=== PATIENT | female | born 1940 | race Caucasian/White ===

== ENCOUNTER 2017-01-23 06:34 | Day surgery (SDC) | payer MEDICARE, OTHER ==
[~2017-01-23] VITALS: Ht 162.6 cm; Wt 56.7 kg
[2017-01-23] MEDS ORDERED: SODIUM BICARBONATE 100 MEQ in D5W 1000 ML IV SCH (08:00)
[2017-01-23] MEDS ORDERED: HYDR12.56 PO (08:10)
[2017-01-23] MEDS ORDERED: ALPR.5 PO (08:10)
[2017-01-23] MEDS ORDERED: ALLE10TA10 PO (08:10)
[2017-01-23] MEDS ORDERED: POTA10TA8 PO (08:10)
[2017-01-23] MEDS ORDERED: GABA300C5 PO (08:10)
[2017-01-23] MEDS ORDERED: PLAV75TA29 PO (08:10)
[2017-01-23] MEDS ORDERED: LOSA50TA PO (08:10)
[2017-01-23] MEDS ORDERED: REQU4TAB3 PO (08:10)
[2017-01-23] MEDS ORDERED: METO25TA3 PO (08:10)
[2017-01-23] MEDS ORDERED: ATOR40TA16 PO (08:10)
[2017-01-23] MEDS ORDERED: PROT40TA PO (08:10)
[2017-01-23 08:13] LABS: AUTOMATED NEUTROPHIL # 2.4 TH/MM3 (1.8-7.7); BASOPHIL # 0.1 TH/MM3 (0-0.2); BASOPHIL % 1.3 % (0.0-2.0); EOSINOPHIL # 0.3 TH/MM3 (0-0.4); EOSINOPHIL % 5.6 % (0.0-4.0); HEMATOCRIT 33.5 % (35.0-46.0); HEMO FLAGS DIFF FINAL; LYMPHOCYTE # 2.1 TH/MM3 (1.0-4.8); MEAN CELL VOLUME 91.4 FL (80.0-100.0); MEAN CORPUSCULAR HEMOGLOBIN 30.9 PG (27.0-34.0); MEAN CORPUSCULAR HGB CONC 33.8 % (32.0-36.0); MONO % 11.6 % (0.0-8.0); NEUT % 43.5 % (16.0-70.0); PLATELET COUNT 255 TH/MM3 (150-450); RED BLOOD COUNT 3.66 MIL/MM3 (4.00-5.30); RED CELL DISTRIBUTION WIDTH 15.8 % (11.6-17.2); WHITE BLOOD COUNT 5.5 TH/MM3 (4.0-11.0)
[2017-01-23] MEDS ORDERED: HEPARIN-NS/PF INJ 500 ML ONE (08:36)
[2017-01-23] MEDS ORDERED: MIDAZOLAM HCL 2 MG/2 ML VIAL ONE (08:36)
[2017-01-23] MEDS ORDERED: methylPREDNISolone SOD SUCC 125 MG/2 ML VIAL ONE (08:38)
[2017-01-23 08:39] LABS: POTASSIUM 4.1 MEQ/L (3.5-5.1)
--- NOTE | 2017-01-23 09:03 | HHI.PR ---
Immediate Post Op Note Procedure Date: January 23, 2017 Pre Op Diagnosis: L LE rest pain, PAD, occluded bypass Post Op Diagnosis: L LE rest pain, PAD, occluded bypass Surgeon: Kishore Eugene Maintenance Shop Technician(s): none Procedure: L LE angiogram Findings: patent ABF limb and profunda occluded END TRIMMER-AK pop bypass BK pop reconstitution with 3 vessel runoff to foot Complications: none apparent Specimen(s) removed: none Estimated blood loss: 5mL Anesthesia: MAC Drains: None Patient to: Other (DOCU) Patient Condition: Good Date/Time of Procedure: SEE SURGICAL CARE RECORD Kishore Eugene MD January 23, 2017 09:03
--- NOTE | 2017-01-23 09:14 | CATHPROC ---
[employer] HIS Report Study Information Study Number Admission Scheduled Start Study Start [id number] 01/23/2017 01/23/2017 Jan 23 2017 8:24AM Referring Institution Admit Source Facility Department 1 Other [facility] Spring Inspector Physician and Clinical Staff Initial Kishore Perez Tape Deck Installer Jamila Nixon,RN Recorder Gustavo Martinez,RT(R) Jozef Narayan,RT(R) Equipment Time Card Hanger Description Size Mfg Part Number Used/Scraped INTRODUCER SET, [id number] 08:26 [employer] FR 5 Used MICROPUNCTURE, STIFFENED SC-NT-U-SST 08:26 [employer] PACK, CCL CUSTOM * [id number] Used 08:26 MERIT [employer] PRESSURE TUBING 48" 48" [id number] Used 08:26 NAMIC TUBING, HIGH PRESSURE 20" 20" [id number] Used 08:54 NYCOMED OMNIPAQUE, 300 MG, 150ML 150ML [id number] Used History: Allergies Allergy Reaction Contrast Media Codeine Morphine Labs Hgb (g/dl) Hct (%) RBC (MIL/MM3) WBC (l/cumm) Platelets (thousands) 12.00-18.00 37.00-55.00 4.80-6.20 4.80-10.80 140.00-450.00 11.3 33.5 3.6 5.5 255 Glucose (mg/dl) BUN (mg/dl) Creatinine (mg/dl) BUN:Creatinine (1:x) 60.00-110.00 8.00-20.00 0.10-9.00 10.00-20.00 77 17 0.8 21.3 Na (meq/l) K (meq/l) Cl (meq/l) CO2 (mmol/L) Ca (mg/dl) 138.00-146.00 3.80-5.10 101.00-111.00 23.00-30.00 9.00-10.50 133 4.1 98 26 9.1 CPK-MB (ng/ML) 0.00-7.00 Not Drawn Medication Medication Total Dose (Bolus/Oral) Medication Total Dosage/Unit 1% XYLOCAINE 10 mL FENTANYL 50 mcg SOLU-MEDROL 125 mg VERSED 1 mg Medications (Bolus/Oral) Medication Time Given Dosage/Unit Administered By Reason SOLU-MEDROL 01/23/2017 8:43:17 AM 125 mg Adamy, Jamila 125 mg SOLU-MEDROL given in lab by Jamila Nixon, GWEN in Right Arm via Peripheral IV. Ordered by Kishore Merritt. VERSED 01/23/2017 8:52:25 AM 1 mg Adamy, Jamila 1 mg VERSED given in lab by Jamila Nixon, GWEN via Peripheral IV. Ordered by Kishore Eugene. FENTANYL 01/23/2017 8:53:12 AM 50 mcg Adamy, Jamila 50 mcg FENTANYL given in lab by Jamila Nixon, GWEN via Peripheral IV. Ordered by Kishore Eugene. 1% XYLOCAINE 01/23/2017 8:54:07 AM 10 mL Kishore Eugene 10 mL 1% XYLOCAINE given in lab by Kishore Eugene in Left Groin via Subcutaneous. Ordered by Kishore Eugene. Initial Case Assessment Cardiovascular HR Rhythm NIBP Chest Pain 68 SR 169/55 0 Edema Present Skin color Skin None Normal Warm Dry Circulatory - Right Pulses Dorsalis Pedis Posterior Tibial Femoral d d 3 Scale (0,1,2,3,4,d) Circulatory - Left Pulses Dorsalis Pedis Posterior Tibial Femoral d d 3 Scale (0,1,2,3,4,d) Neurological State Oriented to time-place- Alert Moves all extremities person Respiration - General Respiration Rate SpO2 (%) O2 (lpm) (B/min) 18 98 0 Final Case Assessment Cardiovascular HR Rhythm NIBP 65 sr 128/60 Edema Present Skin color Skin None Normal Warm Dry Circulatory - Right Pulses Dorsalis Pedis Posterior Tibial Femoral d d 3 Scale (0,1,2,3,4,d) Circulatory - Left Pulses Dorsalis Pedis Posterior Tibial Femoral d d 3 Scale (0,1,2,3,4,d) Neurological State Oriented to time-place- Alert Moves all extremities person Respiration - General Respiration Rate SpO2 (%) O2 (lpm) (B/min) 18 99 0 Chronological Log Time Study Chronological Log 8:35:46 Patient arrived via Bed. 8:35:47 Patient Name, D.O.B, / Armband Verified By R.N. 8:35:49 Consent signed by the physician and the patient and verified by the Spring Inspector staff. 8:35:53 Pre-op and post- op instructions given; patient acknowledges understanding of instructions. 8:35:56 Verbal Stimulation=2 Physical Stimulation=2 Airway=2 Respiration=2 TOTAL=8. (0=absent, 1=li mited, 2=present) 8:36:05 Presedation assessment performed by Spring Inspector RN. 8:36:07 Patient has been NPO for More than 6Hrs. 8:43:17 125 mg SOLU-MEDROL given in lab by Jamila Nixon RN in Right Arm via Peripheral IV. Orde red by Kishore Eugene. Vitals capture started with the following parameters, Patient=Adult, Interval=5 min, Initial Pr dkqsgz=788 mmHg, 8:44:25 Deflation Rate=5 mmHg 8:46:12 HR=70 bpm, COZI=958/74 mmhg, SpO2=95 %, Cooper=2 8:49:08 Vitals capture stopped. Vitals capture started with the following parameters, Patient=Adult, Interval=5 min, Initial Pr vtystb=857 mmHg, 8:49:09 Deflation Rate=5 mmHg 8:49:58 HR=69 bpm, EKPW=911/55 mmhg, SpO2=71.0 %, Resp=11 B/min, Cooper=2 8:50:36 Patient Warmer Placed on the Table. 8:50:44 A # 20 IV was noted in the Upper Arm (right). Grade = 0 8:51:45 History and physical on the chart or being dictated. Assessment: Initial Case, HR=68 BPM, Rhythm=SR, NVDB=984/55 mmhg, Chest Pain=0, Edema=None, Col or=Normal, Skin = Warm, Dry Right Pulses: Rajesh Ped=d, Post Tib=d, Femoral=3 8:51:53 Left Pulses: Rajesh Ped=d, Post Tib=d, Femoral=3 Neurological: State=Alert, Ox3, SYED Respiration: Resp=18 B/min, SpO2=98 %, O2=0 lpm 8:52:25 1 mg VERSED given in lab by Jamila Nixon, GWEN via Peripheral IV. Ordered by Jake Eugene 8:52:39 Bilateral groins prepped with 2% chlorhexidine, and with a 3 min. waiting time. 8:53:12 50 mcg FENTANYL given in lab by Jamila Nixon, GWEN via Peripheral IV. Ordered by Siddhartha Eugene. Time Out. Correct patient, correct procedure,correct physician, ,power injector not loaded with contrast with surgical 8:53:41 team present. Time Out Concurred by MD, individual staff and MATERIAL MOVER in procedure. Not loaded at t his time. 8:54:06 Case Start 8:54:07 10 mL 1% XYLOCAINE given in lab by Kishore Eugene in Left Groin via Subcutaneous. Ordered b Kishore Ennis. 8:54:16 Access site was Left Femoral Artery. A INTRODUCER SET, MICROPUNCTURE, STIFFENED FR 5 was advanced into the Fem Art (left) using the Modified 8:54:21 Seldinger technique. 8:54:42 Manual injections down left leg through 5 uruguayan micropuncture sheath. 8:54:46 HR=69 bpm, GWYT=395/86 mmhg, UiL5=985.0 %, Resp=21 B/min, Cooper=2 8:56:45 Sheath removed; pressure applied to access site. left groin. 8:57:54 Case End 8:59:45 HR=64 bpm, OBMW=377/51 mmhg, NdZ0=922.0 %, Resp=19 B/min 9:04:47 HR=62 bpm, HFXJ=666/59 mmhg, BnI8=398.0 %, Resp=21 B/min, Cooper=2 9:09:43 HR=61 bpm, EZDA=337/60 mmhg, Resp=24 B/min, Cooper=2 9:11:32 Vitals capture stopped. 9:11:48 Bedside Report will be given. Assessment: Final Case, HR=65 BPM, Rhythm=sr, YNNE=943/60 mmhg, Edema=None, Color=Normal, Skin = Warm, Dry Right Pulses: Rajesh Ped=d, Post Tib=d, Femoral=3 9:11:56 Left Pulses: Rajesh Ped=d, Post Tib=d, Femoral=3 Neurological: State=Alert, Ox3, SYED Respiration: Resp=18 B/min, SpO2=99 %, O2=0 lpm 9:13:04 Sterile dressing applied to site 9:13:09 No case complications noted. 9:13:11 Cine recording checked. 9:13:16 Bedside Report will be given. 9:13:25 Contrast Scanned 9:13:27 Patient moved to stretcher End Study - Contrast Media Used In Study Contrast Total Opened (mL) Total Used (mL) Total Wasted (mL) Omnipaque 25 25 0 End Study - Maximum Contrast Load Max Contrast Load (mL) 354.3 End Study - Radiation Exposure Fluoro Time (minutes) 0.6 End Study - Patient Disposition Complications Transferred To Telemetry Bed
[2017-01-23] MEDS ORDERED: IOHEXOL 350 MG/ML 50 ML BTL (for Cath Lab) OTHER ONE (15:40)
--- NOTE | 2017-01-24 13:30 | MP ---
cc: CANDACE EUGENE MD DATE OF SURGERY 01/23/2017 PREOPERATIVE DIAGNOSIS Left lower extremity graft failed distal bypass. POSTOPERATIVE DIAGNOSIS Left lower extremity graft failed distal bypass. PROCEDURE Left lower extremity angiogram. ATTENDING SURGEON Candace Eugene MD RESIDENT SURGEON None ANESTHESIA Local with sedation INDICATIONS Ms. Saunders is a 76 year-old lady with a history of an aortobifemoral bypass graft in the left lower extremity. The infrarenal bypass is felt to be occluded by preoperative examination. She is being taken to the operating room for angiographic evaluation. There was no prior catheterization imaging available for my review. DESCRIPTION OF PROCEDURE Informed consent was obtained from the patient. She was taken to the operating room and placed supine on the operating room table. An appropriate time out was taken to ensure the patient's identify, operative site and planned procedure. No antibiotics were necessary as this is a clean procedure without planned implantation of any foreign object. Everyone in the room agreed with the time out and we proceeded. Her bilateral groins were prepped and draped. The left groin was anesthetized with 1% lidocaine. A 21 gauge micropuncture needle was used to access the left ABF limb. This was exchanged using Seldinger technique through the micropuncture sheath through which a left lower extremity angiogram was obtained. The micropuncture sheath was removed and pressure was held for hemostasis. There were no complications. I was present and scrubbed for the entire procedure. INTERPRETATION IMAGES The patient has a patent aortobifemoral limb that has excellent profunda outflow. The campo SFA and prosthetic femoral-popliteal bypass is occluded. The popliteal artery is diseased, but reconstitutes via profunda collaterals. Below knee popliteal artery looks good and there is three vessel runoff to the foot. MD MELISSA Moeller/TWYLA /9:08 AM /1:22 PM TERESE
== END 2017-01-23 13:53 | disposition home or self-care (01) ==
LOC: HDOC 06:34 → HDIC 06:35 → HDOC 13:53
PROVIDERS: ATTEND Surgery
DX: T82.868A Thrombosis due to vascular prosthetic devices, implants and grafts, initial encounter (principal); Z79.01 Long term (current) use of anticoagulants
CPT/HCPCS: 36140; 75710; 80048; 85025; J1644; J2250; J2930; J3010; Q9967

== ENCOUNTER 2017-02-02 11:17 | Inpatient (IN) | payer MEDICARE, OTHER ==
[~2017-02-02] VITALS: Ht 158.8 cm; Wt 60.0 kg
[~2017-02-02 11:17] MED LIST changes: -HYDR25TA5 PO; -ISOS30TA3 PO; -NORC5TAB PO; -NYST1000 SWISH-SWAL; -WALKER WHEELS/F1 MIS
[2017-02-06] VITALS (12 sets, daily range): BP systolic 139–164; BP diastolic 55–62; PULSE 57–83; RESP 16–20; TEMP 96.7–98.2; O2SAT 96–100
[2017-02-06] MEDS ORDERED: INSULIN HUMAN REGULAR 1,000 UNITS/10 ML VIAL SQ PRN (06:15)
[2017-02-06] MEDS ORDERED: LACTATED RINGER'S 1000 ML IV PRN (06:15)
[2017-02-06] MEDS ORDERED: CHLORHEXIDINE GLUCONATE 2 % 1 PACK (2 CLOTHS) TOPICAL PRN (06:15)
[2017-02-06] MEDS ORDERED: POVIDONE IODINE 5% (ANTISEPSIS KIT) 4 APPLICATIONS EACH NARE PRN (06:15)
[2017-02-06] MEDS ORDERED: METOPROLOL TARTRATE 25 MG TAB PO PRN (06:15)
[2017-02-06] MEDS ORDERED: SODIUM CHLORID 0.9% 500 ML IV PRN (06:15)
[2017-02-06] MEDS ORDERED: ISOS30TA3 PO (07:03)
[2017-02-06] MEDS ORDERED: ceFAZolin 2 GM PREMIX 50 ML ONE (07:20)
[2017-02-06] MEDS ORDERED: PROTAMINE SULFATE 50 MG/5 ML VIAL ONE (07:20)
[2017-02-06] MEDS ORDERED: HEPARIN SODIUM - SQ 10,000 UNITS/ML VIAL ONE (07:20)
[2017-02-06] MEDS ORDERED: HEPARIN SODIUM - IV 10,000 UNITS/10 ML VIAL ONE (07:20)
--- NOTE | 2017-02-06 09:23 | PD.VS.PN ---
Pre-operative Note Pre-operative diagnosis: PAD, failed distal bypass, rest pain LEFT leg Planned procedure: LEFT leg bypass with vein from either leg, arm or prosthetic Interval History: Pt been feeling well; ready for surgery Blood: T&S Orders: NPO Post-operative destination: PACU, [facility] Operative site marked: Yes Consent: Informed consent has been obtained from Siena Saunders. I have explained the procedure in detail and discussed the risks, benefits, and potential complications. All questions have been answered. Kishore Eugene MD February 06, 2017 09:23
[2017-02-06] MEDS ORDERED: BUPIVACAINE/EPINEPHRINE 0.5% 50 ML VIAL ONE (10:50)
[2017-02-06] MEDS ORDERED: VANCOMYCIN HCL 1000 MG VIAL ONE (10:50)
[2017-02-06] MEDS ORDERED: THROMBIN (TOPICAL) 20,000 UNIT SPRAY KIT OTHER ONE (11:11)
[2017-02-06] MEDS ORDERED: ONDANSETRON HCL 4 MG/2 ML VIAL IV PUSH ONE (12:00)
[2017-02-06] MEDS ORDERED: PROPOFOL 200 MG/20 ML AMP IV ONE (12:00)
[2017-02-06] MEDS ORDERED: PHENYLEPH/NS 1000 MCG/10 ML SYR IV ONE (12:00)
[2017-02-06] MEDS ORDERED: LACTATED RINGER'S 1000 ML INJ 2,000 ML IV ONE (12:00)
[2017-02-06] MEDS ORDERED: ePHEDrine/NS 25 MG/5 ML SYR IV ONE (12:00)
--- NOTE | 2017-02-06 12:44 | HHI.PR ---
Immediate Post Op Note Procedure Date: February 06, 2017 Pre Op Diagnosis: PAD, L LE rest pain, failed distal bypass Post Op Diagnosis: PAD, L LE rest pain, failed distal bypass Surgeon: Kishore Eugene Systems Test Analyst(s): Constantino Benites Procedure: 1. L fem-BK pop bypass with PTFE 2. L BK pop vein patch (GSV) 3. Re-do bypass Findings: small and unusable L GSV and R cephalic vein Good signals in PT at conclusion of case Complications: none apparent Specimen(s) removed: none Estimated blood loss: 150mL Anesthesia: General Drains: None Fluids: 1750 mL x'oid; 400 mL UOP IVF Patient to: PACU Patient Condition: Good Implant/Devices: SEE IMPLANT LOG (if applicable) Date/Time of Procedure: SEE SURGICAL CARE RECORD Kishore Eugene MD February 06, 2017 12:44
[2017-02-06] MEDS ORDERED: HYDROmorphone HCL 2 MG TAB PO PRN (13:00)
[2017-02-06] MEDS ORDERED: fentaNYL CITRATE 250 MCG/5 ML AMP ONE (13:10)
[2017-02-06] MEDS ORDERED: *HYDROmorphone PF 1 MG VIAL PERIprocedural Use ONLY ONE ×2 (13:15→13:32)
[2017-02-06] MEDS: LACTATED RINGER'S 1000 ML INJ 1,000 ML IV SCH (13:45)
[2017-02-06] MEDS ORDERED: PILL SPLITTER OTHER PRN (14:00)
--- NOTE | 2017-02-06 14:23 | RADRPT ---
EXAM DATE/TIME: 02/06/2017 13:27 [facility] COMPARISON: CHEST PA & LAT, February 02, 2017, 12:14. INDICATIONS : Central line placement. MEDICAL HISTORY : None. SURGICAL HISTORY : aortic bypass ENCOUNTER: Initial ACUITY: 1 day PAIN SCORE: 0/10 LOCATION: Bilateral chest FINDINGS: Single AP view of the chest demonstrates a normal-sized cardiac silhouette with calcification of the aorta. Right IJ line distal tip is in the SVC at the cavoatrial junction. No pneumothorax is visualiz ed. Lungs are underinflated there is mild interstitial opacity at the right lung base. No pleural eff usion is visualized. CONCLUSION: 1. Right IJ line tip in the SVC near the cavoatrial junction. No pneumothorax is visualized. 2. New interstitial opacity at the right lung base could represent atelectasis versus an interstitial process. Chava Lozano MD on February 06, 2017 at 14:20 Board Certified Radiologist. This report was verified electronically.
[2017-02-06] MEDS: GABAPENTIN 300 MG CAP PO SCH ×2 (15:23→17:22)
[2017-02-06] MEDS: HYDROmorphone HCL 2 MG TAB PO PRN ×3 (15:45→19:53)
[2017-02-06] MEDS: HYDROCHLOROTHIAZIDE 12.5 MG CAP PO SCH (17:22)
[2017-02-06] MEDS: METOPROLOL TARTRATE 25 MG TAB PO SCH (19:52)
[2017-02-06] MEDS: POTASSIUM CHLORIDE 10 MEQ CONTROLLED RELEASE TAB PO SCH (19:52)
[2017-02-06] MEDS: ATORVASTATIN 40 MG TAB PO SCH (19:52)
[2017-02-06] MEDS: DOCUSATE SODIUM 100 MG CAP PO SCH (19:53)
[2017-02-07] VITALS (25 sets, daily range): BP systolic 103–153; BP diastolic 57–76; PULSE 66–88; RESP 16–18; TEMP 98–99.4; O2SAT 96–99
[2017-02-07] MEDS: HYDROmorphone HCL 2 MG TAB PO PRN ×3 (00:32→08:15)
[2017-02-07] MEDS: LACTATED RINGER'S 1000 ML INJ 1,000 ML IV SCH (04:43)
[2017-02-07 06:25] LABS: HEMATOCRIT 26.5 % (35.0-46.0); MEAN CELL VOLUME 91.2 FL (80.0-100.0); MEAN CORPUSCULAR HEMOGLOBIN 30.9 PG (27.0-34.0); MEAN CORPUSCULAR HGB CONC 33.9 % (32.0-36.0); PLATELET COUNT 209 TH/MM3 (150-450); RED BLOOD COUNT 2.91 MIL/MM3 (4.00-5.30); RED CELL DISTRIBUTION WIDTH 15.9 % (11.6-17.2); REVIEW FLAG FINAL; WHITE BLOOD COUNT 7.3 TH/MM3 (4.0-11.0)
[2017-02-07 06:50] LABS: BICARBONATE 26.4 MEQ/L (21.0-32.0); POTASSIUM 3.8 MEQ/L (3.5-5.1)
[2017-02-07] MEDS: ISOSORBIDE MONONITRATE 30 MG TAB PO SCH (08:13)
[2017-02-07] MEDS: LOSARTAN 50 MG TAB PO SCH (08:13)
[2017-02-07] MEDS: GABAPENTIN 300 MG CAP PO SCH ×3 (08:14→17:47)
[2017-02-07] MEDS: POTASSIUM CHLORIDE 10 MEQ CONTROLLED RELEASE TAB PO SCH ×2 (08:14→20:01)
[2017-02-07] MEDS: PANTOPRAZOLE SOD 40 MG DELAYED RELEASE TAB PO SCH (08:14)
[2017-02-07] MEDS: HYDROCHLOROTHIAZIDE 12.5 MG CAP PO SCH ×2 (08:14→17:48)
[2017-02-07] MEDS: METOPROLOL TARTRATE 25 MG TAB PO SCH ×2 (08:15→20:01)
[2017-02-07] MEDS: DOCUSATE SODIUM 100 MG CAP PO SCH ×2 (08:15→20:01)
[2017-02-07] MEDS: ASPIRIN 81 MG CHEW TAB PO SCH (08:15)
--- NOTE | 2017-02-07 08:44 | PD.VS.PN ---
Subjective POD #: 1 Procedure(s): L fem-BK pop with Propaten Subjective/Hospital Course Nauseated last night which she attributes to pain medication. L foot feels great. Anxious to get OOB Objective Vitals/I&O Date Time Temp Pulse Resp B/P Pulse Ox O2 Delivery O2 Flow Rate FiO2 02/07/17 06:37 78 02/07/17 05:00 98.1 77 18 103/57 97 02/07/17 05:00 84 02/07/17 04:00 78 02/07/17 03:00 81 02/07/17 03:00 98.0 80 16 153/58 96 02/07/17 02:22 80 02/07/17 01:43 79 02/07/17 00:25 81 02/06/17 23:04 74 02/06/17 22:00 98.2 82 16 141/55 97 02/06/17 22:00 83 02/06/17 21:00 80 02/06/17 20:00 98.2 74 20 144/56 96 02/06/17 20:00 76 02/06/17 19:00 74 02/06/17 18:03 72 02/06/17 17:32 97.3 18 156/62 100 02/06/17 17:00 70 02/06/17 16:00 62 02/06/17 15:20 97.3 18 164/62 02/06/17 15:00 61 02/06/17 14:00 97.3 57 14 144/67 96 Nasal Cannula 2 02/06/17 13:45 57 14 157/70 97 Nasal Cannula 2 02/06/17 13:30 58 15 150/65 98 Nasal Cannula 2 02/06/17 13:15 60 14 177/68 99 Nasal Cannula 3 02/06/17 13:00 96.2 63 14 182/78 100 Nasal Cannula 3 Exam: L groin vac in place L leg incisions c/d/i palpable PT, foot warm, motor intact Pulses: palpable PT Laboratory Laboratory Tests Test 02/07/17 04:38 White Blood Count 7.3 Red Blood Count 2.91 Hemoglobin 9.0 Hematocrit 26.5 Mean Corpuscular Volume 91.2 Mean Corpuscular Hemoglobin 30.9 Mean Corpuscular Hemoglobin 33.9 Concent Red Cell Distribution Width 15.9 Platelet Count 209 Mean Platelet Volume 8.9 Sodium Level 135 Potassium Level 3.8 Chloride Level 99 Carbon Dioxide Level 26.4 Anion Gap 10 Blood Urea Nitrogen 8 Creatinine 0.78 Estimat Glomerular Filtration 72 Rate Random Glucose 101 Calcium Level 8.7 Assessment and Plan Plan 1. D/C [place] at noon 2. OOB w/ PT - ordered 3. Reg diet 4. Continue ASA/plavix 5. Salt water gargle for oral sore for patient comfort Discharge Planning likely 2-3 days Kishore Eugene MD February 07, 2017 08:44
--- NOTE | 2017-02-07 11:11 | MP ---
cc: CANDACE EUGENE MD DATE OF SURGERY February 06, 2017 PREOPERATIVE DIAGNOSIS Left lower extremity rest pain, peripheral arterial occlusive disease and failed distal bypass. POSTOPERATIVE DIAGNOSIS Left lower extremity rest pain, peripheral arterial occlusive disease and failed distal bypass. PROCEDURE 1. Left femoral to below-knee popliteal artery bypass with 6-mm Propaten. 2. Re-do bypass. 3. Cuff greater saphenous vein patch at the distal anastomosis. ATTENDING SURGEON Candace Eugene MD DIRECTOR OF PEDIATRIC REHABILITATION SURGEON Constantino Benites ANESTHESIA General. INDICATIONS Ms. Saunders is a 76-year-old lady with a previous aortobifemoral bypass graft and a fem-pop bypass. The latter has occluded. By physical examination and angiogram suggest that she had adequate inflow and a below knee popliteal artery outflow. She was taken to the operating room for this. Intraoperatively the greater saphenous vein was noted to be quite small and unusable as an autogenous conduit. Additionally, intraoperatively it was found that the right cephalic vein was small and unusable as a conduit. The decision was then made to perform a prosthetic bypass with a vein cuff. DESCRIPTION OF PROCEDURE Informed consent was obtained from the patient. She was taken to the operating room and placed supine on the operating room table and appropriate time-out was taken to insure the patient's identify, operative site and planned procedure. The administration of 2 grams of Ancef was initiated prior to the skin incision and will be discontinued after a single preoperative dose. Everyone in the room agreed with the time-out and we proceeded. Her right arm and torso and lower extremity was circumferentially prepped and draped. A vertical incision was made in the patient's left groin and carried down through the subcutaneous tissue with electrocautery. The previous aortobifemoral bypass graft limb was identified and dissected free sufficient to clamp it. Incision was made in below-knee calf, carried down through the subcutaneous tissue with electrocautery. The muscles were retracted posteriorly and the popliteal vein was identified and retracted posteriorly and the below-knee popliteal artery was identified and dissected free for several cm. A tunnel was then created between these two with a linear tunneler. An incision was made on the medial aspect of the left calf using ultrasonographic guidance and the saphenous vein was identified. It was noted to be about 2-mm wide. It was dissected free for several cm. The right cephalic vein was previously mapped to be adequate size but intraoperatively was found under ultrasound interrogation to be very small except for a short, 1/2-upper arm length. Therefore it was inadequate caliber for sufficient enough distance to use as a single piece conduit and there was no other available autogenous conduit. A 6 mm Propaten was then brought up onto the field. The patient was systemically heparinized and throughout the remainder of the case the ACT was kept greater than 250 with additional boluses of heparin. Proximal and distal control of the ABF limb were obtained with profunda clamps and a longitudinal arteriotomy was made with the 11 blade, extended with Parvez scissors. The graft was spatulated and sewn end-to-side with running 5-0 Prolene suture. At the completion it was flushed, noted to be hemostatic. A Sheila Softgel was placed on the graft. The saphenous vein on thigh incision was clamped proximally and distally with right-angles and transected and the proximal ends were oversewn with 3-0 silk. The vein was spatulated and flushed with saline. Proximal and distal control of the below-knee popliteal artery were obtained with profunda clamps and a longitudinal arteriotomy was made with an 11 blade, extended with Parvez scissors. The patch was sewn onto the saphenous vein, fashioned into a patch and sewn on using running 6-0 Prolene suture. A longitudinal patchotomy was made with an 11 blade, extended with [place] scissors and the Propaten was cut to an appropriate length and spatulated and sewn end-to-side to the vein patch. This was done using running 5-0 Prolene [place]-Qamar suture. The clamp was released. Anastomotic bleeding was repaired with simple suturing. There was a nice Doppler signal in the foot that was graft dependent. Heparin was reversed with protamine and all the wounds were closed with 2-0 Polysorb, 3-0 Polysorb, and 4-0 Monocryl. The sponge, needle and instrument counts were correct at the end of the case. I was present and scrubbed and performed the entire procedure. MD MELISSA Moeller/NATANAEL /12:59 PM /10:46 AM
[2017-02-07] MEDS: ENOXAPARIN SODIUM 40 MG/0.4 ML SYRINGE SQ SCH (12:36)
[2017-02-07] MEDS: HYDROmorphone HCL PF 1 MG/ML VIAL IV PUSH PRN ×2 (12:36→20:03)
[2017-02-07] MEDS: ATORVASTATIN 40 MG TAB PO SCH (20:00)
[2017-02-08] VITALS (26 sets, daily range): BP systolic 116–140; BP diastolic 62–73; PULSE 64–90; RESP 16–17; TEMP 97.8–99.7; O2SAT 95–100
[2017-02-08] MEDS: HYDROmorphone HCL PF 1 MG/ML VIAL IV PUSH PRN ×5 (00:04→21:42)
[2017-02-08] MEDS: CALCIUM CARBONATE 500 MG CHEWABLE TAB CHEW PRN ×4 (05:08→17:09)
--- NOTE | 2017-02-08 08:09 | PD.VS.PN ---
Subjective POD #: 2 Procedure(s): L fem-BK pop with Propaten Subjective/Hospital Course Doing well. Leg hurts with standing but not resting. Passing gas but no BM yet. Tooks small steps yesterday Objective Vitals/I&O Date Time Temp Pulse Resp B/P Pulse Ox O2 Delivery O2 Flow Rate FiO2 02/08/17 06:02 77 02/08/17 05:41 78 02/08/17 04:33 81 02/08/17 03:20 99.7 84 16 116/62 95 02/08/17 03:13 83 02/08/17 02:06 82 02/08/17 01:13 90 02/08/17 00:17 83 02/07/17 23:35 98.1 78 16 136/73 99 02/07/17 23:35 88 02/07/17 22:40 81 02/07/17 21:00 78 02/07/17 20:30 76 02/07/17 19:20 81 02/07/17 19:20 98.1 78 16 148/76 99 02/07/17 18:05 74 02/07/17 17:00 72 02/07/17 16:57 74 02/07/17 15:52 98.6 81 18 135/66 02/07/17 15:00 69 02/07/17 14:36 70 02/07/17 13:00 71 02/07/17 12:00 66 02/07/17 11:00 98.1 71 18 105/62 97 02/07/17 11:00 74 02/07/17 10:00 66 02/07/17 09:13 79 02/08/17 02/08/17 02/08/17 07:00 15:00 23:00 Intake Total 480 ml Output Total 1050 ml Balance -570 ml Exam: L leg incisions ok. Groin VAC in place Palpable PT Assessment and Plan Plan 1. Transition to po pain meds 2. Start peripheral IV and D/C CVL once started 3. PT/OOB Discharge Planning likely 1-2 days. Pt requested rehab which I think is reasonable. Kishore Eugene MD February 08, 2017 08:09
[2017-02-08] MEDS: PANTOPRAZOLE SOD 40 MG DELAYED RELEASE TAB PO SCH (08:22)
[2017-02-08] MEDS: METOPROLOL TARTRATE 25 MG TAB PO SCH ×2 (08:23→21:43)
[2017-02-08] MEDS: HYDROCHLOROTHIAZIDE 12.5 MG CAP PO SCH ×2 (08:23→17:10)
[2017-02-08] MEDS: GABAPENTIN 300 MG CAP PO SCH ×3 (08:23→17:10)
[2017-02-08] MEDS: ISOSORBIDE MONONITRATE 30 MG TAB PO SCH (08:23)
[2017-02-08] MEDS: DOCUSATE SODIUM 100 MG CAP PO SCH ×2 (08:23→21:43)
[2017-02-08] MEDS: CLOPIDOGREL 75 MG TAB PO SCH (08:23)
[2017-02-08] MEDS: POTASSIUM CHLORIDE 10 MEQ CONTROLLED RELEASE TAB PO SCH ×2 (08:23→21:00)
[2017-02-08] MEDS: ASPIRIN 81 MG CHEW TAB PO SCH (08:23)
[2017-02-08] MEDS: LOSARTAN 50 MG TAB PO SCH (08:23)
[2017-02-08] MEDS: ENOXAPARIN SODIUM 40 MG/0.4 ML SYRINGE SQ SCH (12:00)
[2017-02-08] MEDS: HYDROmorphone HCL 2 MG TAB PO PRN (19:30)
[2017-02-08] MEDS: ATORVASTATIN 40 MG TAB PO SCH (21:43)
[2017-02-09] VITALS (25 sets, daily range): BP systolic 106–151; BP diastolic 49–73; PULSE 65–84; RESP 14–18; TEMP 97.7–98.5; O2SAT 98–100
[2017-02-09] MEDS: HYDROmorphone HCL PF 1 MG/ML VIAL IV PUSH PRN ×2 (02:56→09:00)
[2017-02-09] MEDS: PANTOPRAZOLE SOD 40 MG DELAYED RELEASE TAB PO SCH (08:11)
[2017-02-09] MEDS: CALCIUM CARBONATE 500 MG CHEWABLE TAB CHEW PRN ×2 (08:11→22:33)
[2017-02-09] MEDS: LOSARTAN 50 MG TAB PO SCH (08:50)
[2017-02-09] MEDS: POTASSIUM CHLORIDE 10 MEQ CONTROLLED RELEASE TAB PO SCH ×2 (08:50→21:00)
[2017-02-09] MEDS: ASPIRIN 81 MG CHEW TAB PO SCH (08:51)
[2017-02-09] MEDS: CLOPIDOGREL 75 MG TAB PO SCH (08:51)
[2017-02-09] MEDS: ISOSORBIDE MONONITRATE 30 MG TAB PO SCH (08:51)
[2017-02-09] MEDS: HYDROCHLOROTHIAZIDE 12.5 MG CAP PO SCH ×2 (08:51→18:00)
[2017-02-09] MEDS: GABAPENTIN 300 MG CAP PO SCH ×3 (08:52→18:06)
[2017-02-09] MEDS: DOCUSATE SODIUM 100 MG CAP PO SCH ×2 (08:52→22:32)
[2017-02-09] MEDS: METOPROLOL TARTRATE 25 MG TAB PO SCH ×2 (08:52→22:32)
--- NOTE | 2017-02-09 11:36 | PD.VS.PN ---
Subjective POD #: 3 Procedure(s): L fem-BK pop with Propaten Subjective/Hospital Course Pt sitting in chair with significant other at the BS Pt reported she had 2 BM this am Pt ambulated w/ PT yesterday slight discomfort to LLE noted with ambulation Pt transitioning to PO pain medication Objective Vitals/I&O Date Time Temp Pulse Resp B/P Pulse Ox O2 Delivery O2 Flow Rate FiO2 02/09/17 10:55 70 02/09/17 10:45 70 02/09/17 09:30 16 02/09/17 09:00 72 02/09/17 08:07 98.4 73 14 114/62 99 02/09/17 08:00 84 02/09/17 06:30 71 02/09/17 05:00 68 02/09/17 04:00 66 02/09/17 03:15 76 02/09/17 03:15 98.5 78 18 106/49 99 02/09/17 02:11 71 02/09/17 01:00 76 02/09/17 00:00 78 02/08/17 23:00 81 02/08/17 22:00 78 02/08/17 21:00 82 02/08/17 20:00 81 02/08/17 20:00 97.8 77 16 140/70 99 02/08/17 18:00 80 02/08/17 17:00 78 02/08/17 16:00 72 02/08/17 15:29 98.0 73 17 124/68 98 02/08/17 15:00 73 02/08/17 14:00 64 02/08/17 12:00 72 02/08/17 11:32 98.1 71 17 124/65 97 02/09/17 02/09/17 02/09/17 07:00 15:00 23:00 Intake Total 240 ml Output Total 200 ml Balance 40 ml Exam: GENERAL: A&OX3, NAD, GCS15 SKIN: Warm and dry. Wound vac to L groin intact w/ no hematoma/ Incision to LLE intact with surgical glue, no s/d/o present CARDIOVASCULAR: +S1,S2, RRR RESPIRATORY: BS CTA BILAT GASTROINTESTINAL: Abdomen S/NT MUSCULOSKELETAL: No cyanosis, mild non pitting edema to LLE/ Bilat feet warm to touch, motor intact Strong palpable DP/PT bilat LE Assessment and Plan Plan Plan Continue PT/OOB (ambulation with walker) Transition to po pain meds Shelly BURTON [facility] [phone] Discharge Planning D/C planning (1-2 days) Pt requested rehab ([place] location) Shelly Cabral February 09, 2017 11:36
[2017-02-09] MEDS ORDERED: WALKER WHEELS/F1 MIS (12:02)
[2017-02-09] MEDS: ACETAMINOPHEN/HYDROcodone 325 MG/5 MG TAB PO PRN ×3 (12:07→23:43)
[2017-02-09] MEDS: ENOXAPARIN SODIUM 40 MG/0.4 ML SYRINGE SQ SCH (12:08)
[2017-02-09] MEDS: ATORVASTATIN 40 MG TAB PO SCH (22:32)
[2017-02-09] MEDS: ALPRAZolam 0.5 MG TAB PO PRN (22:32)
[2017-02-10] VITALS (13 sets, daily range): BP systolic 102–142; BP diastolic 47–67; PULSE 57–85; RESP 16–18; TEMP 97.4–98.4; O2SAT 96–100
[2017-02-10] MEDS: PANTOPRAZOLE SOD 40 MG DELAYED RELEASE TAB PO SCH (08:06)
[2017-02-10] MEDS: LOSARTAN 50 MG TAB PO SCH (08:06)
[2017-02-10] MEDS: METOPROLOL TARTRATE 25 MG TAB PO SCH ×2 (08:07→20:04)
[2017-02-10] MEDS: GABAPENTIN 300 MG CAP PO SCH ×3 (08:08→18:02)
[2017-02-10] MEDS: CLOPIDOGREL 75 MG TAB PO SCH (08:08)
[2017-02-10] MEDS: ACETAMINOPHEN/HYDROcodone 325 MG/5 MG TAB PO PRN ×3 (08:08→20:04)
[2017-02-10] MEDS: HYDROCHLOROTHIAZIDE 12.5 MG CAP PO SCH ×2 (08:09→18:03)
[2017-02-10] MEDS: ISOSORBIDE MONONITRATE 30 MG TAB PO SCH (08:09)
[2017-02-10] MEDS: DOCUSATE SODIUM 100 MG CAP PO SCH ×2 (08:09→20:04)
[2017-02-10] MEDS: POTASSIUM CHLORIDE 10 MEQ CONTROLLED RELEASE TAB PO SCH ×2 (08:09→20:04)
[2017-02-10] MEDS: ASPIRIN 81 MG CHEW TAB PO SCH (08:10)
--- NOTE | 2017-02-10 09:36 | PD.VS.PN ---
Subjective POD #: 4 Procedure(s): L fem-BK pop with Propaten Subjective/Hospital Course Pt laying in bed reported she had a good night Pain controlled Pt ambulated w/ PT yesterday 80 feet Mild edema to R foot noted Wound vac removed from Left groin this am Objective Vitals/I&O Date Time Temp Pulse Resp B/P Pulse Ox O2 Delivery O2 Flow Rate FiO2 02/10/17 06:00 85 02/10/17 05:00 61 02/10/17 04:00 59 02/10/17 03:30 98.0 66 16 103/50 96 02/10/17 03:00 57 02/10/17 02:00 58 02/10/17 01:00 62 02/10/17 00:00 70 02/09/17 23:10 98.5 75 16 120/57 98 02/09/17 23:00 69 02/09/17 22:00 72 02/09/17 21:00 70 02/09/17 20:00 68 02/09/17 19:45 97.7 70 16 136/73 100 02/09/17 19:00 65 02/09/17 18:44 70 02/09/17 16:15 72 02/09/17 16:15 98.1 69 14 151/68 99 02/09/17 15:11 65 02/09/17 14:37 71 02/09/17 13:10 16 02/09/17 13:01 68 02/09/17 12:00 68 02/09/17 12:00 97.9 68 16 120/71 98 02/09/17 10:55 70 02/09/17 10:45 70 02/09/17 09:30 16 02/10/17 02/10/17 02/10/17 07:00 15:00 23:00 Intake Total 240 ml Output Total 600 ml Balance -360 ml Exam: GENERAL: A&OX3, Pleasant 76/F patient in NAD SKIN: Warm and dry, Left groin incision intact with erythema at the incision line and mild serosanguineous drainage at the distal end. NO swelling or odor present, LLE incision intact with surgical glue NO R/D/S CARDIOVASCULAR: +S1,S2, RRR w/o M/G/R RESPIRATORY: BS CTA GASTROINTESTINAL: Abdomen S/NT MUSCULOSKELETAL: No cyanosis, or edema. Bilat feet warm to touch with m/s intact palpable bilat strong DP/PT Mild non pitting edema to Left foot Assessment and Plan Plan Plan D/C planning for tomorrow AM (SNF) Continue PT/OOB (ambulation with walker) Removed wound vac from Left groin Shelly BURTON [facility] [phone] Discharge Planning D/C planning tomorrow am Pt requested rehab ([place] location) Shelly Cabral February 10, 2017 09:36
--- NOTE | 2017-02-10 09:54 | PD.VS.DC ---
Discharge Summary Admission Date: February 06, 2017 at 05:30 Discharge Date: February 11, 2017 Admission Diagnosis: (1) PAD (peripheral artery disease) Discharge Diagnosis: (1) PAD (peripheral artery disease) Status: Acute Brief History from admission Ms. Saunders is a pleasant 76/F who has a PMH of PAD, failed distal bypass and worsening rest pain LEFT leg Procedure(s): L fem-BK pop with Propaten Significant Findings GENERAL: A&OX3, Amelie 76/F patient in NAD SKIN: Warm and dry, Left groin incision intact with erythema at the incision line and mild serosanguineous drainage at the distal end. NO swelling or odor present, LLE incision intact with surgical glue NO R/D/S CARDIOVASCULAR: +S1,S2, RRR w/o M/G/R RESPIRATORY: BS CTA GASTROINTESTINAL: Abdomen S/NT MUSCULOSKELETAL: No cyanosis, or edema. Bilat feet warm to touch with m/s intact palpable bilat strong DP/PT Mild non pitting edema to Left foot Hospital Course: Ms. Saunders is a pleasant 76/F who has a PMH of PAD, failed distal bypass and worsening rest pain LEFT leg Surgical intervention done (L fem-BK pop), pt has done well post w/o complications Pain controlled, pt ambulating with walker 80 feet and requesting post op rehab for optimal healing. Discharge Condition: Good Discharge Disposition: Discharge to SNF Discharge Instructions: Leave incision open to air Do not apply creams or ointments to LLE incisions Call to report any new onset redness, drainage or increased swelling to LLE Pt may shower then pat dry incisions NO TUB BATHS Will follow up in our out patient clinic in 2W at scheduled appointment time 06/04 Shelly BURTON [facility] [phone] Any questions or concerns: Call [facility] at [facility] [phone] Shelly Cabral February 10, 2017 09:54
[2017-02-10] MEDS ORDERED: NORC5TAB PO (09:55)
[2017-02-10] MEDS: ENOXAPARIN SODIUM 40 MG/0.4 ML SYRINGE SQ SCH (12:58)
[2017-02-10] MEDS: ALPRAZolam 0.5 MG TAB PO PRN (20:04)
[2017-02-10] MEDS: CALCIUM CARBONATE 500 MG CHEWABLE TAB CHEW PRN (20:04)
[2017-02-10] MEDS: ATORVASTATIN 40 MG TAB PO SCH (20:04)
[2017-02-11 03:20] VITALS: BP 108/47; PULSE 68; RESP 16; TEMP 97.9; O2SAT 97
[2017-02-11] MEDS: ACETAMINOPHEN/HYDROcodone 325 MG/5 MG TAB PO PRN ×2 (06:01→09:05)
[2017-02-11 08:11] VITALS: BP 130/79; PULSE 73; RESP 19; TEMP 97.9; O2SAT 100
--- NOTE | 2017-02-11 08:55 | PD.VS.PN ---
Subjective POD #: 5 Procedure(s): L fem-BK pop with Propaten Subjective/Hospital Course Doing well, ambulating, anatoliy diet pain controlled Objective Vitals/I&O Date Time Temp Pulse Resp B/P Pulse Ox O2 Delivery O2 Flow Rate FiO2 02/11/17 08:11 97.9 73 19 130/79 100 02/11/17 08:10 19 02/11/17 03:20 97.9 68 16 108/47 97 02/10/17 23:00 98.4 68 16 102/47 97 02/10/17 19:30 97.4 69 16 129/67 100 02/10/17 15:45 97.8 66 17 123/63 100 02/10/17 12:00 98.0 64 18 122/66 02/11/17 02/11/17 02/11/17 07:00 15:00 23:00 Intake Total 480 ml Output Total 975 ml Balance -495 ml Exam: Incisions c/d/i 1+ edema to thigh Foot warm, motor intact 2+ pulse Assessment and Plan Assessment: (1) PAD (peripheral artery disease) Status: Acute Plan D/C today Resume home meds + pain meds As discussed with patient: may take diuretic in a.m. and may transition to tramadol from narcotics per rehab Discharge Planning D/C today to rehab Kishore Eugene MD February 11, 2017 08:55
[2017-02-11] MEDS: POTASSIUM CHLORIDE 10 MEQ CONTROLLED RELEASE TAB PO SCH (09:03)
[2017-02-11] MEDS: ASPIRIN 81 MG CHEW TAB PO SCH (09:03)
[2017-02-11] MEDS: CLOPIDOGREL 75 MG TAB PO SCH (09:03)
[2017-02-11] MEDS: DOCUSATE SODIUM 100 MG CAP PO SCH (09:03)
[2017-02-11] MEDS: ISOSORBIDE MONONITRATE 30 MG TAB PO SCH (09:03)
[2017-02-11] MEDS: METOPROLOL TARTRATE 25 MG TAB PO SCH (09:03)
[2017-02-11] MEDS: GABAPENTIN 300 MG CAP PO SCH ×2 (09:03→13:29)
[2017-02-11] MEDS: PANTOPRAZOLE SOD 40 MG DELAYED RELEASE TAB PO SCH (09:04)
[2017-02-11] MEDS: LOSARTAN 50 MG TAB PO SCH (09:04)
[2017-02-11 11:00] VITALS: BP 130/77; PULSE 61; RESP 17; TEMP 97.9; O2SAT 100
[2017-02-11] MEDS ORDERED: HYDROCHLOROTHIAZIDE 12.5 MG CAP PO SCH (11:00)
[2017-02-11 11:32] VITALS: RESP 18
[2017-02-11] MEDS: NYSTATIN SUSP 500,000 U/5 ML CUP SWISH-SWAL SCH ×2 (11:32→13:29)
[2017-02-11] MEDS: ENOXAPARIN SODIUM 40 MG/0.4 ML SYRINGE SQ SCH (11:32)
[2017-02-11] MEDS ORDERED: NYST1000 SWISH-SWAL (13:23)
[2017-02-11] MEDS ORDERED: HYDR25TA5 PO (13:23)
== END 2017-02-11 13:47 | disposition short-term general hospital (02) | DRG 254 ==
LOC: HSDI 02-06 05:30 → HCIN 02-06 14:35 → HCIS 02-07 01:39
PROVIDERS: ADMIT Surgery; ATTEND Surgery
PROC: 041L0JL Bypass Left Femoral Artery to Popliteal Artery with Synthetic Substitute, Open Approach (ICD-10-PCS; principal; 2017-02-06 09:27)
DX: I73.9 Peripheral vascular disease, unspecified (principal)
CPT/HCPCS: 71010; 76937; 80048; 85027; 86850; 86900; 86901; 86920; C1768; J0690; J1170; J1644; J1650; J2370; J2405; J2720; J3010; J3370; J7120

== ENCOUNTER → 2017-02-02 | Outpatient (CLI) | payer MEDICARE, OTHER ==
[~2017-02-02] MED LIST: ALLE10TA10 PO; ALPR.5 PO; ATOR40TA16 PO; GABA300C5 PO; HYDR12.56 PO; HYDR25TA5 PO; ISOS30TA3 PO; LOSA50TA PO; METO25TA3 PO; NORC5TAB PO; NYST1000 SWISH-SWAL; PLAV75TA29 PO; POTA10TA8 PO; PROT40TA PO; REQU4TAB3 PO; WALKER WHEELS/F1 MIS
[2017-02-02 12:08] LABS: AUTOMATED NEUTROPHIL # 2.7 TH/MM3 (1.8-7.7); BASOPHIL # 0.1 TH/MM3 (0-0.2); BASOPHIL % 1.2 % (0.0-2.0); EOSINOPHIL # 0.2 TH/MM3 (0-0.4); EOSINOPHIL % 2.7 % (0.0-4.0); HEMATOCRIT 32.1 % (35.0-46.0); HEMO FLAGS DIFF FINAL; LYMPH % 35.4 % (9.0-44.0); LYMPHOCYTE # 2.1 TH/MM3 (1.0-4.8); MEAN CELL VOLUME 91.7 FL (80.0-100.0); MEAN CORPUSCULAR HEMOGLOBIN 29.8 PG (27.0-34.0); MEAN CORPUSCULAR HGB CONC 32.5 % (32.0-36.0); NEUT % 46.7 % (16.0-70.0); PLATELET COUNT 248 TH/MM3 (150-450); RED CELL DISTRIBUTION WIDTH 15.6 % (11.6-17.2); WHITE BLOOD COUNT 5.8 TH/MM3 (4.0-11.0)
[2017-02-02 12:25] LABS: POTASSIUM 4.3 MEQ/L (3.5-5.1)
[2017-02-02 12:28] LABS: PROTHROMBIN TIME - PATIENT 10.6 SEC (9.8-11.6)
--- NOTE | 2017-02-02 12:43 | RADRPT ---
EXAM DATE/TIME: 02/02/2017 12:14 [facility] COMPARISON: No previous studies available for comparison. INDICATIONS : Evaluate for pneumonia, pneumothorax and communicable diseases. Pre-op MEDICAL HISTORY : None. Ex-smoker SURGICAL HISTORY : Shoulder surgery, aorta bypass in 80's ENCOUNTER: Initial ACUITY: 1 day PAIN SCORE: 0/10 LOCATION: chest FINDINGS: The cardiac silhouette is enlarged in transverse diameter. There is prominence of the aortic knob is with calcification characteristic of atherosclerotic vascular disease. The lungs are free of acute pa renchymal opacity. No effusions are identified. There is mild scoliotic deformity convex to the left. There is multilevel degenerative change throughout the spine.8 CONCLUSION: 1. Cardiomegaly. No acute pulmonary disease. Abe Hoffman MD on February 02, 2017 at 12:41 Board Certified Radiologist. This report was verified electronically.
--- NOTE | 2017-02-03 21:58 | EKG ---
Date Performed: 02/02/2017 Time Performed: 11:42:24 PTAGE: 76 years EKG: Sinus rhythm WITH OCCASIONAL ECTOPIC PREMATURE COMPLEXES BORDERLINE ECG PREVIOUS TRACING : 11/17/2001 05.16 Compared to the previous tracing T wave abnormalities are n o longer present DOCTOR: Seth Harley Interpretating Date/Time 02/03/2017 21:58:28
== END ==
LOC: CPRE 11:10
PROVIDERS: ATTEND Surgery
DX: Z01.810 Encounter for preprocedural cardiovascular examination (principal); Z01.812 Encounter for preprocedural laboratory examination; I73.9 Peripheral vascular disease, unspecified; Z79.01 Long term (current) use of anticoagulants; R94.31 Abnormal electrocardiogram [ECG] [EKG]
CPT/HCPCS: 36415; 71020; 80048; 85025; 85610; 85730; 93005

== ENCOUNTER 2018-08-13 06:05 | Inpatient (IN) ==
[2018-08-13] MEDS ORDERED: Protamine Sulfate Inj 50 MG/5 ML Vial ONE (06:45)
[2018-08-13] MEDS ORDERED: Heparin 10,000 UNITS/10 ML Vial (for IV use) ONE (06:45)
[2018-08-13] MEDS ORDERED: Gelatin Size 100 Topical Foam ONE (06:45)
[2018-08-13] MEDS ORDERED: Metoprolol Tartrate 25 MG Tablet PO ONE (06:46)
[2018-08-13] MEDS ORDERED: Chlorhexidine Gluconate 2% 1 Pack (2 Cloths) TOPICAL ONE (06:46)
[2018-08-13] MEDS ORDERED: Thrombin Topical 20,000 UNIT Spray Kit TOPICAL ONE ×2 (06:46→11:59)
[2018-08-13] MEDS ORDERED: Heparin/NS PF Inj 500 ML ONE (06:53)
[2018-08-13] MEDS ORDERED: Sodium Chlor 0.9% Inj 500 ML IV.SIG SCH ×2 (07:00→23:00)
--- NOTE | 2018-08-13 07:21 | P.HPVS ---
History of Present Illness Chief Complaint: chronic mesenteric ischemia History of Present Illness: 77 yo female (today) with post-prandial abdominal pain and weight loss, diarrhea. 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 Presents for mesenteric bypass. - Inpatient Certification If this patient has been admitted as an Inpatient: I certify that the inpatient services were ordered in accordance with Medicare regulations governing the order. This includes certification that hospital inpatient services are reasonable and necessary and in the case of services not specified as inpatient-only under 42 CFR 419.22(n), that they are appropriately provided as inpatient services in accordance to with the 2-midnight benchmark under 43 CFR 412.3(e) Estimated Total Length of Stay (Days): 10 Plans for Post Hospital Care: Home Review of Systems Constitutional: Denies chills, Denies fever(s) Gastrointestinal: Reports abdominal pain PMFSH - History History Provided By: Patient - Medical History Medical History: Medical History (Last Reviewed 08/13/18 @ 07:19 by Kishore Eugene MD) Coronary stent patent GERD (gastroesophageal reflux disease) H/O small bowel obstruction History of stent insertion of renal artery Restless leg syndrome - Surgical History Surgical History: Surgical History (Last Reviewed 08/13/18 @ 07:19 by Kishore Eugene MD) H/O [id number] bypass H/O heart artery stent H/O laminectomy History of angioplasty of peripheral vessel History of carotid angioplasty History of shoulder surgery Hx laparoscopic cholecystectomy Hx of appendectomy - Tobacco History Second Hand Smoke Exposure: No Tobacco Use In Past 30 Days: No Smoking Status: Former smoker Tobacco Type: Cigarettes - Alcohol History How Often Do You Have a Drink Containing Alcohol: Monthly or less - Substance Use History Substance History: No History of Abuse Medications and Allergies Active Medications: Active Medications Lactated Ringer's (Lr 1000 Ml Inj) 1,000 mls @ 30 mls/hr IV.SIG .Q24H LIVAN Stop: 08/14/18 06:59 Last Admin: 08/13/18 07:09 Dose: 30 mls/hr Sodium Chloride (Ns Inj) 500 mls @ 30 mls/hr IV.SIG .Q10H LIVAN Last Admin: 08/13/18 07:08 Dose: Not Given Allergies Allergy/AdvReac Type Severity Reaction Status Date / Time codeine Allergy Severe Chest Pain Verified 08/13/18 06:44 diatrizoate meglumine Allergy Severe Hives Verified 08/13/18 06:44 gadobenic acid Allergy Severe Hives Verified 08/13/18 06:44 gadodiamide Allergy Severe Hives Verified 08/13/18 06:44 gadoteridol Allergy Severe Hives Verified 08/13/18 06:44 iodixanol Allergy Severe Hives Verified 08/13/18 06:44 iohexol Allergy Severe Hives Verified 08/13/18 06:44 morphine Allergy Severe Psychosis Verified 08/13/18 06:44 Home Medications Medication Instructions Recorded Confirmed Type alprazolam 0.5 mg PO BID PRN 07/31/18 08/13/18 History aspirin [Aspir-81] 81 mg PO DAILY 07/31/18 08/13/18 History atorvastatin 40 mg PO DAILY 07/31/18 08/13/18 History clopidogrel [Plavix] 75 mg PO DAILY 07/31/18 08/13/18 History gabapentin [Neurontin] 300 mg PO BID 07/31/18 08/13/18 History isosorbide mononitrate 30 mg PO DAILY 07/31/18 08/13/18 History losartan 50 mg PO DAILY 07/31/18 08/13/18 History metoprolol tartrate 25 mg PO BID 07/31/18 08/13/18 History potassium chloride 20 meq PO DAILY 07/31/18 08/13/18 History ranitidine HCl 150 mg PO DAILY 07/31/18 08/13/18 History ropinirole [Requip] 3 mg PO HS 07/31/18 08/13/18 History cholestyramine-aspartame 4 g PO BID 08/06/18 08/13/18 History [Prevalite] hydrochlorothiazide 12.5 mg PO DAILY 08/06/18 08/13/18 History magnesium 5,500 mg PO DAILY 08/06/18 08/13/18 History niacin 1,000 mg PO DAILY 08/06/18 08/13/18 History vit C-vit [id number] 1 cap PO DAILY 08/06/18 08/13/18 History [Ocuvite] Physical Exam Vital Signs / I&O: Vital Signs 08/13/18 06:54 Temperature 97.9 F Pulse Rate 59 L Respiratory Rate 16 Blood Pressure 158/79 H Pulse Oximetry 100 Intake & Output 11/08/13/18 08/13/18 18:59 06:59 18:59 Weight 49.9 kg Other: Weight On Admission 49.2 kg Neuro: alert, no distress HEENT: NC/AT Neck: no JVD Heart: reg rate Lungs: clear Vascular: palpable L ulnar, R radial pulses Laboratory Results - last 24 hr 08/13/18 06:55 MTS Gel Crossmatch See Detail CTA reviewed CXR negative Caprini VTE Risk Assessment Caprini VTE Risk Assessment: No/Low Risk (score <= 1) (intraop heparin) Caprini Risk Assessment Model: Point Value = 1 Point Value = 2 Point Value = 3 Point Value = 5 Age 41-60 Minor surgery BMI > 25 kg/m2 Swollen legs Varicose veins or History of unexplained or recurrent spontaneous Oral contraceptives or hormone replacement Sepsis (< 1 month) Serious lung disease, including pneumonia (< 1 month) Abnormal pulmonary function Acute myocardial infarction Congestive heart failure (< 1 month) History of inflammatory bowel disease Medical patient at bed rest Age 61-74 Arthroscopic surgery Major open surgery (> 45 min) Laparoscopic surgery (> 45 min) Malignancy Confined to bed (> 72 hours) Immobilizing plaster cast Central venous access Age >= 75 History of VTE Family history of VTE Factor V Leiden Prothrombin [id number] Lupus anticoagulant Anticardiolipin antibodies Elevated serum homocysteine Heparin-induced thrombocytopenia Other congenital or acquired thrombophilia Stroke (< 1 month) Elective arthroplasty Hip, pelvis, or leg fracture Acute spinal cord injury (< 1 month) Prophylaxis Regimen: Total Risk Factor Score Risk Level Prophylaxis Regimen 0-1 Low Early ambulation 2 Moderate Order ONE of the following: *Sequential Compression Device (SCD) *Heparin 5000 units SQ BID 3-4 Higher Order ONE of the following medications: *Heparin 5000 units SQ TID *Enoxaparin/Lovenox 40 mg SQ daily (WT < 150 kg, CrCl > 30 mL/min) *Enoxaparin/Lovenox 30 mg SQ daily (WT < 150 kg, CrCl > 10-29 mL/min) *Enoxaparin/Lovenox 30 mg SQ BID (WT < 150 kg, CrCl > 30 mL/min) AND/OR *Sequential Compression Device (SCD) 5 or more Highest Order ONE of the following medications: *Heparin 5000 units SQ TID (Preferred with Epidurals) *Enoxaparin/Lovenox 40 mg SQ daily (WT < 150 kg, CrCl > 30 mL/min) *Enoxaparin/Lovenox 30 mg SQ daily (WT < 150 kg, CrCl > 10-29 mL/min) *Enoxaparin/Lovenox 30 mg SQ BID (WT < 150 kg, CrCl > 30 mL/min) AND *Sequential Compression Device (SCD) Assessment and Plan - Assessment (1) Mesenteric ischemia due to arterial insufficiency Code(s): K55.059 - Acute (reversible) ischemia of intestine, part and extent unspecified Status: Acute - Plan open antegrade mesenteric bypass CVICU post-op I discussed risks and benefits with the patient and her . To OR. : [phone]
[2018-08-13] MEDS ORDERED: ceFAZolin 1 GM Premix Inj 1 GM/50 ML PIGGYBACK IV.SIG ONE (07:39)
[2018-08-13] MEDS ORDERED: HYDROmorphone PF Inj 1 MG/ML Ampul ONE (07:40)
[2018-08-13] MEDS ORDERED: Bisacodyl 10 MG Supp RECTAL PRN (12:38)
--- NOTE | 2018-08-13 12:38 | P.OP ---
- Preoperative Diagnosis (1) Mesenteric ischemia due to arterial insufficiency - Postoperative Diagnosis (1) Mesenteric ischemia due to arterial insufficiency Date of procedure: 08/13/18 Procedure: Aorto-hepatic bypass Aorto-SMA bypass 12x6 Dacron Implants: Dacron Anesthesia: GETA Surgeon: Kishore Eugene MD Wearing Apparel Folder: Cali Mace Estimated blood loss (mL): 400 IV fluids (mL): 3,600 (1u PRBC; 2U FFP) Urine output (mL): 450 Pathology: none sent Operation and Findings: scar tissue from prior surgery strong Doppler signals distal hepatic artery and SMA after bypass \ supraceliac partial occluding clamp for end-to-side proximal anastomosis
[2018-08-13] MEDS ORDERED: Naloxone Inj 0.4 MG/ML Vial IV.PUSH PRN (12:42)
[2018-08-13] MEDS ORDERED: Morphine Inj 30 MG/30 ML PCA.VIAL PCA PRN (12:42)
[2018-08-13] MEDS ORDERED: Phenylephrine Inj 40 MG in Dextrose 5% in Water Inj 496 ML IV.CONT PRN ×2 (13:22)
[2018-08-13] MEDS ORDERED: Propofol 1000 mg/100 ml Inj 1,000 MG/100 ML BOTTLE IV.CONT PRN (13:26)
[2018-08-13] MEDS ORDERED: fentaNYL Citrate Inj 100 MCG/2 ML Ampul ONE ×2 (13:28)
[2018-08-13 13:50] LABS: Mean Corpuscular HGB Conc 35.8 % (32.0-36.0); Mean Corpuscular Hemoglobin 33.8 pg (27.0-34.0); Mean Corpuscular Volume 94.2 fL (80.0-100.0); Mean Platelet Volume 8.1 fL (7.0-11.0); Platelet Count 139 th/mm3 (150-450); Red Blood Count 1.91 mil/mm3 (4.00-5.30); Red Cell Distribution Width 16.3 % (11.6-17.2); White Blood Count 10.2 th/mm3 (4.0-11.0)
[2018-08-13 13:56] LABS: Hemoglobin 6.4 gm/dL (11.6-15.3)
[2018-08-13 14:00] LABS: Activated Partial Thrombo Time 31.5 sec (23.4-31.7); INR 1.2 Ratio; Prothrombin Time 12.6 sec (9.8-11.6)
--- NOTE | 2018-08-13 14:03 | XR ---
EXAM DATE: 08/13/2018 1:55 PM EST AGE/SEX: 77 years / Female INDICATIONS: Central line placement. CLINICAL DATA: This is the patient's initial encounter. Patient reports that signs and symptoms have been present for 1 day and indicates a pain score of Nonresponsive. MEDICAL/SURGICAL HISTORY: None. . coronary artery stents COMPARISON: [facility] [place], CHEST 2V PA&LAT, 08/06/2018. . FINDINGS: The endotracheal tube, right jugular central line and nasogastric tube are all in good position. Heart is normal in size. There is minimal left basilar effusion. There are chronic interstitial ya es within the parenchyma. No pneumothorax is seen. The bony structures demonstrate previous right joseluis ulder arthroplasty but are otherwise intact. CONCLUSION: Support equipment in good position. No pneumothorax identified. Electronically signed by: Fady Alfonso MD 08/13/2018 2:02 PM EST
[2018-08-13 14:26] LABS: Anion Gap 12 meq/L (5-15); Blood Urea Nitrogen 8 mg/dL (7-18); Calcium 6.4 mg/dL (8.5-10.1); Carbon Dioxide 21.7 meq/L (21.0-32.0); Chloride 102 meq/L (98-107); Glomerular Filtration Rate Greater Than 89 mL/min (>89); Glucose,Random 115 mg/dL (74-106); Potassium 3.4 meq/L (3.5-5.1); Sodium 136 meq/L (136-145)
[2018-08-13 14:41] LABS: Calcium-Albumin Corrected 8.1 mg/dL (8.5-10.1); Total Protein 3.9 g/dL (6.4-8.2)
[2018-08-13] MEDS ORDERED: HYDROmorphone PF Inj 1 MG/ML Ampul IV.PUSH ONE (15:15)
[2018-08-13] MEDS: HYDROmorphone PF Inj 1 MG/ML Ampul IV.PUSH PRN ×3 (16:48→22:01)
[2018-08-13] MEDS ORDERED: Magnesium Oxide 400 MG Tablet PO PRN (17:03)
[2018-08-13] MEDS ORDERED: Potassium Chlor 40 mEq Premix 40 MEQ/100 ML PIGGYBACK IV.SIG PRN ×2 (17:03)
[2018-08-13] MEDS ORDERED: Sodium Phosphate Inj 30 MMOL in Sodium Chlor 0.9% Inj 250 ML IV.SIG PRN (17:03)
[2018-08-13] MEDS ORDERED: Magnesium Sulfate Inj 4 GM in Sodium Chlor 0.9% Inj 92 ML IV.SIG PRN (17:03)
[2018-08-13] MEDS ORDERED: Magnesium Sulfate Inj 2 GM in Sodium Chlor 0.9% Inj 96 ML IV.SIG PRN (17:03)
[2018-08-13] MEDS ORDERED: Potassium Phosphate 500 MG Soluble Tablet PO PRN ×2 (17:03)
[2018-08-13] MEDS ORDERED: Potassium Chloride 25 MEQ Effervescent Tablet PO PRN (17:03)
[2018-08-13] MEDS ORDERED: Potassium Phosphate Inj 30 MMOL in Sodium Chlor 0.9% Inj 250 ML IV.SIG PRN (17:03)
[2018-08-13] MEDS ORDERED: Potassium Chlor 20 mEq Premix 20 MEQ/100 ML PIGGYBACK IV.SIG PRN (17:03)
--- NOTE | 2018-08-13 17:48 | P.CONCC ---
History of Present Illness Service: Critical care Consult date: 08/13/18 Requesting Physician: Kishore Ryan Reason for Consult: Hypotension, post op care Primary Care Provider: Dalton Ryan JR, DO Chief Complaint: s/p Aorto-hepatic bypass, Aorto-SMA bypass History of Present Illness: Patient is a 77-year-old female who was admitted to Dr. Ryan's service for mesenteric ischemia today. Her past medical history significant for coronary artery disease status post PCI/stent, history of renal artery stenosis, GERD, PAD, history of multiple vascular surgeries, history of small bowel obstruction, restless leg syndrome. Patient underwent aorto-hepatic and aorto-SMA bypass in OR. EBL was 400 ml, received 3.6 L of crystalloids in the OR , urine output was adequate. Postop patient was moved to the CVICU critical care medicine was consulted for postop management. Patient is hypotensive at the time of my evaluation and had been started on Diego-Synephrine by Dr. Ryan. I haave ordered further fluid resuscitation with additional 2 L of crystalloids. A stat ABG was done at the bedside which showed hemoglobin 6.6. A CBC was sent and I ordered 2 units of PRBC stat. CBC came back with hemoglobin of 6.4 platelet count 139. Chemistry showed potassium of 3.4 calcium uncorrected 6.4. Electrolyte replacement protocol and calcium replacement have been ordered. Lactic acid also mildly elevated at 2.2. Will follow serial lactic acid and follow urine output closely. If patient becomes hemodynamically more stable will proceed with weaning trial for extubation. Urine output had been adequate postop approximately 40 mL/h. Bilateral DP pulses are Dopplerable Review of Systems unobtainable due to endotracheal tube PMFSH - History History Provided By: Patient - Medical History Medical History: Medical History (Last Reviewed 08/13/18 @ 17:51 by Nito Larsen MD) Coronary stent patent GERD (gastroesophageal reflux disease) H/O small bowel obstruction History of stent insertion of renal artery Restless leg syndrome - Surgical History Surgical History: Surgical History (Last Reviewed 08/13/18 @ 17:51 by Nito Larsen MD) H/O [id number] bypass H/O heart artery stent H/O laminectomy History of angioplasty of peripheral vessel History of carotid angioplasty History of shoulder surgery Hx laparoscopic cholecystectomy Hx of appendectomy - Tobacco History Second Hand Smoke Exposure: No Tobacco Use In Past 30 Days: No Smoking Status: Former smoker Tobacco Type: Cigarettes - Alcohol History How Often Do You Have a Drink Containing Alcohol: Monthly or less - Substance Use History Substance History: No History of Abuse Medications and Allergies Active Medications: Active Medications Al Hydroxide/Mg Hydroxide (Milk Of Magnesia Liq) 30 ml PO Q12H PRN PRN Reason: Mild Constipation Alprazolam (Xanax) 0.5 mg PO BID PRN PRN Reason: Anxiety Aspirin (Aspirin Chew) 81 mg PO DAILY LIVAN Atorvastatin Calcium (Lipitor) 40 mg PO DAILY [facility] Bisacodyl (Dulcolax Supp) 10 mg RECTAL DAILY PRN PRN Reason: SEVERE CONSITIPATION Enoxaparin Sodium (Lovenox Inj) 30 mg SQ Q24H [facility] Famotidine (Pepcid Pf Inj) 20 mg IV.PUSH Q12HR [facility] Gabapentin (Neurontin) 300 mg PO BID [facility] Hydromorphone HCl (Dilaudid Pf Inj) 0.2 mg IV.PUSH Q1H PRN PRN Reason: PAIN SCALE 1 TO 10 Last Admin: 08/13/18 16:48 Dose: 0.2 mg Lactated Ringer's (Lr 1000 Ml Inj) 1,000 mls @ 63 mls/hr IV.CONT .[id number] [facility] Last Admin: 08/13/18 13:00 Dose: 63 mls/hr Phenylephrine HCl 40 mg/ (Dextrose) 500 mls @ 30 mls/hr IV.CONT TITRATE PRN; Protocol PRN Reason: Per Protocol Last Admin: 08/13/18 13:20 Dose: 40 mcg/min, 30 mls/hr Propofol (Diprivan 1000 Mg/100 Ml Inj) 1,000 mg in 100 mls @ 5.988 mls/hr IV.CONT TITRATE PRN; Protocol PRN Reason: Per Protocol Last Admin: 08/13/18 15:30 Dose: 5 mcg/kg/min, 1.5 mls/hr Magnesium Sulfate 4 gm/ Sodium (Chloride) 100 mls @ 50 mls/hr IV.SIG UNSCH PRN PRN Reason: For Magnesium 0.9 - 1.1 mg/dL Magnesium Sulfate 2 gm/ Sodium (Chloride) 100 mls @ 50 mls/hr IV.SIG UNSCH PRN PRN Reason: For Magnesium 1.2 - 1.6 mg/dL Potassium Chloride (Kcl 40 Meq Premix Inj) 40 meq in 100 mls @ 50 mls/hr IV.SIG Q2H PRN PRN Reason: For Potassium 2.8 - 3.2 mEq/L Potassium Chloride (Kcl 20 Meq Premix Inj) 20 meq in 100 mls @ 50 mls/hr IV.SIG Q2H PRN PRN Reason: For Potassium 3.3 - 3.5 mEq/L Potassium Chloride (Kcl 40 Meq Premix Inj) 40 meq in 100 mls @ 25 mls/hr IV.SIG UNSCH PRN PRN Reason: For Potassium 3.3 - 3.5 mEq/L Potassium Chloride (Kcl 20 Meq Premix Inj) 20 meq in 100 mls @ 50 mls/hr IV.SIG Q2H PRN PRN Reason: For Potassium 2.8 - 3.2 mEq/L Potassium Phosphate 30 mmol/ (Sodium Chloride) 260 mls @ 42 mls/hr IV.SIG UNSCH PRN PRN Reason: SEE LABEL COMMENTS Sodium Phosphate 30 mmol/ (Sodium Chloride) 260 mls @ 42 mls/hr IV.SIG UNSCH PRN PRN Reason: For Phosphorus < 2.5 mg/dL Calcium Chloride 2 gm/ Sodium (Chloride) 120 mls @ 120 mls/hr IV.SIG ONCE ONE Stop: 08/13/18 18:38 Isosorbide Mononitrate (Imdur) 30 mg PO DAILY LIVAN Lactulose (Lactulose Liq) 30 ml PO DAILY PRN PRN Reason: SEVERE CONSITIPATION Magnesium Oxide (Mag-Ox) 400 mg PO HS [facility]AN Magnesium Oxide (Mag-Ox) 800 mg PO UNSCH PRN PRN Reason: For Magnesium 1.2 - 1.6 mg/dL Naloxone HCl (Narcan Inj) 0.4 mg IV.PUSH PRN PRN PRN Reason: Resp rate < 10 Potassium Bicarb/Potassium Chloride (K-Lyte Cl Eff) 50 meq PO UNSCH PRN PRN Reason: For Potassium 3.3 - 3.5 mEq/L Potassium Phosphate (K-Phos Original) 2,000 mg PO Q4H PRN PRN Reason: Phosphorus Less Than 2.5 mg/dL Potassium Phosphate (K-Phos Original) 2,000 mg PO UNSCH PRN PRN Reason: SEE LABEL COMMENTS Ropinirole HCl (Requip) 3 mg PO HS [facility] Sennosides (Senokot) 17.2 mg PO Q12H PRN PRN Reason: Moderate Constipation Sodium Chloride (Ns Flush) 2 ml IV.FLUSH BID [facility] Sodium Chloride (Ns Flush) 2 ml IV.FLUSH PRN PRN PRN Reason: FLUSH AFTER USING IV ACCESS Terbutaline Sulfate (Brethine Inj) 1 mg SQ UNSCH PRN PRN Reason: For Extravasation Allergies Allergy/AdvReac Type Severity Reaction Status Date / Time codeine Allergy Severe Chest Pain Verified 08/13/18 06:44 diatrizoate meglumine Allergy Severe Hives Verified 08/13/18 06:44 gadobenic acid Allergy Severe Hives Verified 08/13/18 06:44 gadodiamide Allergy Severe Hives Verified 08/13/18 06:44 gadoteridol Allergy Severe Hives Verified 08/13/18 06:44 iodixanol Allergy Severe Hives Verified 08/13/18 06:44 iohexol Allergy Severe Hives Verified 08/13/18 06:44 morphine Allergy Severe Psychosis Verified 08/13/18 06:44 Home Medications Medication Instructions Recorded Confirmed Type alprazolam 0.5 mg PO BID PRN 07/31/18 08/13/18 History aspirin [Aspir-81] 81 mg PO DAILY 07/31/18 08/13/18 History atorvastatin 40 mg PO DAILY 07/31/18 08/13/18 History clopidogrel [Plavix] 75 mg PO DAILY 07/31/18 08/13/18 History gabapentin [Neurontin] 300 mg PO BID 07/31/18 08/13/18 History isosorbide mononitrate 30 mg PO DAILY 07/31/18 08/13/18 History losartan 50 mg PO DAILY 07/31/18 08/13/18 History metoprolol tartrate 25 mg PO BID 07/31/18 08/13/18 History potassium chloride 20 meq PO DAILY 07/31/18 08/13/18 History ranitidine HCl 150 mg PO DAILY 07/31/18 08/13/18 History ropinirole [Requip] 3 mg PO HS 07/31/18 08/13/18 History cholestyramine-aspartame 4 g PO BID 08/06/18 08/13/18 History [Prevalite] hydrochlorothiazide 12.5 mg PO DAILY 08/06/18 08/13/18 History niacin 1,000 mg PO DAILY 08/06/18 08/13/18 History vit C-vit Q-[id number]-[id number]-om-3 1 cap PO DAILY 08/06/18 08/13/18 History [Ocuvite] magnesium oxide 500 mg PO HS 08/13/18 History Physical Exam Vital signs: Vital Signs 08/13/18 06:54 08/13/18 12:55 08/13/18 13:00 Temperature 97.9 F 93.5 F L Pulse Rate 59 L 70 Respiratory Rate 16 12 12 Blood Pressure 158/79 H 84/41 L Pulse Oximetry 100 99 99 08/13/18 13:06 08/13/18 13:30 08/13/18 13:52 Temperature 93.7 F L 98.6 F 93.7 F L Pulse Rate 58 L 61 Respiratory Rate 13 17 Blood Pressure 78/46 L 130/63 Pulse Oximetry 99 08/13/18 15:00 08/13/18 15:01 08/13/18 17:00 Temperature 95.1 F L 95.7 F L 98.6 F Pulse Rate 83 68 Respiratory Rate 21 21 Blood Pressure 136/58 L 126/57 L Pulse Oximetry 99 99 08/13/18 17:01 Temperature Pulse Rate Respiratory Rate 24 Blood Pressure Pulse Oximetry 100 Intake & Output 08/12/18 08/13/18 08/13/18 18:59 06:59 18:59 Intake Total 5732 / 5732 Output Total 450 / 450 Balance 5282 / 5282 Weight 49.9 kg Intake: IV 50 / 50 Ancef 1 GM Premix Inj 1 gm In 50 / 50 50 ml @ 0 mls/hr IV.SIG .STK- MED ONE Rx#:[id number] Anesthesia Amount 3600 / 3600 Other 1000 / 1000 Rbc As-3 Leukoreduced Unit 1000 / 1000 [id number] Intake (Blood Product) Amt 616 / 616 Plasma Thawed 5 Day Acda Unit 216 / 216 [id number] Plasma Thawed 5 Day Cp2d Unit 0 / 0 [id number] Rbc As-3 Leukoreduced Unit 0 / 0 [id number] Rbc As-3 Leukoreduced Unit 400 / 400 [id number] Rbc As-3 Leukoreduced Unit 0 / 0 [id number] Mass Transfusion Protocol 466 / 466 Output: Urine Amount (Catheter) 450 / 450 Indwelling Temp Sensing 450 / 450 Catheter Other: Weight On Admission 49.2 kg Narrative: GENERAL: Well-nourished, well-developed patient who is intubated lightly sedated with propofol SKIN: Warm and dry. HEAD: Atraumatic. Normocephalic. EYES: Pupils equal and round. No scleral icterus. No injection or drainage. ENT: Orotracheally intubated NECK: Trachea midline. CARDIOVASCULAR: Regular rate and rhythm. Marginally hypotensive currently on Diego-Synephrine receiving fluid resuscitation RESPIRATORY: On PRVC/AC, clear to auscultation bilaterally without wheezes rales or rhonchi. GASTROINTESTINAL: Abdomen soft, non-tender. Abdominal binder in place, vertical incision C/D/I MUSCULOSKELETAL: Extremities without clubbing, cyanosis, or edema. DP pulses are Dopplerable NEUROLOGICAL: Awake and alert. No obvious cranial nerve deficits. Motor grossly within normal limits. - Urinary Catheter Management Indwelling Temp Sensing Catheter Cath placed during this visit: yes Reason for continuing: Hourly intake/output Insertion date: 08/13/18 Insertion time: 08:08 Septic Shock Reassessment Septic shock perfusion: reassessment completed Assessment and Plan - Assessment and Plan Plan: ASSESSMENT: Mesenteric ischemia status post open antegrade mesenteric bypass Hypotension Postop anemia requiring transfusion Lactic acidosis Hypokalemia Hypocalcemia Post op respiratory insufficiency History of peripheral arterial disease, status post multiple vascular surgery Coronary artery disease GERD History of small bowel obstruction History of renal artery stenosis Restless leg syndrome PLAN: NEURO: -Propofol for sedation -PRN Dilaudid for pain control RESP: -PRVC/AC, Ventilator bundle -DuoNeb every 2 hours as needed -SBT when appropriate, adequately resuscitated CV: -Currently on Diego-Synephrine, continue aggressive fluid resuscitation wean as soon as possible -Normal saline IV fluids 2L bolus, continue MIVF -2 units PRBC ordered and given along with calcium replacement -Holding aspirin and Plavix until cleared by Dr. Ryan GI: -Status post open antegrade mesenteric bypass, postop management per Dr. Ryan -N.p.o., IV PPI, NG tube intermittent wall suction, anticipate ileus : -Monitor renal function closely. Boateng catheter. ID: -Perioperative antibiotics per Dr. Ryan HEME: -Monitor CBC, coags -Transfuse 2 units PRBC ENDO: -Electrolyte replacement per protocol -Calcium chloride 2 g ordered PROPH: -Lovenox starting 08/14/2018 Central line and A-line placed in OR 08/13/2018 CC time 37 min Code Status: Full Discussed Condition With: Dr. ryan
[2018-08-13] MEDS ORDERED: Calcium Chloride Inj 2 GM in Sodium Chlor 0.9% Inj 100 ML IV.SIG ONE (18:00)
[2018-08-13 18:29] LABS: Activated Partial Thrombo Time 26.4 sec (23.4-31.7); INR 1.1 Ratio; Prothrombin Time 11.6 sec (9.8-11.6)
[2018-08-13] MEDS: Famotidine PF Inj 20 MG/2 ML Vial IV.PUSH SCH (20:11)
--- NOTE | 2018-08-13 20:39 | MP ---
cc: Kishore Eugene MD DATE OF OPERATION: 08/13/2018 PREOPERATIVE DIAGNOSIS: Chronic mesenteric ischemia. POSTOPERATIVE DIAGNOSIS: Chronic mesenteric ischemia. PROCEDURE PERFORMED: 1. Aorta to hepatic artery bypass. 2. Aorta to superior mesenteric artery bypass. ATTENDING SURGEON: Kishore Eugene MD CLUB LICENSEE SURGEON: Cali Mace MD ANESTHESIA: General. INDICATIONS: Ms. 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 She is taken to the operating room for open mesenteric bypass. DESCRIPTION OF PROCEDURE: Informed consent was obtained from the patient. She was taken to operating room and placed supine on the operating room table. An appropriate timeout was taken to ensure the patient's identity, operative site and planned procedure. The administration of 1 gram of Ancef was initiated prior to skin incision and was rebolused 4 hours after the initial dose. Everyone in the room agreed with the timeout and we proceeded. She was prepped from her chin to her knees. A vertical midline incision was made with a 10 blade and carried down through the subcutaneous tissue with electrocautery. The fascia was divided with electrocautery and the peritoneum was sharply encountered. Modest dense adhesions were encountered and sharply excised. The left lobe of the liver was mobilized. The nasogastric tube was confirmed to be in the stomach and the jaswant of the diaphragm was divided, thereby exposing the supraceliac aorta. The Bookwalter retractor was then set up and the supraceliac aorta was dissected free for approximately 10 cm. There appeared to be an area sufficient to clamp this. The hepatic artery was identified in the usual anatomic location and was dissected free for several centimeters. Then, a tunnel was then made and the superior mesenteric artery was identified to the left of the superior mesenteric vein and dissected free. Side branches of the superior mesenteric artery were controlled with 2-0 silk. The patient was systemically heparinized, and throughout the remainder of the case, the ACT was confirmed to be greater than 250. A Satinsky side-biting clamp was then placed on the supraceliac aorta after failure of obtaining adequate compression with cross-clamping. A longitudinal arteriotomy was made with an 11 blade and extended with [place] scissors. A 12 x 6 Dacron was brought on the field, spatulated and sewn end to side to the aorta with running 4-0 Prolene suture. At the completion, the clamp was slowly released and the suture line was repaired with 4-0 and 5-0 sutures. Hemostasis was achieved and clamps were placed on each individual limb. Proximal and distal control of the common hepatic artery was obtained with profunda clamps and a longitudinal arteriotomy was made with an 11 blade and extended with [place] scissors. One of the limbs of the 12 x 6 Dacron was then cut to an appropriate length and sewn end to side to the common hepatic artery with running 6-0 Prolene suture. At the completion, it was flushed and noted to be hemostatic. The clamps were released and there was a nice Doppler signal in the hepatic artery. The second limb was then passed through the tunnel and the SMA was clamped proximally and distally with profunda clamps. A longitudinal arteriotomy was made with an 11 blade and extended with Parvez scissors. A generous distal anastomosis was made by cutting the Dacron limb to an appropriate length, spatulating and sewing end to side with running 6-0 Prolene suture. At the completion, it was flushed and noted to be hemostatic. The heparin was reversed with protamine. Two units of FFP were administered. The abdominal cavity was inspected. There were no retained surgical items. The peritoneum overlying the superior mesenteric artery was reapproximated with running 2-0 Polysorb suture and the abdominal wound was closed with #1 looped PDS, 2-0 Polysorb, 4-0 Monocryl. The sponge and needle counts were correct at the end of the case. I was present, scrubbed and performed the entire procedure. MD MELISSA Moeller/shannon , 05:36 PM , 05:44 PM
[2018-08-13] MEDS: Gabapentin 300 MG Capsule PO SCH (21:59)
[2018-08-13] MEDS: Magnesium Oxide 400 MG Tablet PO SCH (22:00)
[2018-08-13] MEDS: ALPRAZolam 0.5 MG Tablet PO PRN (22:01)
[2018-08-13] MEDS: Sodium Chloride 0.9% 2 ML Flush BID IV.FLUSH SCH (22:02)
[2018-08-13 22:59] LABS: Hematocrit 28.6 % (35.0-46.0); Mean Corpuscular Hemoglobin 31.9 pg (27.0-34.0); Platelet Count 158 th/mm3 (150-450); Red Blood Count 3.14 mil/mm3 (4.00-5.30); Red Cell Distribution Width 16.6 % (11.6-17.2); White Blood Count 19.1 th/mm3 (4.0-11.0)
[2018-08-13 23:21] LABS: Alanine Aminotransferase 99 U/L (10-53); Albumin 2.4 g/dL (3.4-5.0); Alkaline Phosphatase 46 U/L (45-117); Anion Gap 9 meq/L (5-15); Aspartate Aminotransferase 151 U/L (15-37); Blood Urea Nitrogen 13 mg/dL (7-18); Calcium 8.1 mg/dL (8.5-10.1); Carbon Dioxide 19.6 meq/L (21.0-32.0); Chloride 106 meq/L (98-107); Glomerular Filtration Rate 62 mL/min (>89); Glucose,Random 116 mg/dL (74-106); Magnesium 1.7 mg/dL (1.5-2.5); Sodium 135 meq/L (136-145); Total Protein 4.6 g/dL (6.4-8.2)
[2018-08-14] MEDS: HYDROmorphone PF Inj 1 MG/ML Ampul IV.PUSH PRN ×6 (02:19→16:51)
[2018-08-14 05:28] LABS: Hematocrit 23.2 % (35.0-46.0); Hemoglobin 8.2 gm/dL (11.6-15.3); Mean Corpuscular HGB Conc 35.3 % (32.0-36.0); Mean Corpuscular Hemoglobin 32.3 pg (27.0-34.0); Mean Corpuscular Volume 91.5 fL (80.0-100.0); Mean Platelet Volume 8.8 fL (7.0-11.0); Platelet Count 132 th/mm3 (150-450); Red Blood Count 2.54 mil/mm3 (4.00-5.30); Red Cell Distribution Width 16.9 % (11.6-17.2); White Blood Count 13.3 th/mm3 (4.0-11.0)
[2018-08-14 05:51] LABS: Activated Partial Thrombo Time 30.6 sec (23.4-31.7); INR 1.2 Ratio; Prothrombin Time 11.9 sec (9.8-11.6)
[2018-08-14 05:52] LABS: Anion Gap 6 meq/L (5-15); Aspartate Aminotransferase 109 U/L (15-37); Blood Urea Nitrogen 14 mg/dL (7-18); Calcium 7.6 mg/dL (8.5-10.1); Carbon Dioxide 23.4 meq/L (21.0-32.0); Chloride 107 meq/L (98-107); Glomerular Filtration Rate 69 mL/min (>89); Glucose,Random 116 mg/dL (74-106); Magnesium 1.7 mg/dL (1.5-2.5); Potassium 4.3 meq/L (3.5-5.1); Sodium 136 meq/L (136-145)
[2018-08-14 05:56] LABS: Alanine Aminotransferase 73 U/L (10-53); Alkaline Phosphatase 37 U/L (45-117); Total Protein 4.1 g/dL (6.4-8.2)
--- NOTE | 2018-08-14 07:59 | P.PNVS ---
Subjective Post Op Day #: 1 Procedure: aorto-hepatic, aorto-SMA bypass Subjective/Hospital Course: fluid avid post op as expected UOP marginal despite several boluses extubated yesterday this morning, appears anxious but appropriate SYED Objective Neuro: alert, SYED, pain modestly controlled Pulmonary: good sats NC O2 Cardiac: SR bp ok (cuff) FEN/GI: Req IVF boluses NGT in place with expected bilious output e'lytes ok K 4.3 cr 0.8 : Boateng in place ID Antibiotics (date/duration): none WBC 13 ID Cultures: none Heme: Hct 23 plt 132 Laboratory Results - last 24 hr 08/13/18 08/13/18 08/13/18 06:55 09:16 13:20 WBC 10.2 RBC 1.91 L Hgb 6.4 L* Hct 18.0 L* MCV 94.2 MCH 33.8 MCHC 35.8 RDW 16.3 Plt Count 139 L D MPV 8.1 PT INR APTT Fibrinogen Sodium Potassium Chloride Carbon Dioxide Anion Gap BUN Creatinine Estimated GFR Random Glucose Lactic Acid Calcium Calcium Adj for Albumin Magnesium Total Bilirubin Direct Bilirubin Indirect Bilirubin AST ALT Alkaline Phosphatase Total Protein Albumin Blood Type A Positive Antibody Screen Negative MTS Gel Crossmatch See Detail Blood Bank Comment Bld Prod Order Comment 08/13/18 08/13/18 08/13/18 13:20 13:20 13:20 WBC RBC Hgb Hct MCV MCH MCHC RDW Plt Count MPV PT 12.6 H INR 1.2 APTT 31.5 Fibrinogen Sodium 136 Potassium 3.4 L Chloride 102 Carbon Dioxide 21.7 Anion Gap 12 BUN 8 Creatinine 0.57 Estimated GFR Greater than 89 Random Glucose 115 H Lactic Acid 2.2 H Calcium 6.4 L* Calcium Adj for Albumin 8.1 L Magnesium Total Bilirubin Direct Bilirubin Indirect Bilirubin AST ALT Alkaline Phosphatase Total Protein 3.9 L Albumin Blood Type Antibody Screen MTS Gel Crossmatch Blood Bank Comment Bld Prod Order Comment 08/13/18 08/13/18 08/13/18 14:06 17:35 22:20 WBC 19.1 H D RBC 3.14 L Hgb 10.0 L D Hct 28.6 L MCV 91.0 MCH 31.9 MCHC 35.0 RDW 16.6 Plt Count 158 MPV 9.0 PT 11.6 INR 1.1 APTT 26.4 Fibrinogen 174 L Sodium Potassium Chloride Carbon Dioxide Anion Gap BUN Creatinine Estimated GFR Random Glucose Lactic Acid Calcium Calcium Adj for Albumin Magnesium Total Bilirubin Direct Bilirubin Indirect Bilirubin AST ALT Alkaline Phosphatase Total Protein Albumin Blood Type Antibody Screen MTS Gel Crossmatch See Detail Blood Bank Comment Bld Prod Order Comment 08/13/18 08/13/18 08/14/18 22:20 22:20 05:00 WBC 13.3 H RBC 2.54 L Hgb 8.2 L Hct 23.2 L MCV 91.5 MCH 32.3 MCHC 35.3 RDW 16.9 Plt Count 132 L MPV 8.8 PT INR APTT Fibrinogen Sodium 135 L Potassium 4.0 Chloride 106 Carbon Dioxide 19.6 L Anion Gap 9 BUN 13 Creatinine 0.88 Estimated GFR 62 L Random Glucose 116 H Lactic Acid 2.3 H Calcium 8.1 L D Calcium Adj for Albumin Magnesium 1.7 Total Bilirubin 1.1 H Direct Bilirubin Indirect Bilirubin AST 151 H ALT 99 H Alkaline Phosphatase 46 Total Protein 4.6 L D Albumin 2.4 L Blood Type Antibody Screen MTS Gel Crossmatch Blood Bank Comment Bld Prod Order Comment 08/14/18 08/14/18 08/14/18 05:00 05:00 05:54 WBC RBC Hgb Hct MCV MCH MCHC RDW Plt Count MPV PT 11.9 H INR 1.2 APTT 30.6 Fibrinogen Sodium 136 Potassium 4.3 Chloride 107 Carbon Dioxide 23.4 Anion Gap 6 BUN 14 Creatinine 0.80 Estimated GFR 69 L Random Glucose 116 H Lactic Acid Calcium 7.6 L Calcium Adj for Albumin Magnesium 1.7 Total Bilirubin 0.5 Direct Bilirubin 0.2 Indirect Bilirubin 0.3 AST 109 H ALT 73 H Alkaline Phosphatase 37 L Total Protein 4.1 L Albumin 2.0 L Blood Type Antibody Screen MTS Gel Crossmatch See Detail Blood Bank Comment Bld Prod Order Comment Impressions Chest X-Ray 08/13/18 00:00 CONCLUSION: Support equipment in good position. No pneumothorax identified. Assessment and Plan - Assessment (1) Mesenteric ischemia due to arterial insufficiency Code(s): K55.059 - Acute (reversible) ischemia of intestine, part and extent unspecified Status: Acute - Plan POD#1 s/p antegrade mesenteric bypass fluid avid overnight, still getting resuscitation 1. NPO, NGT, MIVF with boluses for low UOP 2. Check CE x 3 given chest discomfort although appears anxiety related 3. D/C SCD given bypass L LE x 2 but continue prophylactic heparin 4. OOB TC ok today 5. Leave Boateng in for UOP monitoring 6. Tx 1U PRBC for volume today Discharge Planning: CVICU for several days, continue resuscitation
[2018-08-14] MEDS: Famotidine PF Inj 20 MG/2 ML Vial IV.PUSH SCH ×2 (08:51→21:36)
[2018-08-14] MEDS: Gabapentin 300 MG Capsule PO SCH ×2 (08:51→21:34)
[2018-08-14] MEDS: Isosorbide Mononitrate 30 MG ER 24HR Tablet (Imdur) PO SCH (08:51)
[2018-08-14] MEDS: ALPRAZolam 0.5 MG Tablet PO PRN (08:51)
[2018-08-14] MEDS: Sodium Chloride 0.9% 2 ML Flush BID IV.FLUSH SCH ×2 (08:52→21:37)
[2018-08-14] MEDS ORDERED: MAGNESIUM PO SCH (09:00)
[2018-08-14] MEDS: Enoxaparin Inj 30 MG/0.3 ML Syringe SQ SCH (11:34)
[2018-08-14] MEDS ORDERED: Albumin Human 5% Inj 500 ML IV.SIG ONE (12:00)
[2018-08-14] MEDS ORDERED: Naloxone Inj 0.4 MG/ML Vial IV.PUSH PRN (12:32)
[2018-08-14] MEDS: Acetaminophen Inj 650 MG/65 ML VIAL IV.SIG SCH ×2 (13:18→18:39)
[2018-08-14] MEDS ORDERED: Albumin Human 5% Inj 250 ML IV.SIG ONE ×2 (13:41→15:00)
[2018-08-14] MEDS: HYDROmorphone PCA Inj 6 MG/30 ML PCA.VIAL PCA PRN (17:40)
--- NOTE | 2018-08-14 20:00 | P.PNCC ---
Subjective Subjective Remarks/Hospital Course: Hospital Course: Patient is a 77-year-old female who was admitted to Dr. Eugene's service for mesenteric ischemia today. Her past medical history significant for coronary artery disease status post PCI/stent, history of renal artery stenosis, GERD, PAD, history of multiple vascular surgeries, history of small bowel obstruction, restless leg syndrome. Patient underwent aorto-hepatic and aorto-SMA bypass in OR. EBL was 400 ml, received 3.6 L of crystalloids in the OR , urine output was adequate. Postop patient was moved to the CVICU critical care medicine was consulted for postop management. Patient is hypotensive at the time of my evaluation and had been started on Diego-Synephrine by Dr. Eugene. I haave ordered further fluid resuscitation with additional 2 L of crystalloids. A stat ABG was done at the bedside which showed hemoglobin 6.6. A CBC was sent and I ordered 2 units of PRBC stat. CBC came back with hemoglobin of 6.4 platelet count 139. Chemistry showed potassium of 3.4 calcium uncorrected 6.4. Electrolyte replacement protocol and calcium replacement have been ordered. Lactic acid also mildly elevated at 2.2. Will follow serial lactic acid and follow urine output closely. If patient becomes hemodynamically more stable will proceed with weaning trial for extubation. Urine output had been adequate postop approximately 40 mL/h. Bilateral DP pulses are Dopplerable Subjective: 08/14: significant fluid requirement. trop slightly elevated at 0.06. initial scvo2 43% but improved after fluid to 68%. pain adequately controlled. uop marginal at 20cc/hr. Objective Vital Signs / I&O: Vital Signs 08/13/18 20:00 08/14/18 00:00 08/14/18 04:00 Temperature 36.8 C 36.7 C 36.8 C Pulse Rate 91 H 82 77 Respiratory Rate 20 18 18 Blood Pressure 104/57 L 117/54 L 135/66 Pulse Oximetry 99 94 L 94 L 08/14/18 07:00 08/14/18 08:00 08/14/18 08:07 Temperature 36.4 C L 36.4 C L Pulse Rate 92 H 96 H Respiratory Rate 20 22 Blood Pressure 118/82 132/65 132/65 Pulse Oximetry 97 98 08/14/18 09:52 08/14/18 11:00 08/14/18 12:00 Temperature 37.0 C Pulse Rate 97 H Respiratory Rate 22 Blood Pressure 125/65 127/67 Pulse Oximetry 99 96 98 08/14/18 14:36 08/14/18 15:00 08/14/18 16:00 Temperature 37.1 C Pulse Rate 87 Respiratory Rate 20 22 Blood Pressure 117/67 117/67 Pulse Oximetry 94 L 97 08/14/18 18:22 Temperature Pulse Rate Respiratory Rate 18 Blood Pressure Pulse Oximetry Intake & Output 08/14/18 08/14/18 08/15/18 06:59 18:59 06:59 Intake Total 2731 / 2731 1565 / 1565 65 / 65 Output Total 210 / 210 245 / 245 Balance 2521 / 2521 1320 / 1320 65 / 65 Weight 62 kg Intake: IV 2731 / 2731 1065 / 1065 65 / 65 LR 1000 mL Inj 1,000 ML @ 100 1000 / 1000 1000 / 1000 mls/hr IV.CONT .Q10H [facility] Rx#: [id number] Neosynephrine Inj 40 MG In D5W 111 / 111 Inj 496 ML @ 40 MCG/MIN 30 mls/ hr IV.CONT TITRATE PRN Rx#: [id number] Ofirmev Inj 650 mg In 65 ml @ 65 / 65 65 / 65 400 mls/hr IV.SIG Q6H [facility] Rx#: [id number] Calcium Chloride Inj 2 GM In NS 120 / 120 Inj 100 ML @ 120 mls/hr IV.SIG ONCE ONE Rx#:[id number] LR 1000 mL Inj 1,000 ML @ Wide 1000 / 1000 Open IV.SIG BOLUS ONE Rx#: [id number] NS Inj 500 ML @ 1000 mls/hr IV. 500 / 500 SIG BOLUS [facility] Rx#:[id number] Oral 0 / 0 Other 500 / 500 Rbc As-3 Leukoreduced Unit 500 / 500 [id number] Intake (Blood Product) Amt 0 / 0 Rbc As-3 Leukoreduced Unit 0 / 0 [id number] Output: Urine Amount (Catheter) 160 / 160 235 / 235 Indwelling Temp Sensing 160 / 160 235 / 235 Catheter Gastric Drainage 50 / 50 10 / 10 Right Nare Nasogastric Tube 50 / 50 10 / 10 Other: # Bowel Movements 0 Result Diagrams: 08/14/18 05:00 08/14/18 05:00 Objective Remarks: GENERAL: Elderly female, lying in bed, no acute distress HEENT: Normocephalic. Atraumatic. Pupils equal, round, reactive, conjugate. Mucous membranes are moist NECK: Trachea is midline. There is no JVD. Central line in place, site clean dry and intact. CHEST: Equal chest rise. Nasal cannula oxygen. CARDIOVASCULAR: Normal rate, regular. Sinus. Levophed at 4 mg/min. ABDOMEN: Soft, appropriately tender to palpation, nondistended. No guarding. Midline dressing intact MUSCULOSKELETAL: Pulses 2+. No peripheral edema. NEUROLOGICAL: RASS 0. CAM -. Follows commands. Assessment and Plan - Assessment and Plan Plan: ASSESSMENT: Mesenteric ischemia status post open antegrade mesenteric bypass Hypotension- persistent Postop anemia requiring transfusion Lactic acidosis- improving Hypokalemia Hypocalcemia Post op respiratory insufficiency- improving History of peripheral arterial disease, status post multiple vascular surgery Coronary artery disease GERD History of small bowel obstruction History of renal artery stenosis Restless leg syndrome Type II NSTEMI secondary to demand ischemia PLAN: NEURO: -PRN Dilaudid for pain control RESP: -o2 by nc for goal spo2 > 90% -DuoNeb every 2 hours as needed -PT consult - OOB with assist. CV: -Currently on levophed - trend troponins - unlikely to be ACS - likely demand ischemia given baseline CAD - restart ASA - hold on plavix per vascular surgery for at least another 1-2 days - trend lactates, svo2 - continue ivf- continues to have significant 3rd space losses. - hold off on anticoagulation- requiring transfusions, recent post-op. GI: -Status post open antegrade mesenteric bypass, postop management per Dr. Eugene -N.p.o., IV PPI, NG tube intermittent wall suction, anticipate ileus : -Monitor renal function closely. Boateng catheter. ID: -Perioperative antibiotics per Dr. Eugene HEME: -Monitor CBC, coags -Transfuse 2 units PRBC ENDO: -Electrolyte replacement per protocol PROPH: -Lovenox starting 08/14/2018 Central line and A-line placed in OR 08/13/2018
[2018-08-14] MEDS: Magnesium Oxide 400 MG Tablet PO SCH (21:35)
[2018-08-15] MEDS: Acetaminophen Inj 650 MG/65 ML VIAL IV.SIG SCH ×2 (01:47→10:03)
[2018-08-15] MEDS: ALPRAZolam 0.5 MG Tablet PO PRN ×2 (02:09→18:35)
[2018-08-15 05:11] LABS: Hemoglobin 9.8 gm/dL (11.6-15.3); Mean Corpuscular HGB Conc 35.1 % (32.0-36.0); Mean Corpuscular Hemoglobin 32.1 pg (27.0-34.0); Mean Corpuscular Volume 91.4 fL (80.0-100.0); Mean Platelet Volume 8.3 fL (7.0-11.0); Platelet Count 149 th/mm3 (150-450); Red Blood Count 3.06 mil/mm3 (4.00-5.30); Red Cell Distribution Width 16.7 % (11.6-17.2); White Blood Count 18.2 th/mm3 (4.0-11.0)
[2018-08-15 05:38] LABS: Calcium 7.7 mg/dL (8.5-10.1); Carbon Dioxide 22.8 meq/L (21.0-32.0); Potassium 4.1 meq/L (3.5-5.1)
[2018-08-15 05:45] LABS: ABG Base Excess -5.8 mmol/L (-2-2); ABG PCO2 44 mmHg (38-42); ABG PO2 114 mmHG (61-120)
[2018-08-15 05:47] LABS: Troponin I 1.16 ng/mL (0.02-0.05)
[2018-08-15] MEDS ORDERED: Sodium Bicarbonate 8.4% Inj 50 MEQ/50 ML Syringe ONE (05:59)
--- NOTE | 2018-08-15 06:06 | P.PNCC ---
Subjective Subjective Remarks/Hospital Course: Hospital Course: Patient is a 77-year-old female who was admitted to Dr. Eugene's service for mesenteric ischemia today. Her past medical history significant for coronary artery disease status post PCI/stent, history of renal artery stenosis, GERD, PAD, history of multiple vascular surgeries, history of small bowel obstruction, restless leg syndrome. Patient underwent aorto-hepatic and aorto-SMA bypass in OR. EBL was 400 ml, received 3.6 L of crystalloids in the OR , urine output was adequate. Postop patient was moved to the CVICU critical care medicine was consulted for postop management. Patient is hypotensive at the time of my evaluation and had been started on Diego-Synephrine by Dr. Eugene. I haave ordered further fluid resuscitation with additional 2 L of crystalloids. A stat ABG was done at the bedside which showed hemoglobin 6.6. A CBC was sent and I ordered 2 units of PRBC stat. CBC came back with hemoglobin of 6.4 platelet count 139. Chemistry showed potassium of 3.4 calcium uncorrected 6.4. Electrolyte replacement protocol and calcium replacement have been ordered. Lactic acid also mildly elevated at 2.2. Will follow serial lactic acid and follow urine output closely. If patient becomes hemodynamically more stable will proceed with weaning trial for extubation. Urine output had been adequate postop approximately 40 mL/h. Bilateral DP pulses are Dopplerable Subjective: 08/14: significant fluid requirement. trop slightly elevated at 0.06. initial scvo2 43% but improved after fluid to 68%. pain adequately controlled. uop marginal at 20cc/hr. 08/15: trop slightly uptrended. now appears volume overloaded with new and worsening oxygen requirement. ABG with mixed acidosis. responded well to lasix with adequate diuresis. placed on BiPAP. somewhat agitated requiring low-dose Precedex. lactate 0.8, scvo2 71%. Objective Vital Signs / I&O: Vital Signs 08/14/18 07:00 08/14/18 08:00 08/14/18 08:07 Temperature 36.4 C L 36.4 C L Pulse Rate 92 H 96 H Respiratory Rate 20 22 Blood Pressure 118/82 132/65 132/65 Pulse Oximetry 97 98 08/14/18 09:52 08/14/18 10:00 08/14/18 11:00 Temperature 37.0 C 37.0 C Pulse Rate 97 H Respiratory Rate 22 Blood Pressure 125/65 Pulse Oximetry 99 96 08/14/18 12:00 08/14/18 14:36 08/14/18 15:00 Temperature 37.0 C Pulse Rate 87 Respiratory Rate 20 22 Blood Pressure 127/67 117/67 Pulse Oximetry 98 94 L 08/14/18 16:00 08/14/18 18:22 08/14/18 19:00 Temperature 36.3 C L Pulse Rate 99 H Respiratory Rate 18 32 H Blood Pressure 117/67 126/69 Pulse Oximetry 97 95 08/14/18 20:00 08/14/18 23:00 08/15/18 00:00 Temperature 36.6 C Pulse Rate 89 89 89 Respiratory Rate 26 H Blood Pressure 123/64 144/88 H 130/72 Pulse Oximetry 95 98 95 08/15/18 03:00 Temperature 36.3 C L Pulse Rate 89 Respiratory Rate 28 H Blood Pressure 118/68 Pulse Oximetry 99 Intake & Output 08/14/18 08/14/18 08/15/18 06:59 18:59 06:59 Intake Total 2731 / 2731 1565 / 1565 1679 / 1679 Output Total 210 / 210 245 / 245 Balance 2521 / 2521 1320 / 1320 1679 / 1679 Weight 62 kg Intake: IV 2731 / 2731 1065 / 1065 1679 / 1679 LR 1000 mL Inj 1,000 ML @ 100 1000 / 1000 1000 / 1000 1299 / 1299 mls/hr IV.CONT .Q10H [facility] Rx#: [id number] Neosynephrine Inj 40 MG In D5W 111 / 111 Inj 496 ML @ 40 MCG/MIN 30 mls/ hr IV.CONT TITRATE PRN Rx#: [id number] Ofirmev Inj 650 mg In 65 ml @ 65 / 65 130 / 130 400 mls/hr IV.SIG Q6H [facility] Rx#: [id number] Calcium Chloride Inj 2 GM In NS 120 / 120 Inj 100 ML @ 120 mls/hr IV.SIG ONCE ONE Rx#:[id number] LR 1000 mL Inj 1,000 ML @ Wide 1000 / 1000 Open IV.SIG BOLUS ONE Rx#: [id number] Levophed-Dextrose 4 mg/250 ml 250 / 250 Drip 4 mg In 250 ml @ 2 MCG/MIN 7.5 mls/hr IV.SIG TITRATE PRN Rx#:[id number] NS Inj 500 ML @ 1000 mls/hr IV. 500 / 500 SIG BOLUS [facility] Rx#:[id number] Oral 0 / 0 Other 500 / 500 Rbc As-3 Leukoreduced Unit 500 / 500 [id number] Intake (Blood Product) Amt 0 / 0 Rbc As-3 Leukoreduced Unit 0 / 0 [id number] Output: Urine Amount (Catheter) 160 / 160 235 / 235 Indwelling Temp Sensing 160 / 160 235 / 235 Catheter Gastric Drainage 50 / 50 10 / 10 Right Nare Nasogastric Tube 50 / 50 10 / 10 Other: # Bowel Movements 0 Result Diagrams: 08/15/18 04:30 08/15/18 04:30 Objective Remarks: GENERAL: Elderly female, lying in bed, moderate respiratory distress. HEENT: Normocephalic. Atraumatic. Pupils equal, round, reactive, conjugate. Mucous membranes are moist NECK: Trachea is midline. There is no JVD. Central line in place, site clean dry and intact. CHEST: Equal chest rise. BiPAP in place. mildly labored. CARDIOVASCULAR: Normal rate, regular. Sinus. ABDOMEN: Soft, appropriately tender to palpation, nondistended. No guarding. Midline dressing intact MUSCULOSKELETAL: Pulses 2+. No peripheral edema. NEUROLOGICAL: RASS +1. CAM -. Follows commands. Assessment and Plan - Assessment and Plan Plan: ASSESSMENT: Mesenteric ischemia status post open antegrade mesenteric bypass Hypotension- persistent Postop anemia requiring transfusion Lactic acidosis- resolved Hypokalemia Hypocalcemia Post op respiratory insufficiency- worsening Acute intravascular volume overload Acute pulmonary edema- severe History of peripheral arterial disease, status post multiple vascular surgery Coronary artery disease GERD History of small bowel obstruction History of renal artery stenosis Restless leg syndrome Type II NSTEMI secondary to demand ischemia PLAN: NEURO: -PRN Dilaudid for pain control precedex for goal RASS 0. RESP: -bipap -DuoNeb every 2 hours as needed -PT consult - OOB with assist. lasix, forced diuresis. net negative goal. CV: -Currently on levophed - trend troponins, still uptrending. - unlikely to be ACS - likely demand ischemia given baseline CAD - ASA - hold on plavix per vascular surgery for at least another 1-2 days - trend lactates, svo2: downtrending. - d/c mivf - diuresis. - hold off on anticoagulation- requiring transfusions, recent post-op. - cardiology consulted: Dr. Neil GI: -Status post open antegrade mesenteric bypass, postop management per Dr. Eugene -N.p.o., IV PPI, NG tube intermittent wall suction, anticipate ileus : -Monitor renal function closely. Boateng catheter. ID: -Perioperative antibiotics per Dr. Eugene HEME: -Monitor CBC, coags - no current indications for transfusions. ENDO: -Electrolyte replacement per protocol PROPH: -Lovenox Central line and A-line placed in OR 08/13/2018: keep today.
--- NOTE | 2018-08-15 06:44 | XR ---
EXAM DATE: 08/15/2018 6:07 AM EST AGE/SEX: 78 years / Female INDICATIONS: Short of breath. CLINICAL DATA: This is the patient's subsequent encounter. Patient reports that signs and symptoms h ave been present for 3 days and indicates a pain score of Nonresponsive. MEDICAL/SURGICAL HISTORY: Non-responsive. . Coronary artery stents. Right Shoulder. COMPARISON: [facility], CHEST 1V SINGLE AP, 08/13/2018. . FINDINGS: Right central line in superior vena cava. NG enters stomach. Bilateral mostly basilar airspace consol idation and pleural effusions which have worsened slightly since August 13. CONCLUSION: Increase in basilar airspace disease since August 13. Small left effusion. Interval extubation. Electronically signed by: Gold Nuñez MD 08/15/2018 6:42 AM EST
[2018-08-15 06:58] LABS: VBG Base Excess 0.5 mmol/L (-2-2); VBG Blood Gas Oxygen Content 9.7 Vol % (9.0-17.0); VBG PCO2 44 mmHG (44-48); VBG PH 7.37 (7.360-7.400); VBG PO2 36 mmHG (35-40)
--- NOTE | 2018-08-15 07:40 | ECG ---
Date Performed: 08/15/2018 Time Performed: 06:25:14 PTAGE: 78 years EKG: Sinus rhythm . Right bundle branch block Possible anterior infarct - age undetermined Inferior/lateral T wave thacker ges are nonspecific Low QRS voltages in precordial leads Abnormal ECG NO PREVIOUS TRACING DOCTOR: Alessandro Morrison Interpretating Date/Time 08/15/2018 07:39:55
--- NOTE | 2018-08-15 07:41 | P.PNVS ---
Subjective Post Op Day #: 2 Procedure: aorto-hepatic, aorto-SMA bypass Subjective/Hospital Course: agitated this morning but may be related to CPAP Mixed venous O2 better (71). Troponin elevated but no c/o CP and no EKG changes Objective Neuro: Agitated, SYED Pulmonary: CPAP 7.28/44/114/20/-6 Cardiac: SR, bp ok troponin elevated FEN/GI: NPO MIVF e'lytes ok UOP great with Lasix ID Antibiotics (date/duration): none Heme: Hct 28 plt 149 Laboratory Results - last 24 hr 08/13/18 08/14/18 08/14/18 14:06 05:54 09:25 WBC RBC Hgb Hct MCV MCH MCHC RDW Plt Count MPV Puncture Site Patient Temperature O2 Saturation ABG pH ABG pCO2 ABG pO2 ABG HCO3 ABG O2 Content ABG Base Excess ABG Methemoglobin VBG pH VBG pCO2 VBG pO2 VBG HCO3 VBG O2 Saturation VBG O2 Content VBG Base Excess VBG Carboxyhemoglobin VBG Methemoglobin Hemoglobin Carboxyhemoglobin O2 Delivery Device Liter Flow Vent Setting Inspired O2 Critical Value Sodium Potassium Chloride Carbon Dioxide Anion Gap BUN Creatinine Estimated GFR Random Glucose Calcium Troponin I 0.06 H MTS Gel Crossmatch See Detail See Detail Bld Prod Order Comment 08/14/18 08/15/18 08/15/18 15:10 04:30 04:30 WBC 18.2 H RBC 3.06 L Hgb 9.8 L Hct 28.0 L MCV 91.4 MCH 32.1 MCHC 35.1 RDW 16.7 Plt Count 149 L MPV 8.3 Puncture Site Patient Temperature O2 Saturation ABG pH ABG pCO2 ABG pO2 ABG HCO3 ABG O2 Content ABG Base Excess ABG Methemoglobin VBG pH VBG pCO2 VBG pO2 VBG HCO3 VBG O2 Saturation VBG O2 Content VBG Base Excess VBG Carboxyhemoglobin VBG Methemoglobin Hemoglobin Carboxyhemoglobin O2 Delivery Device Liter Flow Vent Setting Inspired O2 Critical Value Sodium 135 L Potassium 4.1 Chloride 106 Carbon Dioxide 22.8 Anion Gap 6 BUN 14 Creatinine 0.67 Estimated GFR 85 L Random Glucose 111 H Calcium 7.7 L Troponin I 0.12 H 1.16 H* D MTS Gel Crossmatch Bld Prod Order Comment 08/15/18 08/15/18 05:30 06:48 WBC RBC Hgb Hct MCV MCH MCHC RDW Plt Count MPV Puncture Site Art line Central line Patient Temperature 98.6 98.6 O2 Saturation 96 ABG pH 7.28 L* ABG pCO2 44 H ABG pO2 114 ABG HCO3 20 L ABG O2 Content 13.2 ABG Base Excess -5.8 L ABG Methemoglobin 1.4 VBG pH 7.37 VBG pCO2 44 VBG pO2 36 VBG HCO3 25 VBG O2 Saturation 71 VBG O2 Content 9.7 VBG Base Excess 0.5 VBG Carboxyhemoglobin 1.6 VBG Methemoglobin 1.5 Hemoglobin 9.7 L 9.7 L Carboxyhemoglobin 1.5 O2 Delivery Device Nasal cannula Bipap Liter Flow 4.00 Vent Setting 12 ipap/5epap Inspired O2 50 Critical Value Yes No Sodium Potassium Chloride Carbon Dioxide Anion Gap BUN Creatinine Estimated GFR Random Glucose Calcium Troponin I MTS Gel Crossmatch Bld Prod Order Comment Impressions Chest X-Ray 08/13/18 00:00 CONCLUSION: Support equipment in good position. No pneumothorax identified. Chest X-Ray 08/15/18 00:00 CONCLUSION: Increase in basilar airspace disease since August 13. Small left effusion. Interval extubation. Assessment and Plan - Assessment (1) Mesenteric ischemia due to arterial insufficiency Code(s): K55.059 - Acute (reversible) ischemia of intestine, part and extent unspecified Status: Acute - Plan POD#2 s/p antegrade mesenteric bypass responded to Lasix; elevated troponins 1. NPO, NGT 2. Consult cardiology; ok to resume ASA and if cardiology feel indicated, can have gentle hep gtt 3. OOB TC 4. Wean CPAP with diuresis 5. Dec MIVF (diuresis) 6. Leave Boateng in for UOP monitoring Discharge Planning: CVICU for several days
[2018-08-15 07:56] LABS: ABG Base Excess 0.1 mmol/L (-2-2); ABG PCO2 39 mmHg (38-42); ABG PO2 189 mmHG (61-120)
[2018-08-15] MEDS: Isosorbide Mononitrate 30 MG ER 24HR Tablet (Imdur) PO SCH (10:05)
[2018-08-15] MEDS: Famotidine PF Inj 20 MG/2 ML Vial IV.PUSH SCH ×2 (10:05→20:56)
[2018-08-15] MEDS: Gabapentin 300 MG Capsule PO SCH ×2 (10:05→20:56)
[2018-08-15] MEDS: Sodium Chloride 0.9% 2 ML Flush BID IV.FLUSH SCH ×2 (10:06→20:57)
--- NOTE | 2018-08-15 10:56 | MB ---
cc: Mick Neil MD DATE: 08/15/2018 HISTORY OF PRESENT ILLNESS: This is a 78-year-old female, who sees my colleague, Dr. Pace. The patient is noted to have extensive vascular disease. She has peripheral arterial disease and apparently has had more than 1 procedure performed for that. She has known coronary disease. Do not have specifics on where her stents were placed. It sounds like she had an LAD stent in 2000. She has had a total of 2-3 stents, the last one was . None of the records are available from my office and cannot communicate well enough from the patient to find out where this was done, or get those records. She had a preoperative evaluation with a Lexiscan nuclear stress test 08/03/2018, which showed homogeneous tracer distribution throughout the myocardium and no evidence of ischemia and normal ejection fraction. Her echo shows normal LV function and the atrial size is 4.8 cm and moderate to severe mitral regurgitation. She underwent mesenteric bypass yesterday. She had intraoperative hypertension. She had some profound anemia. Yesterday, her hemoglobin was 18 and had to be transfused. Currently on a small amount of Levophed for blood pressure support. The patient has been very anxious and restless. I cannot elicit any typical anginal symptoms from her. PAST MEDICAL HISTORY: Includes hyperlipidemia, hypertension, lymphocytic colitis, peripheral arterial disease, spinal stenosis, and coronary artery disease. PAST SURGICAL HISTORY: Includes appendectomy, cholecystectomy, and coronary stent procedures. ALLERGIES: NONE. FAMILY HISTORY: Includes rheumatoid arthritis, ischemic heart disease. SOCIAL HISTORY: Two to three alcoholic drinks per day. Former smoker, quit in the 1980s at 1-1/2 pack per day. REVIEW OF SYSTEMS: Unobtainable. PHYSICAL EXAMINATION: GENERAL: Elderly white female, supine in bed wearing a CPAP mask. VITAL SIGNS: Are charted. HEENT: Unremarkable. NECK: Shows increased central venous pressure. CHEST: Mostly clear anteriorly. CARDIAC: S1, S2, regular rate and rhythm. There is a slight 1/6 systolic murmur. ABDOMEN: Bandaged. EXTREMITIES: Reveal 2+ pulses. No peripheral edema. DIAGNOSTIC DATA: EKG shows sinus with right bundle branch block. No acute ST-T wave changes. LABORATORY DATA: Are charted. Hematocrit was 18 yesterday. It is up to 28 now. B. Creatinine is 0.67. Troponins have risen up to 1.16. Chest x-ray this morning shows a small left pleural effusion, increase in bibasilar airspace disease. IMPRESSION: Suspect a perioperative non-STEMI, most likely a type 2 myocardial infarction. I do not see acute ST-T wave changes. She had some chest pain yesterday, according to Dr. Eugene as she was profoundly anemic yesterday. She is not having any chest pain currently. She had a normal nuclear stress test preop. She is known to have coronary artery disease. I would be inclined not to manage this with IV heparin and urgent cardiac catheterization, and I think this is more likely a type 2 event rather than a type 1 event, but she will need to be closely followed. Troponin should be trended. She has known mitral regurgitations and when she is able to get back on losartan, that would help. Currently, she is on Levophed for blood pressure support. She is getting some mobilization of fluid and has been getting some IV Lasix for that. Further therapy to be determined. MD OCTAVIANO Mitchell/em , 08:29 AM , 08:38 AM
[2018-08-15] MEDS: Dexmedetomidine Inj 200 MCG in Sodium Chlor 0.9% Inj 48 ML IV.CONT PRN (11:23)
--- NOTE | 2018-08-15 12:43 | ECG ---
Date Performed: 08/14/2018 Time Performed: 12:30:54 PTAGE: 78 years EKG: Sinus rhythm Right bundle branch block Inferior T wave changes are nonspecific Abnormal ECG PREVIOUS TRACING : 07/31/2018 06.58 DOCTOR: Alessandro Morrison Interpretating Date/Time 08/15/2018 12:41:37
[2018-08-15] MEDS: Enoxaparin Inj 30 MG/0.3 ML Syringe SQ SCH (13:10)
[2018-08-15] MEDS: Magnesium Oxide 400 MG Tablet PO SCH (20:57)
[2018-08-16 04:41] LABS: Hemoglobin 8.9 gm/dL (11.6-15.3); Mean Corpuscular HGB Conc 34.3 % (32.0-36.0); Mean Corpuscular Hemoglobin 31.9 pg (27.0-34.0); Mean Corpuscular Volume 92.9 fL (80.0-100.0); Mean Platelet Volume 8.4 fL (7.0-11.0); Platelet Count 137 th/mm3 (150-450); Red Cell Distribution Width 16.7 % (11.6-17.2); White Blood Count 16.3 th/mm3 (4.0-11.0)
[2018-08-16 05:06] LABS: Carbon Dioxide 22.4 meq/L (21.0-32.0)
[2018-08-16 05:18] LABS: Troponin I 1.4 ng/mL (0.02-0.05)
[2018-08-16] MEDS ORDERED: Metoprolol Inj 5 MG/5 ML Vial IV.PUSH ONE (06:51)
--- NOTE | 2018-08-16 07:20 | P.PNCC ---
Subjective Subjective Remarks/Hospital Course: Hospital Course: Patient is a 77-year-old female who was admitted to Dr. Eugene's service for mesenteric ischemia today. Her past medical history significant for coronary artery disease status post PCI/stent, history of renal artery stenosis, GERD, PAD, history of multiple vascular surgeries, history of small bowel obstruction, restless leg syndrome. Patient underwent aorto-hepatic and aorto-SMA bypass in OR. EBL was 400 ml, received 3.6 L of crystalloids in the OR , urine output was adequate. Postop patient was moved to the CVICU critical care medicine was consulted for postop management. Patient is hypotensive at the time of my evaluation and had been started on Diego-Synephrine by Dr. Eugene. I haave ordered further fluid resuscitation with additional 2 L of crystalloids. A stat ABG was done at the bedside which showed hemoglobin 6.6. A CBC was sent and I ordered 2 units of PRBC stat. CBC came back with hemoglobin of 6.4 platelet count 139. Chemistry showed potassium of 3.4 calcium uncorrected 6.4. Electrolyte replacement protocol and calcium replacement have been ordered. Lactic acid also mildly elevated at 2.2. Will follow serial lactic acid and follow urine output closely. If patient becomes hemodynamically more stable will proceed with weaning trial for extubation. Urine output had been adequate postop approximately 40 mL/h. Bilateral DP pulses are Dopplerable Subjective: 08/14: significant fluid requirement. trop slightly elevated at 0.06. initial scvo2 43% but improved after fluid to 68%. pain adequately controlled. uop marginal at 20cc/hr. 08/15: trop slightly uptrended. now appears volume overloaded with new and worsening oxygen requirement. ABG with mixed acidosis. responded well to lasix with adequate diuresis. placed on BiPAP. somewhat agitated requiring low-dose Precedex. lactate 0.8, scvo2 71%. 08/16: slightly tachycardic this morning. some diuresis yesterday and back to nc o2, but remains volume overloaded. denies pain. somewhat intermittently confused, but oriented on my evaluation. trop still uptrending, but plateauing. uop adequate. Objective Vital Signs / I&O: Vital Signs 08/15/18 07:20 08/15/18 10:00 08/15/18 10:05 Temperature Pulse Rate Respiratory Rate Blood Pressure Pulse Oximetry 97 97 96 08/15/18 11:00 08/15/18 14:00 08/15/18 15:00 Temperature 36.7 C 36.7 C Pulse Rate 78 66 Respiratory Rate 16 16 Blood Pressure 113/55 L 120/57 L Pulse Oximetry 99 99 97 08/15/18 16:33 08/15/18 19:00 08/15/18 19:59 Temperature Pulse Rate 94 H Respiratory Rate Blood Pressure Pulse Oximetry 94 L 99 08/15/18 20:00 08/15/18 23:00 08/16/18 00:00 Temperature 36.6 C 36.7 C Pulse Rate 90 97 H Respiratory Rate 16 16 Blood Pressure 131/62 124/60 Pulse Oximetry 99 99 99 08/16/18 03:00 08/16/18 04:00 Temperature 36.8 C Pulse Rate 108 H Respiratory Rate 16 Blood Pressure 131/68 Pulse Oximetry 99 99 Intake & Output 08/15/18 08/16/18 08/16/18 18:59 06:59 18:59 Intake Total 1000 / 1000 Output Total 800 / 800 170 / 170 Balance -800 / -800 830 / 830 Weight 65.5 kg Intake: IV 1000 / 1000 LR 1000 mL Inj 1,000 ML @ 100 1000 / 1000 mls/hr IV.CONT .Q10H [facility] Rx#: [id number] Oral 0 / 0 Output: Urine Amount (Catheter) 800 / 800 170 / 170 Indwelling Temp Sensing 800 / 800 170 / 170 Catheter Result Diagrams: 08/16/18 04:00 08/16/18 04:00 Objective Remarks: GENERAL: Elderly female, lying in bed, no acute distress. HEENT: Normocephalic. Atraumatic. Pupils equal, round, reactive, conjugate. Mucous membranes are moist NECK: Trachea is midline. There is no JVD. Central line in place, site clean dry and intact. CHEST: Equal chest rise. nc o2. unlabored. CARDIOVASCULAR: Normal rate, regular. Sinus. ABDOMEN: Soft, appropriately tender to palpation, nondistended. No guarding. Midline dressing intact MUSCULOSKELETAL: Pulses 2+. No peripheral edema. NEUROLOGICAL: RASS 0. CAM -. Follows commands. Assessment and Plan - Assessment and Plan Plan: ASSESSMENT: Mesenteric ischemia status post open antegrade mesenteric bypass Hypotension- persistent Postop anemia requiring transfusion Lactic acidosis- resolved Hypokalemia Hypocalcemia Post op respiratory insufficiency- worsening Acute intravascular volume overload Acute pulmonary edema- severe History of peripheral arterial disease, status post multiple vascular surgery Coronary artery disease GERD History of small bowel obstruction History of renal artery stenosis Restless leg syndrome Type II NSTEMI secondary to demand ischemia PLAN: NEURO: -PRN Dilaudid for pain control RESP: -nc o2. -DuoNeb every 2 hours as needed -PT consult - OOB with assist. lasix, forced diuresis. net negative goal. CV: -Currently on levophed - trend troponins, still uptrending. - unlikely to be ACS - likely demand ischemia given baseline CAD - ASA - hold on plavix per vascular surgery for at least another 1-2 days - trend lactates, svo2: downtrending. - diuresis. - hold off on anticoagulation- requiring transfusions, recent post-op. - cardiology consulted: Dr. Neil GI: -Status post open antegrade mesenteric bypass, postop management per Dr. Eugene -N.p.o., IV PPI, NG tube intermittent wall suction, anticipate ileus : -Monitor renal function closely. Boateng catheter. ID: -Perioperative antibiotics per Dr. Eugene HEME: -Monitor CBC, coags - no current indications for transfusions. ENDO: -Electrolyte replacement per protocol PROPH: -Lovenox Central line and A-line placed in OR 08/13/2018: d/c
--- NOTE | 2018-08-16 07:56 | P.PNVS ---
Subjective Post Op Day #: 3 Procedure: aorto-hepatic, aorto-SMA bypass Subjective/Hospital Course: OOB TC breathing improved + small flatus per patient overall looks great - no CP Objective Neuro: alert, oriented, SYED Pulmonary: good sats NC O2; no SOB Cardiac: mild tachy - responded to lopressor troponins still increasing but rate of incline lower; no EKG tracing changes and no CP FEN/GI: NPO NGT bilious e'lytes ok K 4.0 : UOP responded to Lasix - will give more this morning ID Antibiotics (date/duration): none ID Cultures: none Heme: Hct 26 plt 137 Laboratory Results - last 24 hr 08/14/18 08/15/18 08/15/18 05:54 07:43 09:37 WBC RBC Hgb Hct MCV MCH MCHC RDW Plt Count MPV Puncture Site Art line Patient Temperature 98.6 O2 Saturation 97 ABG pH 7.41 ABG pCO2 39 ABG pO2 189 H ABG HCO3 24 ABG O2 Content 14.2 ABG Base Excess 0.1 ABG Methemoglobin 1.4 Hemoglobin 10.1 L Carboxyhemoglobin 1.4 O2 Delivery Device Bipap Vent Setting [id number] Inspired O2 50 Critical Value No Sodium Potassium Chloride Carbon Dioxide Anion Gap BUN Creatinine Estimated GFR Random Glucose Lactic Acid 0.8 Calcium Troponin I MTS Gel Crossmatch See Detail 08/15/18 08/16/18 08/16/18 12:10 04:00 04:00 WBC 16.3 H RBC 2.80 L Hgb 8.9 L Hct 26.0 L MCV 92.9 MCH 31.9 MCHC 34.3 RDW 16.7 Plt Count 137 L MPV 8.4 Puncture Site Patient Temperature O2 Saturation ABG pH ABG pCO2 ABG pO2 ABG HCO3 ABG O2 Content ABG Base Excess ABG Methemoglobin Hemoglobin Carboxyhemoglobin O2 Delivery Device Vent Setting Inspired O2 Critical Value Sodium 137 Potassium 4.0 Chloride 105 Carbon Dioxide 22.4 Anion Gap 10 BUN 20 H Creatinine 0.66 Estimated GFR 87 L Random Glucose 91 Lactic Acid Calcium 8.0 L Troponin I 1.35 H* D 1.40 H* MTS Gel Crossmatch Impressions Chest X-Ray 08/15/18 00:00 CONCLUSION: Increase in basilar airspace disease since August 13. Small left effusion. Interval extubation. Assessment and Plan - Assessment (1) Mesenteric ischemia due to arterial insufficiency Code(s): K55.059 - Acute (reversible) ischemia of intestine, part and extent unspecified Status: Acute - Plan POD#3 s/p antegrade mesenteric bypass elevated troponins likely heart strain - appreciate cardiology input 1. NPO, NGT and AROBF but ok with ice chips 2. ASA and resume some home antihypertensives 3. OOB/PT/ambulate 4. Diurese 5. Leave Boateng in for UOP monitoring Discharge Planning: CVICU for several days
--- NOTE | 2018-08-16 08:41 | P.PNCA ---
Subjective Interval history: No angina Medications and Allergies Active Medications: Active Medications Al Hydroxide/Mg Hydroxide (Milk Of David Liq) 30 ml PO Q12H PRN PRN Reason: Mild Constipation Albuterol (Duoneb Neb (Prn)) 1 ampul NEB Q2HR NEB PRN PRN Reason: SHORTNESS OF BREATH Alprazolam (Xanax) 0.5 mg PO BID PRN PRN Reason: Anxiety Last Admin: 08/15/18 18:35 Dose: 0.5 mg Aspirin (Aspirin Chew) 81 mg PO DAILY [facility] Last Admin: 08/15/18 10:04 Dose: 81 mg Atorvastatin Calcium (Lipitor) 40 mg PO DAILY [facility] Last Admin: 08/15/18 10:05 Dose: 40 mg Bisacodyl (Dulcolax Supp) 10 mg RECTAL DAILY PRN PRN Reason: SEVERE CONSITIPATION Enoxaparin Sodium (Lovenox Inj) 30 mg SQ Q24H [facility] Last Admin: 08/15/18 13:10 Dose: 30 mg Famotidine (Pepcid Pf Inj) 20 mg IV.PUSH Q12HR [facility] Last Admin: 08/15/18 20:56 Dose: 20 mg Gabapentin (Neurontin) 300 mg PO BID [facility] Last Admin: 08/15/18 20:56 Dose: 300 mg Hydromorphone HCl (Dilaudid Pf Inj) 0.2 mg IV.PUSH Q1H PRN PRN Reason: PAIN SCALE 1 TO 10 Last Admin: 08/14/18 16:51 Dose: 0.2 mg Lactated Ringer's (Lr 1000 Ml Inj) 1,000 mls @ 100 mls/hr IV.CONT .Q10H [facility] Last Admin: 08/16/18 07:04 Dose: 30 mls/hr Propofol (Diprivan 1000 Mg/100 Ml Inj) 1,000 mg in 100 mls @ 5.988 mls/hr IV.CONT TITRATE PRN; Protocol PRN Reason: Per Protocol Last Titration: 08/13/18 18:00 Dose: 0 mcg/kg/min, 0 mls/hr Magnesium Sulfate 4 gm/ Sodium (Chloride) 100 mls @ 50 mls/hr IV.SIG UNSCH PRN PRN Reason: For Magnesium 0.9 - 1.1 mg/dL Magnesium Sulfate 2 gm/ Sodium (Chloride) 100 mls @ 50 mls/hr IV.SIG UNSCH PRN PRN Reason: For Magnesium 1.2 - 1.6 mg/dL Potassium Chloride (Kcl 40 Meq Premix Inj) 40 meq in 100 mls @ 50 mls/hr IV.SIG Q2H PRN PRN Reason: For Potassium 2.8 - 3.2 mEq/L Potassium Chloride (Kcl 20 Meq Premix Inj) 20 meq in 100 mls @ 50 mls/hr IV.SIG Q2H PRN PRN Reason: For Potassium 3.3 - 3.5 mEq/L Potassium Chloride (Kcl 40 Meq Premix Inj) 40 meq in 100 mls @ 25 mls/hr IV.SIG UNSCH PRN PRN Reason: For Potassium 3.3 - 3.5 mEq/L Potassium Chloride (Kcl 20 Meq Premix Inj) 20 meq in 100 mls @ 50 mls/hr IV.SIG Q2H PRN PRN Reason: For Potassium 2.8 - 3.2 mEq/L Potassium Phosphate 30 mmol/ (Sodium Chloride) 260 mls @ 42 mls/hr IV.SIG UNSCH PRN PRN Reason: SEE LABEL COMMENTS Sodium Phosphate 30 mmol/ (Sodium Chloride) 260 mls @ 42 mls/hr IV.SIG UNSCH PRN PRN Reason: For Phosphorus < 2.5 mg/dL Norepinephrine Bitartrate (Levophed-Dextrose 4 Mg/250 Ml Drip) 4 mg in 250 mls @ 7.5 mls/hr IV.SIG TITRATE PRN; Protocol PRN Reason: Per Protocol Last Titration: 08/15/18 16:38 Dose: 0 mcg/min, 0 mls/hr Hydromorphone/Sodium Chloride (Dilaudid Linen Aide Inj) 6 mg in 30 mls @ 0 mls/hr [employer] UNSCH PRN PRN Reason: prn pain Last Infusion: 08/15/18 07:54 Dose: 0 mls/hr Dexmedetomidine HCl 200 mcg/ (Sodium Chloride) 50 mls @ 3.27 mls/hr IV.CONT TITRATE PRN; Protocol PRN Reason: Per Protocol Last Titration: 08/15/18 13:48 Dose: 0.4 mcg/kg/hr, 6.55 mls/hr Isosorbide Mononitrate (Imdur) 30 mg PO DAILY [facility] Last Admin: 08/15/18 10:05 Dose: 30 mg Lactulose (Lactulose Liq) 30 ml PO DAILY PRN PRN Reason: SEVERE CONSITIPATION Magnesium Oxide (Mag-Ox) 400 mg PO [facility] Last Admin: 08/15/18 20:57 Dose: 400 mg Magnesium Oxide (Mag-Ox) 800 mg PO UNSCH PRN PRN Reason: For Magnesium 1.2 - 1.6 mg/dL Naloxone HCl (Narcan Inj) 0.4 mg IV.PUSH PRN PRN PRN Reason: Resp rate < 10 Naloxone HCl (Narcan Inj) 0.4 mg IV.PUSH PRN PRN PRN Reason: SEE LABEL COMMENTS Potassium Bicarb/Potassium Chloride (K-Lyte Cl Eff) 50 meq PO UNSCH PRN PRN Reason: For Potassium 3.3 - 3.5 mEq/L Potassium Phosphate (K-Phos Original) 2,000 mg PO Q4H PRN PRN Reason: Phosphorus Less Than 2.5 mg/dL Potassium Phosphate (K-Phos Original) 2,000 mg PO UNSCH PRN PRN Reason: SEE LABEL COMMENTS Ropinirole HCl (Requip) 3 mg PO [facility] Last Admin: 08/15/18 20:55 Dose: 3 mg Sennosides (Senokot) 17.2 mg PO Q12H PRN PRN Reason: Moderate Constipation Sodium Chloride (Ns Flush) 2 ml IV.FLUSH BID [facility] Last Admin: 08/15/18 20:57 Dose: 2 ml Sodium Chloride (Ns Flush) 2 ml IV.FLUSH PRN PRN PRN Reason: FLUSH AFTER USING IV ACCESS Terbutaline Sulfate (Brethine Inj) 1 mg SQ UNSCH PRN PRN Reason: For Extravasation Allergies Allergy/AdvReac Type Severity Reaction Status Date / Time codeine Allergy Severe Chest Pain Verified 08/13/18 06:44 diatrizoate meglumine Allergy Severe Hives Verified 08/13/18 06:44 gadobenic acid Allergy Severe Hives Verified 08/13/18 06:44 gadodiamide Allergy Severe Hives Verified 08/13/18 06:44 gadoteridol Allergy Severe Hives Verified 08/13/18 06:44 iodixanol Allergy Severe Hives Verified 08/13/18 06:44 iohexol Allergy Severe Hives Verified 08/13/18 06:44 morphine Allergy Severe Psychosis Verified 08/13/18 06:44 Home Medications Medication Instructions Recorded Confirmed Type alprazolam 0.5 mg PO BID PRN 07/31/18 08/13/18 History aspirin [Aspir-81] 81 mg PO DAILY 07/31/18 08/13/18 History atorvastatin 40 mg PO DAILY 07/31/18 08/13/18 History clopidogrel [Plavix] 75 mg PO DAILY 07/31/18 08/13/18 History gabapentin [Neurontin] 300 mg PO BID 07/31/18 08/13/18 History isosorbide mononitrate 30 mg PO DAILY 07/31/18 08/13/18 History losartan 50 mg PO DAILY 07/31/18 08/13/18 History metoprolol tartrate 25 mg PO BID 07/31/18 08/13/18 History potassium chloride 20 meq PO DAILY 07/31/18 08/13/18 History ranitidine HCl 150 mg PO DAILY 07/31/18 08/13/18 History ropinirole [Requip] 3 mg PO HS 07/31/18 08/13/18 History cholestyramine-aspartame 4 g PO BID 08/06/18 08/13/18 History [Prevalite] hydrochlorothiazide 12.5 mg PO DAILY 08/06/18 08/13/18 History niacin 1,000 mg PO DAILY 08/06/18 08/13/18 History vit C-vit [id number] 1 cap PO DAILY 08/06/18 08/13/18 History [Ocuvite] magnesium oxide 500 mg PO HS 08/13/18 History Physical Exam Vital signs: Vital Signs 08/15/18 10:00 08/15/18 10:05 08/15/18 11:00 Temperature 98.0 F Pulse Rate 78 Respiratory Rate 16 Blood Pressure 113/55 L Pulse Oximetry 97 96 99 08/15/18 14:00 08/15/18 15:00 08/15/18 16:33 Temperature 98.0 F Pulse Rate 66 Respiratory Rate 16 Blood Pressure 120/57 L Pulse Oximetry 99 97 94 L 08/15/18 19:00 08/15/18 19:59 08/15/18 20:00 Temperature 97.8 F Pulse Rate 94 H 90 Respiratory Rate 16 Blood Pressure 131/62 Pulse Oximetry 99 99 08/15/18 23:00 08/16/18 00:00 08/16/18 03:00 Temperature 98.0 F 98.2 F Pulse Rate 97 H 108 H Respiratory Rate 16 16 Blood Pressure 124/60 131/68 Pulse Oximetry 99 99 99 08/16/18 04:00 08/16/18 07:00 Temperature Pulse Rate 103 H Respiratory Rate Blood Pressure Pulse Oximetry 99 Intake & Output 08/15/18 08/16/18 08/16/18 18:59 06:59 18:59 Intake Total 1000 / 1000 Output Total 800 / 800 170 / 170 Balance -800 / -800 830 / 830 Weight 65.5 kg Intake: IV 1000 / 1000 LR 1000 mL Inj 1,000 ML @ 100 1000 / 1000 mls/hr IV.CONT .Q10H [facility] Rx#: [id number] Oral 0 / 0 Output: Urine Amount (Catheter) 800 / 800 170 / 170 Indwelling Temp Sensing 800 / 800 170 / 170 Catheter Narrative: GENERAL: Well-nourished, well-developed Extubated sitting in chair SKIN: Warm and dry. HEAD: Atraumatic. Normocephalic. EYES: Pupils equal and round. No scleral icterus. No injection or drainage. ENT: Orotracheally intubated NECK: Trachea midline. CARDIOVASCULAR: Regular rate and rhythm. Off pressors RESPIRATORY: clear to auscultation bilaterally without wheezes rales or rhonchi. GASTROINTESTINAL: Abdomen soft, non-tender. Abdominal binder in place, vertical incision C/D/I MUSCULOSKELETAL: Extremities without clubbing, cyanosis, or edema. DP pulses are Dopplerable NEUROLOGICAL: Awake and alert. No obvious cranial nerve deficits. Motor grossly within normal limits. - Urinary Catheter Management Indwelling Temp Sensing Catheter Cath placed during this visit: yes Reason for continuing: Hourly intake/output Insertion date: 08/13/18 Insertion time: 08:08 Results 08/16/18 04:00 08/16/18 04:00 Cardiac Enzymes 08/14/18 08/14/18 08/15/18 Range/Units 09:25 15:10 04:30 Troponin I 0.06 H 0.12 H 1.16 H* D (0.02-0.05) ng/mL 08/15/18 08/16/18 Range/Units 12:10 04:00 Troponin I 1.35 H* D 1.40 H* (0.02-0.05) ng/mL CBC 08/15/18 08/16/18 Range/Units 04:30 04:00 WBC 18.2 H 16.3 H (4.0-11.0) th/mm3 RBC 3.06 L 2.80 L (4.00-5.30) mil/mm3 Hgb 9.8 L 8.9 L (11.6-15.3) gm/dL Hct 28.0 L 26.0 L (35.0-46.0) % Plt Count 149 L 137 L (150-450) th/mm3 Comprehensive Metabolic Panel 08/15/18 08/16/18 Range/Units 04:30 04:00 Sodium 135 L 137 (136-145) meq/L Potassium 4.1 4.0 (3.5-5.1) meq/L Chloride 106 105 (98-107) meq/L Carbon Dioxide 22.8 22.4 (21.0-32.0) meq/L BUN 14 20 H (7-18) mg/dL Creatinine 0.67 0.66 (0.50-1.00) mg/dL Calcium 7.7 L 8.0 L (8.5-10.1) mg/dL Intake and Output 08/15/18 08/16/18 08/16/18 22:59 06:59 14:59 Intake Total 1000 / 1000 Output Total 800 / 800 170 / 170 Balance -800 / -800 830 / 830 Intake: IV 1000 / 1000 LR 1000 mL Inj 1,000 ML @ 100 1000 / 1000 mls/hr IV.CONT .Q10H [facility] Rx#: [id number] Oral 0 / 0 Output: Urine Amount (Catheter) 800 / 800 170 / 170 Indwelling Temp Sensing 800 / 800 170 / 170 Catheter Other: Weight 65.5 kg - Imaging and Cardiology Imaging: Impressions Chest X-Ray 08/15/18 00:00 CONCLUSION: Increase in basilar airspace disease since August 13. Small left effusion. Interval extubation. Assessment and Plan - Assessment (1) Type 2 myocardial infarction Code(s): I21.A1 - Myocardial infarction type 2 Status: Acute Plan: Hemodynamically stable.
[2018-08-16] MEDS: Famotidine PF Inj 20 MG/2 ML Vial IV.PUSH SCH ×2 (09:03→22:39)
[2018-08-16] MEDS: Isosorbide Mononitrate 30 MG ER 24HR Tablet (Imdur) PO SCH (09:03)
[2018-08-16] MEDS: Gabapentin 300 MG Capsule PO SCH ×2 (09:03→22:42)
[2018-08-16] MEDS: Sodium Chloride 0.9% 2 ML Flush BID IV.FLUSH SCH ×2 (12:23→22:42)
[2018-08-16] MEDS: Enoxaparin Inj 30 MG/0.3 ML Syringe SQ SCH (14:22)
--- NOTE | 2018-08-16 14:59 | P.DIET ---
Nutritional Evaluation Screening comments: NPO Alert Pt has been npo x [address] if needed.
[2018-08-16] MEDS: ALPRAZolam 0.5 MG Tablet PO PRN (22:40)
[2018-08-16] MEDS: Magnesium Oxide 400 MG Tablet PO SCH (22:41)
[2018-08-17] MEDS ORDERED: Dextrose 50% in Water Syringe 50 ML ONE (01:42)
[2018-08-17] MEDS: dilTIAZem Inj 125 MG in Sodium Chlor 0.9% Inj 100 ML IV.CONT PRN ×2 (02:15→09:47)
[2018-08-17] MEDS: Dextrose 10% in Water Inj 1,000 ML IV.CONT SCH (04:26)
[2018-08-17 04:44] LABS: Hematocrit 24.2 % (35.0-46.0); Hemoglobin 8.2 gm/dL (11.6-15.3); Mean Corpuscular HGB Conc 33.9 % (32.0-36.0); Mean Corpuscular Hemoglobin 31.6 pg (27.0-34.0); Mean Corpuscular Volume 93.1 fL (80.0-100.0); Mean Platelet Volume 7.8 fL (7.0-11.0); Platelet Count 149 th/mm3 (150-450); Red Cell Distribution Width 16.2 % (11.6-17.2); White Blood Count 16.7 th/mm3 (4.0-11.0)
[2018-08-17 05:16] LABS: Calcium 7.5 mg/dL (8.5-10.1); Carbon Dioxide 25.7 meq/L (21.0-32.0); Potassium 3.4 meq/L (3.5-5.1)
[2018-08-17 05:20] LABS: Troponin I 0.4 ng/mL (0.02-0.05)
[2018-08-17] MEDS: Potassium Chlor 20 mEq Premix 20 MEQ/100 ML PIGGYBACK IV.SIG PRN ×2 (05:49→09:15)
--- NOTE | 2018-08-17 07:11 | P.PNVS ---
Subjective Post Op Day #: 4 Procedure: aorto-hepatic, aorto-SMA bypass Subjective/Hospital Course: agitated overnight pulled out a-line no chest pain oriented went into a-fib, rate being controlled with dilt gtt Objective Neuro: agitated, SYED; oriented Pulmonary: borderline sats (90%), no overt SOB Cardiac: a fib HR 100-120 on dilt gtt bp ok (cuff BP reliable) troponin down to 0.4 FEN/GI: NPO NGT still with bilious output + flatus "some" abdomen soft e'lytes ok - K getting repleted : UOP decent likely slightly intravascular dry despite total body fluid overload - still mobilizing ID Antibiotics (date/duration): none ID Cultures: none Heme: Hct 24 Vascular: incision ok; abdomen soft; serous drainage (slight) at caudal aspect of wound Laboratory Results - last 24 hr 08/13/18 08/14/18 08/17/18 14:06 05:54 01:40 WBC RBC Hgb Hct MCV MCH MCHC RDW Plt Count MPV Sodium Potassium Chloride Carbon Dioxide Anion Gap BUN Creatinine Estimated GFR POC Glucose 57 L Random Glucose Calcium Troponin I MTS Gel Crossmatch See Detail See Detail 08/17/18 08/17/18 08/17/18 02:00 04:30 04:30 WBC 16.7 H RBC 2.60 L Hgb 8.2 L Hct 24.2 L MCV 93.1 MCH 31.6 MCHC 33.9 RDW 16.2 Plt Count 149 L MPV 7.8 Sodium 140 Potassium 3.4 L Chloride 106 Carbon Dioxide 25.7 Anion Gap 8 BUN 28 H Creatinine 0.73 Estimated GFR 77 L POC Glucose 208 H Random Glucose 134 H Calcium 7.5 L Troponin I 0.40 H D MTS Gel Crossmatch Assessment and Plan - Assessment (1) Mesenteric ischemia due to arterial insufficiency Code(s): K55.059 - Acute (reversible) ischemia of intestine, part and extent unspecified Status: Acute - Plan POD#4 s/p antegrade mesenteric bypass troponins down-trending a-fib likely from volume shifts ileus still present for the most part 1. NPO, NGT and AROBF but ok with ice chips 2. ASA and resume home antihypertensives 3. OOB/PT/ambulate 4. Prob hold off add'l diuretics today 5. Leave Boateng in for UOP monitoring 6. If Hct drops further, will tx PRBC 7. will d/w ICU team scheduled anxiolytics Discharge Planning: CVICU for several days
--- NOTE | 2018-08-17 08:54 | P.PNCA ---
Subjective Interval history: No CV complaints Medications and Allergies Active Medications: Active Medications Al Hydroxide/Mg Hydroxide (Milk Of Magnmaye Liq) 30 ml PO Q12H PRN PRN Reason: Mild Constipation Albuterol (Duoneb Neb (Prn)) 1 ampul NEB Q2HR NEB PRN PRN Reason: SHORTNESS OF BREATH Alprazolam (Xanax) 0.5 mg PO BID PRN PRN Reason: Anxiety Last Admin: 08/16/18 22:40 Dose: 0.5 mg Aspirin (Aspirin Chew) 81 mg PO DAILY [facility] Last Admin: 08/16/18 09:03 Dose: 81 mg Atorvastatin Calcium (Lipitor) 40 mg PO DAILY [facility] Last Admin: 08/16/18 09:03 Dose: 40 mg Bisacodyl (Dulcolax Supp) 10 mg RECTAL DAILY PRN PRN Reason: SEVERE CONSITIPATION Enoxaparin Sodium (Lovenox Inj) 30 mg SQ Q24H [facility] Last Admin: 08/16/18 14:22 Dose: 30 mg Famotidine (Pepcid Pf Inj) 20 mg IV.PUSH Q12HR [facility] Last Admin: 08/16/18 22:39 Dose: 20 mg Gabapentin (Neurontin) 300 mg PO BID [facility] Last Admin: 08/16/18 22:42 Dose: 300 mg Hydromorphone HCl (Dilaudid Pf Inj) 0.2 mg IV.PUSH Q1H PRN PRN Reason: PAIN SCALE 1 TO 10 Last Admin: 08/14/18 16:51 Dose: 0.2 mg Lactated Ringer's (Lr 1000 Ml Inj) 1,000 mls @ 100 mls/hr IV.CONT .Q10H [facility] Last Admin: 08/17/18 04:25 Dose: Not Given Propofol (Diprivan 1000 Mg/100 Ml Inj) 1,000 mg in 100 mls @ 5.988 mls/hr IV.CONT TITRATE PRN; Protocol PRN Reason: Per Protocol Last Titration: 08/13/18 18:00 Dose: 0 mcg/kg/min, 0 mls/hr Magnesium Sulfate 4 gm/ Sodium (Chloride) 100 mls @ 50 mls/hr IV.SIG UNSCH PRN PRN Reason: For Magnesium 0.9 - 1.1 mg/dL Magnesium Sulfate 2 gm/ Sodium (Chloride) 100 mls @ 50 mls/hr IV.SIG UNSCH PRN PRN Reason: For Magnesium 1.2 - 1.6 mg/dL Potassium Chloride (Kcl 40 Meq Premix Inj) 40 meq in 100 mls @ 50 mls/hr IV.SIG Q2H PRN PRN Reason: For Potassium 2.8 - 3.2 mEq/L Potassium Chloride (Kcl 20 Meq Premix Inj) 20 meq in 100 mls @ 50 mls/hr IV.SIG Q2H PRN PRN Reason: For Potassium 3.3 - 3.5 mEq/L Last Infusion: 08/17/18 07:50 Dose: Infused Potassium Chloride (Kcl 40 Meq Premix Inj) 40 meq in 100 mls @ 25 mls/hr IV.SIG UNSCH PRN PRN Reason: For Potassium 3.3 - 3.5 mEq/L Potassium Chloride (Kcl 20 Meq Premix Inj) 20 meq in 100 mls @ 50 mls/hr IV.SIG Q2H PRN PRN Reason: For Potassium 2.8 - 3.2 mEq/L Potassium Phosphate 30 mmol/ (Sodium Chloride) 260 mls @ 42 mls/hr IV.SIG UNSCH PRN PRN Reason: SEE LABEL COMMENTS Sodium Phosphate 30 mmol/ (Sodium Chloride) 260 mls @ 42 mls/hr IV.SIG UNSCH PRN PRN Reason: For Phosphorus < 2.5 mg/dL Norepinephrine Bitartrate (Levophed-Dextrose 4 Mg/250 Ml Drip) 4 mg in 250 mls @ 7.5 mls/hr IV.SIG TITRATE PRN; Protocol PRN Reason: Per Protocol Last Titration: 08/15/18 16:38 Dose: 0 mcg/min, 0 mls/hr Hydromorphone/Sodium Chloride (Dilaudid Inside Sales Engineer Inj) 6 mg in 30 mls @ 0 mls/hr [employer] UNSCH PRN PRN Reason: prn pain Last Infusion: 08/15/18 07:54 Dose: 0 mls/hr Dexmedetomidine HCl 200 mcg/ (Sodium Chloride) 50 mls @ 3.27 mls/hr IV.CONT TITRATE PRN; Protocol PRN Reason: Per Protocol Last Titration: 08/15/18 13:48 Dose: 0.4 mcg/kg/hr, 6.55 mls/hr Diltiazem HCl 125 mg/ Sodium (Chloride) 125 mls @ 5 mls/hr IV.CONT TITRATE PRN ; Protocol PRN Reason: Per Protocol Last Titration: 08/17/18 04:07 Dose: 10 mg/hr, 10 mls/hr Dextrose (D10w Inj) 1,000 mls @ 20 mls/hr IV.CONT .Q24H [facility] Last Admin: 08/17/18 04:26 Dose: Not Given Magnesium Sulfate 4 gm/ Sodium (Chloride) 100 mls @ 25 mls/hr IV.SIG ONCE ONE Stop: 08/17/18 12:36 Potassium Chloride (Kcl 40 Meq Premix Inj) 40 meq in 100 mls @ 25 mls/hr IV.SIG ONCE ONE Stop: 08/17/18 12:59 Isosorbide Mononitrate (Imdur) 30 mg PO DAILY [facility] Last Admin: 08/16/18 09:03 Dose: 30 mg Lactulose (Lactulose Liq) 30 ml PO DAILY PRN PRN Reason: SEVERE CONSITIPATION Magnesium Oxide (Mag-Ox) 400 mg PO HS [facility] Last Admin: 08/16/18 22:41 Dose: 400 mg Magnesium Oxide (Mag-Ox) 800 mg PO UNSCH PRN PRN Reason: For Magnesium 1.2 - 1.6 mg/dL Naloxone HCl (Narcan Inj) 0.4 mg IV.PUSH PRN PRN PRN Reason: Resp rate < 10 Naloxone HCl (Narcan Inj) 0.4 mg IV.PUSH PRN PRN PRN Reason: SEE LABEL COMMENTS Potassium Bicarb/Potassium Chloride (K-Lyte Cl Eff) 50 meq PO UNSCH PRN PRN Reason: For Potassium 3.3 - 3.5 mEq/L Potassium Phosphate (K-Phos Original) 2,000 mg PO Q4H PRN PRN Reason: Phosphorus Less Than 2.5 mg/dL Potassium Phosphate (K-Phos Original) 2,000 mg PO UNSCH PRN PRN Reason: SEE LABEL COMMENTS Ropinirole HCl (Requip) 3 mg PO HS [facility] Last Admin: 08/16/18 22:39 Dose: 3 mg Sennosides (Senokot) 17.2 mg PO Q12H PRN PRN Reason: Moderate Constipation Sodium Chloride (Ns Flush) 2 ml IV.FLUSH BID [facility] Last Admin: 08/16/18 22:42 Dose: Not Given Sodium Chloride (Ns Flush) 2 ml IV.FLUSH PRN PRN PRN Reason: FLUSH AFTER USING IV ACCESS Terbutaline Sulfate (Brethine Inj) 1 mg SQ UNSCH PRN PRN Reason: For Extravasation Allergies Allergy/AdvReac Type Severity Reaction Status Date / Time codeine Allergy Severe Chest Pain Verified 08/13/18 06:44 diatrizoate meglumine Allergy Severe Hives Verified 08/13/18 06:44 gadobenic acid Allergy Severe Hives Verified 08/13/18 06:44 gadodiamide Allergy Severe Hives Verified 08/13/18 06:44 gadoteridol Allergy Severe Hives Verified 08/13/18 06:44 iodixanol Allergy Severe Hives Verified 08/13/18 06:44 iohexol Allergy Severe Hives Verified 08/13/18 06:44 morphine Allergy Severe Psychosis Verified 08/13/18 06:44 Home Medications Medication Instructions Recorded Confirmed Type alprazolam 0.5 mg PO BID PRN 07/31/18 08/13/18 History aspirin [Aspir-81] 81 mg PO DAILY 07/31/18 08/13/18 History atorvastatin 40 mg PO DAILY 07/31/18 08/13/18 History clopidogrel [Plavix] 75 mg PO DAILY 07/31/18 08/13/18 History gabapentin [Neurontin] 300 mg PO BID 07/31/18 08/13/18 History isosorbide mononitrate 30 mg PO DAILY 07/31/18 08/13/18 History losartan 50 mg PO DAILY 07/31/18 08/13/18 History metoprolol tartrate 25 mg PO BID 07/31/18 08/13/18 History potassium chloride 20 meq PO DAILY 07/31/18 08/13/18 History ranitidine HCl 150 mg PO DAILY 07/31/18 08/13/18 History ropinirole [Requip] 3 mg PO HS 07/31/18 08/13/18 History cholestyramine-aspartame 4 g PO BID 08/06/18 08/13/18 History [Prevalite] hydrochlorothiazide 12.5 mg PO DAILY 08/06/18 08/13/18 History niacin 1,000 mg PO DAILY 08/06/18 08/13/18 History vit C-vit [id number] 1 cap PO DAILY 08/06/18 08/13/18 History [Ocuvite] magnesium oxide 500 mg PO HS 08/13/18 History Physical Exam Vital signs: Vital Signs 08/16/18 09:03 08/16/18 11:00 08/16/18 13:00 Temperature 98.0 F Pulse Rate 95 H Respiratory Rate 16 Blood Pressure 121/60 Pulse Oximetry 99 98 94 L 08/16/18 15:00 08/16/18 17:00 08/16/18 19:00 Temperature 97.9 F 97.6 F Pulse Rate 105 H 105 H Respiratory Rate 16 16 Blood Pressure 145/78 H 147/74 H Pulse Oximetry 94 L 94 L 99 08/16/18 22:39 08/16/18 23:00 08/17/18 01:26 Temperature 97.8 F Pulse Rate 100 H Respiratory Rate 16 Blood Pressure 159/75 H Pulse Oximetry 98 99 98 08/17/18 03:00 08/17/18 05:05 08/17/18 05:25 Temperature 98.1 F 98.1 F Pulse Rate 113 H 82 Respiratory Rate 16 18 Blood Pressure 110/59 L 113/64 Pulse Oximetry 94 L 98 100 08/17/18 05:40 Temperature 98.3 F Pulse Rate 76 Respiratory Rate 18 Blood Pressure 121/49 L Pulse Oximetry 99 Intake & Output 08/16/18 08/17/18 08/17/18 18:59 06:59 18:59 Intake Total 50 / 50 100 / 100 Output Total 770 / 770 300 / 300 Balance -770 / -770 -250 / -250 100 / 100 Weight 61.5 kg Intake: IV 100 / 100 KCl 20 mEq Premix Inj 20 meq In 100 / 100 100 ml @ 50 mls/hr IV.SIG Q2H PRN Rx#:[id number] Oral 50 / 50 Output: Stool 0 / 0 Urine Amount (Catheter) 750 / 750 300 / 300 Indwelling Temp Sensing 750 / 750 300 / 300 Catheter Gastric Drainage 20 / 20 Right Nare Nasogastric Tube 20 / 20 Narrative: Back in sinus on IV diltiazem- drip reduced to 10mg/hr Frail Chest mostly clear CV [id number] Weak. Assistance need to get OOB No edema - Urinary Catheter Management Indwelling Temp Sensing Catheter Cath placed during this visit: yes Reason for continuing: Hourly intake/output Insertion date: 08/13/18 Insertion time: 08:08 Results 08/20/18 04:30 08/20/18 04:30 Cardiac Enzymes 08/15/18 08/16/18 08/17/18 Range/Units 12:10 04:00 04:30 Troponin I 1.35 H* D 1.40 H* 0.40 H D (0.02-0.05) ng/mL CBC 08/16/18 08/17/18 Range/Units 04:00 04:30 WBC 16.3 H 16.7 H (4.0-11.0) th/mm3 RBC 2.80 L 2.60 L (4.00-5.30) mil/mm3 Hgb 8.9 L 8.2 L (11.6-15.3) gm/dL Hct 26.0 L 24.2 L (35.0-46.0) % Plt Count 137 L 149 L (150-450) th/mm3 Comprehensive Metabolic Panel 08/16/18 08/17/18 Range/Units 04:00 04:30 Sodium 137 140 (136-145) meq/L Potassium 4.0 3.4 L (3.5-5.1) meq/L Chloride 105 106 (98-107) meq/L Carbon Dioxide 22.4 25.7 (21.0-32.0) meq/L BUN 20 H 28 H (7-18) mg/dL Creatinine 0.66 0.73 (0.50-1.00) mg/dL Calcium 8.0 L 7.5 L (8.5-10.1) mg/dL Intake and Output 08/16/18 08/17/18 08/17/18 22:59 06:59 14:59 Intake Total 50 / 50 100 / 100 Output Total 770 / 770 300 / 300 Balance -770 / -770 -250 / -250 100 / 100 Intake: IV 100 / 100 KCl 20 mEq Premix Inj 20 meq In 100 / 100 100 ml @ 50 mls/hr IV.SIG Q2H PRN Rx#:[id number] Oral 50 / 50 Output: Stool 0 / 0 Urine Amount (Catheter) 750 / 750 300 / 300 Indwelling Temp Sensing 750 / 750 300 / 300 Catheter Gastric Drainage 20 / 20 Right Nare Nasogastric Tube 20 / 20 Other: Weight 61.5 kg Assessment and Plan - Assessment (1) Type 2 myocardial infarction Code(s): I21.A1 - Myocardial infarction type 2 Status: Acute Plan: Hemodynamically stable. (2) Afib Code(s): I48.91 - Unspecified atrial fibrillation Status: Acute - Plan Continue supportive therapy. CAD prob stable. Back in sinus again
[2018-08-17] MEDS ORDERED: Magnesium Sulfate Inj 4 GM in Sodium Chlor 0.9% Inj 92 ML IV.SIG ONE (09:00)
[2018-08-17] MEDS ORDERED: Potassium Chlor 40 mEq Premix 40 MEQ/100 ML PIGGYBACK IV.SIG ONE (09:00)
[2018-08-17] MEDS: Famotidine PF Inj 20 MG/2 ML Vial IV.PUSH SCH ×2 (09:17→21:00)
[2018-08-17] MEDS: Sodium Chloride 0.9% 2 ML Flush BID IV.FLUSH SCH ×2 (09:19→21:00)
[2018-08-17] MEDS: Gabapentin 300 MG Capsule PO SCH ×2 (09:19→21:00)
[2018-08-17] MEDS: Isosorbide Mononitrate 30 MG ER 24HR Tablet (Imdur) PO SCH (11:05)
[2018-08-17] MEDS: Enoxaparin Inj 30 MG/0.3 ML Syringe SQ SCH (12:33)
[2018-08-17] MEDS: Metoprolol Inj 5 MG/5 ML Vial IV.PUSH SCH ×3 (13:21→21:00)
--- NOTE | 2018-08-17 13:49 | ECG ---
Date Performed: 08/17/2018 Time Performed: 01:58:28 PTAGE: 78 years EKG: Atrial fibrillation with rapid ventricular response Right bundle branch block Inferior/late ral ST-T changes may be due to myocardial ischemia Low QRS voltages in limb leads Compared to previou s tracing atrial fibrillation is new, otherwise largely unchanged Abnormal ECG PREVIOUS TRACING : 08/15/2018 06.25 DOCTOR: Darrick Johnson Interpretating Date/Time 08/17/2018 13:45:23
--- NOTE | 2018-08-17 15:03 | P.PNCC ---
Subjective Subjective Remarks/Hospital Course: Hospital Course: Patient is a 77-year-old female who was admitted to Dr. Eugene's service for mesenteric ischemia today. Her past medical history significant for coronary artery disease status post PCI/stent, history of renal artery stenosis, GERD, PAD, history of multiple vascular surgeries, history of small bowel obstruction, restless leg syndrome. Patient underwent aorto-hepatic and aorto-SMA bypass in OR. EBL was 400 ml, received 3.6 L of crystalloids in the OR , urine output was adequate. Postop patient was moved to the CVICU critical care medicine was consulted for postop management. Patient is hypotensive at the time of my evaluation and had been started on Diego-Synephrine by Dr. Eugene. I haave ordered further fluid resuscitation with additional 2 L of crystalloids. A stat ABG was done at the bedside which showed hemoglobin 6.6. A CBC was sent and I ordered 2 units of PRBC stat. CBC came back with hemoglobin of 6.4 platelet count 139. Chemistry showed potassium of 3.4 calcium uncorrected 6.4. Electrolyte replacement protocol and calcium replacement have been ordered. Lactic acid also mildly elevated at 2.2. Will follow serial lactic acid and follow urine output closely. If patient becomes hemodynamically more stable will proceed with weaning trial for extubation. Urine output had been adequate postop approximately 40 mL/h. Bilateral DP pulses are Dopplerable Subjective: 08/14: significant fluid requirement. trop slightly elevated at 0.06. initial scvo2 43% but improved after fluid to 68%. pain adequately controlled. uop marginal at 20cc/hr. 08/15: trop slightly uptrended. now appears volume overloaded with new and worsening oxygen requirement. ABG with mixed acidosis. responded well to lasix with adequate diuresis. placed on BiPAP. somewhat agitated requiring low-dose Precedex. lactate 0.8, scvo2 71%. 08/16: slightly tachycardic this morning. some diuresis yesterday and back to nc o2, but remains volume overloaded. denies pain. somewhat intermittently confused, but oriented on my evaluation. trop still uptrending, but plateauing. uop adequate. 08/17: went into afib RVR overnight. placed on diltiazem drip. this morning, more rate controlled. trop downtrending. adequate diuresis, but remains volume overloaded. aggressively replaced electrolytes this morning. Objective Vital Signs / I&O: Vital Signs 08/16/18 17:00 08/16/18 19:00 08/16/18 22:39 Temperature 36.4 C Pulse Rate 105 H Respiratory Rate 16 Blood Pressure 147/74 H Pulse Oximetry 94 L 99 98 08/16/18 23:00 08/17/18 01:26 08/17/18 03:00 Temperature 36.6 C 36.7 C Pulse Rate 100 H 113 H Respiratory Rate 16 16 Blood Pressure 159/75 H 110/59 L Pulse Oximetry 99 98 94 L 08/17/18 05:05 08/17/18 05:25 08/17/18 05:40 Temperature 36.7 C 36.8 C Pulse Rate 82 76 Respiratory Rate 18 18 Blood Pressure 113/64 121/49 L Pulse Oximetry 98 100 99 08/17/18 07:00 08/17/18 11:00 08/17/18 12:00 Temperature 36.6 C 36.6 C Pulse Rate 100 H 94 H Respiratory Rate 16 16 16 Blood Pressure 132/64 124/59 L Pulse Oximetry 93 L 94 L 08/17/18 13:32 08/17/18 14:54 Temperature 36.3 C L Pulse Rate 80 Respiratory Rate 16 Blood Pressure 112/54 L Pulse Oximetry 93 L 98 Intake & Output 08/16/18 08/17/18 08/17/18 18:59 06:59 18:59 Intake Total 50 / 50 198 / 198 Output Total 770 / 770 300 / 300 Balance -770 / -770 -250 / -250 198 / 198 Weight 61.5 kg Intake: IV 198 / 198 Cardizem Inj 125 MG In NS Inj 98 / 98 100 ML @ 5 MG/HR 5 mls/hr IV. CONT TITRATE PRN Rx#:[id number] KCl 20 mEq Premix Inj 20 meq In 100 / 100 100 ml @ 50 mls/hr IV.SIG Q2H PRN Rx#:[id number] Oral 50 / 50 Output: Stool 0 / 0 Urine Amount (Catheter) 750 / 750 300 / 300 Indwelling Temp Sensing 750 / 750 300 / 300 Catheter Gastric Drainage 20 / 20 Right Nare Nasogastric Tube 20 / 20 Other: Date of Last Bowel Movement 08/12/18 Result Diagrams: 08/17/18 04:30 08/17/18 04:30 Objective Remarks: GENERAL: Elderly female, lying in bed, no acute distress. HEENT: Normocephalic. Atraumatic. Pupils equal, round, reactive, conjugate. Mucous membranes are moist NECK: Trachea is midline. There is no JVD. Central line in place, site clean dry and intact. CHEST: Equal chest rise. nc o2. unlabored. CARDIOVASCULAR: tachycardic rate, irregularly irregular. afib. ABDOMEN: Soft, appropriately tender to palpation, nondistended. No guarding. Midline dressing intact MUSCULOSKELETAL: Pulses 2+. No peripheral edema. NEUROLOGICAL: RASS 0. CAM +. Follows commands. Assessment and Plan - Assessment and Plan Plan: ASSESSMENT: Mesenteric ischemia status post open antegrade mesenteric bypass Hypotension- persistent Postop anemia requiring transfusion Lactic acidosis- resolved Hypokalemia Hypocalcemia Post op respiratory insufficiency- improving Acute intravascular volume overload- persistent Acute pulmonary edema- improving History of peripheral arterial disease, status post multiple vascular surgery Coronary artery disease GERD History of small bowel obstruction History of renal artery stenosis Restless leg syndrome Type II NSTEMI secondary to demand ischemia Perioperative atrial fibrillation with rapid ventricular response PLAN: NEURO: -PRN Dilaudid for pain control RESP: -nc o2. -DuoNeb every 2 hours as needed -PT consult - OOB with assist. lasix, forced diuresis. net negative goal. CV: - trops downtrending. can stop trending. - unlikely to be ACS - likely demand ischemia given baseline CAD - ASA - restart plavix. - diuresis. - d/c diltiazem drip when back in NSR - aggressive electrolyte replacement, target K > 4.5, Mg > 2.5 - cardiology consulted: Dr. Neil GI: -Status post open antegrade mesenteric bypass, postop management per Dr. Eugene -N.p.o., IV PPI, NG tube intermittent wall suction, anticipate ileus : -Monitor renal function closely. Boateng catheter. ID: -Perioperative antibiotics per Dr. Eugene HEME: -Monitor CBC, coags - no current indications for transfusions. ENDO: -Electrolyte replacement per protocol PROPH: -Lovenox
[2018-08-17] MEDS: HYDROmorphone PCA Inj 6 MG/30 ML PCA.VIAL PCA PRN (18:37)
[2018-08-17] MEDS: Dexmedetomidine Inj 200 MCG in Sodium Chlor 0.9% Inj 48 ML IV.CONT PRN (18:47)
[2018-08-17 19:22] LABS: Magnesium 2.8 mg/dL (1.5-2.5); Potassium 4.3 meq/L (3.5-5.1)
[2018-08-17] MEDS: Magnesium Oxide 400 MG Tablet PO SCH (21:00)
[2018-08-18] MEDS: Metoprolol Inj 5 MG/5 ML Vial IV.PUSH SCH ×6 (02:35→20:06)
--- NOTE | 2018-08-18 04:41 | P.PCN ---
Date of procedure: 08/18/18 Pre-op diagnosis: Acute respiratory failure Post-op diagnosis: same Procedure: DATE: 08/18/2018 PROCEDURE: Orotracheal intubation INDICATION: Acute respiratory failure DETAILS OF PROCEDURE The patient was placed in optimal position and preoxygenated with 100% FiO2 via bag valve mask. At the start oxygen saturation was unknown %. The patient was administered no medications IV. I entered the oropharynx with a size 4 Helen laryngoscope blade and obtained a grade 2 view of the airway. On single attempt a size 7.5 cuffed endotracheal tube was passed through the vocal cords. Correct tube location was confirmed with end tidal CO2 detector and by auscultating over bilateral lung daniel. The endotracheal tube was secured with adhesive tape at a depth of 23 cm at the lips. The patient was connected to the ventilator. The patient tolerated the procedure well without any apparent complications. Oxygen saturations were maintained greater than 95% all times. STAT chest x-ray pending at time of dictation.
--- NOTE | 2018-08-18 04:42 | P.PNCC ---
Critical Care Event Note Code activated: Yes Narrative: CODE TRISTAN was called. Patient was agonal breathing with no palpable pulse. Rhythm liver was PEA. CPR was initiated with bedboard/backboard placed. Patient received 1 mg of epinephrine. Chest compressions. Patient was intubated with 7.5 ET tube at 23 cm. At first pulse check return of spontaneous circulation. Patient is currently arousable and moving all 4 extremities. Critical care time: less than 30 mins
[2018-08-18] MEDS ORDERED: Lidocaine 2% 100 MG/5 ML Syringe IV.PUSH ONE (05:00)
[2018-08-18] MEDS ORDERED: Digoxin Inj 500 MCG/2 ML Ampul IV.PUSH ONE (05:00)
[2018-08-18] MEDS ORDERED: MethylPREDNISolone Sod Succinate Inj 1,000 MG/16 ML Vial IV.SIG ONE (05:00)
[2018-08-18] MEDS ORDERED: DOPamine 800 MG/500 ML Premix 800 MG/500 ML PLAST..BAG IV.CONT ONE (05:00)
[2018-08-18 05:01] LABS: Hematocrit 22.2 % (35.0-46.0); Hemoglobin 7.5 gm/dL (11.6-15.3); Mean Corpuscular HGB Conc 33.6 % (32.0-36.0); Mean Corpuscular Hemoglobin 31.6 pg (27.0-34.0); Mean Platelet Volume 7.8 fL (7.0-11.0); Platelet Count 138 th/mm3 (150-450); Red Blood Count 2.37 mil/mm3 (4.00-5.30); Red Cell Distribution Width 16.6 % (11.6-17.2)
[2018-08-18 05:16] LABS: Albumin 2.1 g/dL (3.4-5.0); Magnesium 2.6 mg/dL (1.5-2.5); Phosphorus 4.6 mg/dL (2.5-4.9)
[2018-08-18 05:19] LABS: Calcium 7.7 mg/dL (8.5-10.1); Carbon Dioxide 25.5 meq/L (21.0-32.0); Potassium 3.9 meq/L (3.5-5.1)
[2018-08-18 05:22] LABS: ABG Base Excess -0.5 mmol/L (-2-2); ABG PCO2 43 mmHg (38-42); ABG PO2 237 mmHG (61-120)
[2018-08-18] MEDS ORDERED: Midazolam Inj 5 MG/ML 1 ML Vial ONE ×2 (05:26→09:25)
--- NOTE | 2018-08-18 05:29 | XR ---
EXAM DATE: 08/18/2018 5:23 AM EST AGE/SEX: 78 years / Female INDICATIONS: E-T tube placement post cardiac arrest. CLINICAL DATA: This is the patient's subsequent encounter. Patient reports that signs and symptoms h ave been present for 1 week and indicates a pain score of Nonresponsive. MEDICAL/SURGICAL HISTORY: . Coronary artery stent. Aortic bypass. COMPARISON: [facility], CHEST 1V SINGLE AP, 08/15/2018. . FINDINGS: Portable AP view of the chest demonstrates a normal-sized cardiac silhouette with calcification of th e aorta. Endotracheal tube distal tip measures 2.2 cm from the vidhya. Nasogastric tube courses beyon d the GE junction and right IJ line distal tip is in the SVC. EKG lines overlie the patient. There is a large right pleural parenchymal opacity, new or significantly increased from the prior study. A le ft basilar pleural-parenchymal opacity which obscures the left hemidiaphragm is stable. No pneumothor ax is visualized. There has been prior reverse right shoulder arthroplasty. CONCLUSION: 1. Endotracheal tube measures 2.2 cm from the vidhya. 2. New large right pleural effusion with associated compressive atelectasis and/or consolidation of the right lung. 3. Stable left basilar opacity likely representing pleural effusion with associated volume loss and/ or consolidation. Electronically signed by: Chava Lozano MD 08/18/2018 5:28 AM EST
--- NOTE | 2018-08-18 05:42 | P.PCN ---
Date of procedure: 08/18/18 Pre-op diagnosis: Acute respiratory failure Post-op diagnosis: same Procedure: DATE: 08/18/2018 Bronchoscopy/diagnostic and therapeutic INDICATION: Acute respiratory failure CONSENT Informed consent for procedure and obtaining considered emergent due to possible mucous plugging right lobe lung DESCRIPTION OF THE PROCEDURE The patient was placed in supine position. PRVC ventilation percent. Patient was dexmedetomidine and pathology. Patient received 4 mg of midazolam and 50 mg rocuronium. I entered the 7.5 ET tube with flexible Olympic bronchoscope. There is copious mucus in the ET tube. The vidhya was sharp. The first investigated the right upper, middle and lower lobes. The mucosa was quite erythematous. Petechiae is noted throughout. Occasional mucous plugs distal to the right upper lobe. This was suctioned with copious aliquots of sterile saline. I did obtain washings for culture without Lukens trap in the right middle lobe. Scope was withdrawn to the vidhya and I investigated the left main , lingula/lower lobe. Again, copious thick yellow mucous plugs were identified.. Throughout the procedure, there was quite hyperdynamic. ESTIMATED BLOOD LOSS: Minimal COMPLICATIONS: No apparent complications. STAT chest x-ray showing stat CT of the chest now.
[2018-08-18] MEDS: Artificial Tears Opth Drops 15 ML Bottle EACH EYE SCH (06:00)
--- NOTE | 2018-08-18 07:16 | P.PNVS ---
Subjective Post Op Day #: 5 Procedure: aorto-hepatic, aorto-SMA bypass Subjective/Hospital Course: agitation persisted overnight into respiratory distress and PEA rapid response to CPR intubated and now on no pressor support CXR shows effusion/compression R lung - had bronch this morning at present, intubated, no pressors and appears comfortable Objective Neuro: agitated yesterday SYED resting and sedated now on ventilator Pulmonary: R lung "white out" - d/w Dr. Bauer, to get CT and then likely chest tube vs repeat bronch good gas exchange: 7.37/43/237/24/-0.5 Cardiac: SR now, bp ok without pressors FEN/GI: NPO NGT still bilious K 3.9, getting repleted : UOP ok; BUN/cr elevated suggesting intravascular depletion ID Antibiotics (date/duration): none ID Cultures: none Heme: Hct 22 plt 138 Vascular: abdominal incision with serous drainage Laboratory Results - last 24 hr 08/17/18 08/18/18 08/18/18 18:02 04:00 04:00 WBC 17.0 H RBC 2.37 L Hgb 7.5 L Hct 22.2 L MCV 94.0 MCH 31.6 MCHC 33.6 RDW 16.6 Plt Count 138 L MPV 7.8 Puncture Site Patient Temperature O2 Saturation ABG pH ABG pCO2 ABG pO2 ABG HCO3 ABG O2 Content ABG Base Excess ABG Methemoglobin Lui Test Hemoglobin Carboxyhemoglobin O2 Delivery Device Vent Setting Inspired O2 Critical Value Sodium 142 Potassium 4.3 D 3.9 Chloride 107 Carbon Dioxide 25.5 Anion Gap 10 BUN 34 H Creatinine 0.74 Estimated GFR 76 L POC Glucose Random Glucose 146 H Lactic Acid Calcium 7.7 L Phosphorus Magnesium 2.8 H Total Bilirubin Direct Bilirubin Indirect Bilirubin AST ALT Alkaline Phosphatase Ammonia Total Creatine Kinase Total Protein Albumin MTS Gel Crossmatch 08/18/18 08/18/18 08/18/18 04:40 04:40 04:40 WBC RBC Hgb Hct MCV MCH MCHC RDW Plt Count MPV Puncture Site Patient Temperature O2 Saturation ABG pH ABG pCO2 ABG pO2 ABG HCO3 ABG O2 Content ABG Base Excess ABG Methemoglobin Lui Test Hemoglobin Carboxyhemoglobin O2 Delivery Device Vent Setting Inspired O2 Critical Value Sodium Potassium Chloride Carbon Dioxide Anion Gap BUN Creatinine Estimated GFR POC Glucose Random Glucose Lactic Acid 1.5 Calcium Phosphorus 4.6 Magnesium 2.6 H Total Bilirubin 0.9 Direct Bilirubin 0.4 H Indirect Bilirubin 0.5 AST 44 H ALT 40 Alkaline Phosphatase 53 Ammonia 22 Total Creatine Kinase 135 Total Protein 5.0 L D Albumin 2.1 L MTS Gel Crossmatch 08/18/18 08/18/18 08/18/18 04:44 04:55 06:43 WBC RBC Hgb Hct MCV MCH MCHC RDW Plt Count MPV Puncture Site Right brachial Patient Temperature 98.6 O2 Saturation 96 ABG pH 7.37 L ABG pCO2 43 H ABG pO2 237 H ABG HCO3 24 ABG O2 Content 10.3 L ABG Base Excess -0.5 ABG Methemoglobin 1.7 Lui Test Present Hemoglobin 7.2 L* Carboxyhemoglobin 1.7 O2 Delivery Device Ventilator Vent Setting Prvc/ac Inspired O2 100 Critical Value Yes Sodium Potassium Chloride Carbon Dioxide Anion Gap BUN Creatinine Estimated GFR POC Glucose 146 H Random Glucose Lactic Acid Calcium Phosphorus Magnesium Total Bilirubin Direct Bilirubin Indirect Bilirubin AST ALT Alkaline Phosphatase Ammonia Total Creatine Kinase Total Protein Albumin MTS Gel Crossmatch See Detail Impressions Chest X-Ray 08/18/18 00:00 CONCLUSION: 1. Endotracheal tube measures 2.2 cm from the vidhya. 2. New large right pleural effusion with associated compressive atelectasis and /or consolidation of the right lung. 3. Stable left basilar opacity likely representing pleural effusion with associated volume loss and/or consolidation. Assessment and Plan - Assessment (1) Mesenteric ischemia due to arterial insufficiency Code(s): K55.059 - Acute (reversible) ischemia of intestine, part and extent unspecified Status: Acute - Plan POD#5 s/p antegrade mesenteric bypass back in SR, intubated earlier this morning, now off pressors 1. NPO, NGT 2. ASA and resume home antihypertensives 3. Chest tube per ICU team 4. Prob hold off add'l diuretics today 5. Leave Boateng in for UOP monitoring 6. tx 1U PRBC Discharge Planning: CVICU for several days
--- NOTE | 2018-08-18 07:48 | CT ---
EXAM DATE: 08/18/2018 7:39 AM EST AGE/SEX: 78 years / Female INDICATIONS: Respiratory distress. CLINICAL DATA: This is the patient's initial encounter. Patient reports that signs and symptoms have been present for 1 day and indicates a pain score of Nonresponsive. MEDICAL/SURGICAL HISTORY: Gastroesophageal reflux disease. Coronary artery stent. RADIATION DOSE: 9.78 CTDI (mGy) COMPARISON: [facility], CHEST 1V SINGLE AP, 08/18/2018. . TECHNIQUE: Multiple contiguous axial images were obtained through the chest without contrast. Image s were obtained in suspended respiration using multiple row detector helical technique. Using automa yony exposure control and adjustment of the mA and/or kV according to patient size, radiation dose was kept as low as reasonably achievable to obtain optimal diagnostic quality images. DICOM format imag e data is available electronically for review and comparison. FINDINGS: There is a large right-sided pleural effusion. There is a small left-sided pleural effusion. There is compressive atelectasis involving the right lower lung and right middle lobe. There is compressive a telectasis involving the posterior left lower lung. A few small scattered infiltrates are seen in the aerated portions of the right and left upper lung daniel. There is an endotracheal tube in good posi tion. There is no pneumothorax. There are atherosclerotic changes of the aorta as well as coronary ca lcifications. There is some free fluid in the upper abdomen.. There are degenerative changes involvin g the bony structures. CONCLUSION: 1. Large right pleural effusion. 2. Small left-sided pleural effusion 3. Compressive atelectasis involving both lower lungs, right greater than left. Electronically signed by: Desmond Dumont MD 08/18/2018 7:47 AM EST
[2018-08-18] MEDS: Isosorbide Mononitrate 30 MG ER 24HR Tablet (Imdur) PO SCH (11:27)
[2018-08-18] MEDS: Chlorhexidine 0.12% Oral Kit 15 ML UDC OROPHARYNG SCH ×2 (11:28→20:06)
[2018-08-18] MEDS: Famotidine PF Inj 20 MG/2 ML Vial IV.PUSH SCH ×2 (11:31→20:34)
[2018-08-18] MEDS: Gabapentin 300 MG Capsule PO SCH ×2 (11:32→20:34)
[2018-08-18] MEDS: Sodium Chloride 0.9% 2 ML Flush BID IV.FLUSH SCH ×2 (11:32→20:06)
--- NOTE | 2018-08-18 12:48 | XR ---
EXAM DATE: 08/18/2018 12:45 PM EST AGE/SEX: 78 years / Female INDICATIONS: Right side chest tube placement. CLINICAL DATA: This is the patient's subsequent encounter. Patient reports that signs and symptoms h ave been present for 1 day and indicates a pain score of Nonresponsive. MEDICAL/SURGICAL HISTORY: . Gastroesophageal reflux disease. Coronary artery stent. . COMPARISON: [facility] [place], CHEST 1V SINGLE AP, 08/18/2018. . FINDINGS: Today's exam is compared to the prior study. A right-sided chest tube has now been placed. The previo usly noted right effusion has been drained. There is no evidence of pneumothorax. There is improved a eration of the right lung. There appears to be some improved aeration of the left lung. The heart siz e is stable. The endotracheal tube and right-sided central line remain in place. CONCLUSION: 1. Status post placement of a right-sided chest tube with improved aeration of the right lung compar ed to the prior examination. No evidence of pneumothorax. Electronically signed by: Desmond Dumont MD 08/18/2018 12:47 PM EST
[2018-08-18] MEDS: Enoxaparin Inj 30 MG/0.3 ML Syringe SQ SCH (12:50)
[2018-08-18] MEDS: Oral Hygiene Kit OROPHARYNG SCH ×2 (13:08→18:35)
[2018-08-18 14:01] LABS: Hematocrit 23.2 % (35.0-46.0); Hemoglobin 7.8 gm/dL (11.6-15.3)
--- NOTE | 2018-08-18 14:55 | P.PNCA ---
Subjective Interval history: Events overnight noted Agonal breathing with PEA CPR with 1 round of epi for ROSC [place] to be due to mucus plugging Intubated Medications and Allergies Active Medications: Active Medications Al Hydroxide/Mg Hydroxide (Milk Of Magnmaye Liq) 30 ml PO Q12H PRN PRN Reason: Mild Constipation Albuterol (Duoneb Neb (Prn)) 1 ampul NEB Q2HR NEB PRN PRN Reason: SHORTNESS OF BREATH Albuterol (Duoneb Neb (Livan)) 1 ampul NEB Q4HR NEB LIVAN Alprazolam (Xanax) 0.5 mg PO BID PRN PRN Reason: Anxiety Last Admin: 08/16/18 22:40 Dose: 0.5 mg Artificial Tears (Tears Naturale Opth Drops) 1 drop EACH EYE Q8H [facility] Aspirin (Aspirin Chew) 81 mg PO DAILY [facility] Last Admin: 08/18/18 13:09 Dose: Not Given Atorvastatin Calcium (Lipitor) 40 mg PO DAILY [facility] Last Admin: 08/18/18 11:31 Dose: 40 mg Bisacodyl (Dulcolax Supp) 10 mg RECTAL DAILY PRN PRN Reason: SEVERE CONSITIPATION Last Admin: 08/17/18 17:07 Dose: 10 mg Chlorhexidine Gluconate (Peridex 0.12% Oral Kit) 15 ml OROPHARYNG BID@0800, 2000 [facility] Last Admin: 08/18/18 11:28 Dose: 15 ml Clopidogrel Bisulfate (Plavix) 75 mg PO DAILY [facility] Last Admin: 08/18/18 12:53 Dose: Not Given Enoxaparin Sodium (Lovenox Inj) 30 mg SQ Q24H [facility] Last Admin: 08/18/18 12:50 Dose: Not Given Famotidine (Pepcid Pf Inj) 20 mg IV.PUSH Q12HR [facility] Last Admin: 08/18/18 11:31 Dose: 20 mg Gabapentin (Neurontin) 300 mg PO BID [facility] Last Admin: 08/18/18 11:32 Dose: 300 mg Hydromorphone HCl (Dilaudid Pf Inj) 0.2 mg IV.PUSH Q1H PRN PRN Reason: PAIN SCALE 1 TO 10 Last Admin: 08/14/18 16:51 Dose: 0.2 mg Magnesium Sulfate 4 gm/ Sodium (Chloride) 100 mls @ 50 mls/hr IV.SIG UNSCH PRN PRN Reason: For Magnesium 0.9 - 1.1 mg/dL Magnesium Sulfate 2 gm/ Sodium (Chloride) 100 mls @ 50 mls/hr IV.SIG UNSCH PRN PRN Reason: For Magnesium 1.2 - 1.6 mg/dL Potassium Chloride (Kcl 40 Meq Premix Inj) 40 meq in 100 mls @ 50 mls/hr IV.SIG Q2H PRN PRN Reason: For Potassium 2.8 - 3.2 mEq/L Potassium Chloride (Kcl 20 Meq Premix Inj) 20 meq in 100 mls @ 50 mls/hr IV.SIG Q2H PRN PRN Reason: For Potassium 3.3 - 3.5 mEq/L Last Admin: 08/17/18 09:15 Dose: 50 mls/hr Potassium Chloride (Kcl 40 Meq Premix Inj) 40 meq in 100 mls @ 25 mls/hr IV.SIG UNSCH PRN PRN Reason: For Potassium 3.3 - 3.5 mEq/L Potassium Chloride (Kcl 20 Meq Premix Inj) 20 meq in 100 mls @ 50 mls/hr IV.SIG Q2H PRN PRN Reason: For Potassium 2.8 - 3.2 mEq/L Potassium Phosphate 30 mmol/ (Sodium Chloride) 260 mls @ 42 mls/hr IV.SIG UNSCH PRN PRN Reason: SEE LABEL COMMENTS Sodium Phosphate 30 mmol/ (Sodium Chloride) 260 mls @ 42 mls/hr IV.SIG UNSCH PRN PRN Reason: For Phosphorus < 2.5 mg/dL Hydromorphone/Sodium Chloride (Dilaudid Certified Orthoptist Inj) 6 mg in 30 mls @ 0 mls/hr [employer]ST AND RISK ANALYSIS MANAGER UNSCH PRN PRN Reason: prn pain Last Admin: 08/17/18 18:37 Dose: 0 mls/hr Dexmedetomidine HCl 200 mcg/ (Sodium Chloride) 50 mls @ 3.27 mls/hr IV.CONT TITRATE PRN; Protocol PRN Reason: Per Protocol Last Admin: 08/17/18 18:47 Dose: 0.4 mcg/kg/hr, 6.55 mls/hr Dextrose (D10w Inj) 1,000 mls @ 20 mls/hr IV.CONT .Q24H [place] Last Admin: 08/17/18 04:26 Dose: Not Given Propofol (Diprivan 1000 Mg/100 Ml Inj) 1,000 mg in 100 mls @ 1.845 mls/hr IV.CONT TITRATE PRN; Protocol PRN Reason: Per Protocol Sodium Chloride (Ns Inj) 250 mls @ 15 mls/hr IV.SIG ONCE [facility] Stop: 08/19/18 07:39 Isosorbide Mononitrate (Imdur) 30 mg PO DAILY [facility] Last Admin: 08/18/18 11:27 Dose: Not Given Lactulose (Lactulose Liq) 30 ml PO DAILY PRN PRN Reason: SEVERE CONSITIPATION Magnesium Oxide (Mag-Ox) 400 mg PO HS [facility] Last Admin: 08/17/18 21:00 Dose: 400 mg Magnesium Oxide (Mag-Ox) 800 mg PO UNSCH PRN PRN Reason: For Magnesium 1.2 - 1.6 mg/dL Metoprolol Tartrate (Lopressor Inj) 5 mg IV.PUSH Q4H [facility] Last Admin: 08/18/18 11:24 Dose: Not Given Miscellaneous Medication () 1 each OROPHARYNG 0000,0400,1200,1600 [facility] Last Admin: 08/18/18 13:08 Dose: 1 each Naloxone HCl (Narcan Inj) 0.4 mg IV.PUSH PRN PRN PRN Reason: SEE LABEL COMMENTS Potassium Bicarb/Potassium Chloride (K-Lyte Cl Eff) 50 meq PO UNSCH PRN PRN Reason: For Potassium 3.3 - 3.5 mEq/L Potassium Phosphate (K-Phos Original) 2,000 mg PO Q4H PRN PRN Reason: Phosphorus Less Than 2.5 mg/dL Potassium Phosphate (K-Phos Original) 2,000 mg PO UNSCH PRN PRN Reason: SEE LABEL COMMENTS Ropinirole HCl (Requip) 3 mg PO HS [facility] Last Admin: 08/17/18 21:00 Dose: 3 mg Sennosides (Senokot) 17.2 mg PO Q12H PRN PRN Reason: Moderate Constipation Sodium Chloride (Ns Flush) 2 ml IV.FLUSH BID [facility] Last Admin: 08/18/18 11:32 Dose: 2 ml Sodium Chloride (Ns Flush) 2 ml IV.FLUSH PRN PRN PRN Reason: FLUSH AFTER USING IV ACCESS Allergies Allergy/AdvReac Type Severity Reaction Status Date / Time codeine Allergy Severe Chest Pain Verified 08/13/18 06:44 diatrizoate meglumine Allergy Severe Hives Verified 08/13/18 06:44 gadobenic acid Allergy Severe Hives Verified 08/13/18 06:44 gadodiamide Allergy Severe Hives Verified 08/13/18 06:44 gadoteridol Allergy Severe Hives Verified 08/13/18 06:44 iodixanol Allergy Severe Hives Verified 08/13/18 06:44 iohexol Allergy Severe Hives Verified 08/13/18 06:44 morphine Allergy Severe Psychosis Verified 08/13/18 06:44 Home Medications Medication Instructions Recorded Confirmed Type alprazolam 0.5 mg PO BID PRN 07/31/18 08/13/18 History aspirin [Aspir-81] 81 mg PO DAILY 07/31/18 08/13/18 History atorvastatin 40 mg PO DAILY 07/31/18 08/13/18 History clopidogrel [Plavix] 75 mg PO DAILY 07/31/18 08/13/18 History gabapentin [Neurontin] 300 mg PO BID 07/31/18 08/13/18 History isosorbide mononitrate 30 mg PO DAILY 07/31/18 08/13/18 History losartan 50 mg PO DAILY 07/31/18 08/13/18 History metoprolol tartrate 25 mg PO BID 07/31/18 08/13/18 History potassium chloride 20 meq PO DAILY 07/31/18 08/13/18 History ranitidine HCl 150 mg PO DAILY 07/31/18 08/13/18 History ropinirole [Requip] 3 mg PO HS 07/31/18 08/13/18 History cholestyramine-aspartame 4 g PO BID 08/06/18 08/13/18 History [Prevalite] hydrochlorothiazide 12.5 mg PO DAILY 08/06/18 08/13/18 History niacin 1,000 mg PO DAILY 08/06/18 08/13/18 History vit C-vit [id number] 1 cap PO DAILY 08/06/18 08/13/18 History [Ocuvite] magnesium oxide 500 mg PO HS 08/13/18 History Physical Exam Vital signs: Vital Signs 08/17/18 14:54 08/17/18 17:00 08/17/18 19:00 Temperature 97.4 F L 98.2 F Pulse Rate 80 81 Respiratory Rate 16 16 Blood Pressure 112/54 L 140/60 Pulse Oximetry 98 96 92 L 08/17/18 21:33 08/17/18 23:00 08/18/18 01:00 Temperature 97.9 F Pulse Rate 79 Respiratory Rate 16 Blood Pressure 141/63 H Pulse Oximetry 95 93 L 95 08/18/18 03:00 08/18/18 04:15 08/18/18 05:00 Temperature 97.6 F Pulse Rate 75 Respiratory Rate 16 14 Blood Pressure 125/78 Pulse Oximetry 93 L 95 08/18/18 05:10 08/18/18 07:00 08/18/18 07:46 Temperature 94.5 F L Pulse Rate 74 Respiratory Rate 14 Blood Pressure 107/65 Pulse Oximetry 95 95 97 08/18/18 08:15 08/18/18 09:37 08/18/18 10:09 Temperature 97 F L 98.2 F Pulse Rate 73 50 L Respiratory Rate 14 14 14 Blood Pressure 104/47 L Pulse Oximetry 08/18/18 11:00 08/18/18 13:31 Temperature 97.5 F L Pulse Rate 57 L Respiratory Rate 14 14 Blood Pressure Pulse Oximetry 100 100 Intake & Output 08/17/18 08/18/18 08/18/18 18:59 06:59 18:59 Intake Total 198 / 198 400 / 400 Output Total 825 / 825 1075 / 1075 Balance -627 / -627 -675 / -675 Weight 61 kg Intake: IV 198 / 198 Cardizem Inj 125 MG In NS Inj 98 / 98 100 ML @ 5 MG/HR 5 mls/hr IV. CONT TITRATE PRN Rx#:[id number] KCl 20 mEq Premix Inj 20 meq In 100 / 100 100 ml @ 50 mls/hr IV.SIG Q2H PRN Rx#:[id number] Intake (Blood Product) Amt 400 / 400 Rbc As-3 Leukoreduced Unit 400 / 400 [id number] Output: Urine Amount (Catheter) 650 / 650 1075 / 1075 Indwelling Temp Sensing 650 / 650 1075 / 1075 Catheter Gastric Drainage 175 / 175 Right Nare Nasogastric Tube 175 / 175 Other: Date of Last Bowel Movement 08/17/18 08/17/18 # Bowel Movements 3 Narrative: GENERAL: Intubated and sedated SKIN: Warm and dry. HEAD: Atraumatic. Normocephalic. EYES: Pupils equal and round. No scleral icterus. No injection or drainage. ENT: Orotracheally intubated NECK: Trachea midline. CARDIOVASCULAR: Regular rate and rhythm. RESPIRATORY: Decreased breath sounds bilaterally GASTROINTESTINAL: Abdomen soft, non-tender. Abdominal binder in place, vertical incision C/D/I MUSCULOSKELETAL: Extremities without clubbing, cyanosis, or edema. DP pulses are Dopplerable NEUROLOGICAL: Intubated and sedated - Urinary Catheter Management Indwelling Temp Sensing Catheter Cath placed during this visit: yes Reason for continuing: Hourly intake/output Insertion date: 08/13/18 Insertion time: 08:08 Results 08/18/18 13:00 08/18/18 04:00 Cardiac Enzymes 08/17/18 08/18/18 Range/Units 04:30 04:40 AST 44 H (15-37) U/L Troponin I 0.40 H D (0.02-0.05) ng/mL CBC 08/17/18 08/18/18 08/18/18 Range/Units 04:30 04:00 13:00 WBC 16.7 H 17.0 H (4.0-11.0) th/mm3 RBC 2.60 L 2.37 L (4.00-5.30) mil/mm3 Hgb 8.2 L 7.5 L 7.8 L (11.6-15.3) gm/dL Hct 24.2 L 22.2 L 23.2 L (35.0-46.0) % Plt Count 149 L 138 L (150-450) th/mm3 Comprehensive Metabolic Panel 08/17/18 08/17/18 08/18/18 Range/Units 04:30 18:02 04:00 Sodium 140 142 (136-145) meq/L Potassium 3.4 L 4.3 D 3.9 (3.5-5.1) meq/L Chloride 106 107 (98-107) meq/L Carbon Dioxide 25.7 25.5 (21.0-32.0) meq/L BUN 28 H 34 H (7-18) mg/dL Creatinine 0.73 0.74 (0.50-1.00) mg/dL Calcium 7.5 L 7.7 L (8.5-10.1) mg/dL Direct Bilirubin (0.0-0.2) mg/dL Indirect Bilirubin (0.0-0.8) mg/dL AST (15-37) U/L ALT (10-53) U/L Alkaline Phosphatase (45-117) U/L Total Protein (6.4-8.2) g/dL Albumin (3.4-5.0) g/dL 08/18/18 Range/Units 04:40 Sodium (136-145) meq/L Potassium (3.5-5.1) meq/L Chloride (98-107) meq/L Carbon Dioxide (21.0-32.0) meq/L BUN (7-18) mg/dL Creatinine (0.50-1.00) mg/dL Calcium (8.5-10.1) mg/dL Direct Bilirubin 0.4 H (0.0-0.2) mg/dL Indirect Bilirubin 0.5 (0.0-0.8) mg/dL AST 44 H (15-37) U/L ALT 40 (10-53) U/L Alkaline Phosphatase 53 (45-117) U/L Total Protein 5.0 L D (6.4-8.2) g/dL Albumin 2.1 L (3.4-5.0) g/dL Intake and Output 08/17/18 08/18/18 08/18/18 22:59 06:59 14:59 Intake Total 400 / 400 Output Total 825 / 825 1075 / 1075 Balance -825 / -825 -675 / -675 Intake: Intake (Blood Product) Amt 400 / 400 Rbc As-3 Leukoreduced Unit 400 / 400 [id number] Output: Urine Amount (Catheter) 650 / 650 1075 / 1075 Indwelling Temp Sensing 650 / 650 1075 / 1075 Catheter Gastric Drainage 175 / 175 Right Nare Nasogastric Tube 175 / 175 Other: Date of Last Bowel Movement 08/17/18 08/17/18 # Bowel Movements 3 Weight 61 kg - Imaging and Cardiology Imaging: Impressions Chest X-Ray 08/18/18 00:00 CONCLUSION: 1. Endotracheal tube measures 2.2 cm from the vidhya. 2. New large right pleural effusion with associated compressive atelectasis and /or consolidation of the right lung. 3. Stable left basilar opacity likely representing pleural effusion with associated volume loss and/or consolidation. Chest CT 08/18/18 05:42 CONCLUSION: 1. Large right pleural effusion. 2. Small left-sided pleural effusion 3. Compressive atelectasis involving both lower lungs, right greater than left. Chest X-Ray 08/18/18 12:20 CONCLUSION: 1. Status post placement of a right-sided chest tube with improved aeration of the right lung compared to the prior examination. No evidence of pneumothorax. Assessment and Plan - Assessment (1) Type 2 myocardial infarction Code(s): I21.A1 - Myocardial infarction type 2 Status: Acute (2) PEA (Pulseless electrical activity) Code(s): I46.9 - Cardiac arrest, cause unspecified Status: Acute (3) Hemothorax Code(s): J94.2 - Hemothorax Status: Acute (4) Mesenteric ischemia Code(s): K55.9 - Vascular disorder of intestine, unspecified Status: Acute (5) Afib Code(s): I48.91 - Unspecified atrial fibrillation Status: Acute - Plan 1) Mesenteric ischemia s/p aorto-hepatic bypass, aorto-SMA bypass 2) Elevated troponin Secondary to hypotension/anemia Previously had stress test showing no ischemia Troponin levels cleared 3) PEA arrest CPR with 1 round of epi Appears to be due to mucus plugging 4) Hemothorax Discussed with Dr. Bauer, plan to place chest tube 5) AFib Currently controlled Not an anticoagulation candidate at this time 6) Con't ASA/Plavix/Statin
[2018-08-18] MEDS ORDERED: Sodium Chlor 0.9% Inj 250 ML IV.SIG SCH (15:00)
--- NOTE | 2018-08-18 16:22 | P.PNCC ---
Subjective Subjective Remarks/Hospital Course: Hospital Course: Patient is a 77-year-old female who was admitted to Dr. Eugene's service for mesenteric ischemia today. Her past medical history significant for coronary artery disease status post PCI/stent, history of renal artery stenosis, GERD, PAD, history of multiple vascular surgeries, history of small bowel obstruction, restless leg syndrome. Patient underwent aorto-hepatic and aorto-SMA bypass in OR. EBL was 400 ml, received 3.6 L of crystalloids in the OR , urine output was adequate. Postop patient was moved to the CVICU critical care medicine was consulted for postop management. Patient is hypotensive at the time of my evaluation and had been started on Diego-Synephrine by Dr. Eugene. I haave ordered further fluid resuscitation with additional 2 L of crystalloids. A stat ABG was done at the bedside which showed hemoglobin 6.6. A CBC was sent and I ordered 2 units of PRBC stat. CBC came back with hemoglobin of 6.4 platelet count 139. Chemistry showed potassium of 3.4 calcium uncorrected 6.4. Electrolyte replacement protocol and calcium replacement have been ordered. Lactic acid also mildly elevated at 2.2. Will follow serial lactic acid and follow urine output closely. If patient becomes hemodynamically more stable will proceed with weaning trial for extubation. Urine output had been adequate postop approximately 40 mL/h. Bilateral DP pulses are Dopplerable Subjective: 08/14: significant fluid requirement. trop slightly elevated at 0.06. initial scvo2 43% but improved after fluid to 68%. pain adequately controlled. uop marginal at 20cc/hr. 08/15: trop slightly uptrended. now appears volume overloaded with new and worsening oxygen requirement. ABG with mixed acidosis. responded well to lasix with adequate diuresis. placed on BiPAP. somewhat agitated requiring low-dose Precedex. lactate 0.8, scvo2 71%. 08/16: slightly tachycardic this morning. some diuresis yesterday and back to nc o2, but remains volume overloaded. denies pain. somewhat intermittently confused, but oriented on my evaluation. trop still uptrending, but plateauing. uop adequate. 08/17: went into afib RVR overnight. placed on diltiazem drip. this morning, more rate controlled. trop downtrending. adequate diuresis, but remains volume overloaded. aggressively replaced electrolytes this morning. 08/18: overnight events reviewed and discussed with Dr. Eugene and Dr. Sabillon. intubated after respiratory arrest. bronch with mucous plugging. new right pleural effusion on chest CT (multiple rib fractures after CPR). placed 28 Fr chest tube (see separate procedure note for details) with ~1600cc blood (no active bleeding). placed arterial line. transfused 3 units prbc. trending H&H. critically ill this morning. oliguric. Objective Vital Signs / I&O: Vital Signs 08/17/18 17:00 08/17/18 19:00 08/17/18 21:33 Temperature 36.8 C Pulse Rate 81 Respiratory Rate 16 Blood Pressure 140/60 Pulse Oximetry 96 92 L 95 08/17/18 23:00 08/18/18 01:00 08/18/18 03:00 Temperature 36.6 C 36.4 C Pulse Rate 79 75 Respiratory Rate 16 16 Blood Pressure 141/63 H 125/78 Pulse Oximetry 93 L 95 93 L 08/18/18 04:15 08/18/18 05:00 08/18/18 05:10 Temperature Pulse Rate Respiratory Rate 14 Blood Pressure Pulse Oximetry 95 95 08/18/18 07:00 08/18/18 07:46 08/18/18 08:15 Temperature 34.7 C L Pulse Rate 74 Respiratory Rate 14 14 Blood Pressure 107/65 Pulse Oximetry 95 97 08/18/18 09:37 08/18/18 10:09 08/18/18 11:00 Temperature 36.1 C L 36.8 C 36.4 C L Pulse Rate 73 50 L 57 L Respiratory Rate 14 14 14 Blood Pressure 104/47 L Pulse Oximetry 100 08/18/18 13:31 08/18/18 15:27 08/18/18 15:44 Temperature 37.1 C 37.2 C Pulse Rate 56 L 55 L Respiratory Rate 14 14 14 Blood Pressure Pulse Oximetry 100 100 08/18/18 15:58 Temperature Pulse Rate 54 L Respiratory Rate 14 Blood Pressure Pulse Oximetry 97 Intake & Output 08/17/18 08/18/18 08/18/18 18:59 06:59 18:59 Intake Total 198 / 198 400 / 400 Output Total 825 / 825 1075 / 1075 Balance -627 / -627 -675 / -675 Weight 61 kg Intake: IV 198 / 198 Cardizem Inj 125 MG In NS Inj 98 / 98 100 ML @ 5 MG/HR 5 mls/hr IV. CONT TITRATE PRN Rx#:[id number] KCl 20 mEq Premix Inj 20 meq In 100 / 100 100 ml @ 50 mls/hr IV.SIG Q2H PRN Rx#:[id number] Intake (Blood Product) Amt 400 / 400 Rbc As-3 Leukoreduced Unit 400 / 400 [id number] Rbc As-3 Leukoreduced Unit 0 / 0 [id number] Output: Urine Amount (Catheter) 650 / 650 1075 / 1075 Indwelling Temp Sensing 650 / 650 1075 / 1075 Catheter Gastric Drainage 175 / 175 Right Nare Nasogastric Tube 175 / 175 Other: Date of Last Bowel Movement 08/17/18 08/17/18 # Bowel Movements 3 Result Diagrams: 08/18/18 13:00 08/18/18 04:00 Objective Remarks: GENERAL: Elderly female, lying in bed, intubated, sedated, critically ill. HEENT: Normocephalic. Atraumatic. Pupils equal, round, reactive, conjugate. Mucous membranes are moist NECK: Trachea is midline. There is no JVD. Central line in place, site clean dry and intact. CHEST: Equal chest rise. nc o2. unlabored. right chest tube in place to suction , 1600mL sanguinous output. no air leak. CARDIOVASCULAR: normal rate, regular rhythm. ABDOMEN: Soft, appropriately tender to palpation, nondistended. No guarding. Midline dressing intact MUSCULOSKELETAL: Pulses 2+. No peripheral edema. NEUROLOGICAL: RASS -2. withdraws to pain. does not follow commands. sedated. Assessment and Plan - Assessment and Plan Plan: ASSESSMENT: Mesenteric ischemia status post open antegrade mesenteric bypass Anemia secondary to acute blood loss- requiring transfusion- worsening. Acute hypoxic and hypercarbic respiratory failure- worsening. History of peripheral arterial disease, status post multiple vascular surgery Coronary artery disease GERD History of small bowel obstruction History of renal artery stenosis Restless leg syndrome Type II NSTEMI secondary to demand ischemia Acute right hemothorax post CPR Rib fractures secondary to CPR Hypovolemia secondary to hemothorax Acute alcohol withdraw syndrome Acute agitated delirium Perioperative atrial fibrillation with rapid ventricular response- back in NSR Lactic acidosis- resolved PLAN: NEURO: -precedex, fentanyl for goal RASS -2 - frequent neuro checks - will need benzos in the future to prevent ongoing etoh withdraw syndrome RESP: -prvc - wean fio2 for goal spo2 > 90% - no SBT today given critical illness - right 28 Fr chest tube placed 08/18: 1600 mL sanguinous drainage. keep to suction. -DuoNeb every 2 hours as needed - hold additional diuresis CV: - trops downtrending. can stop trending. - unlikely to be ACS - likely demand ischemia given baseline CAD - ASA - hold plavix given acute bleeding. - hold additional diuresis. - aggressive electrolyte replacement, target K > 4.5, Mg > 2.5 - cardiology consulted: Dr. Neil GI: -Status post open antegrade mesenteric bypass, postop management per Dr. Eugene -N.p.o., IV PPI, NG tube intermittent wall suction, anticipate ileus : -Monitor renal function closely. Boateng catheter. ID: -Perioperative antibiotics per Dr. Eugene HEME: -Monitor CBC, coags - 3 units prbc - trend H&H ENDO: -Electrolyte replacement per protocol PROPH: -Lovenox OVERALL IMPRESSION: critically ill. decompensated respiratory status. likely combination of etoh withdraw and worsening pulmonary function. keep intubated. active transfusions today. Critically ill. Critical care time: 82 minutes, exclusive of separately billable procedures. frequent re-evaluations throughout the day. managing active bleeding, resp failure.
--- NOTE | 2018-08-18 16:23 | P.PCN ---
Date of procedure: 08/18/18 Procedure: Procedure: Arterial Line Placement Left axillary arterial line Diagnosis: Hemorrhagic shock Indications: Need for beat to beat hemodynamic monitoring Consent: Emergent Description of the Procedure: The left axilla was prepped and draped sterilely. 1% lidocaine was used for local anesthesia. The pulse was located and a needle was advanced into the artery. A 20 gauge, 12 cm catheter was advanced into the artery using a modified Seldinger technique. The catheter was sutured to the skin and a sterile dressing was applied. The catheter was connected to a pressure transducer and an arterial waveform was noted. There were no immediate complications noted. There was minimal EBL. I personally performed the procedure.
--- NOTE | 2018-08-18 16:24 | P.PCN ---
Date of procedure: 08/18/18 Procedure: Tube Thoracostomy Procedure Note Right 28 Greek thoracostomy tube Diagnosis: Acute hemothorax Indications: Acute hemothorax with respiratory failure Consent: Obtained from the family Anesthesia: Versed IV, Precedex IV, 1% lidocaine locally Description of the Procedure: The patient was placed in the supine position. The arm was abducted above the head and secured. The right lateral chest was prepped and draped sterilely to include the axilla and nipple. 1% Lidocaine was infiltrated subcutaneously and into the tissues down to the periosteum of the rib. The 5th intercostal space was identified. A small incision was made using a #11 blade. At the mid-axillary line, blunt dissection was performed until the rib was palpated. A Queta clamp was used to bluntly enter the pleura immediately above the adjacent rib. The space was opened bluntly with the Queta clamp. A finger was inserted and lung and pleura were felt. A 28 Fr chest tube was inserted along the course of the finger and into the pleural cavity easily and without resistance. The chest tube was connected to a Pleur-o -vac and connected to [id number] suction. The catheter was sutured to the skin using a 0 silk sandal suture and an occlusive dressing was applied. There were no immediate complications noted. There was minimal EBL. The patient tolerated the procedure well. Chest Tube output: 1600 mL sanguinous output. A Chest x-ray has been ordered. I personally performed the procedure.
[2018-08-18] MEDS ORDERED: Dextrose 50% in Water Syringe 50 ML ONE ×2 (17:19→17:45)
[2018-08-18] MEDS: Dextrose 10% in Water Inj 1,000 ML IV.CONT SCH (17:45)
[2018-08-18] MEDS: Propofol 1000 mg/100 ml Inj 1,000 MG/100 ML BOTTLE IV.CONT PRN (20:00)
[2018-08-18] MEDS: Dexmedetomidine Inj 200 MCG in Sodium Chlor 0.9% Inj 48 ML IV.CONT PRN (20:05)
[2018-08-18] MEDS: Magnesium Oxide 400 MG Tablet PO SCH (20:34)
[2018-08-18 20:35] LABS: Hematocrit 32.6 % (35.0-46.0); Hemoglobin 11.3 gm/dL (11.6-15.3)
[2018-08-19] MEDS: Metoprolol Inj 5 MG/5 ML Vial IV.PUSH SCH ×2 (01:00→11:05)
[2018-08-19] MEDS: Piperacil/Tazo 4.5 GM Premix 4.5 GM/100 ML BAG IV.SIG SCH ×4 (02:17→22:06)
[2018-08-19] MEDS: Oral Hygiene Kit OROPHARYNG SCH ×4 (04:00→16:45)
[2018-08-19 04:59] LABS: Baso % (Auto) 0.1 % (0.0-2.0); Hematocrit 30.9 % (35.0-46.0); Hemoglobin 10.8 gm/dL (11.6-15.3); Lymph # (Auto) 1.7 th/mm3 (1.0-4.8); Lymph % (Auto) 11.6 % (9.0-44.0); Mean Corpuscular HGB Conc 35.1 % (32.0-36.0); Mean Corpuscular Hemoglobin 31.5 pg (27.0-34.0); Mean Corpuscular Volume 89.7 fL (80.0-100.0); Mono # (Auto) 1.1 th/mm3 (0.0-0.9); Mono % (Auto) 7.5 % (0.0-8.0); Neut # (Auto) 12.1 th/mm3 (1.8-7.7); Neut % (Auto) 80.8 % (16.0-70.0); Platelet Count 109 th/mm3 (150-450); Red Blood Count 3.45 mil/mm3 (4.00-5.30); Red Cell Distribution Width 16.6 % (11.6-17.2)
[2018-08-19 05:24] LABS: Albumin 1.7 g/dL (3.4-5.0); Carbon Dioxide 25.4 meq/L (21.0-32.0); Magnesium 2.4 mg/dL (1.5-2.5); Potassium 4.1 meq/L (3.5-5.1); Total Protein 4.5 g/dL (6.4-8.2)
--- NOTE | 2018-08-19 05:26 | XR ---
EXAM DATE: 08/19/2018 5:12 AM EST AGE/SEX: 78 years / Female INDICATIONS: Shortness of breath, possible pulmonary disease. CLINICAL DATA: This is the patient's subsequent encounter. Patient reports that signs and symptoms h ave been present for 1 week and indicates a pain score of Nonresponsive. MEDICAL/SURGICAL HISTORY: Gastroesophageal reflux disease. Coronary artery stent. Aortic bypass . COMPARISON: C, CHEST 1V SINGLE AP, 08/18/2018. . FINDINGS: Portable AP view of the chest demonstrates a normal-sized cardiac silhouette with calcification of th e aorta. ETT, nasogastric tube, and right IJ central line remain present. Right chest tube is present and there is a tiny right apical pneumothorax. Left basilar pleural-parenchymal opacity is stable. CONCLUSION: No significant interval change. There is a stable small to moderate sized left pleural effusion with associated volume loss and/or airspace consolidation. Electronically signed by: Chava Lozano MD 08/19/2018 5:25 AM EST
[2018-08-19] MEDS: Dexmedetomidine Inj 200 MCG in Sodium Chlor 0.9% Inj 48 ML IV.CONT PRN (06:21)
[2018-08-19] MEDS: Artificial Tears Opth Drops 15 ML Bottle EACH EYE SCH ×4 (06:32→22:09)
[2018-08-19] MEDS ORDERED: Albumin Human 5% Inj 500 ML IV.SIG STA (07:11)
[2018-08-19] MEDS ORDERED: Calcium Chloride Inj 1 GM in Sodium Chlor 0.9% Inj 100 ML IV.SIG ONE (07:30)
[2018-08-19] MEDS: Chlorhexidine 0.12% Oral Kit 15 ML UDC OROPHARYNG SCH ×2 (07:59→22:08)
--- NOTE | 2018-08-19 08:05 | P.PNVS ---
Subjective Post Op Day #: 6 Procedure: aorto-hepatic, aorto-SMA bypass Subjective/Hospital Course: resting comfortably overnight HD stable R chest tube cleared effusion radiographically and no respiratory distress Objective Neuro: sedated, getting anxiolytics SYED Pulmonary: intubated, good sats CXR better this morning CT more serous Cardiac: reg rate, bp ok no pressors FEN/GI: NGT with low output but still +bilious +small BM abdomen not distended K 4.1 : UOP marginal cr 0.8 ID Antibiotics (date/duration): started Zosyn for fever yesterday cultures NGTD WBC 15 Heme: Hct 31 - appropriate response to RPBC yesterday Laboratory Results - last 24 hr 08/18/18 08/18/18 08/18/18 06:43 13:00 13:15 WBC Corrected WBC RBC Hgb 7.8 L Hct 23.2 L MCV MCH MCHC RDW Plt Count MPV Neut % (Auto) Lymph % (Auto) [place] % (Auto) Eos % (Auto) Baso % (Auto) Neut # (Auto) Lymph # (Auto) [place] # (Auto) Eos # (Auto) Baso # (Auto) WBC Differential Differential Comment Hematology Comments Sodium Potassium Chloride Carbon Dioxide Anion Gap BUN Creatinine Estimated GFR POC Glucose 75 Random Glucose Lactic Acid Calcium Calcium Adj for Albumin Magnesium Total Bilirubin AST ALT Alkaline Phosphatase Total Protein Albumin Blood Type A Positive Antibody Screen Negative MTS Gel Crossmatch See Detail 08/18/18 08/18/18 08/18/18 14:15 14:26 17:19 WBC Corrected WBC RBC Hgb Hct MCV MCH MCHC RDW Plt Count MPV Neut % (Auto) Lymph % (Auto) [place] % (Auto) Eos % (Auto) Baso % (Auto) Neut # (Auto) Lymph # (Auto) [place] # (Auto) Eos # (Auto) Baso # (Auto) WBC Differential Differential Comment Hematology Comments Sodium Potassium Chloride Carbon Dioxide Anion Gap BUN Creatinine Estimated GFR POC Glucose 100 22 L* Random Glucose Lactic Acid Calcium Calcium Adj for Albumin Magnesium Total Bilirubin AST ALT Alkaline Phosphatase Total Protein Albumin Blood Type Antibody Screen MTS Gel Crossmatch See Detail 08/18/18 08/18/18 08/18/18 17:20 17:43 18:16 WBC Corrected WBC RBC Hgb Hct MCV MCH MCHC RDW Plt Count MPV Neut % (Auto) Lymph % (Auto) [place] % (Auto) Eos % (Auto) Baso % (Auto) Neut # (Auto) Lymph # (Auto) [place] # (Auto) Eos # (Auto) Baso # (Auto) WBC Differential Differential Comment Hematology Comments Sodium Potassium Chloride Carbon Dioxide Anion Gap BUN Creatinine Estimated GFR POC Glucose 33 L* 56 L Random Glucose 100 Lactic Acid Calcium Calcium Adj for Albumin Magnesium Total Bilirubin AST ALT Alkaline Phosphatase Total Protein Albumin Blood Type Antibody Screen MTS Gel Crossmatch 08/18/18 08/18/18 08/19/18 20:20 20:20 04:30 WBC Cancelled Corrected WBC Cancelled RBC Cancelled Hgb 11.3 L D Cancelled Hct 32.6 L Cancelled MCV Cancelled MCH Cancelled MCHC Cancelled RDW Cancelled Plt Count Cancelled MPV Cancelled Neut % (Auto) Lymph % (Auto) [place] % (Auto) Eos % (Auto) Baso % (Auto) Neut # (Auto) Lymph # (Auto) [place] # (Auto) Eos # (Auto) Baso # (Auto) WBC Differential Differential Comment Hematology Comments Cancelled Sodium Potassium Chloride Carbon Dioxide Anion Gap BUN Creatinine Estimated GFR POC Glucose 231 H Random Glucose Lactic Acid Calcium Calcium Adj for Albumin Magnesium Total Bilirubin AST ALT Alkaline Phosphatase Total Protein Albumin Blood Type Antibody Screen MTS Gel Crossmatch 08/19/18 08/19/18 08/19/18 04:30 04:30 04:30 WBC 15.0 H Corrected WBC RBC 3.45 L Hgb 10.8 L Hct 30.9 L MCV 89.7 D MCH 31.5 MCHC 35.1 RDW 16.6 Plt Count 109 L MPV 9.0 Neut % (Auto) 80.8 H Lymph % (Auto) 11.6 Thurston % (Auto) 7.5 Eos % (Auto) 0.0 Baso % (Auto) 0.1 Neut # (Auto) 12.1 H Lymph # (Auto) 1.7 Thurston # (Auto) 1.1 H Eos # (Auto) 0.0 Baso # (Auto) 0.0 WBC Differential . Differential Comment Auto diff final Hematology Comments Sodium Cancelled 145 Potassium Cancelled 4.1 Chloride Cancelled 113 H Carbon Dioxide Cancelled 25.4 Anion Gap Cancelled 7 BUN Cancelled 29 H Creatinine Cancelled 0.84 Estimated GFR Cancelled 66 L POC Glucose Random Glucose Cancelled 129 H Lactic Acid Calcium Cancelled 7.0 L* Calcium Adj for Albumin 8.4 L Magnesium 2.4 Total Bilirubin 2.0 H AST 30 ALT 27 Alkaline Phosphatase 43 L Total Protein 4.5 L Albumin 1.7 L Blood Type Antibody Screen MTS Gel Crossmatch 08/19/18 08/19/18 04:30 04:36 WBC Corrected WBC RBC Hgb Hct MCV MCH MCHC RDW Plt Count MPV Neut % (Auto) Lymph % (Auto) [place] % (Auto) Eos % (Auto) Baso % (Auto) Neut # (Auto) Lymph # (Auto) [place] # (Auto) Eos # (Auto) Baso # (Auto) WBC Differential Differential Comment Hematology Comments Sodium Potassium Chloride Carbon Dioxide Anion Gap BUN Creatinine Estimated GFR POC Glucose 119 H Random Glucose Lactic Acid 1.5 Calcium Calcium Adj for Albumin Magnesium Total Bilirubin AST ALT Alkaline Phosphatase Total Protein Albumin Blood Type Antibody Screen MTS Gel Crossmatch Impressions Chest X-Ray 08/18/18 00:00 CONCLUSION: 1. Endotracheal tube measures 2.2 cm from the vidhya. 2. New large right pleural effusion with associated compressive atelectasis and /or consolidation of the right lung. 3. Stable left basilar opacity likely representing pleural effusion with associated volume loss and/or consolidation. Chest CT 08/18/18 05:42 CONCLUSION: 1. Large right pleural effusion. 2. Small left-sided pleural effusion 3. Compressive atelectasis involving both lower lungs, right greater than left. Chest X-Ray 08/18/18 12:20 CONCLUSION: 1. Status post placement of a right-sided chest tube with improved aeration of the right lung compared to the prior examination. No evidence of pneumothorax. Chest X-Ray 08/19/18 04:21 CONCLUSION: No significant interval change. There is a stable small to moderate sized left pleural effusion with associated volume loss and/or airspace consolidation. Assessment and Plan - Assessment (1) Mesenteric ischemia due to arterial insufficiency Code(s): K55.059 - Acute (reversible) ischemia of intestine, part and extent unspecified Status: Acute - Plan POD#6 s/p antegrade mesenteric bypass intubated, sedated, CXR markedly improved 1. NPO, NGT; will try prokinetic agents today 2. ASA and home antihypertensives 3. Leave CT in for a few days 4. Leave Boateng in for UOP monitoring 5. wean vent 6. f/u cultures Discharge Planning: CVICU for several days
[2018-08-19] MEDS: fentaNYL 10 mcg/mL Premix Drip 2,500 MCG/250 ML BAG IV.SIG PRN (11:00)
[2018-08-19] MEDS: Gabapentin 300 MG Capsule PO SCH (11:03)
[2018-08-19] MEDS: Isosorbide Mononitrate 30 MG ER 24HR Tablet (Imdur) PO SCH (11:03)
[2018-08-19] MEDS: Famotidine PF Inj 20 MG/2 ML Vial IV.PUSH SCH ×2 (11:04→22:07)
[2018-08-19] MEDS: Sodium Chloride 0.9% 2 ML Flush BID IV.FLUSH SCH ×2 (11:05→22:08)
[2018-08-19] MEDS: Enoxaparin Inj 30 MG/0.3 ML Syringe SQ SCH (12:09)
--- NOTE | 2018-08-19 13:05 | P.PNCC ---
Subjective Subjective Remarks/Hospital Course: Hospital Course: Patient is a 77-year-old female who was admitted to Dr. Eugene's service for mesenteric ischemia today. Her past medical history significant for coronary artery disease status post PCI/stent, history of renal artery stenosis, GERD, PAD, history of multiple vascular surgeries, history of small bowel obstruction, restless leg syndrome. Patient underwent aorto-hepatic and aorto-SMA bypass in OR. EBL was 400 ml, received 3.6 L of crystalloids in the OR , urine output was adequate. Postop patient was moved to the CVICU critical care medicine was consulted for postop management. Patient is hypotensive at the time of my evaluation and had been started on Diego-Synephrine by Dr. Eugene. I haave ordered further fluid resuscitation with additional 2 L of crystalloids. A stat ABG was done at the bedside which showed hemoglobin 6.6. A CBC was sent and I ordered 2 units of PRBC stat. CBC came back with hemoglobin of 6.4 platelet count 139. Chemistry showed potassium of 3.4 calcium uncorrected 6.4. Electrolyte replacement protocol and calcium replacement have been ordered. Lactic acid also mildly elevated at 2.2. Will follow serial lactic acid and follow urine output closely. If patient becomes hemodynamically more stable will proceed with weaning trial for extubation. Urine output had been adequate postop approximately 40 mL/h. Bilateral DP pulses are Dopplerable Subjective: 08/14: significant fluid requirement. trop slightly elevated at 0.06. initial scvo2 43% but improved after fluid to 68%. pain adequately controlled. uop marginal at 20cc/hr. 08/15: trop slightly uptrended. now appears volume overloaded with new and worsening oxygen requirement. ABG with mixed acidosis. responded well to lasix with adequate diuresis. placed on BiPAP. somewhat agitated requiring low-dose Precedex. lactate 0.8, scvo2 71%. 08/16: slightly tachycardic this morning. some diuresis yesterday and back to nc o2, but remains volume overloaded. denies pain. somewhat intermittently confused, but oriented on my evaluation. trop still uptrending, but plateauing. uop adequate. 08/17: went into afib RVR overnight. placed on diltiazem drip. this morning, more rate controlled. trop downtrending. adequate diuresis, but remains volume overloaded. aggressively replaced electrolytes this morning. 08/18: overnight events reviewed and discussed with Dr. Eugene and Dr. Sabillon. intubated after respiratory arrest. bronch with mucous plugging. new right pleural effusion on chest CT (multiple rib fractures after CPR). placed 28 Fr chest tube (see separate procedure note for details) with ~1600cc blood (no active bleeding). placed arterial line. transfused 3 units prbc. trending H&H. critically ill this morning. oliguric. 08/19: agitation persists. started scheduled valium as well as fentanyl drip for pain control. still with significant thick tenacious secretions: too many secretions for safe weaning of mechanical ventilation. also spiked fevers overnight, ennis cultured and zosyn started. chest tube with significantly less output, and more serosanguinous. Objective Vital Signs / I&O: Vital Signs 08/18/18 13:31 08/18/18 15:00 08/18/18 15:27 Temperature 37.1 C 37.1 C Pulse Rate 55 L 56 L Respiratory Rate 14 14 14 Pulse Oximetry 100 100 08/18/18 15:44 08/18/18 15:58 08/18/18 16:43 Temperature 37.2 C 38.1 C H Pulse Rate 55 L 54 L 61 Respiratory Rate 14 14 14 Pulse Oximetry 97 96 08/18/18 19:00 08/18/18 20:24 08/18/18 23:00 Temperature 37.8 C H 39.0 C H Pulse Rate 67 68 82 Respiratory Rate 19 Pulse Oximetry 99 99 99 08/19/18 00:15 08/19/18 03:00 08/19/18 03:41 Temperature 37.7 C H Pulse Rate 82 68 66 Respiratory Rate 16 14 Pulse Oximetry 98 99 99 08/19/18 07:00 08/19/18 08:53 08/19/18 12:05 Temperature 37.2 C Pulse Rate 64 62 64 Respiratory Rate 14 14 14 Pulse Oximetry 99 08/19/18 12:06 Temperature Pulse Rate Respiratory Rate 14 Pulse Oximetry 100 Intake & Output 08/18/18 08/19/18 08/19/18 18:59 06:59 18:59 Intake Total 800 / 800 800 / 800 100 / 100 Output Total 2590 / 2590 865 / 865 Balance -1790 / -1790 -65 / -65 100 / 100 Weight 62.5 kg Intake: IV 300 / 300 100 / 100 Precedex Inj 200 MCG In NS Inj 100 / 100 48 ML @ 0.2 MCG/KG/HR 3.27 mls/ hr IV.CONT TITRATE PRN Rx#: [id number] Ofirmev Inj 1,000 mg In 100 ml 100 / 100 @ 400 mls/hr IV.SIG Q6H PRN Rx# :[id number] Zosyn 4.5 GM Premix 4.5 gm In 100 / 100 100 / 100 100 ml @ 200 mls/hr IV.SIG Q6H [facility] Rx#:[id number] Other 100 / 100 Rbc As-3 Leukoreduced Unit 100 / 100 [id number] Intake (Blood Product) Amt 800 / 800 400 / 400 Rbc As-3 Leukoreduced Unit 0 / 0 400 / 400 [id number] Rbc As-3 Leukoreduced Unit 400 / 400 [id number] Rbc As-3 Leukoreduced Unit 400 / 400 [id number] Output: Urine Amount (Catheter) 1390 / 1390 345 / 345 Indwelling Temp Sensing 1390 / 1390 345 / 345 Catheter Gastric Drainage 200 / 200 Right Nare Nasogastric Tube 200 / 200 Chest Tube Drainage 1200 / 1200 320 / 320 #1 Right Pleural 1200 / 1200 320 / 320 Other: Date of Last Bowel Movement 08/17/18 08/19/18 08/18/18 # Bowel Movements 1 Result Diagrams: 08/19/18 04:30 08/19/18 04:30 Objective Remarks: GENERAL: Elderly female, lying in bed, intubated, sedated, critically ill. HEENT: Normocephalic. Atraumatic. Pupils equal, round, reactive, conjugate. Mucous membranes are moist NECK: Trachea is midline. There is no JVD. Central line in place, site clean dry and intact. CHEST: Equal chest rise. nc o2. unlabored. right chest tube in place to suction , 320mL serosanguinous output. no air leak. CARDIOVASCULAR: normal rate, regular rhythm. ABDOMEN: Soft, appropriately tender to palpation, nondistended. No guarding. Midline dressing intact MUSCULOSKELETAL: Pulses 2+. No peripheral edema. NEUROLOGICAL: RASS -2. withdraws to pain. does not follow commands. sedated. Assessment and Plan - Assessment and Plan Plan: PLAN: NEURO: Acute alcohol withdraw syndrome Acute agitated delirium Restless leg syndrome -propofol, fentanyl for goal RASS -2 - frequent neuro checks - add valium 10mg po q8hr. RESP: Aspiration pneumonia Acute hypoxic and hypercarbic respiratory failure Acute right hemothorax post CPR Rib fractures secondary to CPR -prvc - wean fio2 for goal spo2 > 90% - no SBT today given critical illness - right 28 Fr chest tube placed 08/18: 1600 mL sanguinous drainage. keep to suction. -DuoNeb every 2 hours as needed - hold additional diuresis today CV: Type II NSTEMI secondary to demand ischemia Hypovolemia secondary to hemothorax CAD History of peripheral arterial disease, status post multiple vascular surgery Perioperative atrial fibrillation with rapid ventricular response- back in NSR Lactic acidosis- resolved - trops downtrending. can stop trending. - unlikely to be ACS - likely demand ischemia given baseline CAD - hold ASA, plavix given acute bleeding. - hold additional diuresis. - aggressive electrolyte replacement, target K > 4.5, Mg > 2.5 - cardiology consulted: Dr. Neil GI: Mesenteric ischemia status post open antegrade mesenteric bypass GERD History of small bowel obstruction acute protein calorie malnutrition- severe Postoperative ileus -Status post open antegrade mesenteric bypass, postop management per Dr. Eugene -N.p.o., IV PPI, NG tube intermittent wall suction, anticipate ileus - start prokinetic agents. - needs nutrition, but risks associated with TPN in this patient are quite large and will attempt to hold off for a few more days and await ROBF. : History of renal artery stenosis -Monitor renal function closely. Boateng catheter. ID: Aspiration pneumonia -zosyn - panculture HEME: Anemia secondary to acute blood loss- requiring transfusion- worsening. -Monitor CBC, coags - trend H&H ENDO: -Electrolyte replacement per protocol PROPH: -hold lovenox given active bleeding. OVERALL IMPRESSION: critically ill. decompensated respiratory status. likely combination of etoh withdraw and worsening pulmonary function. keep intubated. Critically ill. Critical care time: 38 minutes, exclusive of separately billable procedures.
--- NOTE | 2018-08-19 13:12 | P.PNCA ---
Subjective Interval history: Agitation overnight Fever Chest tube with serosanguineous output Medications and Allergies Active Medications: Active Medications Al Hydroxide/Mg Hydroxide (Milk Of Magnesia Liq) 30 ml PO Q12H PRN PRN Reason: Mild Constipation Albuterol (Duoneb Neb (Prn)) 1 ampul NEB Q2HR NEB PRN PRN Reason: SHORTNESS OF BREATH Albuterol (Duoneb Neb (Sanjuana)) 1 ampul NEB Q4HR NEB [facility] Last Admin: 08/19/18 12:05 Dose: 1 ampul Alprazolam (Xanax) 0.5 mg PO BID PRN PRN Reason: Anxiety Last Admin: 08/16/18 22:40 Dose: 0.5 mg Artificial Tears (Tears Naturale Opth Drops) 1 drop EACH EYE Q8H [facility] Last Admin: 08/19/18 06:32 Dose: 1 drop Aspirin (Aspirin Chew) 81 mg PO DAILY [facility] Last Admin: 08/19/18 11:03 Dose: Not Given Atorvastatin Calcium (Lipitor) 40 mg PO DAILY [facility] Last Admin: 08/19/18 11:04 Dose: 40 mg Bisacodyl (Dulcolax Supp) 10 mg RECTAL DAILY PRN PRN Reason: SEVERE CONSITIPATION Last Admin: 08/17/18 17:07 Dose: 10 mg Chlorhexidine Gluconate (Peridex 0.12% Oral Kit) 15 ml OROPHARYNG BID@0800, 2000 [facility] Last Admin: 08/19/18 07:59 Dose: 15 ml Clopidogrel Bisulfate (Plavix) 75 mg PO DAILY [facility] Last Admin: 08/18/18 12:53 Dose: Not Given Diazepam (Valium) 10 mg PO Q8H [facility] Last Admin: 08/19/18 07:58 Dose: 10 mg Enoxaparin Sodium (Lovenox Inj) 30 mg SQ Q24H [facility] Last Admin: 08/19/18 12:09 Dose: Not Given Famotidine (Pepcid Pf Inj) 20 mg IV.PUSH Q12HR [facility] Last Admin: 08/19/18 11:04 Dose: 20 mg Gabapentin (Neurontin) 300 mg PO BID [facility] Last Admin: 08/19/18 11:03 Dose: Not Given Hydromorphone HCl (Dilaudid Pf Inj) 0.2 mg IV.PUSH Q1H PRN PRN Reason: PAIN SCALE 1 TO 10 Last Admin: 08/14/18 16:51 Dose: 0.2 mg Magnesium Sulfate 4 gm/ Sodium (Chloride) 100 mls @ 50 mls/hr IV.SIG UNSCH PRN PRN Reason: For Magnesium 0.9 - 1.1 mg/dL Magnesium Sulfate 2 gm/ Sodium (Chloride) 100 mls @ 50 mls/hr IV.SIG UNSCH PRN PRN Reason: For Magnesium 1.2 - 1.6 mg/dL Potassium Chloride (Kcl 40 Meq Premix Inj) 40 meq in 100 mls @ 50 mls/hr IV.SIG Q2H PRN PRN Reason: For Potassium 2.8 - 3.2 mEq/L Potassium Chloride (Kcl 20 Meq Premix Inj) 20 meq in 100 mls @ 50 mls/hr IV.SIG Q2H PRN PRN Reason: For Potassium 3.3 - 3.5 mEq/L Last Admin: 08/17/18 09:15 Dose: 50 mls/hr Potassium Chloride (Kcl 40 Meq Premix Inj) 40 meq in 100 mls @ 25 mls/hr IV.SIG UNSCH PRN PRN Reason: For Potassium 3.3 - 3.5 mEq/L Potassium Chloride (Kcl 20 Meq Premix Inj) 20 meq in 100 mls @ 50 mls/hr IV.SIG Q2H PRN PRN Reason: For Potassium 2.8 - 3.2 mEq/L Potassium Phosphate 30 mmol/ (Sodium Chloride) 260 mls @ 42 mls/hr IV.SIG UNSCH PRN PRN Reason: SEE LABEL COMMENTS Sodium Phosphate 30 mmol/ (Sodium Chloride) 260 mls @ 42 mls/hr IV.SIG UNSCH PRN PRN Reason: For Phosphorus < 2.5 mg/dL Hydromorphone/Sodium Chloride (Dilaudid Soils Engineer Inj) 6 mg in 30 mls @ 0 mls/hr [employer] UNSCH PRN PRN Reason: prn pain Last Admin: 08/17/18 18:37 Dose: 0 mls/hr Dexmedetomidine HCl 200 mcg/ (Sodium Chloride) 50 mls @ 3.27 mls/hr IV.CONT TITRATE PRN; Protocol PRN Reason: Per Protocol Last Admin: 08/19/18 06:21 Dose: 0.6 mcg/kg/hr, 9.82 mls/hr Dextrose (D10w Inj) 1,000 mls @ 30 mls/hr IV.CONT .Q24H [facility] Last Infusion: 08/18/18 18:00 Dose: 0 mls/hr Propofol (Diprivan 1000 Mg/100 Ml Inj) 1,000 mg in 100 mls @ 1.845 mls/hr IV.CONT TITRATE PRN; Protocol PRN Reason: Per Protocol Last Titration: 08/18/18 20:30 Dose: 10 mcg/kg/min, 3.69 mls/hr Piperacillin/Tazobactam/Dextrose (Zosyn 4.5 Gm Premix) 4.5 gm in 100 mls @ 200 mls/hr IV.SIG Q6H [facility] Last Infusion: 08/19/18 08:30 Dose: Infused Acetaminophen (Ofirmev Inj) 1,000 mg in 100 mls @ 400 mls/hr IV.SIG Q6H PRN PRN Reason: FEVER 101F OR GREATER Last Infusion: 08/19/18 00:30 Dose: Infused Fentanyl (Fentanyl 10 Mcg/Ml Premix Drip) 2,500 mcg in 250 mls @ 5 mls/hr IV.SIG TITRATE PRN; Protocol PRN Reason: Per Protocol Isosorbide Mononitrate (Imdur) 30 mg PO DAILY [facility] Last Admin: 08/19/18 11:03 Dose: Not Given Lactulose (Lactulose Liq) 30 ml PO DAILY PRN PRN Reason: SEVERE CONSITIPATION Magnesium Oxide (Mag-Ox) 400 mg PO HS [facility] Last Admin: 08/18/18 20:34 Dose: 400 mg Magnesium Oxide (Mag-Ox) 800 mg PO UNSCH PRN PRN Reason: For Magnesium 1.2 - 1.6 mg/dL Metoclopramide HCl (Reglan Inj) 10 mg IV.PUSH Q8HR [facility]; Protocol Miscellaneous Medication () 1 each OROPHARYNG 0000,0400,1200,1600 [facility] Last Admin: 08/19/18 12:10 Dose: 1 each Naloxone HCl (Narcan Inj) 0.4 mg IV.PUSH PRN PRN PRN Reason: SEE LABEL COMMENTS Last Admin: 08/18/18 20:05 Dose: 0.4 mg Potassium Bicarb/Potassium Chloride (K-Lyte Cl Eff) 50 meq PO UNSCH PRN PRN Reason: For Potassium 3.3 - 3.5 mEq/L Potassium Phosphate (K-Phos Original) 2,000 mg PO Q4H PRN PRN Reason: Phosphorus Less Than 2.5 mg/dL Potassium Phosphate (K-Phos Original) 2,000 mg PO UNSCH PRN PRN Reason: SEE LABEL COMMENTS Ropinirole HCl (Requip) 3 mg PO HS [facility] Last Admin: 08/18/18 20:34 Dose: 3 mg Sennosides (Senokot) 17.2 mg PO Q12H PRN PRN Reason: Moderate Constipation Sodium Chloride (Ns Flush) 2 ml IV.FLUSH BID [facility] Last Admin: 08/19/18 11:05 Dose: 2 ml Sodium Chloride (Ns Flush) 2 ml IV.FLUSH PRN PRN PRN Reason: FLUSH AFTER USING IV ACCESS Allergies Allergy/AdvReac Type Severity Reaction Status Date / Time codeine Allergy Severe Chest Pain Verified 08/13/18 06:44 diatrizoate meglumine Allergy Severe Hives Verified 08/13/18 06:44 gadobenic acid Allergy Severe Hives Verified 08/13/18 06:44 gadodiamide Allergy Severe Hives Verified 08/13/18 06:44 gadoteridol Allergy Severe Hives Verified 08/13/18 06:44 iodixanol Allergy Severe Hives Verified 08/13/18 06:44 iohexol Allergy Severe Hives Verified 08/13/18 06:44 morphine Allergy Severe Psychosis Verified 08/13/18 06:44 Home Medications Medication Instructions Recorded Confirmed Type alprazolam 0.5 mg PO BID PRN 07/31/18 08/13/18 History aspirin [Aspir-81] 81 mg PO DAILY 07/31/18 08/13/18 History atorvastatin 40 mg PO DAILY 07/31/18 08/13/18 History clopidogrel [Plavix] 75 mg PO DAILY 07/31/18 08/13/18 History gabapentin [Neurontin] 300 mg PO BID 07/31/18 08/13/18 History isosorbide mononitrate 30 mg PO DAILY 07/31/18 08/13/18 History losartan 50 mg PO DAILY 07/31/18 08/13/18 History metoprolol tartrate 25 mg PO BID 07/31/18 08/13/18 History potassium chloride 20 meq PO DAILY 07/31/18 08/13/18 History ranitidine HCl 150 mg PO DAILY 07/31/18 08/13/18 History ropinirole [Requip] 3 mg PO HS 07/31/18 08/13/18 History cholestyramine-aspartame 4 g PO BID 08/06/18 08/13/18 History [Prevalite] hydrochlorothiazide 12.5 mg PO DAILY 08/06/18 08/13/18 History niacin 1,000 mg PO DAILY 08/06/18 08/13/18 History vit C-vit [id number] 1 cap PO DAILY 08/06/18 08/13/18 History [Ocuvite] magnesium oxide 500 mg PO HS 08/13/18 History Physical Exam Vital signs: Vital Signs 08/18/18 13:31 08/18/18 15:00 08/18/18 15:27 Temperature 98.7 F 98.7 F Pulse Rate 55 L 56 L Respiratory Rate 14 14 14 Pulse Oximetry 100 100 08/18/18 15:44 08/18/18 15:58 08/18/18 16:43 Temperature 99.0 F 100.5 F H Pulse Rate 55 L 54 L 61 Respiratory Rate 14 14 14 Pulse Oximetry 97 96 08/18/18 19:00 08/18/18 20:24 08/18/18 23:00 Temperature 100.1 F H 102.2 F H Pulse Rate 67 68 82 Respiratory Rate 19 Pulse Oximetry 99 99 99 08/19/18 00:15 08/19/18 03:00 08/19/18 03:41 Temperature 99.9 F H Pulse Rate 82 68 66 Respiratory Rate 16 14 Pulse Oximetry 98 99 99 08/19/18 07:00 08/19/18 08:53 08/19/18 12:05 Temperature 99.0 F Pulse Rate 64 62 64 Respiratory Rate 14 14 14 Pulse Oximetry 99 08/19/18 12:06 Temperature Pulse Rate Respiratory Rate 14 Pulse Oximetry 100 Intake & Output 08/18/18 08/19/18 08/19/18 18:59 06:59 18:59 Intake Total 800 / 800 800 / 800 100 / 100 Output Total 2590 / 2590 865 / 865 Balance -1790 / -1790 -65 / -65 100 / 100 Weight 62.5 kg Intake: IV 300 / 300 100 / 100 Precedex Inj 200 MCG In NS Inj 100 / 100 48 ML @ 0.2 MCG/KG/HR 3.27 mls/ hr IV.CONT TITRATE PRN Rx#: [id number] Ofirmev Inj 1,000 mg In 100 ml 100 / 100 @ 400 mls/hr IV.SIG Q6H PRN Rx# :[id number] Zosyn 4.5 GM Premix 4.5 gm In 100 / 100 100 / 100 100 ml @ 200 mls/hr IV.SIG Q6H [facility] Rx#:[id number] Other 100 / 100 Rbc As-3 Leukoreduced Unit 100 / 100 [id number] Intake (Blood Product) Amt 800 / 800 400 / 400 Rbc As-3 Leukoreduced Unit 0 / 0 400 / 400 [id number] Rbc As-3 Leukoreduced Unit 400 / 400 [id number] Rbc As-3 Leukoreduced Unit 400 / 400 [id number] Output: Urine Amount (Catheter) 1390 / 1390 345 / 345 Indwelling Temp Sensing 1390 / 1390 345 / 345 Catheter Gastric Drainage 200 / 200 Right Nare Nasogastric Tube 200 / 200 Chest Tube Drainage 1200 / 1200 320 / 320 #1 Right Pleural 1200 / 1200 320 / 320 Other: Date of Last Bowel Movement 08/17/18 08/19/18 08/18/18 # Bowel Movements 1 Narrative: GENERAL: Intubated and sedated SKIN: Warm and dry. HEAD: Atraumatic. Normocephalic. EYES: Pupils equal and round. No scleral icterus. No injection or drainage. ENT: Orotracheally intubated NECK: Trachea midline. CARDIOVASCULAR: Regular rate and rhythm. RESPIRATORY: Decreased breath sounds bilaterally GASTROINTESTINAL: Abdomen soft, non-tender. Abdominal binder in place, vertical incision C/D/I MUSCULOSKELETAL: Extremities without clubbing, cyanosis, or edema. DP pulses are Dopplerable NEUROLOGICAL: Intubated and sedated - Urinary Catheter Management Indwelling Temp Sensing Catheter Cath placed during this visit: yes Reason for continuing: Hourly intake/output Insertion date: 08/13/18 Insertion time: 08:08 Results 08/19/18 04:30 08/19/18 04:30 Cardiac Enzymes 08/18/18 08/19/18 Range/Units 04:40 04:30 AST 44 H 30 (15-37) U/L CBC 08/18/18 08/18/18 08/18/18 Range/Units 04:00 13:00 20:20 WBC 17.0 H (4.0-11.0) th/mm3 RBC 2.37 L (4.00-5.30) mil/mm3 Hgb 7.5 L 7.8 L 11.3 L D (11.6-15.3) gm/dL Hct 22.2 L 23.2 L 32.6 L (35.0-46.0) % Plt Count 138 L (150-450) th/mm3 Neut # (Auto) (1.8-7.7) th/mm3 Lymph # (Auto) (1.0-4.8) th/mm3 [place] # (Auto) (0.0-0.9) th/mm3 Eos # (Auto) (0.0-0.4) th/mm3 Baso # (Auto) (0.0-0.2) th/mm3 08/19/18 08/19/18 Range/Units 04:30 04:30 WBC Cancelled 15.0 H (4.0-11.0) th/mm3 RBC Cancelled 3.45 L (4.00-5.30) mil/mm3 Hgb Cancelled 10.8 L (11.6-15.3) gm/dL Hct Cancelled 30.9 L (35.0-46.0) % Plt Count Cancelled 109 L (150-450) th/mm3 Neut # (Auto) 12.1 H (1.8-7.7) th/mm3 Lymph # (Auto) 1.7 (1.0-4.8) th/mm3 [place] # (Auto) 1.1 H (0.0-0.9) th/mm3 Eos # (Auto) 0.0 (0.0-0.4) th/mm3 Baso # (Auto) 0.0 (0.0-0.2) th/mm3 Comprehensive Metabolic Panel 08/17/18 08/18/18 08/18/18 Range/Units 18:02 04:00 04:40 Sodium 142 (136-145) meq/L Potassium 4.3 D 3.9 (3.5-5.1) meq/L Chloride 107 (98-107) meq/L Carbon Dioxide 25.5 (21.0-32.0) meq/L BUN 34 H (7-18) mg/dL Creatinine 0.74 (0.50-1.00) mg/dL Calcium 7.7 L (8.5-10.1) mg/dL Direct Bilirubin 0.4 H (0.0-0.2) mg/dL Indirect Bilirubin 0.5 (0.0-0.8) mg/dL AST 44 H (15-37) U/L ALT 40 (10-53) U/L Alkaline Phosphatase 53 (45-117) U/L Total Protein 5.0 L D (6.4-8.2) g/dL Albumin 2.1 L (3.4-5.0) g/dL 08/19/18 08/19/18 Range/Units 04:30 04:30 Sodium Cancelled 145 (136-145) meq/L Potassium Cancelled 4.1 (3.5-5.1) meq/L Chloride Cancelled 113 H (98-107) meq/L Carbon Dioxide Cancelled 25.4 (21.0-32.0) meq/L BUN Cancelled 29 H (7-18) mg/dL Creatinine Cancelled 0.84 (0.50-1.00) mg/dL Calcium Cancelled 7.0 L* (8.5-10.1) mg/dL Direct Bilirubin (0.0-0.2) mg/dL Indirect Bilirubin (0.0-0.8) mg/dL AST 30 (15-37) U/L ALT 27 (10-53) U/L Alkaline Phosphatase 43 L (45-117) U/L Total Protein 4.5 L (6.4-8.2) g/dL Albumin 1.7 L (3.4-5.0) g/dL Intake and Output 08/18/18 08/19/18 08/19/18 22:59 06:59 14:59 Intake Total 1000 / 1000 200 / 200 100 / 100 Output Total 1515 / 1515 865 / 865 Balance -515 / -515 -665 / -665 100 / 100 Intake: IV 100 / 100 200 / 200 100 / 100 Precedex Inj 200 MCG In NS Inj 100 / 100 48 ML @ 0.2 MCG/KG/HR 3.27 mls/ hr IV.CONT TITRATE PRN Rx#: [id number] Ofirmev Inj 1,000 mg In 100 ml 100 / 100 @ 400 mls/hr IV.SIG Q6H PRN Rx# :[id number] Zosyn 4.5 GM Premix 4.5 gm In 100 / 100 100 / 100 100 ml @ 200 mls/hr IV.SIG Q6H [facility] Rx#:[id number] Other 100 / 100 Rbc As-3 Leukoreduced Unit 100 / 100 [id number] Intake (Blood Product) Amt 800 / 800 Rbc As-3 Leukoreduced Unit 400 / 400 [id number] Rbc As-3 Leukoreduced Unit 400 / 400 [id number] Output: Urine Amount (Catheter) 315 / 315 345 / 345 Indwelling Temp Sensing 315 / 315 345 / 345 Catheter Gastric Drainage 200 / 200 Right Nare Nasogastric Tube 200 / 200 Chest Tube Drainage 1200 / 1200 320 / 320 #1 Right Pleural 1200 / 1200 320 / 320 Other: Date of Last Bowel Movement 08/18/18 08/19/18 08/18/18 # Bowel Movements 1 Weight 62.5 kg - Imaging and Cardiology Imaging: Impressions Chest X-Ray 08/18/18 00:00 CONCLUSION: 1. Endotracheal tube measures 2.2 cm from the vidhya. 2. New large right pleural effusion with associated compressive atelectasis and /or consolidation of the right lung. 3. Stable left basilar opacity likely representing pleural effusion with associated volume loss and/or consolidation. Chest CT 08/18/18 05:42 CONCLUSION: 1. Large right pleural effusion. 2. Small left-sided pleural effusion 3. Compressive atelectasis involving both lower lungs, right greater than left. Chest X-Ray 08/18/18 12:20 CONCLUSION: 1. Status post placement of a right-sided chest tube with improved aeration of the right lung compared to the prior examination. No evidence of pneumothorax. Chest X-Ray 08/19/18 04:21 CONCLUSION: No significant interval change. There is a stable small to moderate sized left pleural effusion with associated volume loss and/or airspace consolidation. Assessment and Plan - Assessment (1) Type 2 myocardial infarction Code(s): I21.A1 - Myocardial infarction type 2 Status: Acute (2) PEA (Pulseless electrical activity) Code(s): I46.9 - Cardiac arrest, cause unspecified Status: Acute (3) Hemothorax Code(s): J94.2 - Hemothorax Status: Acute (4) Mesenteric ischemia Code(s): K55.9 - Vascular disorder of intestine, unspecified Status: Acute (5) Afib Code(s): I48.91 - Unspecified atrial fibrillation Status: Acute - Plan 1) Mesenteric ischemia s/p aorto-hepatic bypass, aorto-SMA bypass 2) Elevated troponin Secondary to hypotension/anemia Previously had stress test showing no ischemia Troponin levels cleared 3) PEA arrest CPR with 1 round of epi Appears to be due to mucus plugging 4) Hemothorax Chest tube in place 5) AFib Currently controlled Not an anticoagulation candidate at this time 6) Con't ASA/Plavix/Statin
[2018-08-19] MEDS: Propofol 1000 mg/100 ml Inj 1,000 MG/100 ML BOTTLE IV.CONT PRN (18:58)
[2018-08-19] MEDS: Magnesium Oxide 400 MG Tablet PO SCH (22:06)
[2018-08-20] MEDS: Oral Hygiene Kit OROPHARYNG SCH ×5 (01:24→23:51)
[2018-08-20] MEDS: Piperacil/Tazo 4.5 GM Premix 4.5 GM/100 ML BAG IV.SIG SCH ×4 (01:24→19:59)
[2018-08-20] MEDS: Artificial Tears Opth Drops 15 ML Bottle EACH EYE SCH ×6 (05:07→23:52)
[2018-08-20 05:13] LABS: Hemoglobin 10.5 gm/dL (11.6-15.3); Mean Corpuscular HGB Conc 34.9 % (32.0-36.0); Mean Corpuscular Hemoglobin 31.5 pg (27.0-34.0); Mean Corpuscular Volume 90.3 fL (80.0-100.0); Mean Platelet Volume 9.2 fL (7.0-11.0); Platelet Count 121 th/mm3 (150-450); Red Blood Count 3.32 mil/mm3 (4.00-5.30); Red Cell Distribution Width 16.5 % (11.6-17.2); White Blood Count 12.5 th/mm3 (4.0-11.0)
[2018-08-20 05:19] LABS: Calcium 7.5 mg/dL (8.5-10.1); Carbon Dioxide 25.5 meq/L (21.0-32.0); Magnesium 2.1 mg/dL (1.5-2.5); Phosphorus 2.3 mg/dL (2.5-4.9); Potassium 3.5 meq/L (3.5-5.1)
--- NOTE | 2018-08-20 06:08 | P.PNVS ---
- Pre-operative Note Planned Procedure: L LE graft thrombosis, motor dysfunction Interval History: LEFT leg ischemia, occluded bypass, motor dysfunction Labs: WBC 12.5 th/mm3 (4.0-11.0) H 08/20/18 04:30 Corrected WBC Cancelled 08/19/18 04:30 RBC 3.32 mil/mm3 (4.00-5.30) L 08/20/18 04:30 Hgb 10.5 gm/dL (11.6-15.3) L 08/20/18 04:30 Hct 30.0 % (35.0-46.0) L 08/20/18 04:30 MCV 90.3 fL (80.0-100.0) 08/20/18 04:30 MCH 31.5 pg (27.0-34.0) 08/20/18 04:30 MCHC 34.9 % (32.0-36.0) 08/20/18 04:30 RDW 16.5 % (11.6-17.2) 08/20/18 04:30 Plt Count 121 th/mm3 (150-450) L 08/20/18 04:30 MPV 9.2 fL (7.0-11.0) 08/20/18 04:30 Hematology Comments Cancelled 08/19/18 04:30 INR 1.2 Ratio 08/14/18 05:00 Sodium 145 meq/L (136-145) 08/20/18 04:30 Potassium 3.5 meq/L (3.5-5.1) 08/20/18 04:30 Chloride 112 meq/L (98-107) H 08/20/18 04:30 Carbon Dioxide 25.5 meq/L (21.0-32.0) 08/20/18 04:30 Anion Gap 8 meq/L (5-15) 08/20/18 04:30 BUN 20 mg/dL (7-18) H 08/20/18 04:30 Random Glucose 78 mg/dL (74-106) 08/20/18 04:30 Calcium 7.5 mg/dL (8.5-10.1) L 08/20/18 04:30 Blood: T&S Imaging: ITS Impressions Chest CT 08/18/18 05:42 CONCLUSION: 1. Large right pleural effusion. 2. Small left-sided pleural effusion 3. Compressive atelectasis involving both lower lungs, right greater than left. Orders: NPO Post-operative Destination: CVICU Operative site marked: Yes Consent: Informed consent has been obtained from Siena Saunders. I have explained the procedure in detail and discussed the risks, benefits, and potential complications. All questions have been answered. Patient Contact Information: [phone] I spoke with the on the phone today and he agrees to the procedure. Provided witnessed informed consent verbally and all questions were answered. To OR.
--- NOTE | 2018-08-20 06:08 | XR ---
EXAM DATE: 08/20/2018 5:29 AM EST AGE/SEX: 78 years / Female INDICATIONS: Shortness of breath, possible pulmonary disease. CLINICAL DATA: This is the patient's subsequent encounter. Patient reports that signs and symptoms h ave been present for 1 week and indicates a pain score of Nonresponsive. MEDICAL/SURGICAL HISTORY: Gastroesophageal reflux disease. Coronary artery stent. Aortic bypass . COMPARISON: C, CHEST 1V SINGLE AP, 08/19/2018. . FINDINGS: A single AP view of the chest demonstrates worsening consolidation within the bases but more pronounc ed on the left. Heart is at the upper limits of normal in terms of size. Tip of the endotracheal tube 2 cm from the vidhya. Right-sided central line. Nasogastric tube. Right humeral head prosthesis. Rig ht thoracostomy tube without pneumothorax. CONCLUSION: Worsening bibasilar consolidation more pronounced on the left. Electronically signed by: Brandon Carvajal MD 08/20/2018 6:06 AM EST
[2018-08-20] MEDS ORDERED: ceFAZolin 1 GM Premix Inj 1 GM/50 ML PIGGYBACK IV.SIG ONE (06:34)
[2018-08-20] MEDS ORDERED: Protamine Sulfate Inj 50 MG/5 ML Vial ONE (06:34)
[2018-08-20] MEDS ORDERED: Heparin 10,000 UNITS/10 ML Vial (for IV use) ONE ×2 (06:34→06:36)
[2018-08-20] MEDS ORDERED: Bupivacaine PF 0.5% Inj 10 ML Vial ONE (06:35)
[2018-08-20] MEDS ORDERED: Thrombin Topical 20,000 UNIT Spray Kit TOPICAL ONE (06:35)
[2018-08-20] MEDS ORDERED: Metoprolol Tartrate 25 MG Tablet PO ONE (07:00)
[2018-08-20] MEDS ORDERED: Chlorhexidine Gluconate 2% 1 Pack (2 Cloths) TOPICAL ONE (07:00)
[2018-08-20] MEDS ORDERED: Sodium Chlor 0.9% Inj 500 ML IV.CONT ONE (07:00)
[2018-08-20] MEDS ORDERED: Heparin/NS PF Inj 500 ML ONE (07:12)
--- NOTE | 2018-08-20 09:51 | P.OP ---
- Preoperative Diagnosis (1) PAD (peripheral artery disease) - Postoperative Diagnosis (1) PAD (peripheral artery disease) Date of procedure: 08/20/18 Procedure: 1. Graft thrombectomy 2. Tibial thrombectomy via leg incision 3. Jump graft from prior bypass to TPT with 6mm PTFE Implants: 6mm PTFE Anesthesia: GETA Surgeon: Kishore Eugene MD Tube Turner: Kishore Martinez Estimated blood loss (mL): 75 IV fluids (mL): 1,100 Urine output (mL): 100 Pathology: none sent Operation and Findings: occluded bypass, successful thrombectomy + PT biphasic signal at end
--- NOTE | 2018-08-20 10:30 | P.PNCC ---
Subjective Subjective Remarks/Hospital Course: Hospital Course: Patient is a 77-year-old female who was admitted to Dr. Eugene's service for mesenteric ischemia today. Her past medical history significant for coronary artery disease status post PCI/stent, history of renal artery stenosis, GERD, PAD, history of multiple vascular surgeries, history of small bowel obstruction, restless leg syndrome. Patient underwent aorto-hepatic and aorto-SMA bypass in OR. EBL was 400 ml, received 3.6 L of crystalloids in the OR , urine output was adequate. Postop patient was moved to the CVICU critical care medicine was consulted for postop management. Patient is hypotensive at the time of my evaluation and had been started on Diego-Synephrine by Dr. Eugene. I haave ordered further fluid resuscitation with additional 2 L of crystalloids. A stat ABG was done at the bedside which showed hemoglobin 6.6. A CBC was sent and I ordered 2 units of PRBC stat. CBC came back with hemoglobin of 6.4 platelet count 139. Chemistry showed potassium of 3.4 calcium uncorrected 6.4. Electrolyte replacement protocol and calcium replacement have been ordered. Lactic acid also mildly elevated at 2.2. Will follow serial lactic acid and follow urine output closely. If patient becomes hemodynamically more stable will proceed with weaning trial for extubation. Urine output had been adequate postop approximately 40 mL/h. Bilateral DP pulses are Dopplerable Subjective: 08/14: significant fluid requirement. trop slightly elevated at 0.06. initial scvo2 43% but improved after fluid to 68%. pain adequately controlled. uop marginal at 20cc/hr. 08/15: trop slightly uptrended. now appears volume overloaded with new and worsening oxygen requirement. ABG with mixed acidosis. responded well to lasix with adequate diuresis. placed on BiPAP. somewhat agitated requiring low-dose Precedex. lactate 0.8, scvo2 71%. 08/16: slightly tachycardic this morning. some diuresis yesterday and back to nc o2, but remains volume overloaded. denies pain. somewhat intermittently confused, but oriented on my evaluation. trop still uptrending, but plateauing. uop adequate. 08/17: went into afib RVR overnight. placed on diltiazem drip. this morning, more rate controlled. trop downtrending. adequate diuresis, but remains volume overloaded. aggressively replaced electrolytes this morning. 08/18: overnight events reviewed and discussed with Dr. Eugene and Dr. Sabillon. intubated after respiratory arrest. bronch with mucous plugging. new right pleural effusion on chest CT (multiple rib fractures after CPR). placed 28 Fr chest tube (see separate procedure note for details) with ~1600cc blood (no active bleeding). placed arterial line. transfused 3 units prbc. trending H&H. critically ill this morning. oliguric. 08/19: agitation persists. started scheduled valium as well as fentanyl drip for pain control. still with significant thick tenacious secretions: too many secretions for safe weaning of mechanical ventilation. also spiked fevers overnight, ennis cultured and zosyn started. chest tube with significantly less output, and more serosanguinous. 08/20: cold leg this AM with decreased motor function. taken back to OR today for re-vascularization. Objective Vital Signs / I&O: Vital Signs 08/19/18 11:00 08/19/18 12:05 08/19/18 12:06 Temperature 37.2 C Pulse Rate 63 64 Respiratory Rate 14 14 14 Pulse Oximetry 100 08/19/18 14:23 08/19/18 15:00 08/19/18 16:30 Temperature 37.1 C Pulse Rate 63 61 Respiratory Rate 14 14 14 Pulse Oximetry 99 99 99 08/19/18 19:00 08/19/18 19:48 08/19/18 20:00 Temperature 37.1 C Pulse Rate 64 62 64 Respiratory Rate 14 14 Pulse Oximetry 98 97 08/19/18 23:00 08/20/18 03:00 08/20/18 04:16 Temperature 37.4 C 37.3 C Pulse Rate 65 66 Respiratory Rate 14 14 14 Pulse Oximetry 98 98 98 08/20/18 04:19 08/20/18 07:00 Temperature 37.2 C Pulse Rate 65 82 Respiratory Rate 14 14 Pulse Oximetry 98 Intake & Output 08/19/18 08/20/18 08/20/18 18:59 06:59 18:59 Intake Total 1260 / 1260 100 / 100 1750 / 1750 Output Total 740 / 740 910 / 910 155 / 155 Balance 520 / 520 -810 / -810 1595 / 1595 Weight 62.5 kg Intake: IV 1160 / 1160 100 / 100 650 / 650 Heparin/NS PF Inj 500 ML @ 0 500 / 500 mls/hr .ROUTE .STK-MED ONE Rx#: [id number] Diprivan 1000 mg/100 ml Inj 1, 100 / 100 000 mg In 100 ml @ 5 MCG/KG/MIN 1.845 mls/hr IV.CONT TITRATE PRN Rx#:[id number] Alburx 5% Inj 500 ML @ 250 mls/ 500 / 500 hr IV.SIG STAT STA Rx#:[id number] Calcium Chloride Inj 1 GM In NS 110 / 110 Inj 100 ML @ 110 mls/hr IV.SIG ONCE ONE Rx#:[id number] Zosyn 4.5 GM Premix 4.5 gm In 200 / 200 100 / 100 100 / 100 100 ml @ 200 mls/hr IV.SIG Q6H LIVAN Rx#:[id number] NS Inj 250 ML @ 15 mls/hr IV. 250 / 250 SIG ONCE LIVAN Rx#:[id number] Ancef 1 GM Premix Inj 1 gm In 50 / 50 50 ml @ 0 mls/hr IV.SIG .STK- MED ONE Rx#:[id number] Water Bolus Amount 100 / 100 Anesthesia Amount 1100 / 1100 Output: Estimated Blood Loss 75 / 75 Urine Amount (Catheter) 460 / 460 545 / 545 80 / 80 Indwelling Temp Sensing 460 / 460 545 / 545 80 / 80 Catheter Gastric Drainage 100 / 100 25 / 25 Right Nare Nasogastric Tube 100 / 100 25 / 25 Chest Tube Drainage 180 / 180 340 / 340 #1 Right Pleural 180 / 180 340 / 340 Other: Date of Last Bowel Movement 08/18/18 Result Diagrams: 08/20/18 04:30 08/20/18 04:30 Objective Remarks: GENERAL: Elderly female, lying in bed, intubated, sedated, critically ill. HEENT: Normocephalic. Atraumatic. Pupils equal, round, reactive, conjugate. Mucous membranes are moist NECK: Trachea is midline. There is no JVD. Central line in place, site clean dry and intact. CHEST: Equal chest rise. nc o2. unlabored. right chest tube in place to suction , minimal output. no air leak. CARDIOVASCULAR: normal rate, regular rhythm. ABDOMEN: Soft, appropriately tender to palpation, nondistended. No guarding. Midline dressing intact MUSCULOSKELETAL: LE dopplers present post-op. leg is mottled and cool, but warmer than pre-op. NEUROLOGICAL: RASS -2. withdraws to pain. does not follow commands. sedated. Assessment and Plan - Assessment and Plan Plan: PLAN: NEURO: Acute alcohol withdraw syndrome Acute agitated delirium Restless leg syndrome -propofol, fentanyl for goal RASS -2 - frequent neuro checks - valium 10mg po q8hr. RESP: Aspiration pneumonia Acute hypoxic and hypercarbic respiratory failure Acute right hemothorax post CPR Rib fractures secondary to CPR -prvc - wean fio2 for goal spo2 > 90% - no SBT today given critical illness - right 28 Fr chest tube placed 08/18: 1600 mL sanguinous drainage. keep to suction. -DuoNeb every 2 hours as needed - hold additional diuresis today CV: Type II NSTEMI secondary to demand ischemia Hypovolemia secondary to hemothorax CAD History of peripheral arterial disease, status post multiple vascular surgery Perioperative atrial fibrillation with rapid ventricular response- back in NSR Lactic acidosis- resolved - trops downtrending. can stop trending. - unlikely to be ACS - likely demand ischemia given baseline CAD - hold ASA, plavix given acute bleeding. - hold additional diuresis. - aggressive electrolyte replacement, target K > 4.5, Mg > 2.5 - cardiology consulted: Dr. Neil GI: Mesenteric ischemia status post open antegrade mesenteric bypass GERD History of small bowel obstruction acute protein calorie malnutrition- severe Postoperative ileus -Status post open antegrade mesenteric bypass, postop management per Dr. Eugene -N.p.o., IV PPI, NG tube intermittent wall suction, anticipate ileus - prokinetic agents. - needs nutrition, but risks associated with TPN in this patient are quite large and will attempt to hold off for a few more days and await ROBF. - will attempt to place post-pyloric feeding tube and start trickle feeds. : History of renal artery stenosis -Monitor renal function closely. Boateng catheter. ID: Aspiration pneumonia -zosyn - sputum growing pseudomonas. await speciation to narrow spectrum. HEME: Anemia secondary to acute blood loss- requiring transfusion- worsening. -Monitor CBC, coags - trend H&H ENDO: -Electrolyte replacement per protocol PROPH: -hold lovenox given active bleeding. OVERALL IMPRESSION: critically ill. decompensated respiratory status. likely combination of etoh withdraw and worsening pulmonary function. keep intubated. Critically ill. limb ischemia new and severe, adding to critical illness. worse today than yesterday. Critical care time: 33 minutes, exclusive of separately billable procedures.
[2018-08-20] MEDS: Famotidine PF Inj 20 MG/2 ML Vial IV.PUSH SCH ×2 (10:47→20:08)
[2018-08-20] MEDS: Chlorhexidine 0.12% Oral Kit 15 ML UDC OROPHARYNG SCH ×2 (10:48→20:06)
[2018-08-20] MEDS: Sodium Chloride 0.9% 2 ML Flush BID IV.FLUSH SCH ×2 (10:48→20:06)
[2018-08-20] MEDS: Heparin Drip 25,000 UNIT/250 ML BAG IV.CONT PRN (11:08)
[2018-08-20 12:24] LABS: Activated Partial Thrombo Time 37.3 sec (23.4-31.7); Prothrombin Time 10.4 sec (9.8-11.6)
--- NOTE | 2018-08-20 13:57 | MP ---
cc: Kishore Eugene MD DATE OF OPERATION: 08/20/18 PREOPERATIVE DIAGNOSIS: Acute left lower extremity ischemia, thrombosed bypass graft. POSTOPERATIVE DIAGNOSES: Acute left lower extremity ischemia, thrombosed bypass graft. PROCEDURES: 1. Graft thrombectomy. 2. Tibial thrombectomy via leg incision. 3. Bypass revision with jump graft from prior bypass to tibioperoneal trunk with 6 mm PTFE. ATTENDING SURGEON: Kishore Eugene MD ANESTHESIA: General. INDICATIONS: Ms. Saunders is a 78-year-old lady who is postoperative day #7 from mesenteric bypass. She has peripheral vascular disease and previously had an aortobifemoral bypass graft as well as a femoral to below knee popliteal artery bypass graft with PTFE. She lost pulses in her foot this morning and had some motor dysfunction and was taken to the operating room urgently for graft thrombectomy and distal bypass revision. DESCRIPTION OF PROCEDURE: Informed consent was obtained from the patient's as the patient is intubated. She was taken to the operating room and placed supine on the operating table. An appropriate timeout was taken to ensure the patient's identity, operative site and planned procedure. The administration of 1 gram of Ancef was initiated prior to skin incision and will be discontinued after single preoperative dose. Everyone in the room agreed with timeout. We proceeded. She was prepped from her nipples to her toes. Her below-knee popliteal artery incision was opened with a 10 blade, carried down through subcutaneous tissue with electrocautery. We dissected down to the graft and this was encircled with a vessel loop. We then dissected down to the distal anastomosis in the below-knee popliteal artery and continued our dissection down separately and encircled the tibioperoneal trunk, posterior tibial artery, peroneal artery and anterior tibial arteries. The patient was heparinized. Throughout the remainder of the case the ACT was confirmed to be greater than 250. The graft was clamped and the transverse graftotomy was made with 11 blade. A #3 and #4 Sheila embolectomy catheter was used to thrombectomize the graft. A brisk inflow was then encountered and the graft which was re-occluded. The transverse graftotomy was fashioned into a longitudinal graftotomy. We incised the tibioperoneal trunk with an 11 blade and extended this with Parvez scissors and this was endarterectomized without difficulty. A #2 Sheila embolectomy catheter was passed down both the posterior tibial artery and the peroneal artery as well as the anterior tibial arteries. A 6 mm PTFE was brought up onto the field and sewn end-to-side to the graft with running 6-0 Prolene suture in an end-to-side to the tibioperoneal trunk with 6-0 Prolene suture. Both anastomoses were spatulated generously. At the completion, there was a Doppler signal in the foot and a Doppler signal in the anterior tibial, posterior tibial and peroneal arteries. The Doppler signal in the foot was somewhat weak and a transverse graftotomy was made with 11 blade excision and the 2 Sheila embolectomy catheter was passed down the posterior tibial artery extending all the way down to the foot without difficulty. The graftotomy was then closed with interrupted 6-0 Prolene suture. There was a biphasic posterior tibial in the foot. Heparin was reversed with protamine. The wound was made hemostatic. Vancomycin powder was applied. The wound was closed with 2-0 Polysorb, 3-0 Polysorb and 4-0 Monocryl. Sponge and needle counts were correct at the end of the case. I was present and scrubbed for the entire procedure. MD MELISSA Moeller/liz , 09:54 AM , 10:01 AM MTDSuma
--- NOTE | 2018-08-20 15:26 | P.PNCA ---
Subjective Interval history: Left foot ischemia this morning, went for thrombectomy and bypass Medications and Allergies Active Medications: Active Medications Al Hydroxide/Mg Hydroxide (Milk Of Magnesia Liq) 30 ml PO Q12H PRN PRN Reason: Mild Constipation Albuterol (Duoneb Neb (Prn)) 1 ampul NEB Q2HR NEB PRN PRN Reason: SHORTNESS OF BREATH Albuterol (Duoneb Neb (Sanjuana)) 1 ampul NEB Q4HR NEB [facility] Last Admin: 08/20/18 12:31 Dose: 1 ampul Alprazolam (Xanax) 0.5 mg PO BID PRN PRN Reason: Anxiety Last Admin: 08/16/18 22:40 Dose: 0.5 mg Artificial Tears (Tears Naturale Opth Drops) 1 drop EACH EYE Q8H [facility] Last Admin: 08/20/18 14:21 Dose: 1 drop Aspirin (Aspirin Chew) 81 mg PO DAILY [facility] Last Admin: 08/19/18 11:03 Dose: Not Given Atorvastatin Calcium (Lipitor) 40 mg PO DAILY [facility] Last Admin: 08/20/18 10:48 Dose: 40 mg Bisacodyl (Dulcolax Supp) 10 mg RECTAL DAILY PRN PRN Reason: SEVERE CONSITIPATION Last Admin: 08/17/18 17:07 Dose: 10 mg Chlorhexidine Gluconate (Peridex 0.12% Oral Kit) 15 ml OROPHARYNG BID@0800, 2000 [facility] Last Admin: 08/20/18 10:48 Dose: 15 ml Clopidogrel Bisulfate (Plavix) 75 mg PO DAILY [facility] Last Admin: 08/18/18 12:53 Dose: Not Given Diazepam (Valium) 10 mg PO Q8H [facility] Last Admin: 08/20/18 10:48 Dose: 10 mg Enoxaparin Sodium (Lovenox Inj) 30 mg SQ Q24H [facility] Last Admin: 08/19/18 12:09 Dose: Not Given Famotidine (Pepcid Pf Inj) 10 mg IV.PUSH Q12HR [facility] Last Admin: 08/20/18 10:47 Dose: 10 mg Gabapentin (Neurontin) 300 mg PO BID [facility] Last Admin: 08/19/18 11:03 Dose: Not Given Hydromorphone HCl (Dilaudid Pf Inj) 0.2 mg IV.PUSH Q1H PRN PRN Reason: PAIN SCALE 1 TO 10 Last Admin: 08/14/18 16:51 Dose: 0.2 mg Magnesium Sulfate 4 gm/ Sodium (Chloride) 100 mls @ 50 mls/hr IV.SIG UNSCH PRN PRN Reason: For Magnesium 0.9 - 1.1 mg/dL Magnesium Sulfate 2 gm/ Sodium (Chloride) 100 mls @ 50 mls/hr IV.SIG UNSCH PRN PRN Reason: For Magnesium 1.2 - 1.6 mg/dL Potassium Chloride (Kcl 40 Meq Premix Inj) 40 meq in 100 mls @ 50 mls/hr IV.SIG Q2H PRN PRN Reason: For Potassium 2.8 - 3.2 mEq/L Potassium Chloride (Kcl 20 Meq Premix Inj) 20 meq in 100 mls @ 50 mls/hr IV.SIG Q2H PRN PRN Reason: For Potassium 3.3 - 3.5 mEq/L Last Admin: 08/17/18 09:15 Dose: 50 mls/hr Potassium Chloride (Kcl 40 Meq Premix Inj) 40 meq in 100 mls @ 25 mls/hr IV.SIG UNSCH PRN PRN Reason: For Potassium 3.3 - 3.5 mEq/L Last Admin: 08/20/18 06:17 Dose: 25 mls/hr Potassium Chloride (Kcl 20 Meq Premix Inj) 20 meq in 100 mls @ 50 mls/hr IV.SIG Q2H PRN PRN Reason: For Potassium 2.8 - 3.2 mEq/L Potassium Phosphate 30 mmol/ (Sodium Chloride) 260 mls @ 42 mls/hr IV.SIG UNSCH PRN PRN Reason: SEE LABEL COMMENTS Sodium Phosphate 30 mmol/ (Sodium Chloride) 260 mls @ 42 mls/hr IV.SIG UNSCH PRN PRN Reason: For Phosphorus < 2.5 mg/dL Hydromorphone/Sodium Chloride (Dilaudid [employer] Inj) 6 mg in 30 mls @ 0 mls/hr [employer] UNSCH PRN PRN Reason: prn pain Last Admin: 08/17/18 18:37 Dose: 0 mls/hr Dexmedetomidine HCl 200 mcg/ (Sodium Chloride) 50 mls @ 3.27 mls/hr IV.CONT TITRATE PRN; Protocol PRN Reason: Per Protocol Last Titration: 08/19/18 18:09 Dose: 0.6 mcg/kg/hr, 9.82 mls/hr Dextrose (D10w Inj) 1,000 mls @ 30 mls/hr IV.CONT .Q24H [facility] Last Infusion: 08/18/18 18:00 Dose: 0 mls/hr Propofol (Diprivan 1000 Mg/100 Ml Inj) 1,000 mg in 100 mls @ 1.845 mls/hr IV.CONT TITRATE PRN; Protocol PRN Reason: Per Protocol Last Admin: 08/19/18 18:58 Dose: 10 mcg/kg/min, 3.69 mls/hr Piperacillin/Tazobactam/Dextrose (Zosyn 4.5 Gm Premix) 4.5 gm in 100 mls @ 200 mls/hr IV.SIG Q6H [facility] Last Admin: 08/20/18 14:14 Dose: 100 mls/hr Acetaminophen (Ofirmev Inj) 1,000 mg in 100 mls @ 400 mls/hr IV.SIG Q6H PRN PRN Reason: FEVER 101F OR GREATER Last Infusion: 08/19/18 00:30 Dose: Infused Fentanyl (Fentanyl 10 Mcg/Ml Premix Drip) 2,500 mcg in 250 mls @ 5 mls/hr IV.SIG TITRATE PRN; Protocol PRN Reason: Per Protocol Last Titration: 08/19/18 18:06 Dose: 100 mcg/hr, 10 mls/hr Lactated Ringer's (Lr 1000 Ml Inj) 1,000 mls @ 30 mls/hr IV.CONT .Q24H ONE Stop: 08/21/18 06:59 Sodium Chloride (Ns Inj) 500 mls @ 30 mls/hr IV.CONT .[id number] ONE Stop: 08/20/18 23:39 Heparin Sodium/Dextrose (Heparin/D5w 25,000 U/250 Ml) 25,000 unit in 250 mls @ 0 mls/hr IV.CONT TITRATE PRN; Protocol PRN Reason: Per Protocol Last Admin: 08/20/18 11:08 Dose: 1,100 units/hr, 11 mls/hr Isosorbide Mononitrate (Imdur) 30 mg PO DAILY [facility] Last Admin: 08/19/18 11:03 Dose: Not Given Lactulose (Lactulose Liq) 30 ml PO DAILY PRN PRN Reason: SEVERE CONSITIPATION Magnesium Oxide (Mag-Ox) 400 mg PO HS [facility] Last Admin: 08/19/18 22:06 Dose: 400 mg Magnesium Oxide (Mag-Ox) 800 mg PO UNSCH PRN PRN Reason: For Magnesium 1.2 - 1.6 mg/dL Metoclopramide HCl (Reglan Inj) 10 mg IV.PUSH Q8HR [facility]; Protocol Last Admin: 08/20/18 14:08 Dose: 10 mg Miscellaneous Medication () 1 each OROPHARYNG 0000,0400,1200,1600 [facility] Last Admin: 08/20/18 14:09 Dose: 1 each Naloxone HCl (Narcan Inj) 0.4 mg IV.PUSH PRN PRN PRN Reason: SEE LABEL COMMENTS Last Admin: 08/18/18 20:05 Dose: 0.4 mg Potassium Bicarb/Potassium Chloride (K-Lyte Cl Eff) 50 meq PO UNSCH PRN PRN Reason: For Potassium 3.3 - 3.5 mEq/L Potassium Phosphate (K-Phos Original) 2,000 mg PO Q4H PRN PRN Reason: Phosphorus Less Than 2.5 mg/dL Potassium Phosphate (K-Phos Original) 2,000 mg PO UNSCH PRN PRN Reason: SEE LABEL COMMENTS Ropinirole HCl (Requip) 3 mg PO HS [facility] Last Admin: 08/19/18 22:06 Dose: 3 mg Sennosides (Senokot) 17.2 mg PO Q12H PRN PRN Reason: Moderate Constipation Sodium Chloride (Ns Flush) 2 ml IV.FLUSH BID [facility] Last Admin: 08/20/18 10:48 Dose: 2 ml Sodium Chloride (Ns Flush) 2 ml IV.FLUSH PRN PRN PRN Reason: FLUSH AFTER USING IV ACCESS Allergies Allergy/AdvReac Type Severity Reaction Status Date / Time codeine Allergy Severe Chest Pain Verified 08/13/18 06:44 diatrizoate meglumine Allergy Severe Hives Verified 08/13/18 06:44 gadobenic acid Allergy Severe Hives Verified 08/13/18 06:44 gadodiamide Allergy Severe Hives Verified 08/13/18 06:44 gadoteridol Allergy Severe Hives Verified 08/13/18 06:44 iodixanol Allergy Severe Hives Verified 08/13/18 06:44 iohexol Allergy Severe Hives Verified 08/13/18 06:44 morphine Allergy Severe Psychosis Verified 08/13/18 06:44 Home Medications Medication Instructions Recorded Confirmed Type alprazolam 0.5 mg PO BID PRN 07/31/18 08/13/18 History aspirin [Aspir-81] 81 mg PO DAILY 07/31/18 08/13/18 History atorvastatin 40 mg PO DAILY 07/31/18 08/13/18 History clopidogrel [Plavix] 75 mg PO DAILY 07/31/18 08/13/18 History gabapentin [Neurontin] 300 mg PO BID 07/31/18 08/13/18 History isosorbide mononitrate 30 mg PO DAILY 07/31/18 08/13/18 History losartan 50 mg PO DAILY 07/31/18 08/13/18 History metoprolol tartrate 25 mg PO BID 07/31/18 08/13/18 History potassium chloride 20 meq PO DAILY 07/31/18 08/13/18 History ranitidine HCl 150 mg PO DAILY 07/31/18 08/13/18 History ropinirole [Requip] 3 mg PO HS 07/31/18 08/13/18 History cholestyramine-aspartame 4 g PO BID 08/06/18 08/13/18 History [Prevalite] hydrochlorothiazide 12.5 mg PO DAILY 08/06/18 08/13/18 History niacin 1,000 mg PO DAILY 08/06/18 08/13/18 History vit C-vit [id number] 1 cap PO DAILY 08/06/18 08/13/18 History [Ocuvite] magnesium oxide 500 mg PO HS 08/13/18 History Physical Exam Vital signs: Vital Signs 08/19/18 16:30 08/19/18 19:00 08/19/18 19:48 Temperature 98.8 F Pulse Rate 61 64 62 Respiratory Rate 14 14 14 Pulse Oximetry 99 98 97 08/19/18 20:00 08/19/18 23:00 08/20/18 03:00 Temperature 99.3 F 99.2 F Pulse Rate 64 65 66 Respiratory Rate 14 14 Pulse Oximetry 98 98 08/20/18 04:16 08/20/18 04:19 08/20/18 07:00 Temperature 98.9 F Pulse Rate 65 82 Respiratory Rate 14 14 14 Pulse Oximetry 98 98 08/20/18 10:10 08/20/18 11:00 08/20/18 12:32 Temperature 97.6 F Pulse Rate 80 77 Respiratory Rate 14 14 14 Pulse Oximetry 93 L 99 Intake & Output 08/19/18 08/20/18 08/20/18 18:59 06:59 18:59 Intake Total 1260 / 1260 100 / 100 1850 / 1850 Output Total 740 / 740 910 / 910 155 / 155 Balance 520 / 520 -810 / -810 1695 / 1695 Weight 62.5 kg Intake: IV 1160 / 1160 100 / 100 750 / 750 Heparin/NS PF Inj 500 ML @ 0 500 / 500 mls/hr .ROUTE .STK-MED ONE Rx#: [id number] Diprivan 1000 mg/100 ml Inj 1, 100 / 100 000 mg In 100 ml @ 5 MCG/KG/MIN 1.845 mls/hr IV.CONT TITRATE PRN Rx#:[id number] Alburx 5% Inj 500 ML @ 250 mls/ 500 / 500 hr IV.SIG STAT STA Rx#:[id number] Calcium Chloride Inj 1 GM In NS 110 / 110 Inj 100 ML @ 110 mls/hr IV.SIG ONCE ONE Rx#:[id number] Zosyn 4.5 GM Premix 4.5 gm In 200 / 200 100 / 100 200 / 200 100 ml @ 200 mls/hr IV.SIG Q6H [facility] Rx#:[id number] NS Inj 250 ML @ 15 mls/hr IV. 250 / 250 SIG ONCE [facility] Rx#:[id number] Ancef 1 GM Premix Inj 1 gm In 50 / 50 50 ml @ 0 mls/hr IV.SIG .STK- MED ONE Rx#:[id number] Water Bolus Amount 100 / 100 Anesthesia Amount 1100 / 1100 Output: Estimated Blood Loss 75 / 75 Urine Amount (Catheter) 460 / 460 545 / 545 80 / 80 Indwelling Temp Sensing 460 / 460 545 / 545 80 / 80 Catheter Gastric Drainage 100 / 100 25 / 25 Right Nare Nasogastric Tube 100 / 100 25 / 25 Chest Tube Drainage 180 / 180 340 / 340 #1 Right Pleural 180 / 180 340 / 340 Other: Date of Last Bowel Movement 08/18/18 08/18/18 Narrative: GENERAL: Intubated and sedated SKIN: Warm and dry. HEAD: Atraumatic. Normocephalic. EYES: Pupils equal and round. No scleral icterus. No injection or drainage. ENT: No nasal bleeding or discharge. Mucous membranes pink and moist. NECK: Trachea midline. No JVD. CARDIOVASCULAR: Regular rate and rhythm. RESPIRATORY: No accessory muscle use. Decreased breath sounds GASTROINTESTINAL: Abdomen soft, non-tender, nondistended. Hepatic and splenic margins not palpable. MUSCULOSKELETAL: Extremities with no edema. Distal pulses by doppler - Urinary Catheter Management Indwelling Temp Sensing Catheter Cath placed during this visit: yes Reason for continuing: Hourly intake/output Insertion date: 08/13/18 Insertion time: 08:08 Results 08/20/18 04:30 08/20/18 04:30 Cardiac Enzymes 08/19/18 Range/Units 04:30 AST 30 (15-37) U/L Coagulation 08/20/18 Range/Units 11:45 PT 10.4 (9.8-11.6) sec APTT 37.3 H (23.4-31.7) sec CBC 08/18/18 08/19/18 08/19/18 Range/Units 20:20 04:30 04:30 WBC Cancelled 15.0 H RBC Cancelled 3.45 L Hgb 11.3 L D Cancelled 10.8 L (11.6-15.3) gm/dL Hct 32.6 L Cancelled 30.9 L (35.0-46.0) % Plt Count Cancelled 109 L Neut # (Auto) 12.1 H (1.8-7.7) th/mm3 Lymph # (Auto) 1.7 (1.0-4.8) th/mm3 Callaway # (Auto) 1.1 H (0.0-0.9) th/mm3 Eos # (Auto) 0.0 (0.0-0.4) th/mm3 Baso # (Auto) 0.0 (0.0-0.2) th/mm3 08/20/18 Range/Units 04:30 WBC 12.5 H RBC 3.32 L Hgb 10.5 L (11.6-15.3) gm/dL Hct 30.0 L (35.0-46.0) % Plt Count 121 L Neut # (Auto) (1.8-7.7) th/mm3 Lymph # (Auto) (1.0-4.8) th/mm3 Callaway # (Auto) (0.0-0.9) th/mm3 Eos # (Auto) (0.0-0.4) th/mm3 Baso # (Auto) (0.0-0.2) th/mm3 Comprehensive Metabolic Panel 08/19/18 08/19/18 08/20/18 Range/Units 04:30 04:30 04:30 Sodium Cancelled 145 145 Potassium Cancelled 4.1 3.5 Chloride Cancelled 113 H 112 H Carbon Dioxide Cancelled 25.4 25.5 BUN Cancelled 29 H 20 H Creatinine Cancelled 0.84 0.71 Calcium Cancelled 7.0 L* 7.5 L AST 30 (15-37) U/L ALT 27 (10-53) U/L Alkaline Phosphatase 43 L (45-117) U/L Total Protein 4.5 L (6.4-8.2) g/dL Albumin 1.7 L (3.4-5.0) g/dL Intake and Output 08/20/18 08/20/18 08/20/18 06:59 14:59 22:59 Intake Total 100 / 100 1850 / 1850 Output Total 910 / 910 155 / 155 Balance -810 / -810 1695 / 1695 Intake: IV 100 / 100 750 / 750 Heparin/NS PF Inj 500 ML @ 0 500 / 500 mls/hr .ROUTE .STK-MED ONE Rx#: [id number] Zosyn 4.5 GM Premix 4.5 gm In 100 / 100 200 / 200 100 ml @ 200 mls/hr IV.SIG Q6H [facility] Rx#:[id number] Ancef 1 GM Premix Inj 1 gm In 50 / 50 50 ml @ 0 mls/hr IV.SIG .STK- MED ONE Rx#:[id number] Anesthesia Amount 1100 / 1100 Output: Estimated Blood Loss 75 / 75 Urine Amount (Catheter) 545 / 545 80 / 80 Indwelling Temp Sensing 545 / 545 80 / 80 Catheter Gastric Drainage 25 / 25 Right Nare Nasogastric Tube 25 / 25 Chest Tube Drainage 340 / 340 #1 Right Pleural 340 / 340 Other: Date of Last Bowel Movement 08/18/18 Weight 62.5 kg - Imaging and Cardiology Imaging: Impressions Chest X-Ray 08/19/18 04:21 CONCLUSION: No significant interval change. There is a stable small to moderate sized left pleural effusion with associated volume loss and/or airspace consolidation. Chest X-Ray 08/20/18 05:00 CONCLUSION: Worsening bibasilar consolidation more pronounced on the left. Assessment and Plan - Assessment (1) Type 2 myocardial infarction Code(s): I21.A1 - Myocardial infarction type 2 Status: Acute (2) Afib Code(s): I48.91 - Unspecified atrial fibrillation Status: Acute - Plan 1) Mesenteric ischemia s/p aorto-hepatic bypass, aorto-SMA bypass 2) Elevated troponin Secondary to hypotension/anemia Previously had stress test showing no ischemia Troponin levels cleared 3) PEA arrest CPR with 1 round of epi Appears to be due to mucus plugging 4) Hemothorax Chest tube in place 5) AFib Currently controlled Not an anticoagulation candidate at this time 6) Con't ASA/Plavix/Statin 7) Left foot ischemia with motor dysfunction s/p thrombectomy and bypass
[2018-08-20] MEDS: Magnesium Oxide 400 MG Tablet PO SCH (20:06)
[2018-08-21] MEDS: Propofol 1000 mg/100 ml Inj 1,000 MG/100 ML BOTTLE IV.CONT PRN ×3 (01:23→18:31)
[2018-08-21] MEDS: Piperacil/Tazo 4.5 GM Premix 4.5 GM/100 ML BAG IV.SIG SCH ×3 (02:38→16:21)
[2018-08-21 04:21] LABS: Hematocrit 26.5 % (35.0-46.0); Mean Corpuscular HGB Conc 34.1 % (32.0-36.0); Mean Corpuscular Hemoglobin 31.1 pg (27.0-34.0); Mean Corpuscular Volume 91.4 fL (80.0-100.0); Mean Platelet Volume 9.7 fL (7.0-11.0); Platelet Count 145 th/mm3 (150-450); Red Cell Distribution Width 16.3 % (11.6-17.2); White Blood Count 14.5 th/mm3 (4.0-11.0)
[2018-08-21 04:54] LABS: Calcium 7.2 mg/dL (8.5-10.1); Carbon Dioxide 23.5 meq/L (21.0-32.0); Magnesium 2.2 mg/dL (1.5-2.5); Phosphorus 3.9 mg/dL (2.5-4.9)
[2018-08-21 05:05] LABS: Albumin 1.4 g/dL (3.4-5.0); Calcium-Albumin Corrected 9.3 mg/dL (8.5-10.1)
[2018-08-21] MEDS: Oral Hygiene Kit OROPHARYNG SCH ×3 (05:05→17:48)
[2018-08-21] MEDS: Artificial Tears Opth Drops 15 ML Bottle EACH EYE SCH ×3 (06:29→21:30)
--- NOTE | 2018-08-21 07:30 | P.PNVS ---
Subjective Post Op Day #: 8 Procedure: aorto-hepatic, aorto-SMA bypass Subjective/Hospital Course: POD#8 mesenteric bypass POD#1 L LE graft thrombectomy stable overnight YAHAIRA foot still ischemic but + distal calf signal in PT, on hep gtt Objective Neuro: SYED, sedated Pulmonary: on vent, good sats R CT in place Cardiac: reg rate bp ok FEN/GI: NGT with bilious output still e'lytes ok : UOP 20-30/h BUN/cr 21/0.9 ID Antibiotics (date/duration): Zosyn ID Cultures: pseudomonas in ETT 08/19 Heme: Hct 26 plt 145 Vascular: + distal PT signal foot mottled, likely in-situ thombosis of pedal vessels, on hep gtt Laboratory Results - last 24 hr 08/20/18 08/20/18 08/20/18 07:43 11:45 18:07 WBC RBC Hgb Hct MCV MCH MCHC RDW Plt Count MPV PT 10.4 INR 1.0 APTT 37.3 H 155.0 H* D Sodium Potassium Chloride Carbon Dioxide Anion Gap BUN Creatinine Estimated GFR Random Glucose Calcium Calcium Adj for Albumin Phosphorus Magnesium Albumin MTS Gel Crossmatch See Detail 08/20/18 08/21/18 08/21/18 20:40 03:45 03:45 WBC 14.5 H RBC 2.90 L Hgb 9.0 L Hct 26.5 L MCV 91.4 MCH 31.1 MCHC 34.1 RDW 16.3 Plt Count 145 L MPV 9.7 PT INR APTT 40.4 H D Sodium 145 Potassium 4.0 Chloride 112 H Carbon Dioxide 23.5 Anion Gap 10 BUN 21 H Creatinine 0.89 Estimated GFR 61 L Random Glucose 79 Calcium 7.2 L* Calcium Adj for Albumin 9.3 Phosphorus 3.9 D Magnesium 2.2 Albumin 1.4 L MTS Gel Crossmatch 08/21/18 03:45 WBC RBC Hgb Hct MCV MCH MCHC RDW Plt Count MPV PT INR APTT 60.2 H D Sodium Potassium Chloride Carbon Dioxide Anion Gap BUN Creatinine Estimated GFR Random Glucose Calcium Calcium Adj for Albumin Phosphorus Magnesium Albumin MTS Gel Crossmatch Microbiology 08/19/18 04:50 Gram Stain - Final Sputum - Endotracheal Sputum Culture - Preliminary Pseudomonas species 08/19/18 04:30 Urine Culture - Preliminary Catheterized Urine No growth in 24 hours 08/19/18 04:30 Aerobic Blood Culture - Preliminary Blood - Line No growth in 1 day Anaerobic Blood Culture - Preliminary No growth in 1 day 08/19/18 02:52 Aerobic Blood Culture - Preliminary Blood - Peripheral No growth in 1 day Anaerobic Blood Culture - Preliminary No growth in 1 day Impressions Chest X-Ray 08/20/18 05:00 CONCLUSION: Worsening bibasilar consolidation more pronounced on the left. Assessment and Plan - Assessment (1) Mesenteric ischemia due to arterial insufficiency Code(s): K55.059 - Acute (reversible) ischemia of intestine, part and extent unspecified Status: Acute - Plan POD#8 s/p antegrade mesenteric bypass POD#1 L LE graft revision 1. NPO, NGT; will try prokinetic agents today; place post-pyloric enteral feeding tube and start trickle feed. If intolerant will need TPN 2. ASA and home antihypertensives 3. Leave CT in for a few days 4. Leave [place] in for UOP monitoring 5. wean vent 6. continue hep gtt Discharge Planning: CVICU for several days
[2018-08-21] MEDS: Famotidine PF Inj 20 MG/2 ML Vial IV.PUSH SCH ×2 (08:00→21:27)
[2018-08-21] MEDS: Chlorhexidine 0.12% Oral Kit 15 ML UDC OROPHARYNG SCH ×2 (08:02→21:29)
[2018-08-21] MEDS: Sodium Chloride 0.9% 2 ML Flush BID IV.FLUSH SCH ×2 (08:03→21:29)
[2018-08-21] MEDS: fentaNYL 10 mcg/mL Premix Drip 2,500 MCG/250 ML BAG IV.SIG PRN (10:49)
--- NOTE | 2018-08-21 11:53 | XR ---
EXAM DATE: 08/21/2018 11:39 AM EST AGE/SEX: 78 years / Female INDICATIONS: NG tube placement CLINICAL DATA: This is the patient's subsequent encounter. Patient reports that signs and symptoms h ave been present for 1 week and indicates a pain score of 0/10. MEDICAL/SURGICAL HISTORY: Gastroesophageal reflux disease. Coronary artery stent. Aortic bypass COMPARISON: [facility], CHEST 1V SINGLE AP, 08/20/2018. . FINDINGS: There is an NG tube in place with the tip directed into the distal stomach. There also appears to be a feeding tube with the tip in the distal stomach. The tips of the NG tube and feeding tube are in th e right upper quadrant. The patient is intubated with the tip of ET tube 2.4 cm from the vidhya. There is a right internal ju gular central line placed with tip overlying the SVC. There is a right-sided chest tube. There is braxton vation of the right hemidiaphragm. This increased density at the bases bilaterally. There is silhouet ting of the left hemidiaphragm. There is diffuse prominence in interstitial markings. There is a righ t shoulder prosthesis present. Surgical hardware seen in the right lower lumbar spine. There is degen erative change in the lumbar spine. CONCLUSION: NG tube and feeding tube in the distal stomach. ET tube in a low position 2.4 cm from the vidhya. Elevation of the right hemidiaphragm. Diffuse increased interstitial prominence likely related to edema. Increased density at the bases representing some degree of accompanying atelectasis, consolidation or effusion. The possibility of effusion is especially prominent on the left. Electronically signed by: Chava Lugo MD 08/21/2018 11:51 AM EST
--- NOTE | 2018-08-21 12:04 | XR ---
EXAM DATE: 08/21/2018 12:00 PM EST AGE/SEX: 78 years / Female INDICATIONS: Nasogastric tube placement. CLINICAL DATA: This is the patient's initial encounter. Patient reports that signs and symptoms have been present for 4 - 6 days and indicates a pain score of Nonresponsive. MEDICAL/SURGICAL HISTORY: None. . coronary artery stent, aortic bypass COMPARISON: [facility], CHEST 1V SINGLE AP, 08/21/2018. . FINDINGS: There is an NG tube in place with the tip in the distal stomach. The feeding tube is seen projecting over the third portion the duodenum. Dilated bowel is not seen. There is a dextrocurvature of the tho racolumbar region. There are transpedicular screws at the right L4-L5 level. There is degenerative ch ajmison in the lower lumbar spine. Vascular calcifications are seen. CONCLUSION: NG tube in the distal stomach and feeding tube in the third portion the duodenum. Electronically signed by: Chava Lugo MD 08/21/2018 12:03 PM EST
--- NOTE | 2018-08-21 14:56 | P.PNCA ---
Subjective Interval history: No events overnight Left leg warm, foot cool, foot appears mottled Medications and Allergies Active Medications: Active Medications Al Hydroxide/Mg Hydroxide (Milk Of Magnesia Liq) 30 ml PO Q12H PRN PRN Reason: Mild Constipation Albuterol (Duoneb Neb (Prn)) 1 ampul NEB Q2HR NEB PRN PRN Reason: SHORTNESS OF BREATH Albuterol (Duoneb Neb (Sanjuana)) 1 ampul NEB Q4HR NEB [facility] Last Admin: 08/21/18 13:08 Dose: 1 ampul Alprazolam (Xanax) 0.5 mg PO BID PRN PRN Reason: Anxiety Last Admin: 08/16/18 22:40 Dose: 0.5 mg Artificial Tears (Tears Naturale Opth Drops) 1 drop EACH EYE Q8H [facility] Last Admin: 08/21/18 06:29 Dose: Not Given Aspirin (Aspirin Chew) 81 mg PO DAILY [facility] Last Admin: 08/19/18 11:03 Dose: Not Given Atorvastatin Calcium (Lipitor) 40 mg PO DAILY [facility] Last Admin: 08/21/18 08:02 Dose: 40 mg Bisacodyl (Dulcolax Supp) 10 mg RECTAL DAILY PRN PRN Reason: SEVERE CONSITIPATION Last Admin: 08/17/18 17:07 Dose: 10 mg Chlorhexidine Gluconate (Peridex 0.12% Oral Kit) 15 ml OROPHARYNG BID@0800, 2000 [facility] Last Admin: 08/21/18 08:02 Dose: 15 ml Clopidogrel Bisulfate (Plavix) 75 mg PO DAILY [facility] Last Admin: 08/18/18 12:53 Dose: Not Given Diazepam (Valium) 10 mg PO Q8H [facility] Last Admin: 08/21/18 08:02 Dose: 10 mg Enoxaparin Sodium (Lovenox Inj) 30 mg SQ Q24H [facility] Last Admin: 08/19/18 12:09 Dose: Not Given Famotidine (Pepcid Pf Inj) 10 mg IV.PUSH Q12HR [facility] Last Admin: 08/21/18 08:00 Dose: 10 mg Gabapentin (Neurontin) 300 mg PO BID [facility] Last Admin: 08/19/18 11:03 Dose: Not Given Hydromorphone HCl (Dilaudid Pf Inj) 0.2 mg IV.PUSH Q1H PRN PRN Reason: PAIN SCALE 1 TO 10 Last Admin: 08/14/18 16:51 Dose: 0.2 mg Magnesium Sulfate 4 gm/ Sodium (Chloride) 100 mls @ 50 mls/hr IV.SIG UNSCH PRN PRN Reason: For Magnesium 0.9 - 1.1 mg/dL Magnesium Sulfate 2 gm/ Sodium (Chloride) 100 mls @ 50 mls/hr IV.SIG UNSCH PRN PRN Reason: For Magnesium 1.2 - 1.6 mg/dL Potassium Chloride (Kcl 40 Meq Premix Inj) 40 meq in 100 mls @ 50 mls/hr IV.SIG Q2H PRN PRN Reason: For Potassium 2.8 - 3.2 mEq/L Potassium Chloride (Kcl 20 Meq Premix Inj) 20 meq in 100 mls @ 50 mls/hr IV.SIG Q2H PRN PRN Reason: For Potassium 3.3 - 3.5 mEq/L Last Admin: 08/17/18 09:15 Dose: 50 mls/hr Potassium Chloride (Kcl 40 Meq Premix Inj) 40 meq in 100 mls @ 25 mls/hr IV.SIG UNSCH PRN PRN Reason: For Potassium 3.3 - 3.5 mEq/L Last Admin: 08/20/18 06:17 Dose: 25 mls/hr Potassium Chloride (Kcl 20 Meq Premix Inj) 20 meq in 100 mls @ 50 mls/hr IV.SIG Q2H PRN PRN Reason: For Potassium 2.8 - 3.2 mEq/L Potassium Phosphate 30 mmol/ (Sodium Chloride) 260 mls @ 42 mls/hr IV.SIG UNSCH PRN PRN Reason: SEE LABEL COMMENTS Sodium Phosphate 30 mmol/ (Sodium Chloride) 260 mls @ 42 mls/hr IV.SIG UNSCH PRN PRN Reason: For Phosphorus < 2.5 mg/dL Hydromorphone/Sodium Chloride (Dilaudid Barrel Rib Matting Machine Operator Inj) 6 mg in 30 mls @ 0 mls/hr DOPER OPERATOR UNSCH PRN PRN Reason: prn pain Last Admin: 08/17/18 18:37 Dose: 0 mls/hr Dexmedetomidine HCl 200 mcg/ (Sodium Chloride) 50 mls @ 3.27 mls/hr IV.CONT TITRATE PRN; Protocol PRN Reason: Per Protocol Last Titration: 08/19/18 18:09 Dose: 0.6 mcg/kg/hr, 9.82 mls/hr Dextrose (D10w Inj) 1,000 mls @ 30 mls/hr IV.CONT .Q24H [facility] Last Infusion: 08/18/18 18:00 Dose: 0 mls/hr Propofol (Diprivan 1000 Mg/100 Ml Inj) 1,000 mg in 100 mls @ 1.845 mls/hr IV.CONT TITRATE PRN; Protocol PRN Reason: Per Protocol Last Titration: 08/21/18 11:05 Dose: 30 mcg/kg/min, 11.07 mls/hr Piperacillin/Tazobactam/Dextrose (Zosyn 4.5 Gm Premix) 4.5 gm in 100 mls @ 200 mls/hr IV.SIG Q6H [facility] Last Infusion: 08/21/18 09:45 Dose: Infused Acetaminophen (Ofirmev Inj) 1,000 mg in 100 mls @ 400 mls/hr IV.SIG Q6H PRN PRN Reason: FEVER 101F OR GREATER Last Infusion: 08/19/18 00:30 Dose: Infused Fentanyl (Fentanyl 10 Mcg/Ml Premix Drip) 2,500 mcg in 250 mls @ 5 mls/hr IV.SIG TITRATE PRN; Protocol PRN Reason: Per Protocol Last Admin: 08/21/18 10:49 Dose: 100 mcg/hr, 10 mls/hr Heparin Sodium/Dextrose (Heparin/D5w 25,000 U/250 Ml) 25,000 unit in 250 mls @ 0 mls/hr IV.CONT TITRATE PRN; Protocol PRN Reason: Per Protocol Last Titration: 08/21/18 06:32 Dose: 700 units/hr, 7 mls/hr Isosorbide Mononitrate (Imdur) 30 mg PO DAILY [facility] Last Admin: 08/19/18 11:03 Dose: Not Given Lactulose (Lactulose Liq) 30 ml PO DAILY PRN PRN Reason: SEVERE CONSITIPATION Magnesium Oxide (Mag-Ox) 400 mg PO HS [facility] Last Admin: 08/20/18 20:06 Dose: Not Given Magnesium Oxide (Mag-Ox) 800 mg PO UNSCH PRN PRN Reason: For Magnesium 1.2 - 1.6 mg/dL Metoclopramide HCl (Reglan Inj) 10 mg IV.PUSH Q8HR [facility]; Protocol Last Admin: 08/21/18 11:24 Dose: 10 mg Miscellaneous Medication () 1 each OROPHARYNG 0000,0400,1200,1600 [facility] Last Admin: 08/21/18 12:52 Dose: 1 each Naloxone HCl (Narcan Inj) 0.4 mg IV.PUSH PRN PRN PRN Reason: SEE LABEL COMMENTS Last Admin: 08/18/18 20:05 Dose: 0.4 mg Potassium Bicarb/Potassium Chloride (K-Lyte Cl Eff) 50 meq PO UNSCH PRN PRN Reason: For Potassium 3.3 - 3.5 mEq/L Potassium Phosphate (K-Phos Original) 2,000 mg PO Q4H PRN PRN Reason: Phosphorus Less Than 2.5 mg/dL Potassium Phosphate (K-Phos Original) 2,000 mg PO UNSCH PRN PRN Reason: SEE LABEL COMMENTS Ropinirole HCl (Requip) 3 mg PO HS [facility] Last Admin: 08/20/18 20:06 Dose: Not Given Sennosides (Senokot) 17.2 mg PO Q12H PRN PRN Reason: Moderate Constipation Sodium Chloride (Ns Flush) 2 ml IV.FLUSH BID [facility] Last Admin: 08/21/18 08:03 Dose: 2 ml Sodium Chloride (Ns Flush) 2 ml IV.FLUSH PRN PRN PRN Reason: FLUSH AFTER USING IV ACCESS Allergies Allergy/AdvReac Type Severity Reaction Status Date / Time codeine Allergy Severe Chest Pain Verified 08/13/18 06:44 diatrizoate meglumine Allergy Severe Hives Verified 08/13/18 06:44 gadobenic acid Allergy Severe Hives Verified 08/13/18 06:44 gadodiamide Allergy Severe Hives Verified 08/13/18 06:44 gadoteridol Allergy Severe Hives Verified 08/13/18 06:44 iodixanol Allergy Severe Hives Verified 08/13/18 06:44 iohexol Allergy Severe Hives Verified 08/13/18 06:44 morphine Allergy Severe Psychosis Verified 08/13/18 06:44 Home Medications Medication Instructions Recorded Confirmed Type alprazolam 0.5 mg PO BID PRN 07/31/18 08/13/18 History aspirin [Aspir-81] 81 mg PO DAILY 07/31/18 08/13/18 History atorvastatin 40 mg PO DAILY 07/31/18 08/13/18 History clopidogrel [Plavix] 75 mg PO DAILY 07/31/18 08/13/18 History gabapentin [Neurontin] 300 mg PO BID 07/31/18 08/13/18 History isosorbide mononitrate 30 mg PO DAILY 07/31/18 08/13/18 History losartan 50 mg PO DAILY 07/31/18 08/13/18 History metoprolol tartrate 25 mg PO BID 07/31/18 08/13/18 History potassium chloride 20 meq PO DAILY 07/31/18 08/13/18 History ranitidine HCl 150 mg PO DAILY 07/31/18 08/13/18 History ropinirole [Requip] 3 mg PO HS 07/31/18 08/13/18 History cholestyramine-aspartame 4 g PO BID 08/06/18 08/13/18 History [Prevalite] hydrochlorothiazide 12.5 mg PO DAILY 08/06/18 08/13/18 History niacin 1,000 mg PO DAILY 08/06/18 08/13/18 History vit C-vit [id number]-3 1 cap PO DAILY 08/06/18 08/13/18 History [Ocuvite] magnesium oxide 500 mg PO HS 08/13/18 08/20/18 History Physical Exam Vital signs: Vital Signs 08/20/18 15:00 08/20/18 16:03 08/20/18 19:00 Temperature 98.0 F 98.5 F Pulse Rate 77 78 88 Respiratory Rate 14 14 14 Blood Pressure 70/45 L Pulse Oximetry 99 99 98 08/20/18 21:33 08/20/18 23:00 08/21/18 00:43 Temperature 99.6 F Pulse Rate 81 83 84 Respiratory Rate 14 14 14 Blood Pressure 96/59 L Pulse Oximetry 99 98 97 08/21/18 03:00 08/21/18 04:51 08/21/18 07:00 Temperature 99.1 F 99.1 F Pulse Rate 80 77 81 Respiratory Rate 14 14 14 Blood Pressure 87/55 L Pulse Oximetry 98 98 98 08/21/18 09:45 08/21/18 09:46 08/21/18 11:05 Temperature 99.6 F Pulse Rate 72 89 Respiratory Rate 14 14 14 Blood Pressure 120/65 Pulse Oximetry 100 98 08/21/18 13:08 08/21/18 13:09 Temperature Pulse Rate 85 Respiratory Rate 14 14 Blood Pressure Pulse Oximetry 98 Intake & Output 08/20/18 08/21/18 08/21/18 18:59 06:59 18:59 Intake Total 1950 / 1950 570.5 / 570.5 254.9 / 254.9 Output Total 845 / 845 608 / 608 Balance 1105 / 1105 -37.5 / -37.5 254.9 / 254.9 Weight 62 kg Intake: IV 850 / 850 570.5 / 570.5 254.9 / 254.9 Heparin/NS PF Inj 500 ML @ 0 500 / 500 mls/hr .ROUTE .STK-MED ONE Rx#: [id number] Heparin/D5W 25,000 U/250 mL 25, 75.4 / 75.4 000 unit In 250 ml @ Per Protocol IV.CONT TITRATE PRN Rx #:[id number] Diprivan 1000 mg/100 ml Inj 1, 158.1 / 158.1 41.9 / 41.9 000 mg In 100 ml @ 5 MCG/KG/MIN 1.845 mls/hr IV.CONT TITRATE PRN Rx#:[id number] Zosyn 4.5 GM Premix 4.5 gm In 300 / 300 200 / 200 100 / 100 100 ml @ 200 mls/hr IV.SIG Q6H [facility] Rx#:[id number] Ancef 1 GM Premix Inj 1 gm In 50 / 50 50 ml @ 0 mls/hr IV.SIG .STK- MED ONE Rx#:[id number] fentaNYL 10 mcg/mL Premix Drip 137 / 137 113 / 113 2,500 mcg In 250 ml @ 50 MCG/HR 5 mls/hr IV.SIG TITRATE PRN Rx #:[id number] Oral 0 / 0 Anesthesia Amount 1100 / 1100 Output: Urine 525 / 525 Estimated Blood Loss 75 / 75 Urine Amount (Catheter) 80 / 80 470 / 470 Indwelling Temp Sensing 80 / 80 470 / 470 Catheter Chest Tube Drainage 165 / 165 138 / 138 #1 Right Pleural 165 / 165 138 / 138 Other: Date of Last Bowel Movement 08/18/18 # Bowel Movements 0 Narrative: GENERAL: Intubated and sedated SKIN: Warm and dry. HEAD: Atraumatic. Normocephalic. EYES: Pupils equal and round. No scleral icterus. No injection or drainage. ENT: No nasal bleeding or discharge. Mucous membranes pink and moist. NECK: Trachea midline. No JVD. CARDIOVASCULAR: Regular rate and rhythm. RESPIRATORY: No accessory muscle use. Decreased breath sounds GASTROINTESTINAL: Abdomen soft, non-tender, nondistended. Hepatic and splenic margins not palpable. MUSCULOSKELETAL: Right lower extremity with pulse. Left lower extremity, mottled, ankle and down cool - Urinary Catheter Management Indwelling Temp Sensing Catheter Cath placed during this visit: yes Reason for continuing: Hourly intake/output Insertion date: 08/13/18 Insertion time: 08:08 Results 08/21/18 03:45 08/21/18 03:45 Coagulation 08/20/18 08/20/18 08/20/18 Range/Units 11:45 18:07 20:40 PT 10.4 (9.8-11.6) sec APTT 37.3 H 155.0 H* D 40.4 H D (23.4-31.7) sec 08/21/18 08/21/18 Range/Units 03:45 09:50 PT (9.8-11.6) sec APTT 60.2 H D 66.5 H (23.4-31.7) sec CBC 08/20/18 08/21/18 Range/Units 04:30 03:45 WBC 12.5 H 14.5 H (4.0-11.0) th/mm3 RBC 3.32 L 2.90 L (4.00-5.30) mil/mm3 Hgb 10.5 L 9.0 L (11.6-15.3) gm/dL Hct 30.0 L 26.5 L (35.0-46.0) % Plt Count 121 L 145 L (150-450) th/mm3 Comprehensive Metabolic Panel 08/20/18 08/21/18 Range/Units 04:30 03:45 Sodium 145 145 (136-145) meq/L Potassium 3.5 4.0 (3.5-5.1) meq/L Chloride 112 H 112 H (98-107) meq/L Carbon Dioxide 25.5 23.5 (21.0-32.0) meq/L BUN 20 H 21 H (7-18) mg/dL Creatinine 0.71 0.89 (0.50-1.00) mg/dL Calcium 7.5 L 7.2 L* (8.5-10.1) mg/dL Albumin 1.4 L (3.4-5.0) g/dL Intake and Output 08/20/18 08/21/18 08/21/18 22:59 06:59 14:59 Intake Total 300 / 300 370.5 / 370.5 254.9 / 254.9 Output Total 690 / 690 608 / 608 Balance -390 / -390 -237.5 / -237.5 254.9 / 254.9 Intake: IV 300 / 300 370.5 / 370.5 254.9 / 254.9 Heparin/D5W 25,000 U/250 mL 25, 75.4 / 75.4 000 unit In 250 ml @ Per Protocol IV.CONT TITRATE PRN Rx #:[id number] Diprivan 1000 mg/100 ml Inj 1, 100 / 100 58.1 / 58.1 41.9 / 41.9 000 mg In 100 ml @ 5 MCG/KG/MIN 1.845 mls/hr IV.CONT TITRATE PRN Rx#:[id number] Zosyn 4.5 GM Premix 4.5 gm In 200 / 200 100 / 100 100 / 100 100 ml @ 200 mls/hr IV.SIG Q6H [facility] Rx#:[id number] fentaNYL 10 mcg/mL Premix Drip 137 / 137 113 / 113 2,500 mcg In 250 ml @ 50 MCG/HR 5 mls/hr IV.SIG TITRATE PRN Rx #:[id number] Oral 0 / 0 Output: Urine 525 / 525 Urine Amount (Catheter) 470 / 470 Indwelling Temp Sensing 470 / 470 Catheter Chest Tube Drainage 165 / 165 138 / 138 #1 Right Pleural 165 / 165 138 / 138 Other: # Bowel Movements 0 Weight 62 kg - Imaging and Cardiology Imaging: Impressions Chest X-Ray 08/20/18 05:00 CONCLUSION: Worsening bibasilar consolidation more pronounced on the left. Chest X-Ray 08/21/18 11:06 CONCLUSION: NG tube and feeding tube in the distal stomach. ET tube in a low position 2.4 cm from the vidhya. Elevation of the right hemidiaphragm. Diffuse increased interstitial prominence likely related to edema. Increased density at the bases representing some degree of accompanying atelectasis, consolidation or effusion. The possibility of effusion is especially prominent on the left. Chest X-Ray 08/21/18 11:39 CONCLUSION: NG tube in the distal stomach and feeding tube in the third portion the duodenum. Assessment and Plan - Assessment (1) Type 2 myocardial infarction Code(s): I21.A1 - Myocardial infarction type 2 Status: Acute (2) Afib Code(s): I48.91 - Unspecified atrial fibrillation Status: Acute - Plan 1) Mesenteric ischemia s/p aorto-hepatic bypass, aorto-SMA bypass 2) Elevated troponin Secondary to hypotension/anemia Previously had stress test showing no ischemia Troponin levels cleared 3) PEA arrest CPR with 1 round of epi Appears to be due to mucus plugging 4) Hemothorax Chest tube in place 5) AFib Currently controlled Not an anticoagulation candidate at this time 6) Con't ASA/Plavix/Statin 7) Left foot ischemia with motor dysfunction s/p thrombectomy and bypass Distal foot cool
--- NOTE | 2018-08-21 17:11 | P.PNCC ---
Subjective Subjective Remarks/Hospital Course: Hospital Course: Patient is a 77-year-old female who was admitted to Dr. Eugene's service for mesenteric ischemia today. Her past medical history significant for coronary artery disease status post PCI/stent, history of renal artery stenosis, GERD, PAD, history of multiple vascular surgeries, history of small bowel obstruction, restless leg syndrome. Patient underwent aorto-hepatic and aorto-SMA bypass in OR. EBL was 400 ml, received 3.6 L of crystalloids in the OR , urine output was adequate. Postop patient was moved to the CVICU critical care medicine was consulted for postop management. Patient is hypotensive at the time of my evaluation and had been started on Diego-Synephrine by Dr. Eugene. I haave ordered further fluid resuscitation with additional 2 L of crystalloids. A stat ABG was done at the bedside which showed hemoglobin 6.6. A CBC was sent and I ordered 2 units of PRBC stat. CBC came back with hemoglobin of 6.4 platelet count 139. Chemistry showed potassium of 3.4 calcium uncorrected 6.4. Electrolyte replacement protocol and calcium replacement have been ordered. Lactic acid also mildly elevated at 2.2. Will follow serial lactic acid and follow urine output closely. If patient becomes hemodynamically more stable will proceed with weaning trial for extubation. Urine output had been adequate postop approximately 40 mL/h. Bilateral DP pulses are Dopplerable Subjective: 08/14: significant fluid requirement. trop slightly elevated at 0.06. initial scvo2 43% but improved after fluid to 68%. pain adequately controlled. uop marginal at 20cc/hr. 08/15: trop slightly uptrended. now appears volume overloaded with new and worsening oxygen requirement. ABG with mixed acidosis. responded well to lasix with adequate diuresis. placed on BiPAP. somewhat agitated requiring low-dose Precedex. lactate 0.8, scvo2 71%. 08/16: slightly tachycardic this morning. some diuresis yesterday and back to nc o2, but remains volume overloaded. denies pain. somewhat intermittently confused, but oriented on my evaluation. trop still uptrending, but plateauing. uop adequate. 08/17: went into afib RVR overnight. placed on diltiazem drip. this morning, more rate controlled. trop downtrending. adequate diuresis, but remains volume overloaded. aggressively replaced electrolytes this morning. 08/18: overnight events reviewed and discussed with Dr. Eugene and Dr. Sabillon. intubated after respiratory arrest. bronch with mucous plugging. new right pleural effusion on chest CT (multiple rib fractures after CPR). placed 28 Fr chest tube (see separate procedure note for details) with ~1600cc blood (no active bleeding). placed arterial line. transfused 3 units prbc. trending H&H. critically ill this morning. oliguric. 08/19: agitation persists. started scheduled valium as well as fentanyl drip for pain control. still with significant thick tenacious secretions: too many secretions for safe weaning of mechanical ventilation. also spiked fevers overnight, ennis cultured and zosyn started. chest tube with significantly less output, and more serosanguinous. 08/20: cold leg this AM with decreased motor function. taken back to OR today for re-vascularization. 08/21: perfusion to the LE still questionable. decreasing NGT output, but still 100cc/12h. will place post-pyloric feeding tube and start trickle feeds. likely needs another 24h before we are ready for SBTs. sputum growing serratia and pseudomonas: zosyn not adequate given MICs, will need to switch to Levaquin. would plan on 7 day course. Objective Vital Signs / I&O: Vital Signs 08/20/18 19:00 08/20/18 21:33 08/20/18 23:00 Temperature 36.9 C 37.6 C Pulse Rate 88 81 83 Respiratory Rate 14 14 14 Blood Pressure 70/45 L 96/59 L Pulse Oximetry 98 99 98 08/21/18 00:43 08/21/18 03:00 08/21/18 04:51 Temperature 37.3 C Pulse Rate 84 80 77 Respiratory Rate 14 14 14 Blood Pressure 87/55 L Pulse Oximetry 97 98 98 08/21/18 07:00 08/21/18 09:45 08/21/18 09:46 Temperature 37.3 C Pulse Rate 81 72 Respiratory Rate 14 14 14 Blood Pressure Pulse Oximetry 98 100 08/21/18 11:05 08/21/18 13:08 08/21/18 13:09 Temperature 37.6 C Pulse Rate 89 85 Respiratory Rate 14 14 14 Blood Pressure 120/65 Pulse Oximetry 98 98 08/21/18 15:00 Temperature 37.1 C Pulse Rate 80 Respiratory Rate 14 Blood Pressure 135/47 L Pulse Oximetry 98 Intake & Output 08/20/18 08/21/18 08/21/18 18:59 06:59 18:59 Intake Total 1950 / 1949 570.5 / 570.5 254.9 / 254.9 Output Total 845 / 845 608 / 608 Balance 1105 / 1105 -37.5 / -37.5 254.9 / 254.9 Weight 62 kg Intake: IV 850 / 850 570.5 / 570.5 254.9 / 254.9 Heparin/NS PF Inj 500 ML @ 0 500 / 500 mls/hr .ROUTE .STK-MED ONE Rx#: [id number] Heparin/D5W 25,000 U/250 mL 25, 75.4 / 75.4 000 unit In 250 ml @ Per Protocol IV.CONT TITRATE PRN Rx #:[id number] Diprivan 1000 mg/100 ml Inj 1, 158.1 / 158.1 41.9 / 41.9 000 mg In 100 ml @ 5 MCG/KG/MIN 1.845 mls/hr IV.CONT TITRATE PRN Rx#:[id number] Zosyn 4.5 GM Premix 4.5 gm In 300 / 300 200 / 200 100 / 100 100 ml @ 200 mls/hr IV.SIG Q6H [facility] Rx#:[id number] Ancef 1 GM Premix Inj 1 gm In 50 / 50 50 ml @ 0 mls/hr IV.SIG .STK- MED ONE Rx#:[id number] fentaNYL 10 mcg/mL Premix Drip 137 / 137 113 / 113 2,500 mcg In 250 ml @ 50 MCG/HR 5 mls/hr IV.SIG TITRATE PRN Rx #:[id number] Oral 0 / 0 Anesthesia Amount 1100 / 1100 Output: Urine 525 / 525 Estimated Blood Loss 75 / 75 Urine Amount (Catheter) 80 / 80 470 / 470 Indwelling Temp Sensing 80 / 80 470 / 470 Catheter Chest Tube Drainage 165 / 165 138 / 138 #1 Right Pleural 165 / 165 138 / 138 Other: Date of Last Bowel Movement 08/18/18 # Bowel Movements 0 Result Diagrams: 08/21/18 03:45 08/21/18 03:45 Objective Remarks: GENERAL: Elderly female, lying in bed, intubated, sedated, critically ill. HEENT: Normocephalic. Atraumatic. Pupils equal, round, reactive, conjugate. Mucous membranes are moist NECK: Trachea is midline. There is no JVD. Central line in place, site clean dry and intact. CHEST: Equal chest rise. nc o2. unlabored. right chest tube in place to suction , minimal output. no air leak. CARDIOVASCULAR: normal rate, regular rhythm. ABDOMEN: Soft, appropriately tender to palpation, nondistended. No guarding. Midline dressing intact MUSCULOSKELETAL: LE dopplers present post-op. leg is mottled and cool, but warmer than pre-op. NEUROLOGICAL: RASS -2. withdraws to pain. does not follow commands. sedated. Assessment and Plan - Assessment and Plan Plan: PLAN: NEURO: Acute alcohol withdraw syndrome Acute agitated delirium Restless leg syndrome -propofol, fentanyl for goal RASS -2 - frequent neuro checks - valium 10mg po q8hr. RESP: Aspiration pneumonia Acute hypoxic and hypercarbic respiratory failure Acute right hemothorax post CPR Rib fractures secondary to CPR -prvc - wean fio2 for goal spo2 > 90% - no SBT today, will start tomorrow. - right 28 Fr chest tube placed 08/18: 1600 mL sanguinous drainage. keep to suction. -DuoNeb every 2 hours as needed - hold additional diuresis today CV: Type II NSTEMI secondary to demand ischemia Hypovolemia secondary to hemothorax CAD History of peripheral arterial disease, status post multiple vascular surgery Perioperative atrial fibrillation with rapid ventricular response- back in NSR Lactic acidosis- resolved - trops downtrending. can stop trending. - unlikely to be ACS - likely demand ischemia given baseline CAD - hold ASA, plavix given acute bleeding. - hold additional diuresis. - aggressive electrolyte replacement, target K > 4.5, Mg > 2.5 - cardiology consulted: Dr. Neil GI: Mesenteric ischemia status post open antegrade mesenteric bypass GERD History of small bowel obstruction acute protein calorie malnutrition- severe Postoperative ileus -Status post open antegrade mesenteric bypass, postop management per Dr. Eugene -N.p.o., IV PPI, NG tube intermittent wall suction, anticipate ileus - prokinetic agents. - place post-pyloric feeding tube and start trickle feeds at 10mL/hr. : History of renal artery stenosis -Monitor renal function closely. Boateng catheter. ID: Aspiration pneumonia- pseudomonas and serratia -d/c zosyn - start levaquin 750mg iv q24h. 7 day course. HEME: Anemia secondary to acute blood loss- requiring transfusion- worsening. -Monitor CBC, coags - trend H&H ENDO: -Electrolyte replacement per protocol PROPH: -heparin drip. OVERALL IMPRESSION: critically ill. decompensated respiratory status. likely combination of etoh withdraw and worsening pulmonary function. keep intubated. Critically ill. limb ischemia new and severe, adding to critical illness. Critical care time: 31 minutes, exclusive of separately billable procedures.
[2018-08-21] MEDS: Heparin Drip 25,000 UNIT/250 ML BAG IV.CONT PRN (18:33)
[2018-08-21] MEDS: Magnesium Oxide 400 MG Tablet PO SCH (21:29)
[2018-08-22] MEDS: Oral Hygiene Kit OROPHARYNG SCH ×4 (00:02→16:57)
[2018-08-22 05:00] LABS: Hematocrit 25.2 % (35.0-46.0); Hemoglobin 8.5 gm/dL (11.6-15.3); Mean Corpuscular HGB Conc 33.6 % (32.0-36.0); Mean Corpuscular Hemoglobin 31.5 pg (27.0-34.0); Mean Corpuscular Volume 93.7 fL (80.0-100.0); Mean Platelet Volume 9.9 fL (7.0-11.0); Platelet Count 198 th/mm3 (150-450); Red Blood Count 2.69 mil/mm3 (4.00-5.30); Red Cell Distribution Width 16.5 % (11.6-17.2); White Blood Count 15.7 th/mm3 (4.0-11.0)
[2018-08-22 05:38] LABS: Calcium 7.3 mg/dL (8.5-10.1); Carbon Dioxide 24.4 meq/L (21.0-32.0); Magnesium 2.4 mg/dL (1.5-2.5); Phosphorus 4.2 mg/dL (2.5-4.9); Potassium 3.9 meq/L (3.5-5.1)
[2018-08-22 06:02] LABS: Albumin 1.3 g/dL (3.4-5.0); Calcium-Albumin Corrected 9.5 mg/dL (8.5-10.1)
--- NOTE | 2018-08-22 07:43 | P.PNVS ---
Subjective Post Op Day #: 9 Procedure: aorto-hepatic, aorto-SMA bypass Subjective/Hospital Course: POD#9 mesenteric bypass POD#2 L LE graft thrombectomy stable overnight, weaning vent SYED but L foot anatoliy trickle TF via DHT and no TF in NGT Objective Neuro: alert, responds to commands. moving L leg but not foot Pulmonary: weaning vent good sats minimal outpt from CT Cardiac: reg rate, good bp FEN/GI: Anatoliy TF NGT with gastric contents : UOP marginal; creatinine bumped today to 1.3 ID Antibiotics (date/duration): Zosyn ID Cultures: serratia and pseudomonas from ETT 12/ Heme: Hct 25 plt 198 Vascular: + PT signal distal L calf Laboratory Results - last 24 hr 08/21/18 08/22/18 08/22/18 09:50 04:25 04:25 WBC 15.7 H RBC 2.69 L Hgb 8.5 L Hct 25.2 L MCV 93.7 MCH 31.5 MCHC 33.6 RDW 16.5 Plt Count 198 D MPV 9.9 APTT 66.5 H Sodium 145 Potassium 3.9 Chloride 112 H Carbon Dioxide 24.4 Anion Gap 9 BUN 28 H Creatinine 1.35 H Estimated GFR 38 L Random Glucose 121 H Calcium 7.3 L* Calcium Adj for Albumin 9.5 Phosphorus 4.2 Magnesium 2.4 Albumin 1.3 L 08/22/18 04:25 WBC RBC Hgb Hct MCV MCH MCHC RDW Plt Count MPV APTT 52.1 H D Sodium Potassium Chloride Carbon Dioxide Anion Gap BUN Creatinine Estimated GFR Random Glucose Calcium Calcium Adj for Albumin Phosphorus Magnesium Albumin Microbiology 08/19/18 04:30 Aerobic Blood Culture - Preliminary Blood - Line No growth in 2 days Anaerobic Blood Culture - Preliminary No growth in 2 days 08/19/18 02:52 Aerobic Blood Culture - Preliminary Blood - Peripheral No growth in 2 days Anaerobic Blood Culture - Preliminary No growth in 2 days 08/19/18 04:50 Gram Stain - Final Sputum - Endotracheal Sputum Culture - Final Pseudomonas aeruginosa Serratia marcescens 08/19/18 04:30 Urine Culture - Final Catheterized Urine No growth in 48 hours Impressions Chest X-Ray 08/21/18 11:06 CONCLUSION: NG tube and feeding tube in the distal stomach. ET tube in a low position 2.4 cm from the vidhya. Elevation of the right hemidiaphragm. Diffuse increased interstitial prominence likely related to edema. Increased density at the bases representing some degree of accompanying atelectasis, consolidation or effusion. The possibility of effusion is especially prominent on the left. Chest X-Ray 08/21/18 11:39 CONCLUSION: NG tube in the distal stomach and feeding tube in the third portion the duodenum. Assessment and Plan - Assessment (1) Mesenteric ischemia due to arterial insufficiency Code(s): K55.059 - Acute (reversible) ischemia of intestine, part and extent unspecified Status: Acute - Plan POD#9 s/p antegrade mesenteric bypass POD#2 L LE graft revision 1. increase TF slowly - up to 20/h today 2. ASA and home antihypertensives 3. Leave CT in 4. Leave Boateng in for UOP monitoring 5. wean vent and attempt extubation today 6. OOB TC ok 7. continue hep gtt 8. May ultimately need L BKA Discharge Planning: CVICU for several days I updated the fiance via telephone yesterday
--- NOTE | 2018-08-22 09:01 | P.PNCC ---
Subjective Subjective Remarks/Hospital Course: Hospital Course: Patient is a 77-year-old female who was admitted to Dr. Eugene's service for mesenteric ischemia today. Her past medical history significant for coronary artery disease status post PCI/stent, history of renal artery stenosis, GERD, PAD, history of multiple vascular surgeries, history of small bowel obstruction, restless leg syndrome. Patient underwent aorto-hepatic and aorto-SMA bypass in OR. EBL was 400 ml, received 3.6 L of crystalloids in the OR , urine output was adequate. Postop patient was moved to the CVICU critical care medicine was consulted for postop management. Patient is hypotensive at the time of my evaluation and had been started on Diego-Synephrine by Dr. Eugene. I haave ordered further fluid resuscitation with additional 2 L of crystalloids. A stat ABG was done at the bedside which showed hemoglobin 6.6. A CBC was sent and I ordered 2 units of PRBC stat. CBC came back with hemoglobin of 6.4 platelet count 139. Chemistry showed potassium of 3.4 calcium uncorrected 6.4. Electrolyte replacement protocol and calcium replacement have been ordered. Lactic acid also mildly elevated at 2.2. Will follow serial lactic acid and follow urine output closely. If patient becomes hemodynamically more stable will proceed with weaning trial for extubation. Urine output had been adequate postop approximately 40 mL/h. Bilateral DP pulses are Dopplerable Subjective: 08/14: significant fluid requirement. trop slightly elevated at 0.06. initial scvo2 43% but improved after fluid to 68%. pain adequately controlled. uop marginal at 20cc/hr. 08/15: trop slightly uptrended. now appears volume overloaded with new and worsening oxygen requirement. ABG with mixed acidosis. responded well to lasix with adequate diuresis. placed on BiPAP. somewhat agitated requiring low-dose Precedex. lactate 0.8, scvo2 71%. 08/16: slightly tachycardic this morning. some diuresis yesterday and back to nc o2, but remains volume overloaded. denies pain. somewhat intermittently confused, but oriented on my evaluation. trop still uptrending, but plateauing. uop adequate. 08/17: went into afib RVR overnight. placed on diltiazem drip. this morning, more rate controlled. trop downtrending. adequate diuresis, but remains volume overloaded. aggressively replaced electrolytes this morning. 08/18: overnight events reviewed and discussed with Dr. Eugene and Dr. Sabillon. intubated after respiratory arrest. bronch with mucous plugging. new right pleural effusion on chest CT (multiple rib fractures after CPR). placed 28 Fr chest tube (see separate procedure note for details) with ~1600cc blood (no active bleeding). placed arterial line. transfused 3 units prbc. trending H&H. critically ill this morning. oliguric. 08/19: agitation persists. started scheduled valium as well as fentanyl drip for pain control. still with significant thick tenacious secretions: too many secretions for safe weaning of mechanical ventilation. also spiked fevers overnight, ennis cultured and zosyn started. chest tube with significantly less output, and more serosanguinous. 08/20: cold leg this AM with decreased motor function. taken back to OR today for re-vascularization. 08/21: perfusion to the LE still questionable. decreasing NGT output, but still 100cc/12h. will place post-pyloric feeding tube and start trickle feeds. likely needs another 24h before we are ready for SBTs. sputum growing serratia and pseudomonas: zosyn not adequate given MICs, will need to switch to Levaquin. would plan on 7 day course. 08/22: Cr increased significantly overnight, but adequate uop. may be delayed ATN from recent worsening hemodynamics. agree with starting gentle ivf. poor perfusion to the LE persists, but we have optimized everything we can for now. no reflux of tube feeds in OG tube. agree with increasing to 20cc/hr. also very tachycardic this morning- will restart very low-dose beta blockade. trial of SBT today with early failure: very tachypneic in distress. Also spiking fevers and wbc elevated. oliguric. Objective Vital Signs / I&O: Vital Signs 08/21/18 09:45 08/21/18 09:46 08/21/18 11:05 Temperature 37.6 C Pulse Rate 72 89 Respiratory Rate 14 14 14 Blood Pressure 120/65 Pulse Oximetry 100 98 08/21/18 13:08 08/21/18 13:09 08/21/18 15:00 Temperature 37.1 C Pulse Rate 85 80 Respiratory Rate 14 14 14 Blood Pressure 135/47 L Pulse Oximetry 98 98 08/21/18 17:24 08/21/18 19:00 08/21/18 20:01 Temperature 37.2 C Pulse Rate 81 83 81 Respiratory Rate 14 14 Blood Pressure 103/64 Pulse Oximetry 99 98 08/21/18 20:22 08/21/18 23:00 08/22/18 00:57 Temperature 37.7 C H Pulse Rate 80 87 79 Respiratory Rate 14 14 14 Blood Pressure 89/56 L Pulse Oximetry 98 98 99 08/22/18 03:00 08/22/18 04:20 08/22/18 07:00 Temperature 37.6 C 37.6 C H Pulse Rate 81 88 90 Respiratory Rate 14 14 14 Blood Pressure 83/45 L 87/39 L Pulse Oximetry 98 99 97 08/22/18 07:34 Temperature Pulse Rate 92 H Respiratory Rate 16 Blood Pressure Pulse Oximetry Intake & Output 08/21/18 08/22/18 08/22/18 18:59 06:59 18:59 Intake Total 529.5 / 529.5 283 / 283 Output Total 465 / 465 510 / 510 Balance 64.5 / 64.5 -227 / -227 Weight 62.5 kg Intake: IV 529.5 / 529.5 150 / 150 Heparin/D5W 25,000 U/250 mL 25, 174.6 / 174.6 000 unit In 250 ml @ Per Protocol IV.CONT TITRATE PRN Rx #:[id number] Diprivan 1000 mg/100 ml Inj 1, 141.9 / 141.9 000 mg In 100 ml @ 5 MCG/KG/MIN 1.845 mls/hr IV.CONT TITRATE PRN Rx#:[id number] Levaquin 750 mg Premix Inj 150 150 / 150 ML @ 100 mls/hr IV.SIG Q24H LIVAN Rx#:[id number] Zosyn 4.5 GM Premix 4.5 gm In 100 / 100 100 ml @ 200 mls/hr IV.SIG Q6H [facility]IVAN Rx#:[id number] fentaNYL 10 mcg/mL Premix Drip 113 / 113 2,500 mcg In 250 ml @ 50 MCG/HR 5 mls/hr IV.SIG TITRATE PRN Rx #:[id number] Tube Feeding 133 / 133 Output: Urine Amount (Catheter) 405 / 405 300 / 300 Indwelling Temp Sensing 405 / 405 300 / 300 Catheter Gastric Drainage 200 / 200 Right Nare Nasogastric Tube 200 / 200 Chest Tube Drainage 60 / 60 #1 Right Pleural 60 / 60 Result Diagrams: 08/22/18 04:25 08/22/18 04:25 Objective Remarks: GENERAL: Elderly female, lying in bed, intubated, sedated, critically ill. HEENT: Normocephalic. Atraumatic. Pupils equal, round, reactive, conjugate. Mucous membranes are moist NECK: Trachea is midline. There is no JVD. Central line in place, site clean dry and intact. CHEST: Equal chest rise. nc o2. unlabored. right chest tube in place to suction , minimal output. no air leak. CARDIOVASCULAR: normal rate, regular rhythm. ABDOMEN: Soft, appropriately tender to palpation, nondistended. No guarding. Midline dressing intact MUSCULOSKELETAL: LE dopplers present post-op. leg is mottled and cool, but warmer than pre-op. NEUROLOGICAL: RASS -2. withdraws to pain. awake and following commands today. Assessment and Plan - Assessment and Plan Plan: PLAN: NEURO: Acute alcohol withdraw syndrome Acute agitated delirium Restless leg syndrome -propofol, fentanyl for goal RASS -2 - frequent neuro checks - valium 10mg po q8hr. RESP: Aspiration pneumonia Acute hypoxic and hypercarbic respiratory failure Acute right hemothorax post CPR Rib fractures secondary to CPR -prvc - wean fio2 for goal spo2 > 90% - start daily SBTs. failed today for respiratory distress, tachycardia, tachypnea. - right 28 Fr chest tube placed 08/18: 1600 mL sanguinous drainage. keep to suction. -DuoNeb every 2 hours as needed - hold additional diuresis today CV: Type II NSTEMI secondary to demand ischemia Hypovolemia secondary to hemothorax CAD History of peripheral arterial disease, status post multiple vascular surgery Perioperative atrial fibrillation with rapid ventricular response- back in NSR Lactic acidosis- resolved - trops downtrending. can stop trending. - unlikely to be ACS - likely demand ischemia given baseline CAD - hold ASA, plavix given acute bleeding. - hold additional diuresis. - aggressive electrolyte replacement, target K > 4.5, Mg > 2.5 - cardiology consulted: Dr. Neil GI: Mesenteric ischemia status post open antegrade mesenteric bypass GERD History of small bowel obstruction acute protein calorie malnutrition- severe Postoperative ileus -Status post open antegrade mesenteric bypass, postop management per Dr. Eugene -keep NGT to LIWS - increase post-pyloric tube feeds to 20cc/hr. - prokinetic agents. : History of renal artery stenosis Acute kidney injury -Monitor renal function closely. Boateng catheter. - start NS @ 42cc/hr. - recheck in AM. - may be delayed ATN, watch carefully. adequate uop at present. - check renal ultrasound, urine electrolytes. ID: Aspiration pneumonia- pseudomonas and serratia - levaquin 750mg iv q24h. 7 day course. - re-culture - keep levaquin, add vanc and cefepime. HEME: Anemia secondary to acute blood loss- requiring transfusion- worsening. -Monitor CBC, coags - trend H&H ENDO: -Electrolyte replacement per protocol PROPH: -heparin drip. OVERALL IMPRESSION: critically ill. decompensated respiratory status. likely combination of etoh withdraw and worsening pulmonary function. keep intubated. Critically ill. limb ischemia new and severe, adding to critical illness. Critical care time: 31 minutes, exclusive of separately billable procedures.
[2018-08-22] MEDS: Chlorhexidine 0.12% Oral Kit 15 ML UDC OROPHARYNG SCH ×2 (09:44→22:15)
[2018-08-22] MEDS: Famotidine PF Inj 20 MG/2 ML Vial IV.PUSH SCH ×2 (09:45→22:16)
[2018-08-22] MEDS: Sodium Chloride 0.9% 2 ML Flush BID IV.FLUSH SCH ×2 (10:12→22:18)
--- NOTE | 2018-08-22 10:15 | P.DIET ---
Nutritional Evaluation Type of nutrition evaluation: initial Nutrition consult regarding: Tube Feeding Objective - Diagnosis Mesenteric Bypass - Objective Body Mass Index: 25.2 % IBW: 125 (IBW = 110#) Body Weight Used for Calculations: Actual (62.5 kg) Energy Needs - Lower Range (kCal/kg): 25 Energy Needs - Upper Range (kCal/kg): 30 Lower Limit kCal/kg (kCals): 1,563 Upper Limit kCal/kg (kCals): 1,875 Lower Limit Protein Factor (Grams per Kg): 1.0 Upper Limit Protein Factor (Grams per Kg): 1.5 Lower Protein Needs (Protein): 63 Upper Protein Needs (Protein): 94 Dietitian Reviewed in Medical Record: Curent medications, Intake & Output, Labs , Medical history, Tube feeding Diet Order: NPO Objective Comments: 08/13 aorto-hepatic bypass, aorto- SMA bypass 08/20 L leg bypass revision, L tibial thrombectomy Assessment Assessment: Pt is at high nutrition risk 2' to the need for TFing. Current order is for trickle feeds of Jevity 1.5 @ 10 mls/hr. When goal rate is needed, recommend Vital 1.5 @ 50 mls/hr to provide 1800 kcals, 81 gms protein and 917 mls of free water. When propofol is running pt will received additional kcals (1.1 kcal/ml). Recommendations: For goal rate when needed: Viatl 1.5 @ 50 mls/hr Dietitian to Monitor: Lab values, Intake & Output, Tube feeding tolerance, Weight change, Medical course
[2018-08-22] MEDS ORDERED: Albumin Human 5% Inj 250 ML IV.SIG ONE ×2 (11:45→12:07)
[2018-08-22] MEDS ORDERED: Vancomycin Consult Pharmacy OTHER PRN (12:41)
[2018-08-22] MEDS ORDERED: Vancomycin Inj 1,000 MG in Sodium Chlor 0.9% Inj 250 ML IV.SIG ONE (12:42)
[2018-08-22] MEDS ORDERED: Albumin Human 5% Inj 500 ML IV.SIG ONE ×2 (13:00)
[2018-08-22] MEDS: Metoprolol Inj 5 MG/5 ML Vial IV.PUSH SCH ×3 (13:45→22:18)
[2018-08-22] MEDS: Artificial Tears Opth Drops 15 ML Bottle EACH EYE SCH ×3 (14:50→22:18)
[2018-08-22] MEDS: Propofol 1000 mg/100 ml Inj 1,000 MG/100 ML BOTTLE IV.CONT PRN ×2 (15:05→22:19)
[2018-08-22 15:11] LABS: Amorphous Sediment,Urine Rare /hpf; Bacteria,Urine Rare /hpf; Bilirubin,Urine Negative (Negative); Clarity,Urine Cloudy (Clear); Color,Urine Amber (Yellw/Straw); Glucose,Urine (UA) Negative (Negative); Leukocyte Esterase,Urine Negative (Negative); Mucus,Urine Few /lpf (Occasional); Nitrite,Urine Negative (Negative); Specific Gravity,Urine 1.017 (1.002-1.035); Squamous Epithelial Cell,Urine 1 /hpf (0-5)
[2018-08-22 15:24] LABS: Creatinine,Urine Random 65 mg/dL (27-300); Sodium,Urine Random 11 meq/L
[2018-08-22] MEDS ORDERED: Vancomycin Inj 1,500 MG in Sodium Chlor 0.9% Inj 500 ML IV.SIG ONE (16:00)
--- NOTE | 2018-08-22 16:06 | US ---
EXAM DATE: 08/22/2018 3:59 PM EST AGE/SEX: 78 years / Female INDICATIONS: Increased BUN/Creatinine. CLINICAL DATA: This is the patient's initial encounter. Patient reports that signs and symptoms have been present for 1 day and indicates a pain score of Nonresponsive. MEDICAL/SURGICAL HISTORY: Gastroesophageal reflux disease. Small bowel obstruction. Mesenteric ischemia. Cholecystectomy. Appendectomy. Coronary artery stent. Renal artery stent. Laminectomy. Sh oulder surgery. Carotid angioplasty. Multiple vascular surgery. COMPARISON: TLI, CTA ABDOMEN AND PELVIS, 07/16/2018. . MEASUREMENTS: Right Kidney:__11.7 x 5.1 x 5.1 cm Left Kidney:__9.8 x 5.6 x 5.0 cm FINDINGS: Right Kidney: Normal echogenicity and cortical thickness. No mass or hydronephrosis. Left Kidney: Increased echogenicity. No mass or hydronephrosis. Bladder: Decompressed. Not well evaluated. Other: There is a small volume of free fluid within the abdomen and pelvis and left pleural fluid is visualized. CONCLUSION: 1. No hydronephrosis is identified. 2. Left kidney is smaller than the right and demonstrates increased echogenicity suggesting medical renal disease. Given the appearance on prior CTA, a renovascular cause is suspected for these changes . 3. There is a small volume of free fluid within the abdomen and pelvis and pleural fluid is visualiz ed on the left. Electronically signed by: Chava Lozano MD 08/22/2018 4:05 PM EST
[2018-08-22] MEDS ORDERED: Albumin Human 5% Inj 500 ML IV.SIG STA (16:17)
[2018-08-22] MEDS: fentaNYL 10 mcg/mL Premix Drip 2,500 MCG/250 ML BAG IV.SIG PRN (18:22)
[2018-08-22] MEDS: Magnesium Oxide 400 MG Tablet PO SCH (22:16)
--- NOTE | 2018-08-23 00:19 | P.PNCA ---
Subjective Interval history: Hemodynamically stable Fevers overnight Medications and Allergies Active Medications: Active Medications Al Hydroxide/Mg Hydroxide (Milk Of Magnmaye Liq) 30 ml PO Q12H PRN PRN Reason: Mild Constipation Albuterol (Duoneb Neb (Prn)) 1 ampul NEB Q2HR NEB PRN PRN Reason: SHORTNESS OF BREATH Last Admin: 08/22/18 20:45 Dose: 1 ampul Alprazolam (Xanax) 0.5 mg PO BID PRN PRN Reason: Anxiety Last Admin: 08/16/18 22:40 Dose: 0.5 mg Artificial Tears (Tears Naturale Opth Drops) 1 drop EACH EYE Q8H [facility] Last Admin: 08/22/18 22:18 Dose: 1 drop Aspirin (Aspirin Chew) 81 mg PO DAILY [facility] Last Admin: 08/19/18 11:03 Dose: Not Given Atorvastatin Calcium (Lipitor) 40 mg PO DAILY [facility] Last Admin: 08/22/18 09:45 Dose: 40 mg Bisacodyl (Dulcolax Supp) 10 mg RECTAL DAILY PRN PRN Reason: SEVERE CONSITIPATION Last Admin: 08/17/18 17:07 Dose: 10 mg Chlorhexidine Gluconate (Peridex 0.12% Oral Kit) 15 ml OROPHARYNG BID@0800, 2000 [facility] Last Admin: 08/22/18 22:15 Dose: 15 ml Clopidogrel Bisulfate (Plavix) 75 mg PO DAILY [facility] Last Admin: 08/18/18 12:53 Dose: Not Given Diazepam (Valium) 10 mg PO Q8H [facility] Last Admin: 08/22/18 16:59 Dose: 10 mg Enoxaparin Sodium (Lovenox Inj) 30 mg SQ Q24H [facility] Last Admin: 08/19/18 12:09 Dose: Not Given Famotidine (Pepcid Pf Inj) 10 mg IV.PUSH Q12HR [facility] Last Admin: 08/22/18 22:16 Dose: 10 mg Gabapentin (Neurontin) 300 mg PO BID [facility] Last Admin: 08/19/18 11:03 Dose: Not Given Hydromorphone HCl (Dilaudid Pf Inj) 0.2 mg IV.PUSH Q1H PRN PRN Reason: PAIN SCALE 1 TO 10 Last Admin: 08/14/18 16:51 Dose: 0.2 mg Magnesium Sulfate 4 gm/ Sodium (Chloride) 100 mls @ 50 mls/hr IV.SIG UNSCH PRN PRN Reason: For Magnesium 0.9 - 1.1 mg/dL Magnesium Sulfate 2 gm/ Sodium (Chloride) 100 mls @ 50 mls/hr IV.SIG UNSCH PRN PRN Reason: For Magnesium 1.2 - 1.6 mg/dL Potassium Chloride (Kcl 40 Meq Premix Inj) 40 meq in 100 mls @ 50 mls/hr IV.SIG Q2H PRN PRN Reason: For Potassium 2.8 - 3.2 mEq/L Potassium Chloride (Kcl 20 Meq Premix Inj) 20 meq in 100 mls @ 50 mls/hr IV.SIG Q2H PRN PRN Reason: For Potassium 3.3 - 3.5 mEq/L Last Admin: 08/17/18 09:15 Dose: 50 mls/hr Potassium Chloride (Kcl 40 Meq Premix Inj) 40 meq in 100 mls @ 25 mls/hr IV.SIG UNSCH PRN PRN Reason: For Potassium 3.3 - 3.5 mEq/L Last Admin: 08/20/18 06:17 Dose: 25 mls/hr Potassium Chloride (Kcl 20 Meq Premix Inj) 20 meq in 100 mls @ 50 mls/hr IV.SIG Q2H PRN PRN Reason: For Potassium 2.8 - 3.2 mEq/L Potassium Phosphate 30 mmol/ (Sodium Chloride) 260 mls @ 42 mls/hr IV.SIG UNSCH PRN PRN Reason: SEE LABEL COMMENTS Sodium Phosphate 30 mmol/ (Sodium Chloride) 260 mls @ 42 mls/hr IV.SIG UNSCH PRN PRN Reason: For Phosphorus < 2.5 mg/dL Dexmedetomidine HCl 200 mcg/ (Sodium Chloride) 50 mls @ 3.27 mls/hr IV.CONT TITRATE PRN; Protocol PRN Reason: Per Protocol Last Titration: 08/19/18 18:09 Dose: 0.6 mcg/kg/hr, 9.82 mls/hr Propofol (Diprivan 1000 Mg/100 Ml Inj) 1,000 mg in 100 mls @ 1.845 mls/hr IV.CONT TITRATE PRN; Protocol PRN Reason: Per Protocol Last Admin: 08/22/18 22:19 Dose: 15 mcg/kg/min, 5.54 mls/hr Acetaminophen (Ofirmev Inj) 1,000 mg in 100 mls @ 400 mls/hr IV.SIG Q6H PRN PRN Reason: FEVER 101F OR GREATER Last Infusion: 08/19/18 00:30 Dose: Infused Fentanyl (Fentanyl 10 Mcg/Ml Premix Drip) 2,500 mcg in 250 mls @ 5 mls/hr IV.SIG TITRATE PRN; Protocol PRN Reason: Per Protocol Last Admin: 08/22/18 18:22 Dose: 80 mcg/hr, 8 mls/hr Heparin Sodium/Dextrose (Heparin/D5w 25,000 U/250 Ml) 25,000 unit in 250 mls @ 0 mls/hr IV.CONT TITRATE PRN; Protocol PRN Reason: Per Protocol Last Titration: 08/22/18 18:23 Dose: 700 units/hr, 7 mls/hr Levofloxacin/Dextrose (Levaquin 750 Mg Premix Inj) 150 mls @ 100 mls/hr IV.SIG Q24H [facility] Last Infusion: 08/22/18 17:34 Dose: 100 mls/hr Lactated Ringer's (Lr 1000 Ml Inj) 1,000 mls @ 100 mls/hr IV.CONT .Q10H [facility] Last Admin: 08/22/18 22:19 Dose: 100 mls/hr Cefepime HCl 2,000 mg/ Sodium (Chloride) 100 mls @ 200 mls/hr IV.SIG Q8H [facility] Last Infusion: 08/22/18 17:20 Dose: Infused Isosorbide Mononitrate (Imdur) 30 mg PO DAILY [facility] Last Admin: 08/19/18 11:03 Dose: Not Given Lactulose (Lactulose Liq) 30 ml PO DAILY PRN PRN Reason: SEVERE CONSITIPATION Magnesium Oxide (Mag-Ox) 400 mg PO HS [facility] Last Admin: 08/22/18 22:16 Dose: 400 mg Magnesium Oxide (Mag-Ox) 800 mg PO UNSCH PRN PRN Reason: For Magnesium 1.2 - 1.6 mg/dL Metoclopramide HCl (Reglan Inj) 10 mg IV.PUSH Q8HR [facility]; Protocol Last Admin: 08/22/18 22:17 Dose: 10 mg Metoprolol Tartrate (Lopressor Inj) 2.5 mg IV.PUSH Q6H [facility] Last Admin: 08/22/18 22:18 Dose: 2.5 mg Miscellaneous Medication () 1 each OROPHARYNG 0000,0400,1200,1600 [facility] Last Admin: 08/22/18 16:57 Dose: 1 each Pharmacy Profile Note (Vancomycin Consult Pharmacy) 1 each OTHER UNSCH PRN PRN Reason: Pharmacy to dose Potassium Bicarb/Potassium Chloride (K-Lyte Cl Eff) 50 meq PO UNSCH PRN PRN Reason: For Potassium 3.3 - 3.5 mEq/L Potassium Phosphate (K-Phos Original) 2,000 mg PO Q4H PRN PRN Reason: Phosphorus Less Than 2.5 mg/dL Potassium Phosphate (K-Phos Original) 2,000 mg PO UNSCH PRN PRN Reason: SEE LABEL COMMENTS Ropinirole HCl (Requip) 3 mg PO HS [facility] Last Admin: 08/22/18 22:17 Dose: 3 mg Sennosides (Senokot) 17.2 mg PO Q12H PRN PRN Reason: Moderate Constipation Sodium Chloride (Ns Flush) 2 ml IV.FLUSH BID [facility] Last Admin: 08/22/18 22:18 Dose: 2 ml Sodium Chloride (Ns Flush) 2 ml IV.FLUSH PRN PRN PRN Reason: FLUSH AFTER USING IV ACCESS Allergies Allergy/AdvReac Type Severity Reaction Status Date / Time codeine Allergy Severe Chest Pain Verified 08/13/18 06:44 diatrizoate meglumine Allergy Severe Hives Verified 08/13/18 06:44 gadobenic acid Allergy Severe Hives Verified 08/13/18 06:44 gadodiamide Allergy Severe Hives Verified 08/13/18 06:44 gadoteridol Allergy Severe Hives Verified 08/13/18 06:44 iodixanol Allergy Severe Hives Verified 08/13/18 06:44 iohexol Allergy Severe Hives Verified 08/13/18 06:44 morphine Allergy Severe Psychosis Verified 08/13/18 06:44 Home Medications Medication Instructions Recorded Confirmed Type alprazolam 0.5 mg PO BID PRN 07/31/18 08/13/18 History aspirin [Aspir-81] 81 mg PO DAILY 07/31/18 08/13/18 History atorvastatin 40 mg PO DAILY 07/31/18 08/13/18 History clopidogrel [Plavix] 75 mg PO DAILY 07/31/18 08/13/18 History gabapentin [Neurontin] 300 mg PO BID 07/31/18 08/13/18 History isosorbide mononitrate 30 mg PO DAILY 07/31/18 08/13/18 History losartan 50 mg PO DAILY 07/31/18 08/13/18 History metoprolol tartrate 25 mg PO BID 07/31/18 08/13/18 History potassium chloride 20 meq PO DAILY 07/31/18 08/13/18 History ranitidine HCl 150 mg PO DAILY 07/31/18 08/13/18 History ropinirole [Requip] 3 mg PO HS 07/31/18 08/13/18 History cholestyramine-aspartame 4 g PO BID 08/06/18 08/13/18 History [Prevalite] hydrochlorothiazide 12.5 mg PO DAILY 08/06/18 08/13/18 History niacin 1,000 mg PO DAILY 08/06/18 08/13/18 History vit C-vit [id number]-om-3 1 cap PO DAILY 08/06/18 08/13/18 History [Ocuvite] magnesium oxide 500 mg PO HS 08/13/18 08/20/18 History Physical Exam Vital signs: Vital Signs 08/22/18 00:57 08/22/18 03:00 08/22/18 04:20 Temperature 99.6 F Pulse Rate 79 81 88 Respiratory Rate 14 14 14 Blood Pressure 83/45 L Pulse Oximetry 99 98 99 08/22/18 07:00 08/22/18 07:34 08/22/18 09:05 Temperature 99.7 F H Pulse Rate 90 92 H Respiratory Rate 14 16 22 Blood Pressure 87/39 L Pulse Oximetry 97 95 08/22/18 09:35 08/22/18 11:00 08/22/18 15:00 Temperature 101 F H 100.9 F H Pulse Rate 89 75 Respiratory Rate 26 H 14 14 Blood Pressure 95/48 L Pulse Oximetry 89 L 98 99 08/22/18 17:30 08/22/18 20:00 08/22/18 20:43 Temperature 100.7 F H Pulse Rate 68 Respiratory Rate 14 14 14 Blood Pressure 104/48 L Pulse Oximetry 100 100 100 08/22/18 20:45 Temperature Pulse Rate 73 Respiratory Rate 14 Blood Pressure Pulse Oximetry Intake & Output 08/22/18 08/22/18 08/23/18 06:59 18:59 06:59 Intake Total 283 / 283 2460 / 2460 556 / 556 Output Total 510 / 510 495 / 495 Balance -227 / -227 1964 / 1965 556 / 556 Weight 62.5 kg Intake: IV 150 / 150 2241 / 2241 556 / 556 Heparin/D5W 25,000 U/250 mL 25, 247 / 247 000 unit In 250 ml @ Per Protocol IV.CONT TITRATE PRN Rx #:[id number] LR 1000 mL Inj 1,000 ML @ 100 484 / 484 516 / 516 mls/hr IV.CONT .Q10H [facility] Rx#: [id number] Diprivan 1000 mg/100 ml Inj 1, 160 / 160 40 / 40 000 mg In 100 ml @ 5 MCG/KG/MIN 1.845 mls/hr IV.CONT TITRATE PRN Rx#:[id number] Buminate 5% Inj 500 ML @ As 500 / 500 Directed IV.SIG ONCE ONE Rx#: [id number] Alburx 5% Inj 500 ML @ 250 mls/ 500 / 500 hr IV.SIG STAT STA Rx#:[id number] Maxipime Inj 2,000 MG In NS Inj 100 / 100 100 ML @ 200 mls/hr IV.SIG Q8H [facility] Rx#:[id number] Levaquin 750 mg Premix Inj 150 150 / 150 ML @ 100 mls/hr IV.SIG Q24H [facility] Rx#:[id number] fentaNYL 10 mcg/mL Premix Drip 250 / 250 2,500 mcg In 250 ml @ 50 MCG/HR 5 mls/hr IV.SIG TITRATE PRN Rx #:[id number] Tube Feeding 133 / 133 219 / 219 Output: Urine Amount (Catheter) 300 / 300 185 / 185 Indwelling Temp Sensing 300 / 300 185 / 185 Catheter Gastric Drainage 200 / 200 300 / 300 Right Nare Nasogastric Tube 200 / 200 300 / 300 Chest Tube Drainage #1 Right Pleural Narrative: GENERAL: Intubated and sedated SKIN: Warm and dry. HEAD: Atraumatic. Normocephalic. EYES: Pupils equal and round. No scleral icterus. No injection or drainage. ENT: No nasal bleeding or discharge. Mucous membranes pink and moist. NECK: Trachea midline. No JVD. CARDIOVASCULAR: Regular rate and rhythm. RESPIRATORY: No accessory muscle use. Decreased breath sounds GASTROINTESTINAL: Abdomen soft, non-tender, nondistended. Hepatic and splenic margins not palpable. MUSCULOSKELETAL: Right lower extremity with pulse. Left lower extremity, mottled, ankle and down cool - Urinary Catheter Management Indwelling Temp Sensing Catheter Cath placed during this visit: yes Reason for continuing: Hourly intake/output Insertion date: 08/13/18 Insertion time: 08:08 Results 08/22/18 04:25 08/22/18 04:25 Coagulation 08/21/18 08/21/18 08/22/18 Range/Units 03:45 09:50 04:25 APTT 60.2 H D 66.5 H 52.1 H D (23.4-31.7) sec CBC 08/21/18 08/22/18 Range/Units 03:45 04:25 WBC 14.5 H 15.7 H (4.0-11.0) th/mm3 RBC 2.90 L 2.69 L (4.00-5.30) mil/mm3 Hgb 9.0 L 8.5 L (11.6-15.3) gm/dL Hct 26.5 L 25.2 L (35.0-46.0) % Plt Count 145 L 198 D (150-450) th/mm3 Comprehensive Metabolic Panel 08/21/18 08/22/18 Range/Units 03:45 04:25 Sodium 145 145 (136-145) meq/L Potassium 4.0 3.9 (3.5-5.1) meq/L Chloride 112 H 112 H (98-107) meq/L Carbon Dioxide 23.5 24.4 (21.0-32.0) meq/L BUN 21 H 28 H (7-18) mg/dL Creatinine 0.89 1.35 H (0.50-1.00) mg/dL Calcium 7.2 L* 7.3 L* (8.5-10.1) mg/dL Albumin 1.4 L 1.3 L (3.4-5.0) g/dL Intake and Output 08/22/18 08/22/18 08/23/18 14:59 22:59 06:59 Intake Total 3016 / 3016 Output Total 495 / 495 Balance 2521 / 2521 Intake: IV 2797 / 2797 Heparin/D5W 25,000 U/250 mL 25, 247 / 247 000 unit In 250 ml @ Per Protocol IV.CONT TITRATE PRN Rx #:[id number] LR 1000 mL Inj 1,000 ML @ 100 1000 / 1000 mls/hr IV.CONT .Q10H [facility] Rx#: [id number] Diprivan 1000 mg/100 ml Inj 1, 200 / 200 000 mg In 100 ml @ 5 MCG/KG/MIN 1.845 mls/hr IV.CONT TITRATE PRN Rx#:[id number] Buminate 5% Inj 500 ML @ As 500 / 500 Directed IV.SIG ONCE ONE Rx#: [id number] Alburx 5% Inj 500 ML @ 250 mls/ 500 / 500 hr IV.SIG STAT STA Rx#:[id number] Maxipime Inj 2,000 MG In NS Inj 100 / 100 100 ML @ 200 mls/hr IV.SIG Q8H [facility] Rx#:[id number] fentaNYL 10 mcg/mL Premix Drip 250 / 250 2,500 mcg In 250 ml @ 50 MCG/HR 5 mls/hr IV.SIG TITRATE PRN Rx #:[id number] Tube Feeding 219 / 219 Output: Urine Amount (Catheter) 185 / 185 Indwelling Temp Sensing 185 / 185 Catheter Gastric Drainage 300 / 300 Right Nare Nasogastric Tube 300 / 300 Chest Tube Drainage 10 #1 Right Pleural - Imaging and Cardiology Imaging: Impressions Chest X-Ray 08/21/18 11:06 CONCLUSION: NG tube and feeding tube in the distal stomach. ET tube in a low position 2.4 cm from the vidhya. Elevation of the right hemidiaphragm. Diffuse increased interstitial prominence likely related to edema. Increased density at the bases representing some degree of accompanying atelectasis, consolidation or effusion. The possibility of effusion is especially prominent on the left. Chest X-Ray 08/21/18 11:39 CONCLUSION: NG tube in the distal stomach and feeding tube in the third portion the duodenum. Abdomen/Bladder Ultrasound 08/22/18 00:00 CONCLUSION: 1. No hydronephrosis is identified. 2. Left kidney is smaller than the right and demonstrates increased echogenicity suggesting medical renal disease. Given the appearance on prior CTA , a renovascular cause is suspected for these changes. 3. There is a small volume of free fluid within the abdomen and pelvis and pleural fluid is visualized on the left. Assessment and Plan - Assessment (1) Type 2 myocardial infarction Code(s): I21.A1 - Myocardial infarction type 2 Status: Acute Plan: Hemodynamically stable. 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
[2018-08-23] MEDS: Oral Hygiene Kit OROPHARYNG SCH ×5 (00:43→23:27)
[2018-08-23 05:21] LABS: Mean Corpuscular HGB Conc 33.5 % (32.0-36.0); Mean Corpuscular Hemoglobin 31.7 pg (27.0-34.0); Mean Corpuscular Volume 94.6 fL (80.0-100.0); Mean Platelet Volume 10.2 fL (7.0-11.0); Platelet Count 183 th/mm3 (150-450); Red Blood Count 2.15 mil/mm3 (4.00-5.30); Red Cell Distribution Width 16.8 % (11.6-17.2)
[2018-08-23 05:32] LABS: Hematocrit 20.3 % (35.0-46.0); Hemoglobin 6.8 gm/dL (11.6-15.3)
[2018-08-23 05:45] LABS: Calcium 7.3 mg/dL (8.5-10.1); Carbon Dioxide 23.2 meq/L (21.0-32.0); Magnesium 2.2 mg/dL (1.5-2.5); Phosphorus 3.5 mg/dL (2.5-4.9); Potassium 3.7 meq/L (3.5-5.1)
[2018-08-23 05:51] LABS: Albumin 1.8 g/dL (3.4-5.0); Calcium-Albumin Corrected 9.1 mg/dL (8.5-10.1)
[2018-08-23] MEDS: Metoprolol Inj 5 MG/5 ML Vial IV.PUSH SCH ×4 (05:53→23:27)
[2018-08-23] MEDS: Artificial Tears Opth Drops 15 ML Bottle EACH EYE SCH ×3 (05:54→21:53)
--- NOTE | 2018-08-23 08:06 | P.PNCC ---
Subjective Subjective Remarks/Hospital Course: Hospital Course: Patient is a 77-year-old female who was admitted to Dr. Eugene's service for mesenteric ischemia today. Her past medical history significant for coronary artery disease status post PCI/stent, history of renal artery stenosis, GERD, PAD, history of multiple vascular surgeries, history of small bowel obstruction, restless leg syndrome. Patient underwent aorto-hepatic and aorto-SMA bypass in OR. EBL was 400 ml, received 3.6 L of crystalloids in the OR , urine output was adequate. Postop patient was moved to the CVICU critical care medicine was consulted for postop management. Patient is hypotensive at the time of my evaluation and had been started on Diego-Synephrine by Dr. Eugene. I haave ordered further fluid resuscitation with additional 2 L of crystalloids. A stat ABG was done at the bedside which showed hemoglobin 6.6. A CBC was sent and I ordered 2 units of PRBC stat. CBC came back with hemoglobin of 6.4 platelet count 139. Chemistry showed potassium of 3.4 calcium uncorrected 6.4. Electrolyte replacement protocol and calcium replacement have been ordered. Lactic acid also mildly elevated at 2.2. Will follow serial lactic acid and follow urine output closely. If patient becomes hemodynamically more stable will proceed with weaning trial for extubation. Urine output had been adequate postop approximately 40 mL/h. Bilateral DP pulses are Dopplerable Subjective: 08/14: significant fluid requirement. trop slightly elevated at 0.06. initial scvo2 43% but improved after fluid to 68%. pain adequately controlled. uop marginal at 20cc/hr. 08/15: trop slightly uptrended. now appears volume overloaded with new and worsening oxygen requirement. ABG with mixed acidosis. responded well to lasix with adequate diuresis. placed on BiPAP. somewhat agitated requiring low-dose Precedex. lactate 0.8, scvo2 71%. 08/16: slightly tachycardic this morning. some diuresis yesterday and back to nc o2, but remains volume overloaded. denies pain. somewhat intermittently confused, but oriented on my evaluation. trop still uptrending, but plateauing. uop adequate. 08/17: went into afib RVR overnight. placed on diltiazem drip. this morning, more rate controlled. trop downtrending. adequate diuresis, but remains volume overloaded. aggressively replaced electrolytes this morning. 08/18: overnight events reviewed and discussed with Dr. Eugene and Dr. Sabillon. intubated after respiratory arrest. bronch with mucous plugging. new right pleural effusion on chest CT (multiple rib fractures after CPR). placed 28 Fr chest tube (see separate procedure note for details) with ~1600cc blood (no active bleeding). placed arterial line. transfused 3 units prbc. trending H&H. critically ill this morning. oliguric. 08/19: agitation persists. started scheduled valium as well as fentanyl drip for pain control. still with significant thick tenacious secretions: too many secretions for safe weaning of mechanical ventilation. also spiked fevers overnight, ennis cultured and zosyn started. chest tube with significantly less output, and more serosanguinous. 08/20: cold leg this AM with decreased motor function. taken back to OR today for re-vascularization. 08/21: perfusion to the LE still questionable. decreasing NGT output, but still 100cc/12h. will place post-pyloric feeding tube and start trickle feeds. likely needs another 24h before we are ready for SBTs. sputum growing serratia and pseudomonas: zosyn not adequate given MICs, will need to switch to Levaquin. would plan on 7 day course. 08/22: Cr increased significantly overnight, but adequate uop. may be delayed ATN from recent worsening hemodynamics. agree with starting gentle ivf. poor perfusion to the LE persists, but we have optimized everything we can for now. no reflux of tube feeds in OG tube. agree with increasing to 20cc/hr. also very tachycardic this morning- will restart very low-dose beta blockade. trial of SBT today with early failure: very tachypneic in distress. Also spiking fevers and wbc elevated. oliguric. 08/23: Cr continues to rise. hgb dropped to 6.8 today- receiving 2 units prbc. remains oliguric. urine electrolytes consistent with severe pre-renal azotemia, urine sodium < 20. Objective Vital Signs / I&O: Vital Signs 08/22/18 09:05 08/22/18 09:35 08/22/18 11:00 Temperature 38.3 C H Pulse Rate 89 Respiratory Rate 22 26 H 14 Blood Pressure Pulse Oximetry 95 89 L 98 08/22/18 15:00 08/22/18 17:30 08/22/18 20:00 Temperature 38.3 C H 38.2 C H Pulse Rate 75 68 Respiratory Rate 14 14 14 Blood Pressure 95/48 L 104/48 L Pulse Oximetry 99 100 100 08/22/18 20:43 08/22/18 20:45 08/22/18 23:50 Temperature Pulse Rate 73 Respiratory Rate 14 14 14 Blood Pressure Pulse Oximetry 100 95 08/23/18 00:00 08/23/18 03:28 08/23/18 03:30 Temperature 37.1 C Pulse Rate 70 76 Respiratory Rate 14 14 14 Blood Pressure 99/42 L Pulse Oximetry 98 100 08/23/18 04:00 08/23/18 07:40 Temperature 37.7 C H Pulse Rate 78 Respiratory Rate 14 14 Blood Pressure 114/49 L Pulse Oximetry 99 99 Intake & Output 08/22/18 08/23/18 08/23/18 18:59 06:59 18:59 Intake Total 2460 / 2460 869 / 869 Output Total 495 / 495 890 / 890 Balance 1964 / 1964 - / Weight 64 kg Intake: IV 2241 / 2241 656 / 656 Heparin/D5W 25,000 U/250 mL 25, 247 / 247 000 unit In 250 ml @ Per Protocol IV.CONT TITRATE PRN Rx #:[id number] LR 1000 mL Inj 1,000 ML @ 100 484 / 484 516 / 516 mls/hr IV.CONT .Q10H LIVAN Rx#: [id number] Diprivan 1000 mg/100 ml Inj 1, 160 / 160 40 / 40 000 mg In 100 ml @ 5 MCG/KG/MIN 1.845 mls/hr IV.CONT TITRATE PRN Rx#:[id number] Buminate 5% Inj 500 ML @ As 500 / 500 Directed IV.SIG ONCE ONE Rx#: [id number] Alburx 5% Inj 500 ML @ 250 mls/ 500 / 500 hr IV.SIG STAT STA Rx#:[id number] Maxipime Inj 2,000 MG In NS Inj 100 / 100 100 / 100 100 ML @ 200 mls/hr IV.SIG Q8H LIVAN Rx#:[id number] fentaNYL 10 mcg/mL Premix Drip 250 / 250 2,500 mcg In 250 ml @ 50 MCG/HR 5 mls/hr IV.SIG TITRATE PRN Rx #:[id number] Oral 0 / 0 Tube Feeding 219 / 219 213 / 213 Output: Urine Amount (Catheter) 185 / 185 120 / 120 Indwelling Temp Sensing 185 / 185 120 / 120 Catheter Gastric Drainage 300 / 300 700 / 700 Right Nare Nasogastric Tube 300 / 300 700 / 700 Chest Tube Drainage 70 / 70 #1 Right Pleural 70 Other: Date of Last Bowel Movement 08/18/18 # Bowel Movements 0 Result Diagrams: 08/23/18 04:30 08/23/18 04:30 Objective Remarks: GENERAL: Elderly female, lying in bed, intubated, sedated, critically ill. HEENT: Normocephalic. Atraumatic. Pupils equal, round, reactive, conjugate. Mucous membranes are moist NECK: Trachea is midline. There is no JVD. CHEST: Equal chest rise. nc o2. unlabored. right chest tube in place to suction , minimal output. no air leak. CARDIOVASCULAR: normal rate, regular rhythm. sinus. ABDOMEN: Soft, appropriately tender to palpation, nondistended. No guarding. Midline dressing intact. small amount of serous drainage at the inferior aspect of the incision, no purulence noted. MUSCULOSKELETAL: LE dopplers present post-op. leg is mottled and cool, but warmer than pre-op. NEUROLOGICAL: RASS -2. withdraws to pain. awake and following commands, but CAM + and confused. Assessment and Plan - Assessment and Plan Plan: Assessment: 78yF originally with aortomesenteric bypass, course complicated by respiratory failure, LE ischemia, HÉCTOR, post-operative ileus, severe acute protein calorie malnutrition. remains critically ill. HÉCTOR is most likely secondary to ATN- will continue ivf to maintain euvolemia. check CXR to rule out left-sided effusion/hemothorax. remains critically ill and off-pathway. PLAN: NEURO: Acute alcohol withdraw syndrome Acute agitated delirium- improving Restless leg syndrome -propofol, fentanyl for goal RASS -2 - frequent neuro checks - valium 10mg po q8hr: decrease to 5mg po q8hr. RESP: Aspiration pneumonia Acute hypoxic and hypercarbic respiratory failure Acute right hemothorax post CPR Rib fractures secondary to CPR -prvc - wean fio2 for goal spo2 > 90% - daily SBTs. - right 28 Fr chest tube placed 08/18: 1600 mL sanguinous drainage. keep to suction. given anticoagulation and continued anemia, would prefer to keep chest tube until off mechanical ventilation or continued concern for hemothorax has resolved. -DuoNeb every 2 hours as needed CV: Type II NSTEMI secondary to demand ischemia- resolved Hypovolemia secondary to hemothorax CAD History of peripheral arterial disease, status post multiple vascular surgery Perioperative atrial fibrillation with rapid ventricular response- back in NSR Lactic acidosis- resolved - hold ASA, plavix given acute bleeding. - aggressive electrolyte replacement, target K > 4.5, Mg > 2.5 - cardiology consulted: Dr. Neil - continue lopressor 2.5mg iv q6h GI: Mesenteric ischemia status post open antegrade mesenteric bypass GERD History of small bowel obstruction acute protein calorie malnutrition- severe Postoperative ileus -Status post open antegrade mesenteric bypass, postop management per Dr. Eugene -keep NGT to LIWS -post-pyloric tube feeds at 20cc/hr. - prokinetic agents. - would not advance tube feeds today. high NGT output. - prealbumin 5 on 08/23. may require TPN, though risks at this point may outweigh benefits, particularly with ongoing infectious concerns. If additional infections are ruled out by 72h negative cultures and we are not on adequate nutrition, would recommend TPN. : History of renal artery stenosis Acute kidney injury- worsening. -Monitor renal function closely. Boateng catheter. - LR was increased yesterday to 100cc/hr. continue given high NGT output and concern over hypovolemia - check FlowTrack to ensure adequate cardiac output to the kidneys. - may be delayed ATN, watch carefully. adequate uop at present. - renal ultrasound without hydronephrosis - urine electrolytes 08/22 consistent with severe pre-renal, FENa < 1, urine sodium 11. - most likely due to ATN and hypovolemia from combination of anemia, blood loss , LE ischemia, and high NGT output from ileus. will hold off on nephrology consultation at this time. No emergent need for renal replacement therapy. trend daily Cr. ID: Aspiration pneumonia- pseudomonas and serratia - levaquin 750mg iv q24h. 7 day course (anticipated stop date 08/27) - re-cultured 08/22 for persistent fevers and uptrending wbc. currently NGTD. - keep levaquin due to ROBINA and sensitivities on PSAE and serratia. - vanc and cefepime added 08/22 for fevers, uptrending wbc. would de-escalate abx therapy if cultures are negative at 48h. - may require repeat imaging with CT chest/abd/pelvis if no improvement and continued infectious concerns. However, risk/benefit would be in favor of witholding iv contrast, which would make diagnostic utility of CT scan quite poor, particularly at evaluating for post-op intra-abdominal abscess/infection. will hold off for now. HEME: Anemia secondary to acute blood loss- requiring transfusion- worsening. -Monitor CBC, coags - trend H&H - 2 units prbc today 08/23 and recheck H&H - check CXR to eval for recollection of hemothorax. ENDO: -Electrolyte replacement per protocol PROPH: -heparin drip. OVERALL IMPRESSION: critically ill. multiorgan failure developing. worse today than yesterday. Critical care time: 44 minutes, exclusive of separately billable procedures.
--- NOTE | 2018-08-23 08:30 | P.PNVS ---
Subjective Post Op Day #: 10 Procedure: aorto-hepatic, aorto-SMA bypass Subjective/Hospital Course: POD#10 mesenteric bypass POD#3 L LE graft thrombectomy worsening renal function but bp ok higher NGT output but nonbilious Objective Neuro: sedated, SYDE except L foot Pulmonary: vent, good sats CXR pending Cardiac: no pressors bp good FEN/GI: TF at 20/h, no reflux into NGT NGT with elevated gastric output e'lytes ok K 3.7 : UOP marginal cr up to 1.8 looks pre-renal ID Antibiotics (date/duration): cefepime, vanc (dosed yest) and levaquin ID Cultures: pseudomonas and serratia from ETT Heme: Hct 20 plt 183 Vascular: distal PT signal but foot mottled Laboratory Results - last 24 hr 08/22/18 08/22/18 08/22/18 14:30 14:30 14:30 WBC RBC Hgb Hct MCV MCH MCHC RDW Plt Count MPV APTT Sodium Potassium Chloride Carbon Dioxide Anion Gap BUN Creatinine Estimated GFR Random Glucose Calcium Calcium Adj for Albumin Phosphorus Magnesium Albumin Prealbumin Urine Color Urine Clarity Urine pH Ur Specific [place] Urine Protein Urine Glucose (UA) Urine Ketones Urine Occult Blood Urine Nitrate Urine Bilirubin Urine Urobilinogen Ur Leukocyte Esterase Urine RBC Urine WBC Ur Squamous Epith Cells Amorphous Sediment Urine Bacteria Urine Mucus Micro UA Comment Ur Microscopic Review Urine Culture Comments Urine Eosinophils None seen Ur Random Creatinine 65 Ur Random Sodium 11 Cancelled 08/22/18 08/23/18 08/23/18 14:30 04:30 04:30 WBC 14.0 H RBC 2.15 L Hgb 6.8 L* Hct 20.3 L* MCV 94.6 MCH 31.7 MCHC 33.5 RDW 16.8 Plt Count 183 MPV 10.2 APTT Sodium 145 Potassium 3.7 Chloride 114 H Carbon Dioxide 23.2 Anion Gap 8 BUN 32 H Creatinine 1.88 H Estimated GFR 26 L Random Glucose 136 H Calcium 7.3 L* Calcium Adj for Albumin 9.1 Phosphorus 3.5 Magnesium 2.2 Albumin 1.8 L Prealbumin 5 L Urine Color Stefany Urine Clarity Cloudy H Urine pH 5.0 Ur Specific [place] 1.017 Urine Protein 100 H Urine Glucose (UA) Negative Urine Ketones Negative Urine Occult Blood Large H Urine Nitrate Negative Urine Bilirubin Negative Urine Urobilinogen Less than 2 Ur Leukocyte Esterase Negative Urine RBC 2 Urine WBC 8 H Ur Squamous Epith Cells 1 Amorphous Sediment Rare H Urine Bacteria Rare H Urine Mucus Few H Micro UA Comment Cath-culture ind Ur Microscopic Review Not Reportable Urine Culture Comments Cath-cult indicated Urine Eosinophils Ur Random Creatinine Ur Random Sodium 08/23/18 04:30 WBC RBC Hgb Hct MCV MCH MCHC RDW Plt Count MPV APTT 60.6 H Sodium Potassium Chloride Carbon Dioxide Anion Gap BUN Creatinine Estimated GFR Random Glucose Calcium Calcium Adj for Albumin Phosphorus Magnesium Albumin Prealbumin Urine Color Urine Clarity Urine pH Ur Specific [place] Urine Protein Urine Glucose (UA) Urine Ketones Urine Occult Blood Urine Nitrate Urine Bilirubin Urine Urobilinogen Ur Leukocyte Esterase Urine RBC Urine WBC Ur Squamous Epith Cells Amorphous Sediment Urine Bacteria Urine Mucus Micro UA Comment Ur Microscopic Review Urine Culture Comments Urine Eosinophils Ur Random Creatinine Ur Random Sodium Microbiology 08/19/18 04:30 Aerobic Blood Culture - Preliminary Blood - Line No growth in 3 days Anaerobic Blood Culture - Preliminary No growth in 3 days 08/19/18 02:52 Aerobic Blood Culture - Preliminary Blood - Peripheral No growth in 3 days Anaerobic Blood Culture - Preliminary No growth in 3 days Impressions Chest X-Ray 08/21/18 11:06 CONCLUSION: NG tube and feeding tube in the distal stomach. ET tube in a low position 2.4 cm from the vidhya. Elevation of the right hemidiaphragm. Diffuse increased interstitial prominence likely related to edema. Increased density at the bases representing some degree of accompanying atelectasis, consolidation or effusion. The possibility of effusion is especially prominent on the left. Chest X-Ray 08/21/18 11:39 CONCLUSION: NG tube in the distal stomach and feeding tube in the third portion the duodenum. Abdomen/Bladder Ultrasound 08/22/18 00:00 CONCLUSION: 1. No hydronephrosis is identified. 2. Left kidney is smaller than the right and demonstrates increased echogenicity suggesting medical renal disease. Given the appearance on prior CTA , a renovascular cause is suspected for these changes. 3. There is a small volume of free fluid within the abdomen and pelvis and pleural fluid is visualized on the left. Assessment and Plan - Assessment (1) Mesenteric ischemia due to arterial insufficiency Code(s): K55.059 - Acute (reversible) ischemia of intestine, part and extent unspecified Status: Acute - Plan POD#10 s/p antegrade mesenteric bypass POD#3 L LE graft revision 1. keep TF at 20 2. ASA and home antihypertensives 3. Leave CT in; check CXR this morning 4. Leave Boateng in for UOP monitoring 5. Tx 2U RPBC 6. continue wean vent 7. continue hep gtt 8. May ultimately need L BKA 9. May put VAC or ostomy bag on lower abdominal incision for skin care Discharge Planning: CVICU for several days I updated the fiance via telephone yesterday
--- NOTE | 2018-08-23 08:38 | XR ---
EXAM DATE: 08/23/2018 8:31 AM EST AGE/SEX: 78 years / Female INDICATIONS: Respiratory failure. CLINICAL DATA: This is the patient's subsequent encounter. Patient reports that signs and symptoms h ave been present for 1 week and indicates a pain score of Nonresponsive. MEDICAL/SURGICAL HISTORY: . Gastroesophageal reflux disease. Small bowel obstruction. Mesenteri c ischemia. . Cholecystectomy. Appendectomy. Coronary artery stent. Renal artery stent. Carotid ang ioplasty. Multiple vascular surgery. Aortic bypass COMPARISON: [facility] [place], CHEST 1V SINGLE AP, 08/20/2018. [facility] [place], CHEST 1V SINGLE AP, 08/19/2018. . FINDINGS: Rotated and underinflated AP view of the chest demonstrates a normal-sized cardiac silhouette with ca lcification of the aorta. Endotracheal tube distal tip measures approximately 1.5 cm from the vidhya. Nasogastric tube and feeding tube courses beyond the GE junction. There is a right chest tube in yifan ce and no pneumothorax is visualized. Multiple EKG lines overlie the patient. Lungs are underinflated with bibasilar pleural-parenchymal opacities and perihilar opacities. Bones and soft tissues demonst rate no acute abnormality. Reverse right shoulder arthroplasty hardware remains present. CONCLUSION: 1. Examination quality is less than optimal secondary to rotation and marked underinflation. There i s stable perihilar opacity and bibasilar pleural-parenchymal opacity. These likely represent pleural effusions with associated volume loss and/or airspace consolidation. Although nonspecific pulmonary e tobias could give this appearance. 2. Right chest tube remains present and no pneumothorax is visualized. 3. The endotracheal tube distal tip measures only 1.5 cm from the vidhya. Electronically signed by: Chava Lozano MD 08/23/2018 8:37 AM EST
[2018-08-23] MEDS: Chlorhexidine 0.12% Oral Kit 15 ML UDC OROPHARYNG SCH ×2 (09:33→21:51)
[2018-08-23] MEDS: Heparin Drip 25,000 UNIT/250 ML BAG IV.CONT PRN (09:37)
[2018-08-23] MEDS: Famotidine PF Inj 20 MG/2 ML Vial IV.PUSH SCH ×2 (09:40→21:52)
[2018-08-23] MEDS: diazePAM 5 MG Tablet PO SCH ×2 (09:40→16:53)
[2018-08-23] MEDS: Sodium Chloride 0.9% 2 ML Flush BID IV.FLUSH SCH ×2 (09:41→21:52)
[2018-08-23] MEDS: fentaNYL 10 mcg/mL Premix Drip 2,500 MCG/250 ML BAG IV.SIG PRN (17:07)
[2018-08-23] MEDS: Propofol 1000 mg/100 ml Inj 1,000 MG/100 ML BOTTLE IV.CONT PRN (17:08)
[2018-08-23 18:35] LABS: Hematocrit 28.2 % (35.0-46.0); Hemoglobin 9.6 gm/dL (11.6-15.3); Mean Corpuscular HGB Conc 34.1 % (32.0-36.0); Mean Corpuscular Hemoglobin 30.9 pg (27.0-34.0); Mean Corpuscular Volume 90.5 fL (80.0-100.0); Mean Platelet Volume 9.9 fL (7.0-11.0); Platelet Count 188 th/mm3 (150-450); Red Blood Count 3.12 mil/mm3 (4.00-5.30); Red Cell Distribution Width 16.8 % (11.6-17.2); White Blood Count 12.3 th/mm3 (4.0-11.0)
[2018-08-23] MEDS: Magnesium Oxide 400 MG Tablet PO SCH (21:51)
--- NOTE | 2018-08-23 22:18 | P.PNCA ---
Subjective Interval history: Blood pressure stable Drop in Hgb Urine output decreasing Left foot mottled, but not as cold Medications and Allergies Active Medications: Active Medications Al Hydroxide/Mg Hydroxide (Milk Of Magnmaye Liq) 30 ml PO Q12H PRN PRN Reason: Mild Constipation Albuterol (Duoneb Neb (Prn)) 1 ampul NEB Q2HR NEB PRN PRN Reason: SHORTNESS OF BREATH Last Admin: 08/23/18 03:27 Dose: 1 ampul Alprazolam (Xanax) 0.5 mg PO BID PRN PRN Reason: Anxiety Last Admin: 08/16/18 22:40 Dose: 0.5 mg Artificial Tears (Tears Naturale Opth Drops) 1 drop EACH EYE Q8H [facility] Last Admin: 08/23/18 21:53 Dose: 1 drop Aspirin (Aspirin Chew) 81 mg PO DAILY [facility] Last Admin: 08/19/18 11:03 Dose: Not Given Atorvastatin Calcium (Lipitor) 40 mg PO DAILY [facility] Last Admin: 08/23/18 09:39 Dose: 40 mg Bisacodyl (Dulcolax Supp) 10 mg RECTAL DAILY PRN PRN Reason: SEVERE CONSITIPATION Last Admin: 08/17/18 17:07 Dose: 10 mg Chlorhexidine Gluconate (Peridex 0.12% Oral Kit) 15 ml OROPHARYNG BID@0800, 2000 [facility] Last Admin: 08/23/18 21:51 Dose: 15 ml Clopidogrel Bisulfate (Plavix) 75 mg PO DAILY [facility] Last Admin: 08/18/18 12:53 Dose: Not Given Diazepam (Valium) 5 mg PO Q8H [facility] Last Admin: 08/23/18 16:53 Dose: 5 mg Enoxaparin Sodium (Lovenox Inj) 30 mg SQ Q24H [facility] Last Admin: 08/19/18 12:09 Dose: Not Given Famotidine (Pepcid Pf Inj) 10 mg IV.PUSH Q12HR [facility] Last Admin: 08/23/18 21:52 Dose: 10 mg Gabapentin (Neurontin) 300 mg PO BID [facility] Last Admin: 08/19/18 11:03 Dose: Not Given Hydromorphone HCl (Dilaudid Pf Inj) 0.2 mg IV.PUSH Q1H PRN PRN Reason: PAIN SCALE 1 TO 10 Last Admin: 08/14/18 16:51 Dose: 0.2 mg Magnesium Sulfate 4 gm/ Sodium (Chloride) 100 mls @ 50 mls/hr IV.SIG UNSCH PRN PRN Reason: For Magnesium 0.9 - 1.1 mg/dL Magnesium Sulfate 2 gm/ Sodium (Chloride) 100 mls @ 50 mls/hr IV.SIG UNSCH PRN PRN Reason: For Magnesium 1.2 - 1.6 mg/dL Potassium Chloride (Kcl 40 Meq Premix Inj) 40 meq in 100 mls @ 50 mls/hr IV.SIG Q2H PRN PRN Reason: For Potassium 2.8 - 3.2 mEq/L Potassium Chloride (Kcl 20 Meq Premix Inj) 20 meq in 100 mls @ 50 mls/hr IV.SIG Q2H PRN PRN Reason: For Potassium 3.3 - 3.5 mEq/L Last Admin: 08/17/18 09:15 Dose: 50 mls/hr Potassium Chloride (Kcl 40 Meq Premix Inj) 40 meq in 100 mls @ 25 mls/hr IV.SIG UNSCH PRN PRN Reason: For Potassium 3.3 - 3.5 mEq/L Last Infusion: 08/23/18 09:36 Dose: Infused Potassium Chloride (Kcl 20 Meq Premix Inj) 20 meq in 100 mls @ 50 mls/hr IV.SIG Q2H PRN PRN Reason: For Potassium 2.8 - 3.2 mEq/L Potassium Phosphate 30 mmol/ (Sodium Chloride) 260 mls @ 42 mls/hr IV.SIG UNSCH PRN PRN Reason: SEE LABEL COMMENTS Sodium Phosphate 30 mmol/ (Sodium Chloride) 260 mls @ 42 mls/hr IV.SIG UNSCH PRN PRN Reason: For Phosphorus < 2.5 mg/dL Dexmedetomidine HCl 200 mcg/ (Sodium Chloride) 50 mls @ 3.27 mls/hr IV.CONT TITRATE PRN; Protocol PRN Reason: Per Protocol Last Titration: 08/19/18 18:09 Dose: 0.6 mcg/kg/hr, 9.82 mls/hr Propofol (Diprivan 1000 Mg/100 Ml Inj) 1,000 mg in 100 mls @ 1.845 mls/hr IV.CONT TITRATE PRN; Protocol PRN Reason: Per Protocol Last Admin: 08/23/18 17:08 Dose: 15 mcg/kg/min, 5.54 mls/hr Acetaminophen (Ofirmev Inj) 1,000 mg in 100 mls @ 400 mls/hr IV.SIG Q6H PRN PRN Reason: FEVER 101F OR GREATER Last Infusion: 08/19/18 00:30 Dose: Infused Fentanyl (Fentanyl 10 Mcg/Ml Premix Drip) 2,500 mcg in 250 mls @ 5 mls/hr IV.SIG TITRATE PRN; Protocol PRN Reason: Per Protocol Last Admin: 08/23/18 17:07 Dose: 80 mcg/hr, 8 mls/hr Heparin Sodium/Dextrose (Heparin/D5w 25,000 U/250 Ml) 25,000 unit in 250 mls @ 0 mls/hr IV.CONT TITRATE PRN; Protocol PRN Reason: Per Protocol Last Admin: 08/23/18 09:37 Dose: 700 units/hr, 7 mls/hr Levofloxacin/Dextrose (Levaquin 750 Mg Premix Inj) 150 mls @ 100 mls/hr IV.SIG Q24H [facility] Last Infusion: 08/23/18 17:30 Dose: Infused Lactated Ringer's (Lr 1000 Ml Inj) 1,000 mls @ 100 mls/hr IV.CONT .Q10H [facility] Last Admin: 08/23/18 16:59 Dose: 100 mls/hr Cefepime HCl 2,000 mg/ Sodium (Chloride) 100 mls @ 200 mls/hr IV.SIG Q8H [facility] Last Infusion: 08/23/18 17:29 Dose: Infused Isosorbide Mononitrate (Imdur) 30 mg PO DAILY [facility] Last Admin: 08/19/18 11:03 Dose: Not Given Lactulose (Lactulose Liq) 30 ml PO DAILY PRN PRN Reason: SEVERE CONSITIPATION Magnesium Oxide (Mag-Ox) 400 mg PO HS [facility] Last Admin: 08/23/18 21:51 Dose: 400 mg Magnesium Oxide (Mag-Ox) 800 mg PO UNSCH PRN PRN Reason: For Magnesium 1.2 - 1.6 mg/dL Metoclopramide HCl (Reglan Inj) 10 mg IV.PUSH Q8HR [facility]; Protocol Last Admin: 08/23/18 21:53 Dose: 10 mg Metoprolol Tartrate (Lopressor Inj) 2.5 mg IV.PUSH Q6H [facility] Last Admin: 08/23/18 16:52 Dose: 2.5 mg Miscellaneous Medication () 1 each OROPHARYNG 0000,0400,1200,1600 [facility] Last Admin: 08/23/18 16:28 Dose: 1 each Pharmacy Profile Note (Vancomycin Consult Pharmacy) 1 each OTHER UNSCH PRN PRN Reason: Pharmacy to dose Potassium Bicarb/Potassium Chloride (K-Lyte Cl Eff) 50 meq PO UNSCH PRN PRN Reason: For Potassium 3.3 - 3.5 mEq/L Potassium Phosphate (K-Phos Original) 2,000 mg PO Q4H PRN PRN Reason: Phosphorus Less Than 2.5 mg/dL Potassium Phosphate (K-Phos Original) 2,000 mg PO UNSCH PRN PRN Reason: SEE LABEL COMMENTS Ropinirole HCl (Requip) 3 mg PO HS [facility] Last Admin: 08/23/18 21:52 Dose: 3 mg Sennosides (Senokot) 17.2 mg PO Q12H PRN PRN Reason: Moderate Constipation Sodium Chloride (Ns Flush) 2 ml IV.FLUSH BID [facility] Last Admin: 08/23/18 21:52 Dose: 2 ml Sodium Chloride (Ns Flush) 2 ml IV.FLUSH PRN PRN PRN Reason: FLUSH AFTER USING IV ACCESS Allergies Allergy/AdvReac Type Severity Reaction Status Date / Time codeine Allergy Severe Chest Pain Verified 08/13/18 06:44 diatrizoate meglumine Allergy Severe Hives Verified 08/13/18 06:44 gadobenic acid Allergy Severe Hives Verified 08/13/18 06:44 gadodiamide Allergy Severe Hives Verified 08/13/18 06:44 gadoteridol Allergy Severe Hives Verified 08/13/18 06:44 iodixanol Allergy Severe Hives Verified 08/13/18 06:44 iohexol Allergy Severe Hives Verified 08/13/18 06:44 morphine Allergy Severe Psychosis Verified 08/13/18 06:44 Home Medications Medication Instructions Recorded Confirmed Type alprazolam 0.5 mg PO BID PRN 07/31/18 08/13/18 History aspirin [Aspir-81] 81 mg PO DAILY 07/31/18 08/13/18 History atorvastatin 40 mg PO DAILY 07/31/18 08/13/18 History clopidogrel [Plavix] 75 mg PO DAILY 07/31/18 08/13/18 History gabapentin [Neurontin] 300 mg PO BID 07/31/18 08/13/18 History isosorbide mononitrate 30 mg PO DAILY 07/31/18 08/13/18 History losartan 50 mg PO DAILY 07/31/18 08/13/18 History metoprolol tartrate 25 mg PO BID 07/31/18 08/13/18 History potassium chloride 20 meq PO DAILY 07/31/18 08/13/18 History ranitidine HCl 150 mg PO DAILY 07/31/18 08/13/18 History ropinirole [Requip] 3 mg PO HS 07/31/18 08/13/18 History cholestyramine-aspartame 4 g PO BID 08/06/18 08/13/18 History [Prevalite] hydrochlorothiazide 12.5 mg PO DAILY 08/06/18 08/13/18 History niacin 1,000 mg PO DAILY 08/06/18 08/13/18 History vit C-vit Q-tvmtik-wil-om-3 1 cap PO DAILY 08/06/18 08/13/18 History [Ocuvite] magnesium oxide 500 mg PO HS 08/13/18 08/20/18 History Physical Exam Vital signs: Vital Signs 08/22/18 23:50 08/23/18 00:00 08/23/18 03:28 Temperature 98.8 F Pulse Rate 70 76 Respiratory Rate 14 14 14 Blood Pressure 99/42 L Pulse Oximetry 95 98 08/23/18 03:30 08/23/18 04:00 08/23/18 07:00 Temperature 99.8 F H 99.0 F Pulse Rate 78 67 Respiratory Rate 14 14 14 Blood Pressure 114/49 L 145/82 H Pulse Oximetry 100 99 97 08/23/18 07:40 08/23/18 10:23 08/23/18 10:25 Temperature 98.6 F Pulse Rate 68 68 Respiratory Rate 14 14 Blood Pressure 148/53 H Pulse Oximetry 99 96 08/23/18 11:27 08/23/18 14:02 08/23/18 14:54 Temperature Pulse Rate 65 70 Respiratory Rate 14 Blood Pressure 153/50 H Pulse Oximetry 99 08/23/18 14:58 08/23/18 15:28 08/23/18 16:00 Temperature 99.1 F 99.5 F Pulse Rate 77 60 65 Respiratory Rate 14 14 Blood Pressure 159/77 H 137/42 L Pulse Oximetry 99 100 08/23/18 17:12 Temperature 99.8 F H Pulse Rate 64 Respiratory Rate 18 Blood Pressure Pulse Oximetry Intake & Output 08/23/18 08/23/18 08/24/18 06:59 18:59 06:59 Intake Total 869 / 869 3908 / 3908 Output Total 890 / 890 300 / 300 Balance -21 / -21 3608 / 3608 Weight 64 kg Intake: IV 656 / 656 2468 / 2468 Heparin/D5W 25,000 U/250 mL 25, 3 / 3 000 unit In 250 ml @ Per Protocol IV.CONT TITRATE PRN Rx #:[id number] LR 1000 mL Inj 1,000 ML @ 100 516 / 516 1000 / 1000 mls/hr IV.CONT .Q10H [facility] Rx#: [id number] Diprivan 1000 mg/100 ml Inj 1, 40 / 40 100 / 100 000 mg In 100 ml @ 5 MCG/KG/MIN 1.845 mls/hr IV.CONT TITRATE PRN Rx#:[id number] Maxipime Inj 2,000 MG In NS Inj 100 / 100 200 / 200 100 ML @ 200 mls/hr IV.SIG Q8H [facility] Rx#:[id number] Levaquin 750 mg Premix Inj 150 300 / 300 ML @ 100 mls/hr IV.SIG Q24H [facility] Rx#:[id number] KCl 40 mEq Premix Inj 40 meq In 100 / 100 100 ml @ 25 mls/hr IV.SIG UNSCH PRN Rx#:[id number] fentaNYL 10 mcg/mL Premix Drip 250 / 250 2,500 mcg In 250 ml @ 50 MCG/HR 5 mls/hr IV.SIG TITRATE PRN Rx #:[id number] Oral 0 / 0 Tube Feeding 213 / 213 240 / 240 Intake (Blood Product) Amt 400 / 400 Rbc As-3 Leukoreduced Unit 400 / 400 [id number] Rbc As-3 Leukoreduced Unit 0 / 0 [id number] Autotransfusion Amount 800 / 800 Output: Urine Amount (Catheter) 120 / 120 200 / 200 Indwelling Temp Sensing 120 / 120 200 / 200 Catheter Gastric Drainage 700 / 700 Right Nare Nasogastric Tube 700 / 700 Chest Tube Drainage 70 / 70 100 / 100 #1 Right Pleural 70 / 70 100 / 100 Other: Date of Last Bowel Movement 08/18/18 08/18/18 # Bowel Movements 0 Narrative: GENERAL: Intubated and sedated SKIN: Warm and dry. HEAD: Atraumatic. Normocephalic. EYES: Pupils equal and round. No scleral icterus. No injection or drainage. ENT: No nasal bleeding or discharge. Mucous membranes pink and moist. NECK: Trachea midline. No JVD. CARDIOVASCULAR: Regular rate and rhythm. RESPIRATORY: No accessory muscle use. Decreased breath sounds GASTROINTESTINAL: Abdomen soft, non-tender, nondistended. Hepatic and splenic margins not palpable. MUSCULOSKELETAL: Right lower extremity with pulse. Left lower extremity, mottled, ankle and down cool - Urinary Catheter Management Indwelling Temp Sensing Catheter Cath placed during this visit: yes Reason for continuing: Hourly intake/output Insertion date: 08/13/18 Insertion time: 08:08 Results 08/23/18 18:30 08/23/18 04:30 Coagulation 08/22/18 08/23/18 Range/Units 04:25 04:30 APTT 52.1 H D 60.6 H (23.4-31.7) sec CBC 08/22/18 08/23/18 08/23/18 Range/Units 04:25 04:30 18:30 WBC 15.7 H 14.0 H 12.3 H (4.0-11.0) th/mm3 RBC 2.69 L 2.15 L 3.12 L (4.00-5.30) mil/mm3 Hgb 8.5 L 6.8 L* 9.6 L D (11.6-15.3) gm/dL Hct 25.2 L 20.3 L* 28.2 L (35.0-46.0) % Plt Count 198 D 183 188 (150-450) th/mm3 Comprehensive Metabolic Panel 08/22/18 08/23/18 Range/Units 04:25 04:30 Sodium 145 145 (136-145) meq/L Potassium 3.9 3.7 (3.5-5.1) meq/L Chloride 112 H 114 H (98-107) meq/L Carbon Dioxide 24.4 23.2 (21.0-32.0) meq/L BUN 28 H 32 H (7-18) mg/dL Creatinine 1.35 H 1.88 H (0.50-1.00) mg/dL Calcium 7.3 L* 7.3 L* (8.5-10.1) mg/dL Albumin 1.3 L 1.8 L (3.4-5.0) g/dL Intake and Output 08/23/18 08/23/18 08/23/18 06:59 14:59 22:59 Intake Total 313 / 313 1867 / 1867 2039 / 2039 Output Total 890 / 890 300 / 300 Balance -577 / -577 1867 1740 / 1740 Intake: IV 100 / 100 1867 600 / 600 Heparin/D5W 25,000 U/250 mL 25, 3 / 3 000 unit In 250 ml @ Per Protocol IV.CONT TITRATE PRN Rx #:[id number] LR 1000 mL Inj 1,000 ML @ 100 1000 / 1000 mls/hr IV.CONT .Q10H [facility] Rx#: [id number] Diprivan 1000 mg/100 ml Inj 1, 100 / 100 000 mg In 100 ml @ 5 MCG/KG/MIN 1.845 mls/hr IV.CONT TITRATE PRN Rx#:[id number] Maxipime Inj 2,000 MG In NS Inj 100 / 100 100 / 100 100 / 100 100 ML @ 200 mls/hr IV.SIG Q8H [facility] Rx#:[id number] Levaquin 750 mg Premix Inj 150 150 / 150 150 / 150 ML @ 100 mls/hr IV.SIG Q24H [facility] Rx#:[id number] KCl 40 mEq Premix Inj 40 meq In 100 / 100 100 ml @ 25 mls/hr IV.SIG UNSCH PRN Rx#:[id number] fentaNYL 10 mcg/mL Premix Drip 250 / 250 2,500 mcg In 250 ml @ 50 MCG/HR 5 mls/hr IV.SIG TITRATE PRN Rx #:[id number] Oral 0 / 0 Tube Feeding 213 / 213 240 / 240 Intake (Blood Product) Amt 400 / 400 Rbc As-3 Leukoreduced Unit 400 / 400 [id number] Rbc As-3 Leukoreduced Unit 0 / 0 [id number] Autotransfusion Amount 800 / 800 Output: Urine Amount (Catheter) 120 / 120 200 / 200 Indwelling Temp Sensing 120 / 120 200 / 200 Catheter Gastric Drainage 700 / 700 Right Nare Nasogastric Tube 700 / 700 Chest Tube Drainage 70 / 70 100 / 100 #1 Right Pleural 70 / 70 100 / 100 Other: Date of Last Bowel Movement 08/18/18 08/18/18 # Bowel Movements 0 Weight 64 kg - Imaging and Cardiology Imaging: Impressions Abdomen/Bladder Ultrasound 08/22/18 00:00 CONCLUSION: 1. No hydronephrosis is identified. 2. Left kidney is smaller than the right and demonstrates increased echogenicity suggesting medical renal disease. Given the appearance on prior CTA , a renovascular cause is suspected for these changes. 3. There is a small volume of free fluid within the abdomen and pelvis and pleural fluid is visualized on the left. Chest X-Ray 08/23/18 00:00 CONCLUSION: 1. Examination quality is less than optimal secondary to rotation and marked underinflation. There is stable perihilar opacity and bibasilar pleural- parenchymal opacity. These likely represent pleural effusions with associated volume loss and/or airspace consolidation. Although nonspecific pulmonary edema could give this appearance. 2. Right chest tube remains present and no pneumothorax is visualized. 3. The endotracheal tube distal tip measures only 1.5 cm from the vidhya. Assessment and Plan - Assessment (1) Type 2 myocardial infarction Code(s): I21.A1 - Myocardial infarction type 2 Status: Acute (2) Afib Code(s): I48.91 - Unspecified atrial fibrillation Status: Acute - Plan 1) Mesenteric ischemia s/p aorto-hepatic bypass, aorto-SMA bypass 2) Elevated troponin Secondary to hypotension/anemia Previously had stress test showing no ischemia Troponin levels cleared 3) PEA arrest CPR with 1 round of epi Appears to be due to mucus plugging 4) Hemothorax Chest tube in place 5) AFib Currently controlled Not an bottom steep tender anticoagulation candidate at this time Will need to reassess towards end of the hospitalization 6) Con't ASA/Plavix/Statin 7) Left foot ischemia with motor dysfunction s/p thrombectomy and bypass Distal foot better, but still cool/mottled 8) Decreased urine output Pre-renal azotemia Con't supportive care May need eventual albumin/Lasix combination once stable
[2018-08-24] MEDS: diazePAM 5 MG Tablet PO SCH ×2 (00:03→09:45)
[2018-08-24 05:40] LABS: Calcium 7.5 mg/dL (8.5-10.1); Carbon Dioxide 21.5 meq/L (21.0-32.0); Magnesium 2.1 mg/dL (1.5-2.5); Potassium 3.8 meq/L (3.5-5.1)
[2018-08-24 05:41] LABS: Phosphorus 3.1 mg/dL (2.5-4.9)
[2018-08-24 05:42] LABS: Vancomycin,Random 17.1 Comment
[2018-08-24 05:51] LABS: Hematocrit 28.2 % (35.0-46.0); Hemoglobin 9.9 gm/dL (11.6-15.3); Mean Corpuscular HGB Conc 35.1 % (32.0-36.0); Mean Corpuscular Hemoglobin 31.4 pg (27.0-34.0); Mean Corpuscular Volume 89.5 fL (80.0-100.0); Mean Platelet Volume 10.4 fL (7.0-11.0); Platelet Count 212 th/mm3 (150-450); Red Blood Count 3.15 mil/mm3 (4.00-5.30); Red Cell Distribution Width 17.1 % (11.6-17.2); White Blood Count 13.1 th/mm3 (4.0-11.0)
[2018-08-24] MEDS: Metoprolol Inj 5 MG/5 ML Vial IV.PUSH SCH ×3 (05:55→17:21)
[2018-08-24] MEDS: Oral Hygiene Kit OROPHARYNG SCH ×3 (05:58→17:22)
[2018-08-24] MEDS: Artificial Tears Opth Drops 15 ML Bottle EACH EYE SCH ×3 (05:58→22:06)
--- NOTE | 2018-08-24 08:14 | P.PNVS ---
Subjective Post Op Day #: 11 Procedure: aorto-hepatic, aorto-SMA bypass Subjective/Hospital Course: POD#11 mesenteric bypass POD#4 L LE graft thrombectomy continues to have decline in renal function still on vent - failed CPAP trials L foot stable Objective Neuro: sedated, SYED except L foot Pulmonary: vent, good sats R CT in place CXR B lower lobe infiltrates vs effusion Cardiac: no pressors; SVV suggests not prerenal FEN/GI: anatoliy TF without reflux into stomach e'lytes ok UOP marginal (15cc/h) ID Antibiotics (date/duration): broad antibiotics WBC 13 ID Cultures: serratia and pseudomonas in ETT Heme: Hct 28 from 20 with 2U PRBC and stable over night (28 to 28) plt 212 on hep gtt Vascular: L PT distal calf signal but foot ischemic lower abdominal incision with serous drainage Laboratory Results - last 24 hr 08/23/18 08/23/18 08/23/18 09:30 13:24 18:30 WBC 12.3 H RBC 3.12 L Hgb 9.6 L D Hct 28.2 L MCV 90.5 D MCH 30.9 MCHC 34.1 RDW 16.8 Plt Count 188 MPV 9.9 APTT Sodium Potassium Chloride Carbon Dioxide Anion Gap BUN Creatinine Estimated GFR Random Glucose Calcium Phosphorus Magnesium Random Vancomycin Blood Type A Positive Blood Type Recheck Not needed Antibody Screen Negative MTS Gel Crossmatch See Detail 08/24/18 08/24/18 08/24/18 05:00 05:00 05:00 WBC 13.1 H RBC 3.15 L Hgb 9.9 L Hct 28.2 L MCV 89.5 MCH 31.4 MCHC 35.1 RDW 17.1 Plt Count 212 MPV 10.4 APTT 53.5 H Sodium 145 Potassium 3.8 Chloride 114 H Carbon Dioxide 21.5 Anion Gap 10 BUN 39 H Creatinine 2.31 H Estimated GFR 20 L Random Glucose 124 H Calcium 7.5 L Phosphorus 3.1 Magnesium 2.1 Random Vancomycin 17.1 Blood Type Blood Type Recheck Antibody Screen MTS Gel Crossmatch Microbiology 08/22/18 14:30 Urine Culture - Preliminary Catheterized Urine No growth in 24 hours 08/22/18 13:30 Aerobic Blood Culture - Preliminary Blood - Peripheral No growth in 1 day Anaerobic Blood Culture - Preliminary No growth in 1 day 08/22/18 13:30 Aerobic Blood Culture - Preliminary Blood - Peripheral No growth in 1 day Anaerobic Blood Culture - Preliminary No growth in 1 day 08/19/18 04:30 Aerobic Blood Culture - Preliminary Blood - Line No growth in 4 days Anaerobic Blood Culture - Preliminary No growth in 4 days 08/19/18 02:52 Aerobic Blood Culture - Preliminary Blood - Peripheral No growth in 4 days Anaerobic Blood Culture - Preliminary No growth in 4 days Impressions Abdomen/Bladder Ultrasound 08/22/18 00:00 CONCLUSION: 1. No hydronephrosis is identified. 2. Left kidney is smaller than the right and demonstrates increased echogenicity suggesting medical renal disease. Given the appearance on prior CTA , a renovascular cause is suspected for these changes. 3. There is a small volume of free fluid within the abdomen and pelvis and pleural fluid is visualized on the left. Chest X-Ray 08/23/18 00:00 CONCLUSION: 1. Examination quality is less than optimal secondary to rotation and marked underinflation. There is stable perihilar opacity and bibasilar pleural- parenchymal opacity. These likely represent pleural effusions with associated volume loss and/or airspace consolidation. Although nonspecific pulmonary edema could give this appearance. 2. Right chest tube remains present and no pneumothorax is visualized. 3. The endotracheal tube distal tip measures only 1.5 cm from the vidhya. Assessment and Plan - Assessment (1) Mesenteric ischemia due to arterial insufficiency Code(s): K55.059 - Acute (reversible) ischemia of intestine, part and extent unspecified Status: Acute - Plan POD#11 s/p antegrade mesenteric bypass POD#4 L LE graft revision 1. change TF to nepro 2. continue hep gtt 3. Continue gentle I>O 4. Leave CT in place 5. slow vent wean; may need trach if no progress by Monday 6. Likely to need L BKA; check CPK 7. May put VAC or ostomy bag on lower abdominal incision for skin care Discharge Planning: [facility] for several days I updated the fiance via telephone yesterday
[2018-08-24] MEDS: Famotidine PF Inj 20 MG/2 ML Vial IV.PUSH SCH ×2 (09:45→22:04)
[2018-08-24] MEDS: Chlorhexidine 0.12% Oral Kit 15 ML UDC OROPHARYNG SCH ×2 (09:46→22:07)
[2018-08-24] MEDS: Sodium Chloride 0.9% 2 ML Flush BID IV.FLUSH SCH ×2 (09:46→22:06)
[2018-08-24] MEDS ORDERED: Dextrose 50% in Water 50 ML Vial IV.PUSH PRN (09:51)
--- NOTE | 2018-08-24 09:51 | P.PNCC ---
Subjective Subjective Remarks/Hospital Course: Hospital Course: Patient is a 77-year-old female who was admitted to Dr. Eugene's service for mesenteric ischemia today. Her past medical history significant for coronary artery disease status post PCI/stent, history of renal artery stenosis, GERD, PAD, history of multiple vascular surgeries, history of small bowel obstruction, restless leg syndrome. Patient underwent aorto-hepatic and aorto-SMA bypass in OR. EBL was 400 ml, received 3.6 L of crystalloids in the OR , urine output was adequate. Postop patient was moved to the CVICU critical care medicine was consulted for postop management. Patient is hypotensive at the time of my evaluation and had been started on Diego-Synephrine by Dr. Eugene. I haave ordered further fluid resuscitation with additional 2 L of crystalloids. A stat ABG was done at the bedside which showed hemoglobin 6.6. A CBC was sent and I ordered 2 units of PRBC stat. CBC came back with hemoglobin of 6.4 platelet count 139. Chemistry showed potassium of 3.4 calcium uncorrected 6.4. Electrolyte replacement protocol and calcium replacement have been ordered. Lactic acid also mildly elevated at 2.2. Will follow serial lactic acid and follow urine output closely. If patient becomes hemodynamically more stable will proceed with weaning trial for extubation. Urine output had been adequate postop approximately 40 mL/h. Bilateral DP pulses are Dopplerable Subjective: 08/14: significant fluid requirement. trop slightly elevated at 0.06. initial scvo2 43% but improved after fluid to 68%. pain adequately controlled. uop marginal at 20cc/hr. 08/15: trop slightly uptrended. now appears volume overloaded with new and worsening oxygen requirement. ABG with mixed acidosis. responded well to lasix with adequate diuresis. placed on BiPAP. somewhat agitated requiring low-dose Precedex. lactate 0.8, scvo2 71%. 08/16: slightly tachycardic this morning. some diuresis yesterday and back to nc o2, but remains volume overloaded. denies pain. somewhat intermittently confused, but oriented on my evaluation. trop still uptrending, but plateauing. uop adequate. 08/17: went into afib RVR overnight. placed on diltiazem drip. this morning, more rate controlled. trop downtrending. adequate diuresis, but remains volume overloaded. aggressively replaced electrolytes this morning. 08/18: overnight events reviewed and discussed with Dr. Eugene and Dr. Sabillon. intubated after respiratory arrest. bronch with mucous plugging. new right pleural effusion on chest CT (multiple rib fractures after CPR). placed 28 Fr chest tube (see separate procedure note for details) with ~1600cc blood (no active bleeding). placed arterial line. transfused 3 units prbc. trending H&H. critically ill this morning. oliguric. 08/19: agitation persists. started scheduled valium as well as fentanyl drip for pain control. still with significant thick tenacious secretions: too many secretions for safe weaning of mechanical ventilation. also spiked fevers overnight, ennis cultured and zosyn started. chest tube with significantly less output, and more serosanguinous. 08/20: cold leg this AM with decreased motor function. taken back to OR today for re-vascularization. 08/21: perfusion to the LE still questionable. decreasing NGT output, but still 100cc/12h. will place post-pyloric feeding tube and start trickle feeds. likely needs another 24h before we are ready for SBTs. sputum growing serratia and pseudomonas: zosyn not adequate given MICs, will need to switch to Levaquin. would plan on 7 day course. 08/22: Cr increased significantly overnight, but adequate uop. may be delayed ATN from recent worsening hemodynamics. agree with starting gentle ivf. poor perfusion to the LE persists, but we have optimized everything we can for now. no reflux of tube feeds in OG tube. agree with increasing to 20cc/hr. also very tachycardic this morning- will restart very low-dose beta blockade. trial of SBT today with early failure: very tachypneic in distress. Also spiking fevers and wbc elevated. oliguric. 08/23: Cr continues to rise. hgb dropped to 6.8 today- receiving 2 units prbc. remains oliguric. urine electrolytes consistent with severe pre-renal azotemia, urine sodium < 20. 08/24 Patient remains sedated with Diprivan, Fentanyl and intubated. On Heparin drip, failed CPAP trials yesterday. s/p transfusion 2u PRBC. Hgb 9.9 from 6.8 Objective Vital Signs / I&O: Vital Signs 08/23/18 10:23 08/23/18 10:25 08/23/18 11:27 Temperature 98.6 F Pulse Rate 68 68 65 Respiratory Rate 14 Blood Pressure 148/53 H 153/50 H Pulse Oximetry 96 08/23/18 14:02 08/23/18 14:54 08/23/18 14:58 Temperature 99.1 F Pulse Rate 70 77 Respiratory Rate 14 14 Blood Pressure 159/77 H Pulse Oximetry 99 99 08/23/18 15:28 08/23/18 16:00 08/23/18 17:12 Temperature 99.5 F 99.8 F H Pulse Rate 60 65 64 Respiratory Rate 14 18 Blood Pressure 137/42 L Pulse Oximetry 100 08/23/18 20:00 08/23/18 20:50 08/24/18 00:00 Temperature 98.6 F 100.8 F H Pulse Rate 61 67 Respiratory Rate 14 14 14 Blood Pressure 130/63 114/57 L Pulse Oximetry 99 99 98 08/24/18 01:00 08/24/18 04:00 08/24/18 07:00 Temperature 100.3 F H 98.4 F Pulse Rate 65 62 Respiratory Rate 14 14 14 Blood Pressure 121/60 136/64 Pulse Oximetry 99 99 08/24/18 07:53 08/24/18 09:05 Temperature Pulse Rate Respiratory Rate 14 15 Blood Pressure Pulse Oximetry 100 99 Intake & Output 08/23/18 08/24/18 08/24/18 18:59 06:59 18:59 Intake Total 3908 / 3908 1557 / 1557 Output Total 300 / 300 1725 / 1725 Balance 3608 / 3608 -168 / -168 Weight 65 kg Intake: IV 2468 / 2468 1100 / 1100 Heparin/D5W 25,000 U/250 mL 25, 3 / 3 000 unit In 250 ml @ Per Protocol IV.CONT TITRATE PRN Rx #:[id number] LR 1000 mL Inj 1,000 ML @ 100 1000 / 1000 1000 / 1000 mls/hr IV.CONT .Q10H [facility] Rx#: [id number] Diprivan 1000 mg/100 ml Inj 1, 100 / 100 000 mg In 100 ml @ 5 MCG/KG/MIN 1.845 mls/hr IV.CONT TITRATE PRN Rx#:[id number] Maxipime Inj 2,000 MG In NS Inj 200 / 200 100 / 100 100 ML @ 200 mls/hr IV.SIG Q8H [facility] Rx#:[id number] Levaquin 750 mg Premix Inj 150 300 / 300 ML @ 100 mls/hr IV.SIG Q24H [facility] Rx#:[id number] KCl 40 mEq Premix Inj 40 meq In 100 / 100 100 ml @ 25 mls/hr IV.SIG UNSCH PRN Rx#:[id number] fentaNYL 10 mcg/mL Premix Drip 250 / 250 2,500 mcg In 250 ml @ 50 MCG/HR 5 mls/hr IV.SIG TITRATE PRN Rx #:[id number] Oral 0 / 0 Tube Feeding 240 / 240 457 / 457 Intake (Blood Product) Amt 400 / 400 Rbc As-3 Leukoreduced Unit 400 / 400 [id number] Rbc As-3 Leukoreduced Unit 0 / 0 [id number] Autotransfusion Amount 800 / 800 Output: Urine Amount (Catheter) 200 / 200 185 / 185 Indwelling Temp Sensing 200 / 200 185 / 185 Catheter Gastric Drainage 1400 / 1400 Right Nare Nasogastric Tube 1400 / 1400 Chest Tube Drainage 100 / 100 140 / 140 #1 Right Pleural 100 / 100 140 / 140 Other: Date of Last Bowel Movement 08/18/18 08/18/18 08/18/18 # Bowel Movements 1 Result Diagrams: 08/24/18 05:00 08/24/18 05:00 Other Results: Laboratory Results - last 12 hr 08/24/18 08/24/18 08/24/18 05:00 05:00 05:00 WBC 13.1 H RBC 3.15 L Hgb 9.9 L Hct 28.2 L MCV 89.5 MCH 31.4 MCHC 35.1 RDW 17.1 Plt Count 212 MPV 10.4 APTT 53.5 H Sodium 145 Potassium 3.8 Chloride 114 H Carbon Dioxide 21.5 Anion Gap 10 BUN 39 H Creatinine 2.31 H Estimated GFR 20 L Random Glucose 124 H Calcium 7.5 L Phosphorus 3.1 Magnesium 2.1 Random Vancomycin 17.1 Imaging: Chest CT 08/18/18 05:42 CONCLUSION: 1. Large right pleural effusion. 2. Small left-sided pleural effusion 3. Compressive atelectasis involving both lower lungs, right greater than left. Abdomen/Bladder Ultrasound 08/22/18 00:00 CONCLUSION: 1. No hydronephrosis is identified. 2. Left kidney is smaller than the right and demonstrates increased echogenicity suggesting medical renal disease. Given the appearance on prior CTA , a renovascular cause is suspected for these changes. 3. There is a small volume of free fluid within the abdomen and pelvis and pleural fluid is visualized on the left. Chest X-Ray 08/23/18 00:00 CONCLUSION: 1. Examination quality is less than optimal secondary to rotation and marked underinflation. There is stable perihilar opacity and bibasilar pleural- parenchymal opacity. These likely represent pleural effusions with associated volume loss and/or airspace consolidation. Although nonspecific pulmonary edema could give this appearance. 2. Right chest tube remains present and no pneumothorax is visualized. 3. The endotracheal tube distal tip measures only 1.5 cm from the vidhya. Objective Remarks: GENERAL: Elderly female, lying in bed, intubated, sedated, critically ill. HEENT: Normocephalic. Atraumatic. Pupils equal, round, reactive, conjugate. Mucous membranes are moist NECK: Trachea is midline. There is no JVD. CHEST: Equal chest rise, CT in place CARDIOVASCULAR: normal rate, regular rhythm. sinus. ABDOMEN: Soft, appropriately tender to palpation, nondistended. No guarding. MUSCULOSKELETAL: LE dopplers present post-op. leg is mottled and cool, but warmer than pre-op. NEUROLOGICAL: RASS -2. withdraws to pain. awake and following commands, Assessment and Plan - Assessment and Plan Plan: PLAN: NEURO: Acute alcohol withdraw syndrome Acute agitated delirium- improving Restless leg syndrome -On propofol, fentanyl for sedation. Daily sedation vacation - frequent neuro checks RESP: Aspiration pneumonia Acute hypoxic and hypercarbic respiratory failure Acute right hemothorax post CPR Rib fractures secondary to CPR -Continue with vent support keep sats >92% - Bronchodilators, ICU vent bundle. -SBT daily as anatoliy. Check ABG - right 28 Fr chest tube placed 08/18. keep to suction. Monitor CT drainage. CV: Type II NSTEMI secondary to demand ischemia- resolved Hypovolemia secondary to hemothorax CAD History of peripheral arterial disease, status post multiple vascular surgery Perioperative atrial fibrillation with rapid ventricular response- back in NSR Lactic acidosis- resolved - Monitor HR and BP keep MAP>65mmHg -On ASA, Plavix, Lipitor, Lopressor 2.5mg IV Q6 -Cards is following GI: Mesenteric ischemia status post open antegrade mesenteric bypass GERD History of small bowel obstruction acute protein calorie malnutrition- severe Postoperative ileus -Status post open antegrade mesenteric bypass, postop management per Dr. Eugene -Change tube feeds to Nepro - : History of renal artery stenosis Acute kidney injury- worsening. -Monitor renal function closely, I/O's, avoid nephrotoxins. Boateng catheter. - renal ultrasound without hydronephrosis - Cr: 2.31 from 1.88, on LR @100ml/hr -Renal eval. Diurese with Lasix 40mg IV x1 ID: Aspiration pneumonia- pseudomonas and serratia Continue abx ( Vanco, Cefepime, Levaquin) monitor for signs of infections ( fever, WBC) Check sputum cx, UA with cx if needed HEME: Anemia secondary to acute blood loss- requiring transfusion- worsening. -Monitor CBC, coags - 2 units prbc today 08/23 Endo SSI for glycemic control ENDO: -Electrolyte replacement per protocol PROPH: -heparin drip. -Pepcid CCt 30 mins
[2018-08-24] MEDS ORDERED: Vancomycin Inj 750 MG in Sodium Chlor 0.9% Inj 250 ML IV.SIG ONE (12:00)
[2018-08-24] MEDS: Insulin NovoLIN Regular Correctional Sugar Inj SQ SCH (12:12)
[2018-08-24 12:17] LABS: CKMB Percent 1.4 % (0.0-4.0); Creatine Kinase MB 43.3 ng/mL (0.5-3.6)
[2018-08-24 12:29] LABS: Amorphous Sediment,Urine Few /hpf; Bacteria,Urine Moderate /hpf; Bilirubin,Urine Negative (Negative); Clarity,Urine Cloudy (Clear); Color,Urine Amber (Yellw/Straw); Glucose,Urine (UA) Negative (Negative); Leukocyte Esterase,Urine Negative (Negative); Mucus,Urine Few /lpf (Occasional); Nitrite,Urine Negative (Negative); Specific Gravity,Urine 1.017 (1.002-1.035); Squamous Epithelial Cell,Urine <1 /hpf (0-5); Transitional Epi Cells,Urine 1 /hpf
--- NOTE | 2018-08-24 15:08 | P.CONNP ---
<Ana Steven - Last Filed: 08/24/18 14:45> History of Present Illness Service: Nephrology Consult date: 08/24/18 Requesting Physician: Christine Peralta Reason for Consult: Acute kidney injury Primary Care Provider: Dalton Ryan JR, DO Chief Complaint: s/p Aorto-hepatic bypass, Aorto-SMA bypass History of Present Illness: Patient is a 77-year-old female who was admitted to Dr. Eugene's service for mesenteric ischemia on 08/13. Her past medical history significant for coronary artery disease status post PCI/stent, history of renal artery stenosis, GERD, PAD, history of multiple vascular surgeries, history of small bowel obstruction, and restless leg syndrome. Patient underwent aorto-hepatic and aorto-SMA bypass in OR. Post op patient was hypotensive and was on pressors and fluid resuscitated. Patient is currently being treated for antibiotics for pneumonia. Nephrology is consulted for acute kidney injury with a creatinine of 2.31, Has been increasing since the . No previous history of chronic kidney disease baseline creatinine is less than 1. Initially thought possible prerenal azotemia with FeNa less than 1 however with fluid resuscitation creatinine has continued to rise. Patient urinary output has been decreasing with 385 ml/24 hours. Renal US with no hydronephrosis. Left kidney is smaller than the right and demonstrates increased echogenicity suggesting medical renal disease. Review of Systems unobtainable due to endotracheal tube PMFSH - History History Provided By: Patient - Medical History Medical History: Medical History (Last Reviewed 08/20/18 @ 07:51 by Haley Orourke) Coronary stent patent GERD (gastroesophageal reflux disease) H/O small bowel obstruction History of stent insertion of renal artery Restless leg syndrome - Surgical History Surgical History: Surgical History (Last Reviewed 08/20/18 @ 07:51 by Haley Orourke) H/O [id number]-[id number] bypass H/O heart artery stent H/O laminectomy History of angioplasty of peripheral vessel History of carotid angioplasty History of shoulder surgery Hx laparoscopic cholecystectomy Hx of appendectomy - Tobacco History Second Hand Smoke Exposure: No Tobacco Use In Past 30 Days: No Smoking Status: Former smoker Tobacco Type: Cigarettes - Alcohol History How Often Do You Have a Drink Containing Alcohol: Monthly or less - Substance Use History Substance History: No History of Abuse - Immunization History Tetanus Immunization: Unable to Assess Hx Influenza Vaccine This Season: Unable to Assess Medications and Allergies Allergies Allergy/AdvReac Type Severity Reaction Status Date / Time codeine Allergy Severe Chest Pain Verified 08/13/18 06:44 diatrizoate meglumine Allergy Severe Hives Verified 08/13/18 06:44 gadobenic acid Allergy Severe Hives Verified 08/13/18 06:44 gadodiamide Allergy Severe Hives Verified 08/13/18 06:44 gadoteridol Allergy Severe Hives Verified 08/13/18 06:44 iodixanol Allergy Severe Hives Verified 08/13/18 06:44 iohexol Allergy Severe Hives Verified 08/13/18 06:44 morphine Allergy Severe Psychosis Verified 08/13/18 06:44 Home Medications Medication Instructions Recorded Confirmed Type alprazolam 0.5 mg PO BID PRN 07/31/18 08/13/18 History aspirin [Aspir-81] 81 mg PO DAILY 07/31/18 08/13/18 History atorvastatin 40 mg PO DAILY 07/31/18 08/13/18 History clopidogrel [Plavix] 75 mg PO DAILY 07/31/18 08/13/18 History gabapentin [Neurontin] 300 mg PO BID 07/31/18 08/13/18 History isosorbide mononitrate 30 mg PO DAILY 07/31/18 08/13/18 History losartan 50 mg PO DAILY 07/31/18 08/13/18 History metoprolol tartrate 25 mg PO BID 07/31/18 08/13/18 History potassium chloride 20 meq PO DAILY 07/31/18 08/13/18 History ranitidine HCl 150 mg PO DAILY 07/31/18 08/13/18 History ropinirole [Requip] 3 mg PO HS 07/31/18 08/13/18 History cholestyramine-aspartame 4 g PO BID 08/06/18 08/13/18 History [Prevalite] hydrochlorothiazide 12.5 mg PO DAILY 08/06/18 08/13/18 History niacin 1,000 mg PO DAILY 08/06/18 08/13/18 History vit C-vit [id number] 1 cap PO DAILY 08/06/18 08/13/18 History [Ocuvite] magnesium oxide 500 mg PO HS 08/13/18 08/20/18 History Active Medications: Active Medications Al Hydroxide/Mg Hydroxide (Milk Of Magnmaye Liq) 30 ml PO Q12H PRN PRN Reason: Mild Constipation Albuterol (Duoneb Neb (Prn)) 1 ampul NEB Q2HR NEB PRN PRN Reason: SHORTNESS OF BREATH Last Admin: 08/23/18 03:27 Dose: 1 ampul Albuterol (Duoneb Neb (Sanjuana)) 1 ampul NEB Q4HR NEB [facility] Alprazolam (Xanax) 0.5 mg PO BID PRN PRN Reason: Anxiety Last Admin: 08/16/18 22:40 Dose: 0.5 mg Artificial Tears (Tears Naturale Opth Drops) 1 drop EACH EYE Q8H [facility] Last Admin: 08/24/18 14:17 Dose: 1 drop Aspirin (Aspirin Chew) 81 mg PO DAILY [facility] Last Admin: 08/19/18 11:03 Dose: Not Given Atorvastatin Calcium (Lipitor) 40 mg PO DAILY [facility] Last Admin: 08/24/18 09:45 Dose: 40 mg Bisacodyl (Dulcolax Supp) 10 mg RECTAL DAILY PRN PRN Reason: SEVERE CONSITIPATION Last Admin: 08/17/18 17:07 Dose: 10 mg Chlorhexidine Gluconate (Peridex 0.12% Oral Kit) 15 ml OROPHARYNG BID@0800, 2000 [facility] Last Admin: 08/24/18 09:46 Dose: 15 ml Clopidogrel Bisulfate (Plavix) 75 mg PO DAILY [facility] Last Admin: 08/18/18 12:53 Dose: Not Given Dextrose (D50w Vial) 50 ml IV.PUSH UNSCH PRN PRN Reason: PER HYPOGLYCEMIA PROTOCOL Enoxaparin Sodium (Lovenox Inj) 30 mg SQ Q24H [facility] Last Admin: 08/19/18 12:09 Dose: Not Given Famotidine (Pepcid Pf Inj) 10 mg IV.PUSH Q12HR [facility] Last Admin: 08/24/18 09:45 Dose: 10 mg Gabapentin (Neurontin) 300 mg PO BID [facility] Last Admin: 08/19/18 11:03 Dose: Not Given Glucagon (Glucagon Inj) 1 mg OTHER PRN PRN PRN Reason: for Hypoglycemia Protocol Hydromorphone HCl (Dilaudid Pf Inj) 0.2 mg IV.PUSH Q1H PRN PRN Reason: PAIN SCALE 1 TO 10 Last Admin: 08/14/18 16:51 Dose: 0.2 mg Magnesium Sulfate 4 gm/ Sodium (Chloride) 100 mls @ 50 mls/hr IV.SIG UNSCH PRN PRN Reason: For Magnesium 0.9 - 1.1 mg/dL Magnesium Sulfate 2 gm/ Sodium (Chloride) 100 mls @ 50 mls/hr IV.SIG UNSCH PRN PRN Reason: For Magnesium 1.2 - 1.6 mg/dL Potassium Chloride (Kcl 40 Meq Premix Inj) 40 meq in 100 mls @ 50 mls/hr IV.SIG Q2H PRN PRN Reason: For Potassium 2.8 - 3.2 mEq/L Potassium Chloride (Kcl 20 Meq Premix Inj) 20 meq in 100 mls @ 50 mls/hr IV.SIG Q2H PRN PRN Reason: For Potassium 3.3 - 3.5 mEq/L Last Admin: 08/17/18 09:15 Dose: 50 mls/hr Potassium Chloride (Kcl 40 Meq Premix Inj) 40 meq in 100 mls @ 25 mls/hr IV.SIG UNSCH PRN PRN Reason: For Potassium 3.3 - 3.5 mEq/L Last Infusion: 08/23/18 09:36 Dose: Infused Potassium Chloride (Kcl 20 Meq Premix Inj) 20 meq in 100 mls @ 50 mls/hr IV.SIG Q2H PRN PRN Reason: For Potassium 2.8 - 3.2 mEq/L Potassium Phosphate 30 mmol/ (Sodium Chloride) 260 mls @ 42 mls/hr IV.SIG UNSCH PRN PRN Reason: SEE LABEL COMMENTS Sodium Phosphate 30 mmol/ (Sodium Chloride) 260 mls @ 42 mls/hr IV.SIG UNSCH PRN PRN Reason: For Phosphorus < 2.5 mg/dL Dexmedetomidine HCl 200 mcg/ (Sodium Chloride) 50 mls @ 3.27 mls/hr IV.CONT TITRATE PRN; Protocol PRN Reason: Per Protocol Last Titration: 08/19/18 18:09 Dose: 0.6 mcg/kg/hr, 9.82 mls/hr Propofol (Diprivan 1000 Mg/100 Ml Inj) 1,000 mg in 100 mls @ 1.845 mls/hr IV.CONT TITRATE PRN; Protocol PRN Reason: Per Protocol Last Admin: 08/23/18 17:08 Dose: 15 mcg/kg/min, 5.54 mls/hr Acetaminophen (Ofirmev Inj) 1,000 mg in 100 mls @ 400 mls/hr IV.SIG Q6H PRN PRN Reason: FEVER 101F OR GREATER Last Infusion: 08/19/18 00:30 Dose: Infused Fentanyl (Fentanyl 10 Mcg/Ml Premix Drip) 2,500 mcg in 250 mls @ 5 mls/hr IV.SIG TITRATE PRN; Protocol PRN Reason: Per Protocol Last Admin: 08/23/18 17:07 Dose: 80 mcg/hr, 8 mls/hr Heparin Sodium/Dextrose (Heparin/D5w 25,000 U/250 Ml) 25,000 unit in 250 mls @ 0 mls/hr IV.CONT TITRATE PRN; Protocol PRN Reason: Per Protocol Last Admin: 08/23/18 09:37 Dose: 700 units/hr, 7 mls/hr Levofloxacin/Dextrose (Levaquin 750 Mg Premix Inj) 150 mls @ 100 mls/hr IV.SIG Q24H [facility] Last Infusion: 08/23/18 17:30 Dose: Infused Lactated Ringer's (Lr 1000 Ml Inj) 1,000 mls @ 100 mls/hr IV.CONT .Q10H [facility] Last Admin: 08/24/18 12:29 Dose: 100 mls/hr Cefepime HCl 2,000 mg/ Sodium (Chloride) 100 mls @ 200 mls/hr IV.SIG Q8H [facility] Last Infusion: 08/24/18 09:52 Dose: Infused Insulin Human Regular (Novolin R Correctional Sugar Inj) 0 units SQ Q6HR [facility]; Protocol Last Admin: 08/24/18 12:12 Dose: Not Given Isosorbide Mononitrate (Imdur) 30 mg PO DAILY [facility] Last Admin: 08/19/18 11:03 Dose: Not Given Lactulose (Lactulose Liq) 30 ml PO DAILY PRN PRN Reason: SEVERE CONSITIPATION Magnesium Oxide (Mag-Ox) 400 mg PO HS [facility] Last Admin: 08/23/18 21:51 Dose: 400 mg Magnesium Oxide (Mag-Ox) 800 mg PO UNSCH PRN PRN Reason: For Magnesium 1.2 - 1.6 mg/dL Metoclopramide HCl (Reglan Inj) 10 mg IV.PUSH Q8HR [facility]; Protocol Last Admin: 08/24/18 14:16 Dose: 10 mg Metoprolol Tartrate (Lopressor Inj) 2.5 mg IV.PUSH Q6H [facility] Last Admin: 08/24/18 12:15 Dose: 2.5 mg Miscellaneous Medication () 1 each OROPHARYNG 0000,0400,1200,1600 [facility] Last Admin: 08/24/18 12:31 Dose: 1 each Pharmacy Profile Note (Vancomycin Consult Pharmacy) 1 each OTHER UNSCH PRN PRN Reason: Pharmacy to dose Potassium Bicarb/Potassium Chloride (K-Lyte Cl Eff) 50 meq PO UNSCH PRN PRN Reason: For Potassium 3.3 - 3.5 mEq/L Potassium Phosphate (K-Phos Original) 2,000 mg PO Q4H PRN PRN Reason: Phosphorus Less Than 2.5 mg/dL Potassium Phosphate (K-Phos Original) 2,000 mg PO UNSCH PRN PRN Reason: SEE LABEL COMMENTS Ropinirole HCl (Requip) 3 mg PO HS [facility] Last Admin: 08/23/18 21:52 Dose: 3 mg Sennosides (Senokot) 17.2 mg PO Q12H PRN PRN Reason: Moderate Constipation Sodium Chloride (Ns Flush) 2 ml IV.FLUSH BID [facility] Last Admin: 08/24/18 09:46 Dose: 2 ml Sodium Chloride (Ns Flush) 2 ml IV.FLUSH PRN PRN PRN Reason: FLUSH AFTER USING IV ACCESS Exam Vital signs: Vital Signs 08/23/18 14:54 08/23/18 14:58 08/23/18 15:28 Temperature 99.1 F 99.5 F Pulse Rate 70 77 60 Respiratory Rate 14 14 Blood Pressure 159/77 H Pulse Oximetry 99 100 08/23/18 16:00 08/23/18 17:12 08/23/18 20:00 Temperature 99.8 F H 98.6 F Pulse Rate 65 64 61 Respiratory Rate 18 14 Blood Pressure 137/42 L 130/63 Pulse Oximetry 99 08/23/18 20:50 08/24/18 00:00 08/24/18 01:00 Temperature 100.8 F H Pulse Rate 67 Respiratory Rate 14 14 14 Blood Pressure 114/57 L Pulse Oximetry 99 98 99 08/24/18 04:00 08/24/18 07:00 08/24/18 07:53 Temperature 100.3 F H 98.4 F Pulse Rate 65 62 Respiratory Rate 14 14 14 Blood Pressure 121/60 136/64 Pulse Oximetry 99 100 08/24/18 09:05 08/24/18 11:00 08/24/18 11:12 Temperature 98.5 F Pulse Rate 77 Respiratory Rate 15 25 H 25 H Blood Pressure Pulse Oximetry 99 98 97 08/24/18 12:53 Temperature Pulse Rate Respiratory Rate 18 Blood Pressure Pulse Oximetry 95 Intake & Output 08/23/18 08/24/18 08/24/18 18:59 06:59 18:59 Intake Total 3908 / 3908 1557 / 1557 616 / 616 Output Total 300 / 300 1725 / 1725 Balance 3608 / 3608 -168 / -168 616 / 616 Weight 65 kg Intake: IV 2468 / 2468 1100 / 1100 616 / 616 Heparin/D5W 25,000 U/250 mL 25, 3 / 3 000 unit In 250 ml @ Per Protocol IV.CONT TITRATE PRN Rx #:[id number] LR 1000 mL Inj 1,000 ML @ 100 1000 / 1000 1000 / 1000 516 / 516 mls/hr IV.CONT .Q10H [facility] Rx#: [id number] Diprivan 1000 mg/100 ml Inj 1, 100 / 100 000 mg In 100 ml @ 5 MCG/KG/MIN 1.845 mls/hr IV.CONT TITRATE PRN Rx#:[id number] Maxipime Inj 2,000 MG In NS Inj 200 / 200 100 / 100 100 / 100 100 ML @ 200 mls/hr IV.SIG Q8H [facility] Rx#:[id number] Levaquin 750 mg Premix Inj 150 300 / 300 ML @ 100 mls/hr IV.SIG Q24H [facility] Rx#:[id number] KCl 40 mEq Premix Inj 40 meq In 100 / 100 100 ml @ 25 mls/hr IV.SIG UNSCH PRN Rx#:[id number] fentaNYL 10 mcg/mL Premix Drip 250 / 250 2,500 mcg In 250 ml @ 50 MCG/HR 5 mls/hr IV.SIG TITRATE PRN Rx #:[id number] Oral 0 / 0 Tube Feeding 240 / 240 457 / 457 Intake (Blood Product) Amt 400 / 400 Rbc As-3 Leukoreduced Unit 400 / 400 [id number] Rbc As-3 Leukoreduced Unit 0 / 0 [id number] Autotransfusion Amount 800 / 800 Output: Urine Amount (Catheter) 200 / 200 185 / 185 Indwelling Temp Sensing 200 / 200 185 / 185 Catheter Gastric Drainage 1400 / 1400 Right Nare Nasogastric Tube 1400 / 1400 Chest Tube Drainage 100 / 100 140 / 140 #1 Right Pleural 100 / 100 140 / 140 Other: Date of Last Bowel Movement 08/18/18 08/18/18 08/18/18 # Bowel Movements 1 Narrative: GENERAL: Intubated and sedated SKIN: Warm and dry. No rash present NECK: Supple, trachea midline. No JVD. CARDIOVASCULAR: Regular rate and rhythm without murmurs, gallops, or rubs. CT tube present RESPIRATORY: Breath sounds equal bilaterally. No accessory muscle use. Orally intubated. GASTROINTESTINAL: Abdomen soft, non-tender, nondistended. NG tube and dobhuf tube present. GENITOURINARY: Indwelling Boateng catheter. MUSCULOSKELETAL: No cyanosis. Generalized edema. Results - Lab Results 08/24/18 05:00 08/24/18 05:00 Most recent lab results ABG pH 7.37 (7.380-7.420) L 08/18/18 04:55 ABG pCO2 43 mmHg (38-42) H 08/18/18 04:55 ABG pO2 237 mmHG (61-120) H 08/18/18 04:55 ABG HCO3 24 mmol/L (22-26) 08/18/18 04:55 Calcium 7.5 mg/dL (8.5-10.1) L 08/24/18 05:00 Phosphorus 3.1 mg/dL (2.5-4.9) 08/24/18 05:00 Magnesium 2.1 mg/dL (1.5-2.5) 08/24/18 05:00 - Image Kidney/bladder ultrasound: report reviewed Assessment and Plan - Assessment (1) Acute kidney injury Code(s): N17.9 - Acute kidney failure, unspecified Status: Acute (2) Mesenteric ischemia Code(s): K55.9 - Vascular disorder of intestine, unspecified Status: Acute (3) Hemothorax Code(s): J94.2 - Hemothorax Status: Acute - Plan Acute kidney injury with a creatinine of 2.31, on day of consult. Has been increasing since the . HÉCTOR possible prerenal with FeNa less than 1 vs ATN from sepsis or hypotension. Patient CPK is also elevated with casts in urine. So possibly ATN from rhabdomyolysis. No previous history of chronic kidney disease baseline creatinine is less than 1. Renal US with no hydronephrosis. Left kidney is smaller than the right and demonstrates increased echogenicity suggesting medical renal disease. Patient urinary output has been decreasing with 385 ml/24 hours. Continue IVF. Maintain strict I+O has indwelling Boateng catheter. Has decreased urinary output, lasix has been given. On antibiotics renal dose as tolerated. Avoid nephrotoxins. Will monitor renal function closely. Labs in AM <Rosamaria Shaikh - Last Filed: 08/29/18 15:52> History of Present Illness Primary Care Provider: Dalton Ryan JR, DO [facility] - Medical History Medical History: Medical History (Last Reviewed 08/20/18 @ 07:51 by Haley Orourke) Coronary stent patent GERD (gastroesophageal reflux disease) H/O small bowel obstruction History of stent insertion of renal artery Restless leg syndrome - Surgical History Surgical History: Surgical History (Last Reviewed 08/20/18 @ 07:51 by Haley Orourke) H/O nqzke-mrzzu-aabdovx bypass H/O heart artery stent H/O laminectomy History of angioplasty of peripheral vessel History of carotid angioplasty History of shoulder surgery Hx laparoscopic cholecystectomy Hx of appendectomy Medications and Allergies Active Medications: Active Medications Acetaminophen (Tylenol) 650 mg PO UNSCH PRN PRN Reason: SEE LABEL COMMENTS Al Hydroxide/Mg Hydroxide (Milk Of David Bender) 30 ml PO Q12H PRN PRN Reason: Mild Constipation Albuterol (Duoneb Neb (Prn)) 1 ampul NEB Q2HR NEB PRN PRN Reason: SHORTNESS OF BREATH Last Admin: 08/29/18 03:30 Dose: 1 ampul Alprazolam (Xanax) 0.5 mg PO BID PRN PRN Reason: Anxiety Last Admin: 08/16/18 22:40 Dose: 0.5 mg Artificial Tears (Tears Naturale Opth Drops) 1 drop EACH EYE Q8H [facility] Last Admin: 08/29/18 13:44 Dose: 1 drop Aspirin (Aspirin Chew) 81 mg PO DAILY [facility] Last Admin: 12/12/18 08:14 Dose: 81 mg Atorvastatin Calcium (Lipitor) 40 mg PO DAILY [facility] Last Admin: 08/29/18 08:15 Dose: 40 mg Bisacodyl (Dulcolax Supp) 10 mg RECTAL DAILY PRN PRN Reason: SEVERE CONSITIPATION Last Admin: 08/17/18 17:07 Dose: 10 mg Chlorhexidine Gluconate (Peridex 0.12% Oral Kit) 15 ml OROPHARYNG BID@0800, 2000 [facility] Last Admin: 08/29/18 08:14 Dose: 15 ml Clonidine HCl (Catapres) 0.1 mg PO UNSCH PRN PRN Reason: SEE LABEL COMMENTS Clopidogrel Bisulfate (Plavix) 75 mg PO DAILY [facility] Last Admin: 08/18/18 12:53 Dose: Not Given Dextrose (D50w Vial) 50 ml IV.PUSH UNSCH PRN PRN Reason: PER HYPOGLYCEMIA PROTOCOL Diphenhydramine HCl (Benadryl) 25 mg PO UNSCH PRN PRN Reason: SEE LABEL COMMENTS Epoetin Dionte (Epogen Inj) 6,000 unit IV.PUSH UNSCH PRN PRN Reason: SEE LABEL COMMENTS Famotidine (Pepcid Pf Inj) 10 mg IV.PUSH Q12HR [facility] Last Admin: 08/29/18 08:15 Dose: 10 mg Gabapentin (Neurontin) 300 mg PO BID [facility] Last Admin: 08/19/18 11:03 Dose: Not Given Gelatin (Gelfoam 12 Mm/7 Mm Topical) 1 foam TOPICAL PRN PRN PRN Reason: help stop bleeding from site Gentamicin Sulfate (Gentamicin Inj) 20 mg OTHER WITH DIALYSIS PRN PRN Reason: Dwell Gentamycin Lock Last Admin: 08/29/18 12:51 Dose: 20 mg Glucagon (Glucagon Inj) 1 mg OTHER PRN PRN PRN Reason: for Hypoglycemia Protocol Heparin Sodium (Porcine) (Heparin Inj) 5,000 units SQ Q8H [facility] Last Admin: 08/29/18 08:14 Dose: 5,000 units Heparin Sodium (Porcine) (Heparin Inj) 8,000 units OTHER WITH DIALYSIS PRN PRN Reason: for machine prime Heparin Sodium (Porcine) (Heparin Inj) 1,000 units OTHER WITH DIALYSIS PRN PRN Reason: Dwell Heparin to Fill Catheter Last Admin: 08/29/18 12:51 Dose: 1,000 units Hydromorphone HCl (Dilaudid Pf Inj) 0.2 mg IV.PUSH Q1H PRN PRN Reason: PAIN SCALE 1 TO 10 Last Admin: 08/14/18 16:51 Dose: 0.2 mg Dexmedetomidine HCl 200 mcg/ (Sodium Chloride) 50 mls @ 3.27 mls/hr IV.CONT TITRATE PRN; Protocol PRN Reason: Per Protocol Last Titration: 08/19/18 18:09 Dose: 0.6 mcg/kg/hr, 9.82 mls/hr Propofol (Diprivan 1000 Mg/100 Ml Inj) 1,000 mg in 100 mls @ 1.845 mls/hr IV.CONT TITRATE PRN; Protocol PRN Reason: Per Protocol Last Admin: 08/29/18 11:38 Dose: 15 mcg/kg/min, 5.54 mls/hr Acetaminophen (Ofirmev Inj) 1,000 mg in 100 mls @ 400 mls/hr IV.SIG Q6H PRN PRN Reason: FEVER 101F OR GREATER Last Infusion: 08/19/18 00:30 Dose: Infused Fentanyl (Fentanyl 10 Mcg/Ml Premix Drip) 2,500 mcg in 250 mls @ 5 mls/hr IV.SIG TITRATE PRN; Protocol PRN Reason: Per Protocol Last Admin: 08/29/18 11:40 Dose: 80 mcg/hr, 8 mls/hr Cefepime HCl 2,000 mg/ Sodium (Chloride) 100 mls @ 200 mls/hr IV.SIG Q24H [facility] Last Infusion: 08/29/18 08:18 Dose: Infused Albumin Human (Alburx 5% Inj) 500 mls @ 250 mls/hr IV.SIG Q12H [facility] Last Admin: 08/29/18 13:45 Dose: Not Given Bumetanide (Bumex Inj) 25 mg in 100 mls @ 2 mls/hr IV.CONT .Q24H [facility] Last Infusion: 08/29/18 08:17 Dose: 0.5 mg/hr, 2 mls/hr Levofloxacin/Dextrose (Levaquin 250 Mg Premix Inj) 250 mg in 50 mls @ 50 mls/ hr IV.SIG Q24H [facility] Last Infusion: 08/29/18 08:17 Dose: Infused Albumin Human (Flexbumin 25% Inj) 100 mls @ 60 mls/hr IV.SIG WITH DIALYSIS PRN PRN Reason: hypotension / volume replace Last Infusion: 08/29/18 14:17 Dose: Infused Sodium Chloride (Ns Inj) 1,000 mls @ 0 mls/hr OTHER .Q0M PRN PRN Reason: for prime and rinse back Sodium Chloride (Ns Inj) 1,000 mls @ 0 mls/hr IV.CONT .Q0M PRN PRN Reason: hypotension / volume replace Sodium Chloride (Ns Inj) 1,000 mls @ 200 mls/hr OTHER .Q5H PRN PRN Reason: for dialyzer flush PRN Insulin Human Regular (Novolin R Correctional Sugar Inj) 0 units SQ Q6HR [facility]; Protocol Last Admin: 08/29/18 13:43 Dose: Not Given Isosorbide Mononitrate (Imdur) 30 mg PO DAILY [facility] Last Admin: 08/19/18 11:03 Dose: Not Given Lactulose (Lactulose Liq) 30 ml PO DAILY PRN PRN Reason: SEVERE CONSITIPATION Magnesium Oxide (Mag-Ox) 400 mg PO HS [facility] Last Admin: 08/28/18 21:34 Dose: 400 mg Mannitol (Mannitol Inj) 12.5 gm IV.PUSH UNSCH PRN PRN Reason: hypotension / volume replace Metoclopramide HCl (Reglan Inj) 10 mg IV.PUSH Q8HR [facility]; Protocol Last Admin: 08/29/18 13:45 Dose: 10 mg Metoprolol Tartrate (Lopressor Inj) 2.5 mg IV.PUSH Q6H [facility] Last Admin: 08/29/18 11:38 Dose: 2.5 mg Miscellaneous Medication () 1 each OROPHARYNG 0000,0400,1200,1600 [facility] Last Admin: 08/29/18 13:43 Dose: 1 each Nitroglycerin (Nitrostat Sl) 0.4 mg SL Q5M PRN PRN Reason: CHEST PAIN Ondansetron HCl (Zofran Inj) 4 mg IV.PUSH UNSCH PRN PRN Reason: NAUSEA OR VOMITING Ropinirole HCl (Requip) 3 mg PO HS [facility] Last Admin: 08/28/18 21:34 Dose: 3 mg Sennosides (Senokot) 17.2 mg PO Q12H PRN PRN Reason: Moderate Constipation Sodium Chloride (Ns Flush) 2 ml IV.FLUSH BID [facility] Last Admin: 08/29/18 08:16 Dose: 2 ml Sodium Chloride (Ns Flush) 2 ml IV.FLUSH PRN PRN PRN Reason: FLUSH AFTER USING IV ACCESS Last Admin: 08/27/18 22:09 Dose: 2 ml Sodium Chloride (Ns Flush) 2 ml IV.FLUSH BID [facility] Last Admin: 08/29/18 08:16 Dose: Not Given Sodium Chloride (Ns Flush) 2 ml IV.FLUSH PRN PRN PRN Reason: FLUSH AFTER USING IV ACCESS Sodium Chloride (Ns Flush) 5 ml IV.FLUSH PRN PRN PRN Reason: flush each lumen during HD Exam Vital signs: Vital Signs 08/28/18 18:10 08/28/18 19:00 08/28/18 20:08 Temperature 98.7 F Pulse Rate 91 H Respiratory Rate 28 H 20 20 Blood Pressure 89/38 L Pulse Oximetry 97 99 99 08/28/18 20:17 08/28/18 23:00 08/29/18 00:11 Temperature 98.7 F Pulse Rate 87 91 H Respiratory Rate 20 20 25 H Blood Pressure 86/48 L Pulse Oximetry 99 98 08/29/18 03:00 08/29/18 03:32 08/29/18 07:00 Temperature 98.2 F 97.9 F Pulse Rate 85 84 79 Respiratory Rate 20 23 21 Blood Pressure 118/45 L Pulse Oximetry 95 96 96 08/29/18 07:10 08/29/18 10:20 08/29/18 11:00 Temperature 97.9 F Pulse Rate 90 Respiratory Rate 25 H 21 22 Blood Pressure 117/50 L Pulse Oximetry 95 97 94 L 08/29/18 13:40 08/29/18 13:43 Temperature Pulse Rate Respiratory Rate 15 17 Blood Pressure Pulse Oximetry 99 Intake & Output 08/28/18 08/29/18 08/29/18 18:59 06:59 18:59 Intake Total 1095 / 1095 60 / 60 1248 / 1248 Output Total 287 / 287 375 / 375 Balance 808 / 808 -315 / -315 1248 / 1248 Weight 80 kg Intake: IV 700 / 700 1248 / 1248 Diprivan 1000 mg/100 ml Inj 1, 100 / 100 30 / 30 000 mg In 100 ml @ 5 MCG/KG/MIN 1.845 mls/hr IV.CONT TITRATE PRN Rx#:[id number] Flexbumin 25% Inj 100 ML @ 60 200 / 200 mls/hr IV.SIG WITH DIALYSIS PRN Rx#:[id number] Alburx 5% Inj 500 ML @ 250 mls/ 500 / 500 500 / 500 hr IV.SIG Q12H [facility] Rx#:[id number] Maxipime Inj 2,000 MG In NS Inj 100 / 100 100 / 100 100 ML @ 200 mls/hr IV.SIG Q24H [facility] Rx#:[id number] Levaquin 250 mg Premix Inj 250 50 / 50 mg In 50 ml @ 50 mls/hr IV.SIG Q24H [facility] Rx#:[id number] fentaNYL 10 mcg/mL Premix Drip 168 / 168 2,500 mcg In 250 ml @ 50 MCG/HR 5 mls/hr IV.SIG TITRATE PRN Rx #:[id number] Oral 0 / 0 0 / 0 Tube Feeding 275 / 275 0 / 0 Tube Irrigant 60 / 60 Water Bolus Amount 120 / 120 Output: Urine Amount (Catheter) 187 / 187 115 / 115 Indwelling Temp Sensing 187 / 187 115 / 115 Catheter Gastric Drainage 200 / 200 Right Nare Nasogastric Tube 200 / 200 Chest Tube Drainage 100 / 100 60 / 60 #1 Right Pleural 100 / 100 60 / 60 Other: Date of Last Bowel Movement 08/18/18 # Bowel Movements 0 0 Results - Lab Results 08/29/18 05:05 08/29/18 05:05 Most recent lab results ABG pH 7.36 (7.380-7.420) L 08/27/18 09:43 ABG pCO2 26 mmHg (38-42) L 08/27/18 09:43 ABG pO2 75 mmHG (61-120) 08/27/18 09:43 ABG HCO3 14 mmol/L (22-26) L* 08/27/18 09:43 Calcium 7.1 mg/dL (8.5-10.1) L* 08/29/18 05:05 Phosphorus 4.0 mg/dL (2.5-4.9) 08/29/18 05:05 Magnesium 1.5 mg/dL (1.5-2.5) 08/29/18 05:05 Urine Creatinine 62 mg/dL 08/22/18 14:30 Assessment and Plan - Assessment (1) Acute kidney injury Code(s): N17.9 - Acute kidney failure, unspecified Status: Acute (2) Mesenteric ischemia Code(s): K55.9 - Vascular disorder of intestine, unspecified Status: Acute (3) Hemothorax Code(s): J94.2 - Hemothorax Status: Acute - Plan Patient seen and examined, agree with above. Urine out put is low, Lasix given, if not better, will start Bumex infusion.
--- NOTE | 2018-08-24 16:46 | CT ---
EXAM DATE: 08/24/2018 4:42 PM EST AGE/SEX: 78 years / Female INDICATIONS: Short of breath. Hemithorax. CLINICAL DATA: This is the patient's initial encounter. Patient reports that signs and symptoms have been present for 1 day and indicates a pain score of Nonresponsive. MEDICAL/SURGICAL HISTORY: Gastroesophageal reflux disease. Appendectomy. Cholecystectomy. Coronary artery stent. Renal artery stent. RADIATION DOSE: 17.91 CTDI (mGy) ; Combined studies COMPARISON: [facility] [place], CT CHEST W/O CONTRAST, 08/18/2018. . TECHNIQUE: Multiple contiguous axial images were obtained through the chest without contrast. Image s were obtained in suspended respiration using multiple row detector helical technique. Using automa yony exposure control and adjustment of the mA and/or kV according to patient size, radiation dose was kept as low as reasonably achievable to obtain optimal diagnostic quality images. DICOM format imag e data is available electronically for review and comparison. FINDINGS: Lungs: Large bore chest tube is in place on the right directed posteriorly. Patchy airspace disease is present in the right lung with consolidation in the right lower lobe. There is a small left pleural effusion occupying approximately one third of the left hemithorax with compressive atelectasis in the left base. The heart is enlarged. Degenerative changes are present in the thoracic spine. CONCLUSION: 1. Interval improvement on the right large bore chest tube in good position. Persistent air bronchog daksha remaining in the right base. 2. Stable to slightly larger left pleural effusion with compressive atelectasis in the left base. Electronically signed by: Fausto Alfonso MD 08/24/2018 4:45 PM EST
--- NOTE | 2018-08-24 17:13 | CT ---
EXAM DATE: 08/24/2018 4:44 PM EST AGE/SEX: 78 years / Female INDICATIONS: Abdominal pain. CLINICAL DATA: This is the patient's initial encounter. Patient reports that signs and symptoms have been present for 1 day and indicates a pain score of Nonresponsive. MEDICAL/SURGICAL HISTORY: Gastroesophageal reflux disease. Small bowel obstruction. Appendect evita. Cholecystectomy. Renal artery stent. Coronary stent. RADIATION DOSE: 17.91 CTDI (mGy) ; Combined studies COMPARISON: [facility], CTA ABDOMEN AND PELVIS, 07/16/2018. . TECHNIQUE: Multiple contiguous axial images were obtained through the abdomen. Images were obtained using multiple row detector helical technique. Using automated exposure control and adjustment of the mA and/or kV according to patient size, radiation dose was kept as low as reasonably achievable to o btain optimal diagnostic quality images. DICOM format image data is available electronically for rev iew and comparison. FINDINGS: Right chest tube is in good position with parenchymal consolidation right base and air bronchograms. Left pleural effusion is present with consolidative changes in the left base. Liver is free of focal defects. Trace ascites is evident. Nasogastric tube is across the GE junction. Extensive mesenteric edema is present. Right and left kidneys are grossly unremarkable. No definite h ydronephrosis. Transpedicular fixation is present in the lower lumbar spine. The pelvis there is moderate ascites present. Diverticula are present in the sigmoid colon. The bladder is decompressed by a Boateng. There is no evidence for abscess. There is no free air. CONCLUSION: 1. Trace ascites with generalized mesenteric edema 2. Extensive vascular calcifications. There is no free air or abscess. Do not see air in the bowel w all to suggest ischemia. Electronically signed by: Fausto Alfonso MD 08/24/2018 5:11 PM EST
[2018-08-24] MEDS: Heparin Drip 25,000 UNIT/250 ML BAG IV.CONT PRN (17:28)
--- NOTE | 2018-08-24 17:29 | P.PNCA ---
Subjective Interval history: Minimally awake on vent Creatinine increasing Hemodynamically stable Medications and Allergies Active Medications: Active Medications Al Hydroxide/Mg Hydroxide (Milk Of Magnmaye Liq) 30 ml PO Q12H PRN PRN Reason: Mild Constipation Albuterol (Duoneb Neb (Prn)) 1 ampul NEB Q2HR NEB PRN PRN Reason: SHORTNESS OF BREATH Last Admin: 08/23/18 03:27 Dose: 1 ampul Albuterol (Duoneb Neb (Livan)) 1 ampul NEB Q4HR NEB [facility] Last Admin: 08/24/18 15:49 Dose: 1 ampul Alprazolam (Xanax) 0.5 mg PO BID PRN PRN Reason: Anxiety Last Admin: 08/16/18 22:40 Dose: 0.5 mg Artificial Tears (Tears Naturale Opth Drops) 1 drop EACH EYE Q8H [facility] Last Admin: 08/24/18 14:17 Dose: 1 drop Aspirin (Aspirin Chew) 81 mg PO DAILY [facility] Last Admin: 08/19/18 11:03 Dose: Not Given Atorvastatin Calcium (Lipitor) 40 mg PO DAILY [facility] Last Admin: 08/24/18 09:45 Dose: 40 mg Bisacodyl (Dulcolax Supp) 10 mg RECTAL DAILY PRN PRN Reason: SEVERE CONSITIPATION Last Admin: 08/17/18 17:07 Dose: 10 mg Chlorhexidine Gluconate (Peridex 0.12% Oral Kit) 15 ml OROPHARYNG BID@0800, 2000 [facility] Last Admin: 08/24/18 09:46 Dose: 15 ml Clopidogrel Bisulfate (Plavix) 75 mg PO DAILY [facility] Last Admin: 08/18/18 12:53 Dose: Not Given Dextrose (D50w Vial) 50 ml IV.PUSH UNSCH PRN PRN Reason: PER HYPOGLYCEMIA PROTOCOL Enoxaparin Sodium (Lovenox Inj) 30 mg SQ Q24H [facility] Last Admin: 08/19/18 12:09 Dose: Not Given Famotidine (Pepcid Pf Inj) 10 mg IV.PUSH Q12HR [facility] Last Admin: 08/24/18 09:45 Dose: 10 mg Gabapentin (Neurontin) 300 mg PO BID [facility] Last Admin: 08/19/18 11:03 Dose: Not Given Glucagon (Glucagon Inj) 1 mg OTHER PRN PRN PRN Reason: for Hypoglycemia Protocol Hydromorphone HCl (Dilaudid Pf Inj) 0.2 mg IV.PUSH Q1H PRN PRN Reason: PAIN SCALE 1 TO 10 Last Admin: 08/14/18 16:51 Dose: 0.2 mg Magnesium Sulfate 4 gm/ Sodium (Chloride) 100 mls @ 50 mls/hr IV.SIG UNSCH PRN PRN Reason: For Magnesium 0.9 - 1.1 mg/dL Magnesium Sulfate 2 gm/ Sodium (Chloride) 100 mls @ 50 mls/hr IV.SIG UNSCH PRN PRN Reason: For Magnesium 1.2 - 1.6 mg/dL Potassium Chloride (Kcl 40 Meq Premix Inj) 40 meq in 100 mls @ 50 mls/hr IV.SIG Q2H PRN PRN Reason: For Potassium 2.8 - 3.2 mEq/L Potassium Chloride (Kcl 20 Meq Premix Inj) 20 meq in 100 mls @ 50 mls/hr IV.SIG Q2H PRN PRN Reason: For Potassium 3.3 - 3.5 mEq/L Last Admin: 08/17/18 09:15 Dose: 50 mls/hr Potassium Chloride (Kcl 40 Meq Premix Inj) 40 meq in 100 mls @ 25 mls/hr IV.SIG UNSCH PRN PRN Reason: For Potassium 3.3 - 3.5 mEq/L Last Infusion: 08/23/18 09:36 Dose: Infused Potassium Chloride (Kcl 20 Meq Premix Inj) 20 meq in 100 mls @ 50 mls/hr IV.SIG Q2H PRN PRN Reason: For Potassium 2.8 - 3.2 mEq/L Potassium Phosphate 30 mmol/ (Sodium Chloride) 260 mls @ 42 mls/hr IV.SIG UNSCH PRN PRN Reason: SEE LABEL COMMENTS Sodium Phosphate 30 mmol/ (Sodium Chloride) 260 mls @ 42 mls/hr IV.SIG UNSCH PRN PRN Reason: For Phosphorus < 2.5 mg/dL Dexmedetomidine HCl 200 mcg/ (Sodium Chloride) 50 mls @ 3.27 mls/hr IV.CONT TITRATE PRN; Protocol PRN Reason: Per Protocol Last Titration: 08/19/18 18:09 Dose: 0.6 mcg/kg/hr, 9.82 mls/hr Propofol (Diprivan 1000 Mg/100 Ml Inj) 1,000 mg in 100 mls @ 1.845 mls/hr IV.CONT TITRATE PRN; Protocol PRN Reason: Per Protocol Last Admin: 08/23/18 17:08 Dose: 15 mcg/kg/min, 5.54 mls/hr Acetaminophen (Ofirmev Inj) 1,000 mg in 100 mls @ 400 mls/hr IV.SIG Q6H PRN PRN Reason: FEVER 101F OR GREATER Last Infusion: 08/19/18 00:30 Dose: Infused Fentanyl (Fentanyl 10 Mcg/Ml Premix Drip) 2,500 mcg in 250 mls @ 5 mls/hr IV.SIG TITRATE PRN; Protocol PRN Reason: Per Protocol Last Admin: 08/23/18 17:07 Dose: 80 mcg/hr, 8 mls/hr Heparin Sodium/Dextrose (Heparin/D5w 25,000 U/250 Ml) 25,000 unit in 250 mls @ 0 mls/hr IV.CONT TITRATE PRN; Protocol PRN Reason: Per Protocol Last Admin: 08/23/18 09:37 Dose: 700 units/hr, 7 mls/hr Levofloxacin/Dextrose (Levaquin 750 Mg Premix Inj) 150 mls @ 100 mls/hr IV.SIG Q24H [facility] Last Infusion: 08/23/18 17:30 Dose: Infused Lactated Ringer's (Lr 1000 Ml Inj) 1,000 mls @ 100 mls/hr IV.CONT .Q10H [facility] Last Admin: 08/24/18 12:29 Dose: 100 mls/hr Cefepime HCl 2,000 mg/ Sodium (Chloride) 100 mls @ 200 mls/hr IV.SIG Q8H [facility] Last Admin: 08/24/18 15:29 Dose: 100 mls/hr Insulin Human Regular (Novolin R Correctional Sugar Inj) 0 units SQ Q6HR [facility]; Protocol Last Admin: 08/24/18 12:12 Dose: Not Given Isosorbide Mononitrate (Imdur) 30 mg PO DAILY [facility] Last Admin: 08/19/18 11:03 Dose: Not Given Lactulose (Lactulose Liq) 30 ml PO DAILY PRN PRN Reason: SEVERE CONSITIPATION Magnesium Oxide (Mag-Ox) 400 mg PO HS [facility] Last Admin: 08/23/18 21:51 Dose: 400 mg Magnesium Oxide (Mag-Ox) 800 mg PO UNSCH PRN PRN Reason: For Magnesium 1.2 - 1.6 mg/dL Metoclopramide HCl (Reglan Inj) 10 mg IV.PUSH Q8HR [facility]; Protocol Last Admin: 08/24/18 14:16 Dose: 10 mg Metoprolol Tartrate (Lopressor Inj) 2.5 mg IV.PUSH Q6H [facility] Last Admin: 08/24/18 12:15 Dose: 2.5 mg Miscellaneous Medication () 1 each OROPHARYNG 0000,0400,1200,1600 [facility] Last Admin: 08/24/18 12:31 Dose: 1 each Pharmacy Profile Note (Vancomycin Consult Pharmacy) 1 each OTHER UNSCH PRN PRN Reason: Pharmacy to dose Potassium Bicarb/Potassium Chloride (K-Lyte Cl Eff) 50 meq PO UNSCH PRN PRN Reason: For Potassium 3.3 - 3.5 mEq/L Potassium Phosphate (K-Phos Original) 2,000 mg PO Q4H PRN PRN Reason: Phosphorus Less Than 2.5 mg/dL Potassium Phosphate (K-Phos Original) 2,000 mg PO UNSCH PRN PRN Reason: SEE LABEL COMMENTS Ropinirole HCl (Requip) 3 mg PO HS [facility] Last Admin: 08/23/18 21:52 Dose: 3 mg Sennosides (Senokot) 17.2 mg PO Q12H PRN PRN Reason: Moderate Constipation Sodium Chloride (Ns Flush) 2 ml IV.FLUSH BID [facility] Last Admin: 08/24/18 09:46 Dose: 2 ml Sodium Chloride (Ns Flush) 2 ml IV.FLUSH PRN PRN PRN Reason: FLUSH AFTER USING IV ACCESS Allergies Allergy/AdvReac Type Severity Reaction Status Date / Time codeine Allergy Severe Chest Pain Verified 08/13/18 06:44 diatrizoate meglumine Allergy Severe Hives Verified 08/13/18 06:44 gadobenic acid Allergy Severe Hives Verified 08/13/18 06:44 gadodiamide Allergy Severe Hives Verified 08/13/18 06:44 gadoteridol Allergy Severe Hives Verified 08/13/18 06:44 iodixanol Allergy Severe Hives Verified 08/13/18 06:44 iohexol Allergy Severe Hives Verified 08/13/18 06:44 morphine Allergy Severe Psychosis Verified 08/13/18 06:44 Home Medications Medication Instructions Recorded Confirmed Type alprazolam 0.5 mg PO BID PRN 07/31/18 08/13/18 History aspirin [Aspir-81] 81 mg PO DAILY 07/31/18 08/13/18 History atorvastatin 40 mg PO DAILY 07/31/18 08/13/18 History clopidogrel [Plavix] 75 mg PO DAILY 07/31/18 08/13/18 History gabapentin [Neurontin] 300 mg PO BID 07/31/18 08/13/18 History isosorbide mononitrate 30 mg PO DAILY 07/31/18 08/13/18 History losartan 50 mg PO DAILY 07/31/18 08/13/18 History metoprolol tartrate 25 mg PO BID 07/31/18 08/13/18 History potassium chloride 20 meq PO DAILY 07/31/18 08/13/18 History ranitidine HCl 150 mg PO DAILY 07/31/18 08/13/18 History ropinirole [Requip] 3 mg PO HS 07/31/18 08/13/18 History cholestyramine-aspartame 4 g PO BID 08/06/18 08/13/18 History [Prevalite] hydrochlorothiazide 12.5 mg PO DAILY 08/06/18 08/13/18 History niacin 1,000 mg PO DAILY 08/06/18 08/13/18 History vit C-vit [id number] 1 cap PO DAILY 08/06/18 08/13/18 History [Ocuvite] magnesium oxide 500 mg PO HS 08/13/18 08/20/18 History Physical Exam Vital signs: Vital Signs 08/23/18 20:00 08/23/18 20:50 08/24/18 00:00 Temperature 98.6 F 100.8 F H Pulse Rate 61 67 Respiratory Rate 14 14 14 Blood Pressure 130/63 114/57 L Pulse Oximetry 99 99 98 08/24/18 01:00 08/24/18 04:00 08/24/18 07:00 Temperature 100.3 F H 98.4 F Pulse Rate 65 62 Respiratory Rate 14 14 14 Blood Pressure 121/60 136/64 Pulse Oximetry 99 99 08/24/18 07:53 08/24/18 09:05 08/24/18 11:00 Temperature 98.5 F Pulse Rate 77 Respiratory Rate 14 15 25 H Blood Pressure Pulse Oximetry 100 99 98 08/24/18 11:12 08/24/18 12:53 08/24/18 15:00 Temperature 98.6 F Pulse Rate 69 Respiratory Rate 25 H 18 14 Blood Pressure Pulse Oximetry 97 95 98 08/24/18 15:49 Temperature Pulse Rate 65 Respiratory Rate 15 Blood Pressure Pulse Oximetry 99 Intake & Output 08/23/18 08/24/18 08/24/18 18:59 06:59 18:59 Intake Total 3908 / 3908 1557 / 1557 616 / 616 Output Total 300 / 300 1725 / 1725 Balance 3608 / 3608 -168 / -168 616 / 616 Weight 65 kg Intake: IV 2468 / 2468 1100 / 1100 616 / 616 Heparin/D5W 25,000 U/250 mL 25, 3 / 3 000 unit In 250 ml @ Per Protocol IV.CONT TITRATE PRN Rx #:[id number] LR 1000 mL Inj 1,000 ML @ 100 1000 / 1000 1000 / 1000 516 / 516 mls/hr IV.CONT .Q10H [facility] Rx#: [id number] Diprivan 1000 mg/100 ml Inj 1, 100 / 100 000 mg In 100 ml @ 5 MCG/KG/MIN 1.845 mls/hr IV.CONT TITRATE PRN Rx#:[id number] Maxipime Inj 2,000 MG In NS Inj 200 / 200 100 / 100 100 / 100 100 ML @ 200 mls/hr IV.SIG Q8H [facility] Rx#:[id number] Levaquin 750 mg Premix Inj 150 300 / 300 ML @ 100 mls/hr IV.SIG Q24H [facility] Rx#:[id number] KCl 40 mEq Premix Inj 40 meq In 100 / 100 100 ml @ 25 mls/hr IV.SIG UNSCH PRN Rx#:[id number] fentaNYL 10 mcg/mL Premix Drip 250 / 250 2,500 mcg In 250 ml @ 50 MCG/HR 5 mls/hr IV.SIG TITRATE PRN Rx #:[id number] Oral 0 / 0 Tube Feeding 240 / 240 457 / 457 Intake (Blood Product) Amt 400 / 400 Rbc As-3 Leukoreduced Unit 400 / 400 [id number] Rbc As-3 Leukoreduced Unit 0 / 0 [id number] Autotransfusion Amount 800 / 800 Output: Urine Amount (Catheter) 200 / 200 185 / 185 Indwelling Temp Sensing 200 / 200 185 / 185 Catheter Gastric Drainage 1400 / 1400 Right Nare Nasogastric Tube 1400 / 1400 Chest Tube Drainage 100 / 100 140 / 140 #1 Right Pleural 100 / 100 140 / 140 Other: Date of Last Bowel Movement 08/18/18 08/18/18 08/18/18 # Bowel Movements 1 Narrative: GENERAL: Intubated and sedated SKIN: Warm and dry. No rash present NECK: Supple, trachea midline. No JVD. CARDIOVASCULAR: Regular rate and rhythm without murmurs, gallops, or rubs. CT tube present RESPIRATORY: Breath sounds equal bilaterally. No accessory muscle use. Orally intubated. GASTROINTESTINAL: Abdomen soft, non-tender, nondistended. NG tube and dobhuf tube present. GENITOURINARY: Indwelling Boateng catheter. MUSCULOSKELETAL: No cyanosis. Generalized edema. - Urinary Catheter Management Indwelling Temp Sensing Catheter Cath placed during this visit: yes Reason for continuing: Hourly intake/output Insertion date: 08/13/18 Insertion time: 08:08 Results 08/24/18 05:00 08/24/18 05:00 Cardiac Enzymes 08/24/18 Range/Units 10:32 CK-MB (CK-2) 43.3 H (0.5-3.6) ng/mL Coagulation 08/23/18 08/24/18 Range/Units 04:30 05:00 APTT 60.6 H 53.5 H (23.4-31.7) sec CBC 08/23/18 08/23/18 08/24/18 Range/Units 04:30 18:30 05:00 WBC 14.0 H 12.3 H 13.1 H (4.0-11.0) th/mm3 RBC 2.15 L 3.12 L 3.15 L (4.00-5.30) mil/mm3 Hgb 6.8 L* 9.6 L D 9.9 L (11.6-15.3) gm/dL Hct 20.3 L* 28.2 L 28.2 L (35.0-46.0) % Plt Count 183 188 212 (150-450) th/mm3 Comprehensive Metabolic Panel 08/23/18 08/24/18 Range/Units 04:30 05:00 Sodium 145 145 (136-145) meq/L Potassium 3.7 3.8 (3.5-5.1) meq/L Chloride 114 H 114 H (98-107) meq/L Carbon Dioxide 23.2 21.5 (21.0-32.0) meq/L BUN 32 H 39 H (7-18) mg/dL Creatinine 1.88 H 2.31 H (0.50-1.00) mg/dL Calcium 7.3 L* 7.5 L (8.5-10.1) mg/dL Albumin 1.8 L (3.4-5.0) g/dL Intake and Output 08/24/18 08/24/18 08/24/18 06:59 14:59 22:59 Intake Total 1557 / 1557 616 / 616 Output Total 925 / 925 Balance 632 / 632 616 / 616 Intake: IV 1100 / 1100 616 / 616 LR 1000 mL Inj 1,000 ML @ 100 1000 / 1000 516 / 516 mls/hr IV.CONT .Q10H [facility] Rx#: [id number] Maxipime Inj 2,000 MG In NS Inj 100 / 100 100 / 100 100 ML @ 200 mls/hr IV.SIG Q8H [facility] Rx#:[id number] Oral 0 / 0 Tube Feeding 457 / 457 Output: Urine Amount (Catheter) 185 / 185 Indwelling Temp Sensing 185 / 185 Catheter Gastric Drainage 600 / 600 Right Nare Nasogastric Tube 600 / 600 Chest Tube Drainage 140 / 140 #1 Right Pleural 140 / 140 Other: Date of Last Bowel Movement 08/18/18 08/18/18 08/18/18 # Bowel Movements 1 Weight 65 kg - Imaging and Cardiology Imaging: Impressions Chest X-Ray 08/23/18 00:00 CONCLUSION: 1. Examination quality is less than optimal secondary to rotation and marked underinflation. There is stable perihilar opacity and bibasilar pleural- parenchymal opacity. These likely represent pleural effusions with associated volume loss and/or airspace consolidation. Although nonspecific pulmonary edema could give this appearance. 2. Right chest tube remains present and no pneumothorax is visualized. 3. The endotracheal tube distal tip measures only 1.5 cm from the vidhya. Chest CT 08/24/18 10:42 CONCLUSION: 1. Interval improvement on the right large bore chest tube in good position. Persistent air bronchograms remaining in the right base. 2. Stable to slightly larger left pleural effusion with compressive atelectasis in the left base. Abdomen/Pelvis CT 08/24/18 10:43 CONCLUSION: 1. Trace ascites with generalized mesenteric edema 2. Extensive vascular calcifications. There is no free air or abscess. Do not see air in the bowel wall to suggest ischemia. Assessment and Plan - Assessment (1) Type 2 myocardial infarction Code(s): I21.A1 - Myocardial infarction type 2 Status: Acute (2) Afib Code(s): I48.91 - Unspecified atrial fibrillation Status: Acute - Plan 1) Mesenteric ischemia s/p aorto-hepatic bypass, aorto-SMA bypass 2) Elevated troponin Secondary to hypotension/anemia Previously had stress test showing no ischemia Troponin levels cleared 3) PEA arrest CPR with 1 round of epi Appears to be due to mucus plugging 4) Hemothorax Chest tube in place 5) AFib Currently controlled Not an half-way anticoagulation candidate at this time Will need to reassess towards end of the hospitalization 6) Plavix held Con't ASA/Statin Heparin drip 7) 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
[2018-08-24 18:10] LABS: Urea Creatinine ratio 16.9 mg/mg
[2018-08-24] MEDS: Magnesium Oxide 400 MG Tablet PO SCH (22:05)
[2018-08-25] MEDS: Insulin NovoLIN Regular Correctional Sugar Inj SQ SCH ×6 (01:24→23:55)
[2018-08-25] MEDS: Oral Hygiene Kit OROPHARYNG SCH ×5 (01:25→23:51)
[2018-08-25 05:41] LABS: Hematocrit 28.8 % (35.0-46.0); Hemoglobin 9.8 gm/dL (11.6-15.3); Mean Corpuscular Hemoglobin 31.1 pg (27.0-34.0); Mean Corpuscular Volume 91.2 fL (80.0-100.0); Mean Platelet Volume 10.1 fL (7.0-11.0); Platelet Count 263 th/mm3 (150-450); Red Blood Count 3.16 mil/mm3 (4.00-5.30); Red Cell Distribution Width 17.1 % (11.6-17.2)
[2018-08-25] MEDS: Metoprolol Inj 5 MG/5 ML Vial IV.PUSH SCH ×5 (06:04→23:50)
[2018-08-25] MEDS: Artificial Tears Opth Drops 15 ML Bottle EACH EYE SCH ×3 (06:07→21:49)
[2018-08-25 06:11] LABS: Calcium 6.9 mg/dL (8.5-10.1); Magnesium 1.8 mg/dL (1.5-2.5); Phosphorus 3.4 mg/dL (2.5-4.9); Potassium 3.8 meq/L (3.5-5.1); Vancomycin,Random 22.1 Comment
[2018-08-25] MEDS: Propofol 1000 mg/100 ml Inj 1,000 MG/100 ML BOTTLE IV.CONT PRN ×2 (06:16→06:23)
[2018-08-25 06:30] LABS: Albumin 1.1 g/dL (3.4-5.0); Calcium-Albumin Corrected 9.2 mg/dL (8.5-10.1)
--- NOTE | 2018-08-25 08:27 | P.PNVS ---
Subjective Post Op Day #: 12 Procedure: aorto-hepatic, aorto-SMA bypass Subjective/Hospital Course: POD#12 mesenteric bypass POD#5 L LE graft thrombectomy remains oliguric, creatinine increasing but maybe diminishing rate of increase told miller TF foot stable anatoliy 4h of CPAP yesterday Objective Neuro: sedated, SYED except L foot Pulmonary: 4h CPAP yesterday, resting now; good sats CT in place CT showed B effusions Cardiac: hr and bp ok hep gtt ASA resumed yesterday FEN/GI: CT showed edema but no signs of ongoing bowel ischemia e'lytes ok : oliguric BUN/cr 45/2.5 ID Antibiotics (date/duration): broad antibiotics ID Cultures: serratia and pseudomonas ETT 08/19 Heme: Hct 29 plt 263 Vascular: Strong Doppler signal distal calf foot not salvageable Laboratory Results - last 24 hr 08/22/18 08/24/18 08/24/18 14:30 10:32 11:10 WBC RBC Hgb Hct MCV MCH MCHC RDW Plt Count MPV APTT Sodium Potassium Chloride Carbon Dioxide Anion Gap BUN Creatinine Estimated GFR POC Glucose Random Glucose Calcium Calcium Adj for Albumin Phosphorus Magnesium Total Creatine Kinase 3153 H CK-MB (CK-2) 43.3 H CK-MB (CK-2) % 1.4 Albumin Urine Color Stefany Urine Clarity Cloudy H Urine pH 5.0 Ur Specific [place] 1.017 Urine Protein 100 H Urine Glucose (UA) Negative Urine Ketones Negative Urine Occult Blood Large H Urine Nitrate Negative Urine Bilirubin Negative Urine Urobilinogen Less than 2 Ur Leukocyte Esterase Negative Urine RBC 1 Urine WBC 7 H Ur Squamous Epith Cells <1 Ur Transition Epith Cell 1 Amorphous Sediment Few H Urine Bacteria Moderate H Granular Casts 4 Urine Mucus Few H Micro UA Comment Cath-culture ind Ur Microscopic Review Not Reportable Urine Culture Comments Cath-cult indicated Ur Random Urea 1048 U Random Urea/Creat 16.90 Urine Creatinine 62 Random Vancomycin 08/24/18 08/24/18 08/25/18 12:06 17:59 00:47 WBC RBC Hgb Hct MCV MCH MCHC RDW Plt Count MPV APTT Sodium Potassium Chloride Carbon Dioxide Anion Gap BUN Creatinine Estimated GFR POC Glucose 101 91 85 Random Glucose Calcium Calcium Adj for Albumin Phosphorus Magnesium Total Creatine Kinase CK-MB (CK-2) CK-MB (CK-2) % Albumin Urine Color Urine Clarity Urine pH Ur Specific [place] Urine Protein Urine Glucose (UA) Urine Ketones Urine Occult Blood Urine Nitrate Urine Bilirubin Urine Urobilinogen Ur Leukocyte Esterase Urine RBC Urine WBC Ur Squamous Epith Cells Ur Transition Epith Cell Amorphous Sediment Urine Bacteria Granular Casts Urine Mucus Micro UA Comment Ur Microscopic Review Urine Culture Comments Ur Random Urea U Random Urea/Creat Urine Creatinine Random Vancomycin 08/25/18 08/25/18 08/25/18 05:20 05:20 05:20 WBC 15.0 H RBC 3.16 L Hgb 9.8 L Hct 28.8 L MCV 91.2 MCH 31.1 MCHC 34.0 RDW 17.1 Plt Count 263 MPV 10.1 APTT 62.2 H Sodium 145 Potassium 3.8 Chloride 113 H Carbon Dioxide 20.0 L Anion Gap 12 BUN 45 H Creatinine 2.54 H Estimated GFR 18 L POC Glucose Random Glucose 105 Calcium 6.9 L* Calcium Adj for Albumin 9.2 Phosphorus 3.4 Magnesium 1.8 Total Creatine Kinase CK-MB (CK-2) CK-MB (CK-2) % Albumin 1.1 L Urine Color Urine Clarity Urine pH Ur Specific [place] Urine Protein Urine Glucose (UA) Urine Ketones Urine Occult Blood Urine Nitrate Urine Bilirubin Urine Urobilinogen Ur Leukocyte Esterase Urine RBC Urine WBC Ur Squamous Epith Cells Ur Transition Epith Cell Amorphous Sediment Urine Bacteria Granular Casts Urine Mucus Micro UA Comment Ur Microscopic Review Urine Culture Comments Ur Random Urea U Random Urea/Creat Urine Creatinine Random Vancomycin 22.1 08/25/18 05:26 WBC RBC Hgb Hct MCV MCH MCHC RDW Plt Count MPV APTT Sodium Potassium Chloride Carbon Dioxide Anion Gap BUN Creatinine Estimated GFR POC Glucose 103 Random Glucose Calcium Calcium Adj for Albumin Phosphorus Magnesium Total Creatine Kinase CK-MB (CK-2) CK-MB (CK-2) % Albumin Urine Color Urine Clarity Urine pH Ur Specific [place] Urine Protein Urine Glucose (UA) Urine Ketones Urine Occult Blood Urine Nitrate Urine Bilirubin Urine Urobilinogen Ur Leukocyte Esterase Urine RBC Urine WBC Ur Squamous Epith Cells Ur Transition Epith Cell Amorphous Sediment Urine Bacteria Granular Casts Urine Mucus Micro UA Comment Ur Microscopic Review Urine Culture Comments Ur Random Urea U Random Urea/Creat Urine Creatinine Random Vancomycin Microbiology 08/22/18 13:30 Aerobic Blood Culture - Preliminary Blood - Peripheral No growth in 2 days Anaerobic Blood Culture - Preliminary No growth in 2 days 08/22/18 13:30 Aerobic Blood Culture - Preliminary Blood - Peripheral No growth in 2 days Anaerobic Blood Culture - Preliminary No growth in 2 days 08/19/18 04:30 Aerobic Blood Culture - Final Blood - Line No growth in 5 days Anaerobic Blood Culture - Final No growth in 5 days 08/19/18 02:52 Aerobic Blood Culture - Final Blood - Peripheral No growth in 5 days Anaerobic Blood Culture - Final No growth in 5 days 08/22/18 14:30 Urine Culture - Final Catheterized Urine No growth in 48 hours Impressions Chest X-Ray 08/23/18 00:00 CONCLUSION: 1. Examination quality is less than optimal secondary to rotation and marked underinflation. There is stable perihilar opacity and bibasilar pleural- parenchymal opacity. These likely represent pleural effusions with associated volume loss and/or airspace consolidation. Although nonspecific pulmonary edema could give this appearance. 2. Right chest tube remains present and no pneumothorax is visualized. 3. The endotracheal tube distal tip measures only 1.5 cm from the vidhya. Chest CT 08/24/18 10:42 CONCLUSION: 1. Interval improvement on the right large bore chest tube in good position. Persistent air bronchograms remaining in the right base. 2. Stable to slightly larger left pleural effusion with compressive atelectasis in the left base. Abdomen/Pelvis CT 08/24/18 10:43 CONCLUSION: 1. Trace ascites with generalized mesenteric edema 2. Extensive vascular calcifications. There is no free air or abscess. Do not see air in the bowel wall to suggest ischemia. Assessment and Plan - Assessment (1) Mesenteric ischemia due to arterial insufficiency Code(s): K55.059 - Acute (reversible) ischemia of intestine, part and extent unspecified Status: Acute - Plan POD#12 s/p antegrade mesenteric bypass POD#5 L LE graft revision 1. increase TF to 20cc/h 2. continue hep gtt 3. Continue gentle I>O; hold lasix today 4. Leave CT in place 5. slow vent wean; may need trach - will discuss with ICU team 6. will discuss with family about BKA potentially tomorrow 7. May put VAC or ostomy bag on lower abdominal incision for skin care Discharge Planning: CVICU for several days I updated the fiance via telephone yesterday
--- NOTE | 2018-08-25 09:47 | P.PNCC ---
Subjective Subjective Remarks/Hospital Course: Hospital Course: Patient is a 77-year-old female who was admitted to Dr. Eugene's service for mesenteric ischemia today. Her past medical history significant for coronary artery disease status post PCI/stent, history of renal artery stenosis, GERD, PAD, history of multiple vascular surgeries, history of small bowel obstruction, restless leg syndrome. Patient underwent aorto-hepatic and aorto-SMA bypass in OR. EBL was 400 ml, received 3.6 L of crystalloids in the OR , urine output was adequate. Postop patient was moved to the CVICU critical care medicine was consulted for postop management. Patient is hypotensive at the time of my evaluation and had been started on Diego-Synephrine by Dr. Eugene. I haave ordered further fluid resuscitation with additional 2 L of crystalloids. A stat ABG was done at the bedside which showed hemoglobin 6.6. A CBC was sent and I ordered 2 units of PRBC stat. CBC came back with hemoglobin of 6.4 platelet count 139. Chemistry showed potassium of 3.4 calcium uncorrected 6.4. Electrolyte replacement protocol and calcium replacement have been ordered. Lactic acid also mildly elevated at 2.2. Will follow serial lactic acid and follow urine output closely. If patient becomes hemodynamically more stable will proceed with weaning trial for extubation. Urine output had been adequate postop approximately 40 mL/h. Bilateral DP pulses are Dopplerable Subjective: 08/14: significant fluid requirement. trop slightly elevated at 0.06. initial scvo2 43% but improved after fluid to 68%. pain adequately controlled. uop marginal at 20cc/hr. 08/15: trop slightly uptrended. now appears volume overloaded with new and worsening oxygen requirement. ABG with mixed acidosis. responded well to lasix with adequate diuresis. placed on BiPAP. somewhat agitated requiring low-dose Precedex. lactate 0.8, scvo2 71%. 08/16: slightly tachycardic this morning. some diuresis yesterday and back to nc o2, but remains volume overloaded. denies pain. somewhat intermittently confused, but oriented on my evaluation. trop still uptrending, but plateauing. uop adequate. 08/17: went into afib RVR overnight. placed on diltiazem drip. this morning, more rate controlled. trop downtrending. adequate diuresis, but remains volume overloaded. aggressively replaced electrolytes this morning. 08/18: overnight events reviewed and discussed with Dr. Eugene and Dr. Sabillon. intubated after respiratory arrest. bronch with mucous plugging. new right pleural effusion on chest CT (multiple rib fractures after CPR). placed 28 Fr chest tube (see separate procedure note for details) with ~1600cc blood (no active bleeding). placed arterial line. transfused 3 units prbc. trending H&H. critically ill this morning. oliguric. 08/19: agitation persists. started scheduled valium as well as fentanyl drip for pain control. still with significant thick tenacious secretions: too many secretions for safe weaning of mechanical ventilation. also spiked fevers overnight, ennis cultured and zosyn started. chest tube with significantly less output, and more serosanguinous. 08/20: cold leg this AM with decreased motor function. taken back to OR today for re-vascularization. 08/21: perfusion to the LE still questionable. decreasing NGT output, but still 100cc/12h. will place post-pyloric feeding tube and start trickle feeds. likely needs another 24h before we are ready for SBTs. sputum growing serratia and pseudomonas: zosyn not adequate given MICs, will need to switch to Levaquin. would plan on 7 day course. 08/22: Cr increased significantly overnight, but adequate uop. may be delayed ATN from recent worsening hemodynamics. agree with starting gentle ivf. poor perfusion to the LE persists, but we have optimized everything we can for now. no reflux of tube feeds in OG tube. agree with increasing to 20cc/hr. also very tachycardic this morning- will restart very low-dose beta blockade. trial of SBT today with early failure: very tachypneic in distress. Also spiking fevers and wbc elevated. oliguric. 08/23: Cr continues to rise. hgb dropped to 6.8 today- receiving 2 units prbc. remains oliguric. urine electrolytes consistent with severe pre-renal azotemia, urine sodium < 20. 08/24 Patient remains sedated with Diprivan, Fentanyl and intubated. On Heparin drip, failed CPAP trials yesterday. s/p transfusion 2u PRBC. Hgb 9.9 from 6.8 12/8 Patient is sedated with Diprivan and Fentanyl infusion. Afebrile, renal function worse with Cr: 2.54 fro 1.8. On Heparin drip. Tolerated CPAP trials x 4hrs. Objective Vital Signs / I&O: Vital Signs 08/24/18 11:00 08/24/18 11:12 08/24/18 12:53 Temperature 98.5 F Pulse Rate 77 Respiratory Rate 25 H 25 H 18 Pulse Oximetry 98 97 95 08/24/18 15:00 08/24/18 15:49 08/24/18 19:00 Temperature 98.6 F Pulse Rate 69 65 62 Respiratory Rate 14 15 Pulse Oximetry 98 99 08/24/18 20:00 08/24/18 20:02 08/24/18 23:00 Temperature 98.8 F Pulse Rate 64 62 73 Respiratory Rate 14 14 Pulse Oximetry 98 98 08/24/18 23:54 08/25/18 00:00 08/25/18 03:00 Temperature 99.6 F Pulse Rate 75 74 69 Respiratory Rate 14 14 Pulse Oximetry 99 98 08/25/18 04:00 08/25/18 04:18 08/25/18 07:39 Temperature 99.4 F Pulse Rate 75 75 81 Respiratory Rate 14 16 14 Pulse Oximetry 94 L 98 96 Intake & Output 08/24/18 08/25/18 08/25/18 18:59 06:59 18:59 Intake Total 939 / 939 1128 / 1128 100 / 100 Output Total 880 / 880 550 / 550 Balance 59 / 59 578 / 578 100 / 100 Weight 69 kg Intake: IV 659 / 659 906 / 906 100 / 100 Heparin/D5W 25,000 U/250 mL 25, 3 / 3 000 unit In 250 ml @ Per Protocol IV.CONT TITRATE PRN Rx #:[id number] LR 1000 mL Inj 1,000 ML @ 100 516 / 516 516 / 516 mls/hr IV.CONT .Q10H [facility] Rx#: [id number] Diprivan 1000 mg/100 ml Inj 1, 40 / 40 40 / 40 000 mg In 100 ml @ 5 MCG/KG/MIN 1.845 mls/hr IV.CONT TITRATE PRN Rx#:[id number] Maxipime Inj 2,000 MG In NS Inj 100 / 100 200 / 200 100 / 100 100 ML @ 200 mls/hr IV.SIG Q8H [facility] Rx#:[id number] Levaquin 750 mg Premix Inj 150 150 / 150 ML @ 100 mls/hr IV.SIG Q24H [facility] Rx#:[id number] Oral 0 / 0 Tube Feeding 160 / 160 112 / 112 Water Bolus Amount 120 / 120 110 / 110 Output: Urine Amount (Catheter) 460 / 460 200 / 200 Indwelling Temp Sensing 460 / 460 200 / 200 Catheter Gastric Drainage 350 / 350 300 / 300 Right Nare Nasogastric Tube 350 / 350 300 / 300 Chest Tube Drainage 70 / 70 50 / 50 #1 Right Pleural 70 / 70 50 / 50 Other: Date of Last Bowel Movement 08/18/18 # Bowel Movements 0 0 Result Diagrams: 08/25/18 05:20 08/25/18 05:20 Other Results: Laboratory Results - last 12 hr 08/25/18 08/25/18 08/25/18 00:47 05:20 05:20 WBC 15.0 H RBC 3.16 L Hgb 9.8 L Hct 28.8 L MCV 91.2 MCH 31.1 MCHC 34.0 RDW 17.1 Plt Count 263 MPV 10.1 APTT Sodium 145 Potassium 3.8 Chloride 113 H Carbon Dioxide 20.0 L Anion Gap 12 BUN 45 H Creatinine 2.54 H Estimated GFR 18 L POC Glucose 85 Random Glucose 105 Calcium 6.9 L* Calcium Adj for Albumin 9.2 Phosphorus 3.4 Magnesium 1.8 Albumin 1.1 L Random Vancomycin 22.1 08/25/18 08/25/18 05:20 05:26 WBC RBC Hgb Hct MCV MCH MCHC RDW Plt Count MPV APTT 62.2 H Sodium Potassium Chloride Carbon Dioxide Anion Gap BUN Creatinine Estimated GFR POC Glucose 103 Random Glucose Calcium Calcium Adj for Albumin Phosphorus Magnesium Albumin Random Vancomycin Imaging: Abdomen/Bladder Ultrasound 08/22/18 00:00 CONCLUSION: 1. No hydronephrosis is identified. 2. Left kidney is smaller than the right and demonstrates increased echogenicity suggesting medical renal disease. Given the appearance on prior CTA , a renovascular cause is suspected for these changes. 3. There is a small volume of free fluid within the abdomen and pelvis and pleural fluid is visualized on the left. Chest X-Ray 08/23/18 00:00 CONCLUSION: 1. Examination quality is less than optimal secondary to rotation and marked underinflation. There is stable perihilar opacity and bibasilar pleural- parenchymal opacity. These likely represent pleural effusions with associated volume loss and/or airspace consolidation. Although nonspecific pulmonary edema could give this appearance. 2. Right chest tube remains present and no pneumothorax is visualized. 3. The endotracheal tube distal tip measures only 1.5 cm from the vidhya. Chest CT 08/24/18 10:42 CONCLUSION: 1. Interval improvement on the right large bore chest tube in good position. Persistent air bronchograms remaining in the right base. 2. Stable to slightly larger left pleural effusion with compressive atelectasis in the left base. Abdomen/Pelvis CT 08/24/18 10:43 CONCLUSION: 1. Trace ascites with generalized mesenteric edema 2. Extensive vascular calcifications. There is no free air or abscess. Do not see air in the bowel wall to suggest ischemia. Objective Remarks: GENERAL: Elderly female, lying in bed, intubated, sedated, critically ill. HEENT: Normocephalic. Atraumatic. Pupils equal, round, reactive, conjugate. Mucous membranes are moist NECK: Trachea is midline. There is no JVD. CHEST: Equal chest rise, CT in place CARDIOVASCULAR: normal rate, regular rhythm. sinus. ABDOMEN: Soft, appropriately tender to palpation, nondistended. No guarding. MUSCULOSKELETAL: LE dopplers present post-op. leg is mottled and cool, but warmer than pre-op. NEUROLOGICAL: RASS -2. withdraws to pain. awake and following commands, Assessment and Plan - Assessment and Plan Plan: PLAN: NEURO: Acute alcohol withdraw syndrome Acute agitated delirium- improving Restless leg syndrome -On propofol, fentanyl for sedation. Daily sedation vacation - frequent neuro checks RESP: Aspiration pneumonia Acute hypoxic and hypercarbic respiratory failure Acute right hemothorax post CPR Rib fractures secondary to CPR -Continue with vent support keep sats >92% - Bronchodilators, ICU vent bundle. -SBT daily as anatoliy. Check ABG - right 28 Fr chest tube placed 08/18. keep to suction. Monitor CT drainage. -CT chest 08/24: Persistent air bronchograms remaining in the right base. compressive atelectasis in the left base. CV: Type II NSTEMI secondary to demand ischemia- resolved Hypovolemia secondary to hemothorax CAD History of peripheral arterial disease, status post multiple vascular surgery Perioperative atrial fibrillation with rapid ventricular response- back in NSR Lactic acidosis- resolved - Monitor HR and BP keep MAP>65mmHg -On ASA, Plavix, Lipitor, Lopressor 2.5mg IV Q6 -Cards is following GI: Mesenteric ischemia status post open antegrade mesenteric bypass GERD History of small bowel obstruction acute protein calorie malnutrition- severe Postoperative ileus -Status post open antegrade mesenteric bypass, postop management per Dr. Eugene -Continue tube feeds -Nepro currently @20ml/hr : History of renal artery stenosis Acute kidney injury- worsening. -Monitor renal function closely, I/O's, avoid nephrotoxins. Boateng catheter. - renal ultrasound without hydronephrosis - Cr: 2.58 from 1.88, on LR @100ml/hr. Check CK's -Renal is following ID: Aspiration pneumonia- pseudomonas and serratia Continue abx (Cefepime, Levaquin) monitor for signs of infections ( fever, WBC) Follow up on sputum and urine cx. Send wound cx form abdomen. Wound eval. HEME: Anemia secondary to acute blood loss- requiring transfusion- worsening. -Monitor CBC, coags - 2 units prbc 08/23 Endo SSI for glycemic control ENDO: -Electrolyte replacement per protocol PROPH: -heparin drip. -Pepcid CCt 30 mins
[2018-08-25] MEDS: Famotidine PF Inj 20 MG/2 ML Vial IV.PUSH SCH ×2 (10:01→21:47)
[2018-08-25] MEDS: Chlorhexidine 0.12% Oral Kit 15 ML UDC OROPHARYNG SCH ×2 (10:01→21:49)
[2018-08-25] MEDS: Sodium Chloride 0.9% 2 ML Flush BID IV.FLUSH SCH ×2 (10:01→23:50)
--- NOTE | 2018-08-25 11:45 | P.PNVS ---
Subjective Subjective/Hospital Course: POD#12 mesenteric bypass POD#5 L LE graft thrombectomy left foot ischemia Objective Vital Signs / I&O: Vital Signs 08/24/18 12:53 08/24/18 15:00 08/24/18 15:49 Temperature 98.6 F Pulse Rate 69 65 Respiratory Rate 18 14 15 Blood Pressure Pulse Oximetry 95 98 99 08/24/18 19:00 08/24/18 20:00 08/24/18 20:02 Temperature 98.8 F Pulse Rate 62 64 62 Respiratory Rate 14 14 Blood Pressure Pulse Oximetry 98 98 08/24/18 23:00 08/24/18 23:54 08/25/18 00:00 Temperature 99.6 F Pulse Rate 73 75 74 Respiratory Rate 14 14 Blood Pressure Pulse Oximetry 99 98 08/25/18 03:00 08/25/18 04:00 08/25/18 04:18 Temperature 99.4 F Pulse Rate 69 75 75 Respiratory Rate 14 16 Blood Pressure Pulse Oximetry 94 L 98 08/25/18 07:20 08/25/18 07:39 Temperature 99 F Pulse Rate 79 81 Respiratory Rate 14 14 Blood Pressure 100/42 L Pulse Oximetry 99 96 Intake & Output 08/24/18 08/25/18 08/25/18 18:59 06:59 18:59 Intake Total 939 / 939 1128 / 1128 616 / 616 Output Total 880 / 880 550 / 550 Balance 59 / 59 578 / 578 616 / 616 Weight 69 kg Intake: IV 659 / 659 906 / 906 616 / 616 Heparin/D5W 25,000 U/250 mL 25, 3 / 3 000 unit In 250 ml @ Per Protocol IV.CONT TITRATE PRN Rx #:[id number] LR 1000 mL Inj 1,000 ML @ 100 516 / 516 516 / 516 516 / 516 mls/hr IV.CONT .Q10H [facility] Rx#: [id number] Diprivan 1000 mg/100 ml Inj 1, 40 / 40 40 / 40 000 mg In 100 ml @ 5 MCG/KG/MIN 1.845 mls/hr IV.CONT TITRATE PRN Rx#:[id number] Maxipime Inj 2,000 MG In NS Inj 100 / 100 200 / 200 100 / 100 100 ML @ 200 mls/hr IV.SIG Q8H [facility] Rx#:[id number] Levaquin 750 mg Premix Inj 150 150 / 150 ML @ 100 mls/hr IV.SIG Q24H [facility] Rx#:[id number] Oral 0 / 0 Tube Feeding 160 / 160 112 / 112 Water Bolus Amount 120 / 120 110 / 110 Output: Urine Amount (Catheter) 460 / 460 200 / 200 Indwelling Temp Sensing 460 / 460 200 / 200 Catheter Gastric Drainage 350 / 350 300 / 300 Right Nare Nasogastric Tube 350 / 350 300 / 300 Chest Tube Drainage 70 / 70 50 / 50 #1 Right Pleural 70 / 70 50 / 50 Other: Date of Last Bowel Movement 08/18/18 # Bowel Movements 0 0 Physical Exam: Left foot mottled with lack of blood flow below the ankle Laboratory Results - last 24 hr 08/22/18 08/24/18 08/24/18 14:30 10:32 11:10 WBC RBC Hgb Hct MCV MCH MCHC RDW Plt Count MPV APTT Sodium Potassium Chloride Carbon Dioxide Anion Gap BUN Creatinine Estimated GFR POC Glucose Random Glucose Calcium Calcium Adj for Albumin Phosphorus Magnesium Total Creatine Kinase 3153 H CK-MB (CK-2) 43.3 H CK-MB (CK-2) % 1.4 Albumin Urine Color Stefany Urine Clarity Cloudy H Urine pH 5.0 Ur Specific Sidney 1.017 Urine Protein 100 H Urine Glucose (UA) Negative Urine Ketones Negative Urine Occult Blood Large H Urine Nitrate Negative Urine Bilirubin Negative Urine Urobilinogen Less than 2 Ur Leukocyte Esterase Negative Urine RBC 1 Urine WBC 7 H Ur Squamous Epith Cells <1 Ur Transition Epith Cell 1 Amorphous Sediment Few H Urine Bacteria Moderate H Granular Casts 4 Urine Mucus Few H Micro UA Comment Cath-culture ind Ur Microscopic Review Not Reportable Urine Culture Comments Cath-cult indicated Ur Random Urea 1048 U Random Urea/Creat 16.90 Urine Creatinine 62 Random Vancomycin 08/24/18 08/24/18 08/25/18 12:06 17:59 00:47 WBC RBC Hgb Hct MCV MCH MCHC RDW Plt Count MPV APTT Sodium Potassium Chloride Carbon Dioxide Anion Gap BUN Creatinine Estimated GFR POC Glucose 101 91 85 Random Glucose Calcium Calcium Adj for Albumin Phosphorus Magnesium Total Creatine Kinase CK-MB (CK-2) CK-MB (CK-2) % Albumin Urine Color Urine Clarity Urine pH Ur Specific Sidney Urine Protein Urine Glucose (UA) Urine Ketones Urine Occult Blood Urine Nitrate Urine Bilirubin Urine Urobilinogen Ur Leukocyte Esterase Urine RBC Urine WBC Ur Squamous Epith Cells Ur Transition Epith Cell Amorphous Sediment Urine Bacteria Granular Casts Urine Mucus Micro UA Comment Ur Microscopic Review Urine Culture Comments Ur Random Urea U Random Urea/Creat Urine Creatinine Random Vancomycin 08/25/18 08/25/18 08/25/18 05:20 05:20 05:20 WBC 15.0 H RBC 3.16 L Hgb 9.8 L Hct 28.8 L MCV 91.2 MCH 31.1 MCHC 34.0 RDW 17.1 Plt Count 263 MPV 10.1 APTT 62.2 H Sodium 145 Potassium 3.8 Chloride 113 H Carbon Dioxide 20.0 L Anion Gap 12 BUN 45 H Creatinine 2.54 H Estimated GFR 18 L POC Glucose Random Glucose 105 Calcium 6.9 L* Calcium Adj for Albumin 9.2 Phosphorus 3.4 Magnesium 1.8 Total Creatine Kinase CK-MB (CK-2) CK-MB (CK-2) % Albumin 1.1 L Urine Color Urine Clarity Urine pH Ur Specific Sidney Urine Protein Urine Glucose (UA) Urine Ketones Urine Occult Blood Urine Nitrate Urine Bilirubin Urine Urobilinogen Ur Leukocyte Esterase Urine RBC Urine WBC Ur Squamous Epith Cells Ur Transition Epith Cell Amorphous Sediment Urine Bacteria Granular Casts Urine Mucus Micro UA Comment Ur Microscopic Review Urine Culture Comments Ur Random Urea U Random Urea/Creat Urine Creatinine Random Vancomycin 22.1 08/25/18 08/25/18 05:26 10:25 WBC RBC Hgb Hct MCV MCH MCHC RDW Plt Count MPV APTT Sodium Potassium Chloride Carbon Dioxide Anion Gap BUN Creatinine Estimated GFR POC Glucose 103 Random Glucose Calcium Calcium Adj for Albumin Phosphorus Magnesium Total Creatine Kinase 1778 H CK-MB (CK-2) CK-MB (CK-2) % Albumin Urine Color Urine Clarity Urine pH Ur Specific Sidney Urine Protein Urine Glucose (UA) Urine Ketones Urine Occult Blood Urine Nitrate Urine Bilirubin Urine Urobilinogen Ur Leukocyte Esterase Urine RBC Urine WBC Ur Squamous Epith Cells Ur Transition Epith Cell Amorphous Sediment Urine Bacteria Granular Casts Urine Mucus Micro UA Comment Ur Microscopic Review Urine Culture Comments Ur Random Urea U Random Urea/Creat Urine Creatinine Random Vancomycin Microbiology 08/24/18 11:10 Urine Culture - Preliminary Catheterized Urine No growth in 24 hours 08/22/18 13:30 Aerobic Blood Culture - Preliminary Blood - Peripheral No growth in 3 days Anaerobic Blood Culture - Preliminary No growth in 3 days 08/22/18 13:30 Aerobic Blood Culture - Preliminary Blood - Peripheral No growth in 3 days Anaerobic Blood Culture - Preliminary No growth in 3 days 08/24/18 13:11 Gram Stain - Final Sputum - Endotracheal 08/19/18 04:30 Aerobic Blood Culture - Final Blood - Line No growth in 5 days Anaerobic Blood Culture - Final No growth in 5 days 08/19/18 02:52 Aerobic Blood Culture - Final Blood - Peripheral No growth in 5 days Anaerobic Blood Culture - Final No growth in 5 days 08/22/18 14:30 Urine Culture - Final Catheterized Urine No growth in [address] 08/24/18 10:42 CONCLUSION: 1. Interval improvement on the right large bore chest tube in good position. Persistent air bronchograms remaining in the right base. 2. Stable to slightly larger left pleural effusion with compressive atelectasis in the left base. Abdomen/Pelvis CT 08/24/18 10:43 CONCLUSION: 1. Trace ascites with generalized mesenteric edema 2. Extensive vascular calcifications. There is no free air or abscess. Do not see air in the bowel wall to suggest ischemia. Assessment and Plan - Assessment (1) Mesenteric ischemia due to arterial insufficiency Code(s): K55.059 - Acute (reversible) ischemia of intestine, part and extent unspecified Status: Acute - Plan POD#12 s/p antegrade mesenteric bypass POD#5 L LE graft revision 1. Left foot with non-reservable ischemia due to lack of blood flow beyond the level of the ankle 2. Most likely in-situ microvascular thrombosis during cardiac arrest 3. I agree with left BKA Discharge Planning: CVICU for several days I updated the fiance via telephone yesterday
[2018-08-25 11:49] LABS: CKMB Percent 1.6 % (0.0-4.0)
--- NOTE | 2018-08-25 11:49 | P.PNVS ---
- Pre-operative Note Planned Procedure: L BKA Interval History: Pt has progressive renal dysfunction, elevated CK and what I feel is a non- salvageable foot. After extensive discussions with julián, her children and her sister, we have all agreed that a BKA is the best option. Dr. Mace has provided the second surgical opinion in agreement. Labs: WBC 15.0 th/mm3 (4.0-11.0) H 08/25/18 05:20 Corrected WBC Cancelled 08/19/18 04:30 RBC 3.16 mil/mm3 (4.00-5.30) L 08/25/18 05:20 Hgb 9.8 gm/dL (11.6-15.3) L 08/25/18 05:20 Hct 28.8 % (35.0-46.0) L 08/25/18 05:20 MCV 91.2 fL (80.0-100.0) 08/25/18 05:20 MCH 31.1 pg (27.0-34.0) 08/25/18 05:20 MCHC 34.0 % (32.0-36.0) 08/25/18 05:20 RDW 17.1 % (11.6-17.2) 08/25/18 05:20 Plt Count 263 th/mm3 (150-450) 08/25/18 05:20 MPV 10.1 fL (7.0-11.0) 08/25/18 05:20 Hematology Comments Cancelled 08/19/18 04:30 INR 1.0 Ratio 08/20/18 11:45 Sodium 145 meq/L (136-145) 08/25/18 05:20 Potassium 3.8 meq/L (3.5-5.1) 08/25/18 05:20 Chloride 113 meq/L (98-107) H 08/25/18 05:20 Carbon Dioxide 20.0 meq/L (21.0-32.0) L 08/25/18 05:20 Anion Gap 12 meq/L (5-15) 08/25/18 05:20 BUN 45 mg/dL (7-18) H 08/25/18 05:20 Random Glucose 105 mg/dL (74-106) 08/25/18 05:20 Calcium 6.9 mg/dL (8.5-10.1) L* 08/25/18 05:20 Blood: T&S active EKG: no changes. Imaging: ITS Impressions Abdomen/Bladder Ultrasound 08/22/18 00:00 CONCLUSION: 1. No hydronephrosis is identified. 2. Left kidney is smaller than the right and demonstrates increased echogenicity suggesting medical renal disease. Given the appearance on prior CTA , a renovascular cause is suspected for these changes. 3. There is a small volume of free fluid within the abdomen and pelvis and pleural fluid is visualized on the left. Chest X-Ray 08/23/18 00:00 CONCLUSION: 1. Examination quality is less than optimal secondary to rotation and marked underinflation. There is stable perihilar opacity and bibasilar pleural- parenchymal opacity. These likely represent pleural effusions with associated volume loss and/or airspace consolidation. Although nonspecific pulmonary edema could give this appearance. 2. Right chest tube remains present and no pneumothorax is visualized. 3. The endotracheal tube distal tip measures only 1.5 cm from the vidhya. Chest CT 08/24/18 10:42 CONCLUSION: 1. Interval improvement on the right large bore chest tube in good position. Persistent air bronchograms remaining in the right base. 2. Stable to slightly larger left pleural effusion with compressive atelectasis in the left base. Abdomen/Pelvis CT 08/24/18 10:43 CONCLUSION: 1. Trace ascites with generalized mesenteric edema 2. Extensive vascular calcifications. There is no free air or abscess. Do not see air in the bowel wall to suggest ischemia. Orders: Will hold TF at 0200 (post-pyloric. Hold heparin gtt at 0700. on broad antibiotics Post-operative Destination: CVICU Operative site marked: No Consent: Informed consent has been obtained from Siena Saunders. I have explained the procedure in detail and discussed the risks, benefits, and potential complications. All questions have been answered. Patient Contact Information: Julián (Alberto) [phone]
--- NOTE | 2018-08-25 13:27 | P.PNNP ---
Subjective Interval history: awake on Ventilator left ischemic foot Physical Exam Vital signs: Vital Signs 08/24/18 15:00 08/24/18 15:49 08/24/18 19:00 Temperature 98.6 F Pulse Rate 69 65 62 Respiratory Rate 14 15 Blood Pressure Pulse Oximetry 98 99 08/24/18 20:00 08/24/18 20:02 08/24/18 23:00 Temperature 98.8 F Pulse Rate 64 62 73 Respiratory Rate 14 14 Blood Pressure Pulse Oximetry 98 98 08/24/18 23:54 08/25/18 00:00 08/25/18 03:00 Temperature 99.6 F Pulse Rate 75 74 69 Respiratory Rate 14 14 Blood Pressure Pulse Oximetry 99 98 08/25/18 04:00 08/25/18 04:18 08/25/18 07:20 Temperature 99.4 F 99 F Pulse Rate 75 75 79 Respiratory Rate 14 16 14 Blood Pressure 100/42 L Pulse Oximetry 94 L 98 99 08/25/18 07:39 08/25/18 11:30 08/25/18 12:00 Temperature 99.2 F Pulse Rate 81 83 84 Respiratory Rate 14 14 23 Blood Pressure 102/37 L Pulse Oximetry 96 100 Intake & Output 08/24/18 08/25/18 08/25/18 18:59 06:59 18:59 Intake Total 939 / 939 1128 / 1128 616 / 616 Output Total 880 / 880 550 / 550 Balance 59 / 59 578 / 578 616 / 616 Weight 69 kg Intake: IV 659 / 659 906 / 906 616 / 616 Heparin/D5W 25,000 U/250 mL 25, 3 / 3 000 unit In 250 ml @ Per Protocol IV.CONT TITRATE PRN Rx #:[id number] LR 1000 mL Inj 1,000 ML @ 100 516 / 516 516 / 516 516 / 516 mls/hr IV.CONT .Q10H [facility] Rx#: [id number] Diprivan 1000 mg/100 ml Inj 1, 40 / 40 40 / 40 000 mg In 100 ml @ 5 MCG/KG/MIN 1.845 mls/hr IV.CONT TITRATE PRN Rx#:[id number] Maxipime Inj 2,000 MG In NS Inj 100 / 100 200 / 200 100 / 100 100 ML @ 200 mls/hr IV.SIG Q8H [facility] Rx#:[id number] Levaquin 750 mg Premix Inj 150 150 / 150 ML @ 100 mls/hr IV.SIG Q24H [facility] Rx#:[id number] Oral 0 / 0 Tube Feeding 160 / 160 112 / 112 Water Bolus Amount 120 / 120 110 / 110 Output: Urine Amount (Catheter) 460 / 460 200 / 200 Indwelling Temp Sensing 460 / 460 200 / 200 Catheter Gastric Drainage 350 / 350 300 / 300 Right Nare Nasogastric Tube 350 / 350 300 / 300 Chest Tube Drainage 70 / 70 50 / 50 #1 Right Pleural 70 / 70 50 / 50 Other: Date of Last Bowel Movement 08/18/18 # Bowel Movements 0 0 Narrative: GENERAL: Intubated and sedated SKIN: Warm and dry. No rash present NECK: Supple, trachea midline. No JVD. CARDIOVASCULAR: Regular rate and rhythm without murmurs, gallops, or rubs. CT tube present RESPIRATORY: Breath sounds equal bilaterally. No accessory muscle use. Orally intubated. GASTROINTESTINAL: Abdomen soft, non-tender, nondistended. NG tube GENITOURINARY: Indwelling Boateng catheter. MUSCULOSKELETAL: ischemic lt foot. Generalized edema. - Urinary Catheter Management Indwelling Temp Sensing Catheter Cath placed during this visit: yes Reason for continuing: Hourly intake/output Insertion date: 08/13/18 Insertion time: 08:08 Assessment and Plan - Assessment (1) Acute kidney injury Code(s): N17.9 - Acute kidney failure, unspecified Status: Acute (2) Mesenteric ischemia Code(s): K55.9 - Vascular disorder of intestine, unspecified Status: Acute (3) Hemothorax Code(s): J94.2 - Hemothorax Status: Acute - Plan Acute kidney injury with a creatinine of 2.5 worse. Has been increasing since the . HÉCTOR possible prerenal with FeNa less than 1 vs ATN from sepsis or hypotension. Patient CPK is also elevated with casts in urine. So possibly ATN from rhabdomyolysis. No previous history of chronic kidney disease baseline creatinine is less than 1. Renal US with no hydronephrosis. Left kidney is smaller than the right and demonstrates increased echogenicity suggesting medical renal disease. Patient urinary output has been decreasing with 385 ml/24 hours. Continue IVF. add albumin 25 mg q 12 Maintain strict I+O has indwelling Boateng catheter. for Left BKA in am, . On antibiotics renal dose as tolerated. Avoid nephrotoxins. Will monitor renal function closely. Labs in AM
[2018-08-25] MEDS: Albumin Human 5% Inj 500 ML IV.SIG SCH (14:10)
[2018-08-25] MEDS: Levofloxacin 500 mg Premix Inj 500 MG/100 ML PIGGYBACK IV.SIG SCH (17:21)
[2018-08-25] MEDS: fentaNYL 10 mcg/mL Premix Drip 2,500 MCG/250 ML BAG IV.SIG PRN (18:47)
[2018-08-25] MEDS: Magnesium Oxide 400 MG Tablet PO SCH (21:47)
[2018-08-26] MEDS ORDERED: Chlorhexidine Gluconate 2% 1 Pack (2 Cloths) TOPICAL ONE (02:04)
[2018-08-26] MEDS ORDERED: Metoprolol Tartrate 25 MG Tablet PO SCH (02:04)
[2018-08-26] MEDS ORDERED: Sodium Chloride 0.9% 2 ML Flush PRN IV.FLUSH (02:13)
[2018-08-26] MEDS ORDERED: Sodium Chlor 0.9% Inj 500 ML IV.SIG SCH (03:00)
[2018-08-26] MEDS: Albumin Human 5% Inj 500 ML IV.SIG SCH ×2 (03:51→14:50)
[2018-08-26] MEDS: Propofol 1000 mg/100 ml Inj 1,000 MG/100 ML BOTTLE IV.CONT PRN ×2 (03:59→18:19)
[2018-08-26] MEDS: Metoprolol Inj 5 MG/5 ML Vial IV.PUSH SCH ×4 (04:34→22:21)
[2018-08-26] MEDS: Oral Hygiene Kit OROPHARYNG SCH ×3 (04:34→16:03)
[2018-08-26] MEDS: Heparin Drip 25,000 UNIT/250 ML BAG IV.CONT PRN (04:46)
[2018-08-26] MEDS: Artificial Tears Opth Drops 15 ML Bottle EACH EYE SCH ×3 (05:03→21:55)
[2018-08-26] MEDS: Insulin NovoLIN Regular Correctional Sugar Inj SQ SCH ×3 (05:50→17:47)
[2018-08-26 06:22] LABS: Hematocrit 25.6 % (35.0-46.0); Hemoglobin 8.7 gm/dL (11.6-15.3); Mean Corpuscular HGB Conc 34.1 % (32.0-36.0); Mean Corpuscular Hemoglobin 31.3 pg (27.0-34.0); Mean Corpuscular Volume 91.8 fL (80.0-100.0); Mean Platelet Volume 10.1 fL (7.0-11.0); Platelet Count 254 th/mm3 (150-450); Red Blood Count 2.79 mil/mm3 (4.00-5.30); Red Cell Distribution Width 16.9 % (11.6-17.2)
[2018-08-26 06:31] LABS: Carbon Dioxide 18.8 meq/L (21.0-32.0); Magnesium 1.7 mg/dL (1.5-2.5); Phosphorus 3.9 mg/dL (2.5-4.9); Potassium 3.7 meq/L (3.5-5.1); Vancomycin,Random 18.7 Comment
[2018-08-26 06:44] LABS: Albumin 1.8 g/dL (3.4-5.0); Calcium-Albumin Corrected 8.8 mg/dL (8.5-10.1)
[2018-08-26] MEDS ORDERED: fentaNYL Citrate Inj 250 MCG/5 ML Ampul ONE (06:52)
[2018-08-26] MEDS ORDERED: ceFAZolin 1 GM Premix Inj 0 GM/0 ML PIGGYBACK IV.SIG ONE (07:41)
[2018-08-26] MEDS: Chlorhexidine 0.12% Oral Kit 15 ML UDC OROPHARYNG SCH ×2 (08:34→20:00)
--- NOTE | 2018-08-26 09:21 | P.OP ---
- Preoperative Diagnosis (1) PAD (peripheral artery disease) - Postoperative Diagnosis (1) PAD (peripheral artery disease) Date of procedure: 08/26/18 Procedure: L BKA Implants: none Anesthesia: GETA Surgeon: Kishore Eugene MD Glass Etcher: Laury White Estimated blood loss (mL): 250 IV fluids (mL): 500 Urine output (mL): 50 Pathology: other (leg) Operation and Findings: edematous tissue, marginally viable muscle
--- NOTE | 2018-08-26 09:26 | P.PNVS ---
Subjective Post Op Day #: 13 Procedure: aorto-hepatic, aorto-SMA bypass Subjective/Hospital Course: POD#13 mesenteric bypass POD#6 L LE graft thrombectomy 2.5h on CPAP yesterday otherwise HD stable left foot ischemia Objective Neuro: sedated, does open eyes when off sedation Pulmonary: R CT in place vent - CPAP trials continue Cardiac: reg rate, bp ok FEN/GI: TF held for OR this morning will resume at 10/h : oliguric and renal function continues to decline ID Antibiotics (date/duration): broad antibiotics Heme: Hct stable Vascular: L foot not viable Laboratory Results - last 24 hr 08/25/1818 08/25/18 10:25 11:45 17:42 WBC RBC Hgb Hct MCV MCH MCHC RDW Plt Count MPV APTT Sodium Potassium Chloride Carbon Dioxide Anion Gap BUN Creatinine Estimated GFR POC Glucose 113 H 112 H Random Glucose Calcium Calcium Adj for Albumin Phosphorus Magnesium Total Creatine Kinase 1778 H CK-MB (CK-2) 28.0 H CK-MB (CK-2) % 1.6 Albumin Random Vancomycin Blood Type Antibody Screen 08/25/18 08/26/18 08/26/18 23:53 05:30 05:30 WBC 16.0 H RBC 2.79 L Hgb 8.7 L Hct 25.6 L MCV 91.8 MCH 31.3 MCHC 34.1 RDW 16.9 Plt Count 254 MPV 10.1 APTT Sodium 143 Potassium 3.7 Chloride 113 H Carbon Dioxide 18.8 L Anion Gap 11 BUN 48 H Creatinine 2.78 H Estimated GFR 16 L POC Glucose 99 Random Glucose 91 Calcium 7.0 L* Calcium Adj for Albumin 8.8 Phosphorus 3.9 Magnesium 1.7 Total Creatine Kinase CK-MB (CK-2) CK-MB (CK-2) % Albumin 1.8 L D Random Vancomycin 18.7 Blood Type Antibody Screen 08/26/18 08/26/18 08/26/18 05:30 05:30 05:34 WBC RBC Hgb Hct MCV MCH MCHC RDW Plt Count MPV APTT 115.7 H* D Sodium Potassium Chloride Carbon Dioxide Anion Gap BUN Creatinine Estimated GFR POC Glucose 91 Random Glucose Calcium Calcium Adj for Albumin Phosphorus Magnesium Total Creatine Kinase CK-MB (CK-2) CK-MB (CK-2) % Albumin Random Vancomycin Blood Type A Positive Antibody Screen Negative Microbiology 08/24/18 11:10 Urine Culture - Final Catheterized Urine No growth in 48 hours 08/25/18 10:30 Gram Stain - Final Wound - Abdominal 08/24/18 13:11 Gram Stain - Final Sputum - Endotracheal Sputum Culture - Preliminary No growth in 24 hours 08/22/18 13:30 Aerobic Blood Culture - Preliminary Blood - Peripheral No growth in 3 days Anaerobic Blood Culture - Preliminary No growth in 3 days 08/22/18 13:30 Aerobic Blood Culture - Preliminary Blood - Peripheral No growth in 3 days Anaerobic Blood Culture - Preliminary No growth in [address] 08/24/18 10:42 CONCLUSION: 1. Interval improvement on the right large bore chest tube in good position. Persistent air bronchograms remaining in the right base. 2. Stable to slightly larger left pleural effusion with compressive atelectasis in the left base. Abdomen/Pelvis CT 08/24/18 10:43 CONCLUSION: 1. Trace ascites with generalized mesenteric edema 2. Extensive vascular calcifications. There is no free air or abscess. Do not see air in the bowel wall to suggest ischemia. Assessment and Plan - Assessment (1) PAD (peripheral artery disease) Code(s): I73.9 - Peripheral vascular disease, unspecified Status: Acute - Plan POD#13 s/p antegrade mesenteric bypass POD#6 L LE graft revision 1. LEFT BKA today; discussed with family yesterday and today; marginal BKA candidate and may ultimately need AKA 2. No need for hep gtt post-op; will resume prophylactic heparin 3. ASA 4. Resume TF at 10/h; increase slowly; if intolerant will start TPN tomorrow 5. continue antiobiotics 6. Check CBC at noon today Discharge Planning: CVICU candid discussions with family daily about overall prognosis. Main obstacles: nutrition, vent, renal function.
--- NOTE | 2018-08-26 09:54 | MP ---
cc: Kishore Eugene MD DATE OF OPERATION: 08/26/2018 PREOPERATIVE DIAGNOSIS: Left lower extremity ischemia, non-reconstructible peripheral vascular disease. POSTOPERATIVE DIAGNOSIS: Left lower extremity ischemia, non-reconstructible peripheral vascular disease. PROCEDURE PERFORMED: Left below-knee amputation. ATTENDING SURGEON: Kishore Eugene MD [employer] SURGEON: Laury White. ANESTHESIA: General. INDICATIONS: Ms. Saunders is a 78-year-old lady with multiple comorbidities including peripheral vascular occlusive disease status post 2 left lower extremity bypasses, an aortobifemoral bypass, as well as chronic mesenteric ischemia. She is 13 days out from a mesenteric bypass. She has had a turbulent postoperative course including a PEA arrest and acute left leg ischemia. She underwent a left leg graft thrombectomy with pentecostal of Doppler signals, but her foot has been nonviable since then. She is taken to the operating room for [id number] amputation. DESCRIPTION OF PROCEDURE: Informed consent was obtained from the patient's family as the patient was intubated. She was taken to the operating room and placed supine on the operating table. An appropriate timeout was taken to ensure the patient's identity, the operative site and planned procedure. Antibiotics were not necessary since she was on systemic therapeutic antibiotics and these will be continued postoperatively for ongoing therapy. Everyone in the room agreed with the timeout and we proceeded. Her left leg was prepped and draped. Incision was made a hand's breadth below the tibial tuberosity, carried down through subcutaneous tissue with electrocautery. A long posterior flap was then created with a knife and electrocautery. The tibia was transected a centimeter cephalad to the skin incision and the fibula was transected a centimeter cephalad to this. The anterior border of the tibia was beveled and the posterior muscle was divided with electrocautery. The specimen was passed off the table. The leg was made hemostatic, irrigated and closed with 2-0 Polysorb and 2-0 nylons. The muscle overall looked marginal. There was no undrained infection. The patient tolerated the procedure well and was transported to the ICU in stable condition. Kishore Eugene MD RJF/ren , 09:19 AM , 09:24 AM
--- NOTE | 2018-08-26 11:28 | P.PNCC ---
Subjective Subjective Remarks/Hospital Course: Hospital Course: Patient is a 77-year-old female who was admitted to Dr. Ryan's service for mesenteric ischemia today. Her past medical history significant for coronary artery disease status post PCI/stent, history of renal artery stenosis, GERD, PAD, history of multiple vascular surgeries, history of small bowel obstruction, restless leg syndrome. Patient underwent aorto-hepatic and aorto-SMA bypass in OR. EBL was 400 ml, received 3.6 L of crystalloids in the OR , urine output was adequate. Postop patient was moved to the CVICU critical care medicine was consulted for postop management. Patient is hypotensive at the time of my evaluation and had been started on Diego-Synephrine by Dr. Ryan. I haave ordered further fluid resuscitation with additional 2 L of crystalloids. A stat ABG was done at the bedside which showed hemoglobin 6.6. A CBC was sent and I ordered 2 units of PRBC stat. CBC came back with hemoglobin of 6.4 platelet count 139. Chemistry showed potassium of 3.4 calcium uncorrected 6.4. Electrolyte replacement protocol and calcium replacement have been ordered. Lactic acid also mildly elevated at 2.2. Will follow serial lactic acid and follow urine output closely. If patient becomes hemodynamically more stable will proceed with weaning trial for extubation. Urine output had been adequate postop approximately 40 mL/h. Bilateral DP pulses are Dopplerable Subjective: 08/14: significant fluid requirement. trop slightly elevated at 0.06. initial scvo2 43% but improved after fluid to 68%. pain adequately controlled. uop marginal at 20cc/hr. 08/15: trop slightly uptrended. now appears volume overloaded with new and worsening oxygen requirement. ABG with mixed acidosis. responded well to lasix with adequate diuresis. placed on BiPAP. somewhat agitated requiring low-dose Precedex. lactate 0.8, scvo2 71%. 08/16: slightly tachycardic this morning. some diuresis yesterday and back to nc o2, but remains volume overloaded. denies pain. somewhat intermittently confused, but oriented on my evaluation. trop still uptrending, but plateauing. uop adequate. 08/17: went into afib RVR overnight. placed on diltiazem drip. this morning, more rate controlled. trop downtrending. adequate diuresis, but remains volume overloaded. aggressively replaced electrolytes this morning. 08/18: overnight events reviewed and discussed with Dr. Ryan and Dr. Sabillon. intubated after respiratory arrest. bronch with mucous plugging. new right pleural effusion on chest CT (multiple rib fractures after CPR). placed 28 Fr chest tube (see separate procedure note for details) with ~1600cc blood (no active bleeding). placed arterial line. transfused 3 units prbc. trending H&H. critically ill this morning. oliguric. 08/19: agitation persists. started scheduled valium as well as fentanyl drip for pain control. still with significant thick tenacious secretions: too many secretions for safe weaning of mechanical ventilation. also spiked fevers overnight, ennis cultured and zosyn started. chest tube with significantly less output, and more serosanguinous. 08/20: cold leg this AM with decreased motor function. taken back to OR today for re-vascularization. 08/21: perfusion to the LE still questionable. decreasing NGT output, but still 100cc/12h. will place post-pyloric feeding tube and start trickle feeds. likely needs another 24h before we are ready for SBTs. sputum growing serratia and pseudomonas: zosyn not adequate given MICs, will need to switch to Levaquin. would plan on 7 day course. 08/22: Cr increased significantly overnight, but adequate uop. may be delayed ATN from recent worsening hemodynamics. agree with starting gentle ivf. poor perfusion to the LE persists, but we have optimized everything we can for now. no reflux of tube feeds in OG tube. agree with increasing to 20cc/hr. also very tachycardic this morning- will restart very low-dose beta blockade. trial of SBT today with early failure: very tachypneic in distress. Also spiking fevers and wbc elevated. oliguric. 08/23: Cr continues to rise. hgb dropped to 6.8 today- receiving 2 units prbc. remains oliguric. urine electrolytes consistent with severe pre-renal azotemia, urine sodium < 20. 08/24 Patient remains sedated with Diprivan, Fentanyl and intubated. On Heparin drip, failed CPAP trials yesterday. s/p transfusion 2u PRBC. Hgb 9.9 from 6.8 12/8 Patient is sedated with Diprivan and Fentanyl infusion. Afebrile, renal function worse with Cr: 2.54 fro 1.8. On Heparin drip. Tolerated CPAP trials x 4hrs. 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 On Diprivan and Fentanyl infusion for sedation. Off Heparin drip. Afebrile. Objective Vital Signs / I&O: Vital Signs 08/25/18 11:30 08/25/18 12:00 08/25/18 14:15 Temperature 99.2 F Pulse Rate 83 84 Respiratory Rate 14 23 16 Blood Pressure 102/37 L Pulse Oximetry 100 100 08/25/18 15:00 08/25/18 15:38 08/25/18 16:43 Temperature 99.6 F Pulse Rate 85 85 81 Respiratory Rate 14 14 Blood Pressure 124/39 L Pulse Oximetry 99 99 08/25/18 19:00 08/25/18 20:12 08/25/18 23:00 Temperature 98.8 F 98.9 F Pulse Rate 80 79 77 Respiratory Rate 14 14 14 Blood Pressure 93/36 L 102/37 L Pulse Oximetry 100 100 99 08/26/18 00:29 08/26/18 03:00 08/26/18 04:05 Temperature 98.9 F Pulse Rate 75 79 78 Respiratory Rate 14 14 14 Blood Pressure Pulse Oximetry 100 98 99 08/26/18 07:00 08/26/18 10:07 Temperature 98.8 F Pulse Rate 75 Respiratory Rate 14 16 Blood Pressure 109/41 L Pulse Oximetry 99 95 Intake & Output 08/25/18 08/26/18 08/26/18 18:59 06:59 18:59 Intake Total 2998 / 2998 1540 / 1540 600 / 600 Output Total 800 / 800 710 / 710 300 / 300 Balance 2198 / 2198 830 / 830 300 / 300 Weight 72 kg Intake: IV 2998 / 2998 1390 / 1390 100 / 100 Heparin/D5W 25,000 U/250 mL 25, 200 / 200 50 / 50 000 unit In 250 ml @ Per Protocol IV.CONT TITRATE PRN Rx #:[id number] LR 1000 mL Inj 1,000 ML @ 100 1716 / 1716 800 / 800 mls/hr IV.CONT .Q10H [facility] Rx#: [id number] Diprivan 1000 mg/100 ml Inj 1, 60 / 60 40 / 40 000 mg In 100 ml @ 5 MCG/KG/MIN 1.845 mls/hr IV.CONT TITRATE PRN Rx#:[id number] Alburx 5% Inj 500 ML @ 250 mls/ 500 / 500 500 / 500 hr IV.SIG Q12H [facility] Rx#:[id number] Maxipime Inj 2,000 MG In NS Inj 100 / 100 100 / 100 100 ML @ 200 mls/hr IV.SIG Q24H [facility] Rx#:[id number] Levaquin 500 mg Premix Inj 500 100 / 100 mg In 100 ml @ 100 mls/hr IV. SIG Q24H [facility] Rx#:[id number] fentaNYL 10 mcg/mL Premix Drip 322 / 322 2,500 mcg In 250 ml @ 50 MCG/HR 5 mls/hr IV.SIG TITRATE PRN Rx #:[id number] Oral 0 / 0 Tube Feeding 60 / 60 Water Bolus Amount 90 / 90 Anesthesia Amount 500 / 500 Output: Estimated Blood Loss 250 / 250 Urine Amount (Catheter) 160 / 160 120 / 120 50 / 50 Indwelling Temp Sensing 160 / 160 120 / 120 50 / 50 Catheter Gastric Drainage 600 / 600 500 / 500 Right Nare Nasogastric Tube 600 / 600 500 / 500 Chest Tube Drainage 40 / 40 90 / 90 #1 Right Pleural 40 / 40 90 / 90 Other: # Bowel Movements 0 Result Diagrams: 08/26/18 05:30 08/26/18 05:30 Other Results: Laboratory Results - last 12 hr 08/25/18 08/26/18 08/26/18 23:53 05:30 05:30 WBC 16.0 H RBC 2.79 L Hgb 8.7 L Hct 25.6 L MCV 91.8 MCH 31.3 MCHC 34.1 RDW 16.9 Plt Count 254 MPV 10.1 APTT Sodium 143 Potassium 3.7 Chloride 113 H Carbon Dioxide 18.8 L Anion Gap 11 BUN 48 H Creatinine 2.78 H Estimated GFR 16 L POC Glucose 99 Random Glucose 91 Calcium 7.0 L* Calcium Adj for Albumin 8.8 Phosphorus 3.9 Magnesium 1.7 Albumin 1.8 L D Random Vancomycin 18.7 Blood Type Antibody Screen 08/26/18 08/26/18 08/26/18 05:30 05:30 05:34 WBC RBC Hgb Hct MCV MCH MCHC RDW Plt Count MPV APTT 115.7 H* D Sodium Potassium Chloride Carbon Dioxide Anion Gap BUN Creatinine Estimated GFR POC Glucose 91 Random Glucose Calcium Calcium Adj for Albumin Phosphorus Magnesium Albumin Random Vancomycin Blood Type A Positive Antibody Screen Negative Imaging: Abdomen/Bladder Ultrasound 08/22/18 00:00 CONCLUSION: 1. No hydronephrosis is identified. 2. Left kidney is smaller than the right and demonstrates increased echogenicity suggesting medical renal disease. Given the appearance on prior CTA , a renovascular cause is suspected for these changes. 3. There is a small volume of free fluid within the abdomen and pelvis and pleural fluid is visualized on the left. Chest X-Ray 08/23/18 00:00 CONCLUSION: 1. Examination quality is less than optimal secondary to rotation and marked underinflation. There is stable perihilar opacity and bibasilar pleural- parenchymal opacity. These likely represent pleural effusions with associated volume loss and/or airspace consolidation. Although nonspecific pulmonary edema could give this appearance. 2. Right chest tube remains present and no pneumothorax is visualized. 3. The endotracheal tube distal tip measures only 1.5 cm from the vidhya. Chest CT 08/24/18 10:42 CONCLUSION: 1. Interval improvement on the right large bore chest tube in good position. Persistent air bronchograms remaining in the right base. 2. Stable to slightly larger left pleural effusion with compressive atelectasis in the left base. Abdomen/Pelvis CT 08/24/18 10:43 CONCLUSION: 1. Trace ascites with generalized mesenteric edema 2. Extensive vascular calcifications. There is no free air or abscess. Do not see air in the bowel wall to suggest ischemia. Objective Remarks: GENERAL: Elderly female, lying in bed, intubated, sedated, critically ill. HEENT: Normocephalic. Atraumatic. Pupils equal, round, reactive, conjugate. Mucous membranes are moist NECK: Trachea is midline. There is no JVD. CHEST: B/l equal air entry, CT in place CARDIOVASCULAR: normal rate, regular rhythm. sinus. ABDOMEN: Soft, non tender, +BS MUSCULOSKELETAL: Left BKA NEUROLOGICAL: Intubated and sedated Assessment and Plan - Assessment and Plan Plan: PLAN: NEURO: Acute alcohol withdraw syndrome Acute agitated delirium- improving Restless leg syndrome -On propofol, fentanyl for sedation. Daily sedation vacation - frequent neuro checks RESP: Aspiration pneumonia Acute hypoxic and hypercarbic respiratory failure Acute right hemothorax post CPR Rib fractures secondary to CPR -Continue with vent support keep sats >92% - Bronchodilators, ICU vent bundle. -SBT daily as anatoliy. Check ABG - right 28 Fr chest tube placed 08/18. keep to suction. Monitor CT drainage. -CT chest 08/24: Persistent air bronchograms remaining in the right base. compressive atelectasis in the left base. -Check CXR CV: Type II NSTEMI secondary to demand ischemia- resolved Hypovolemia secondary to hemothorax CAD History of peripheral arterial disease, status post multiple vascular surgery Perioperative atrial fibrillation with rapid ventricular response- back in NSR Lactic acidosis- resolved - Monitor HR and BP keep MAP>65mmHg -On ASA, Plavix, Lipitor, Lopressor 2.5mg IV Q6 -Cards is following -s/p Left BKA today by Dr. ryan. GI: Mesenteric ischemia status post open antegrade mesenteric bypass GERD History of small bowel obstruction acute protein calorie malnutrition- severe Postoperative ileus -Status post open antegrade mesenteric bypass, postop management per Dr. Ryan -tube feeds (Nepro currently @20ml/hr) held. : History of renal artery stenosis Acute kidney injury- worsening. -Monitor renal function closely, I/O's, avoid nephrotoxins. Boateng catheter. - renal ultrasound without hydronephrosis - Cr: Cr: 2.78 from 2.58 -Renal is following. On LR @100ml/hr ID: Aspiration pneumonia- pseudomonas and serratia Continue abx (Cefepime, Levaquin) monitor for signs of infections ( fever, WBC) sputum and urine cx: No growth. wound cx form abdomen pending HEME: Anemia secondary to acute blood loss- requiring transfusion- worsening. -Monitor CBC, coags - 2 units prbc 08/23 Endo SSI for glycemic control ENDO: -Electrolyte replacement per protocol PROPH: -SCD -Pepcid CCt 30 mins
[2018-08-26] MEDS: Sodium Chloride 0.9% 2 ML Flush BID IV.FLUSH SCH ×4 (11:32→21:54)
[2018-08-26] MEDS: Famotidine PF Inj 20 MG/2 ML Vial IV.PUSH SCH ×2 (11:33→21:51)
[2018-08-26 12:17] LABS: Hemoglobin 8.4 gm/dL (11.6-15.3); Mean Corpuscular HGB Conc 34.8 % (32.0-36.0); Mean Corpuscular Hemoglobin 31.7 pg (27.0-34.0); Mean Corpuscular Volume 91.1 fL (80.0-100.0); Mean Platelet Volume 9.9 fL (7.0-11.0); Platelet Count 243 th/mm3 (150-450); Red Blood Count 2.64 mil/mm3 (4.00-5.30); Red Cell Distribution Width 16.9 % (11.6-17.2); White Blood Count 17.1 th/mm3 (4.0-11.0)
--- NOTE | 2018-08-26 12:39 | P.PNNP ---
Subjective Interval history: Patient has left below-knee amputation this morning, urine output is low, patient is on ventilator Physical Exam Vital signs: Vital Signs 08/25/18 14:15 08/25/18 15:00 08/25/18 15:38 Temperature 99.6 F Pulse Rate 85 85 Respiratory Rate 16 14 Blood Pressure 124/39 L Pulse Oximetry 100 99 08/25/18 16:43 08/25/18 19:00 08/25/18 20:12 Temperature 98.8 F Pulse Rate 81 80 79 Respiratory Rate 14 14 14 Blood Pressure 93/36 L Pulse Oximetry 99 100 100 08/25/18 23:00 08/26/18 00:29 08/26/18 03:00 Temperature 98.9 F 98.9 F Pulse Rate 77 75 79 Respiratory Rate 14 14 14 Blood Pressure 102/37 L Pulse Oximetry 99 100 98 08/26/18 04:05 08/26/18 07:00 08/26/18 10:07 Temperature 98.8 F Pulse Rate 78 75 Respiratory Rate 14 14 16 Blood Pressure 109/41 L Pulse Oximetry 99 99 95 Intake & Output 08/25/18 08/26/18 08/26/18 18:59 06:59 18:59 Intake Total 2998 / 2998 1540 / 1540 600 / 600 Output Total 800 / 800 710 / 710 300 / 300 Balance 2198 / 2198 830 / 830 300 / 300 Weight 72 kg Intake: IV 2998 / 2998 1390 / 1390 100 / 100 Heparin/D5W 25,000 U/250 mL 25, 200 / 200 50 / 50 000 unit In 250 ml @ Per Protocol IV.CONT TITRATE PRN Rx #:[id number] LR 1000 mL Inj 1,000 ML @ 100 1716 / 1716 800 / 800 mls/hr IV.CONT .Q10H [facility] Rx#: [id number] Diprivan 1000 mg/100 ml Inj 1, 60 / 60 40 / 40 000 mg In 100 ml @ 5 MCG/KG/MIN 1.845 mls/hr IV.CONT TITRATE PRN Rx#:[id number] Alburx 5% Inj 500 ML @ 250 mls/ 500 / 500 500 / 500 hr IV.SIG Q12H [facility] Rx#:[id number] Maxipime Inj 2,000 MG In NS Inj 100 / 100 100 / 100 100 ML @ 200 mls/hr IV.SIG Q24H [facility] Rx#:[id number] Levaquin 500 mg Premix Inj 500 100 / 100 mg In 100 ml @ 100 mls/hr IV. SIG Q24H [facility] Rx#:[id number] fentaNYL 10 mcg/mL Premix Drip 322 / 322 2,500 mcg In 250 ml @ 50 MCG/HR 5 mls/hr IV.SIG TITRATE PRN Rx #:[id number] Oral 0 / 0 Tube Feeding 60 / 60 Water Bolus Amount 90 / 90 Anesthesia Amount 500 / 500 Output: Estimated Blood Loss 250 / 250 Urine Amount (Catheter) 160 / 160 120 / 120 50 / 50 Indwelling Temp Sensing 160 / 160 120 / 120 50 / 50 Catheter Gastric Drainage 600 / 600 500 / 500 Right Nare Nasogastric Tube 600 / 600 500 / 500 Chest Tube Drainage 40 / 40 90 / 90 #1 Right Pleural 40 / 40 90 / 90 Other: # Bowel Movements 0 Narrative: GENERAL: Intubated and sedated SKIN: Warm and dry. No rash present NECK: Supple, trachea midline. No JVD. CARDIOVASCULAR: Regular rate and rhythm without murmurs, gallops, or rubs. CT tube present RESPIRATORY: Breath sounds equal bilaterally. No accessory muscle use. Orally intubated. GASTROINTESTINAL: Abdomen soft, non-tender, nondistended. NG tube GENITOURINARY: Indwelling Boateng catheter. MUSCULOSKELETAL: Left below knee amputation generalized edema. - Urinary Catheter Management Indwelling Temp Sensing Catheter Cath placed during this visit: yes Reason for continuing: Hourly intake/output Insertion date: 08/13/18 Insertion time: 08:08 Assessment and Plan - Assessment (1) Acute kidney injury Code(s): N17.9 - Acute kidney failure, unspecified Status: Acute (2) Mesenteric ischemia Code(s): K55.9 - Vascular disorder of intestine, unspecified Status: Acute (3) Hemothorax Code(s): J94.2 - Hemothorax Status: Acute - Plan Acute kidney injury with a creatinine of 2.5 worse. Has been increasing since the . HÉCTOR possible prerenal with FeNa less than 1 vs ATN from sepsis or hypotension. Patient CPK is also elevated with casts in urine. So possibly ATN from rhabdomyolysis. No previous history of chronic kidney disease baseline creatinine is less than 1. Renal US with no hydronephrosis. Left kidney is smaller than the right and demonstrates increased echogenicity suggesting medical renal disease. Patient urinary output has been decreasing with 385 ml/24 hours. Patient will be given Lasix after albumin urine output remains poor she did receive fluid bolus in OR 1 L maintain strict I+O has indwelling Boateng catheter. Post left BKA , . On antibiotics renal dose as tolerated. Avoid nephrotoxins. Will monitor renal function closely. Labs in AM Dr. Shaikh to follow-up
--- NOTE | 2018-08-26 13:12 | XR ---
EXAM DATE: 08/26/2018 1:06 PM EST AGE/SEX: 78 years / Female INDICATIONS: Short of Breath CLINICAL DATA: This is the patient's subsequent encounter. Patient reports that signs and symptoms h ave been present for 1 week and indicates a pain score of 0/10. MEDICAL/SURGICAL HISTORY: . Gastroesophageal reflux disease. . Appendectomy. Cholecystectomy. Coronary artery stent. Renal artery stent. COMPARISON: [facility] – [place], CHEST 1V SINGLE AP, 08/23/2018. . FINDINGS: Slight improvement in aeration is seen in the upper lobes. The lung bases remain hypoaerated with ext ensive airspace disease. Heart and mediastinal structures are stable. Heart is mildly enlarged. Supportive devices which include endotracheal tube, nasogastric tube and right thoracostomy tube are in stable position. CONCLUSION: Slight improvement in upper lobe aeration Significant basilar hypoaeration with extensive bibasilar airspace disease No other significant change Electronically signed by: Chris Zhang MD 08/26/2018 1:11 PM EST
[2018-08-26] MEDS ORDERED: Vancomycin Inj 1,000 MG in Sodium Chlor 0.9% Inj 250 ML IV.SIG ONE (16:00)
[2018-08-26] MEDS: Levofloxacin 500 mg Premix Inj 500 MG/100 ML PIGGYBACK IV.SIG SCH (17:46)
[2018-08-26] MEDS: fentaNYL 10 mcg/mL Premix Drip 2,500 MCG/250 ML BAG IV.SIG PRN (18:26)
[2018-08-26] MEDS: Magnesium Oxide 400 MG Tablet PO SCH (21:00)
[2018-08-27] MEDS: Insulin NovoLIN Regular Correctional Sugar Inj SQ SCH ×4 (01:42→17:10)
[2018-08-27] MEDS: Oral Hygiene Kit OROPHARYNG SCH ×4 (01:42→15:53)
[2018-08-27] MEDS: Albumin Human 5% Inj 500 ML IV.SIG SCH ×2 (01:43→13:14)
[2018-08-27] MEDS: Metoprolol Inj 5 MG/5 ML Vial IV.PUSH SCH ×4 (05:21→22:05)
[2018-08-27] MEDS: Sodium Chloride 0.9% 2 ML Flush PRN IV.FLUSH ×2 (05:24→22:09)
[2018-08-27 05:47] LABS: Baso % (Auto) 0.2 % (0.0-2.0); Eos # (Auto) 0.3 th/mm3 (0.0-0.4); Eos % (Auto) 1.8 % (0.0-4.0); Hematocrit 22.6 % (35.0-46.0); Hemoglobin 7.6 gm/dL (11.6-15.3); Lymph # (Auto) 0.9 th/mm3 (1.0-4.8); Mean Corpuscular HGB Conc 33.9 % (32.0-36.0); Mean Corpuscular Hemoglobin 30.8 pg (27.0-34.0); Mean Corpuscular Volume 90.9 fL (80.0-100.0); Mean Platelet Volume 9.9 fL (7.0-11.0); Mono # (Auto) 0.8 th/mm3 (0.0-0.9); Mono % (Auto) 4.5 % (0.0-8.0); Neut # (Auto) 15.8 th/mm3 (1.8-7.7); Neut % (Auto) 88.5 % (16.0-70.0); Platelet Count 215 th/mm3 (150-450); Red Blood Count 2.48 mil/mm3 (4.00-5.30); Red Cell Distribution Width 16.7 % (11.6-17.2); White Blood Count 17.9 th/mm3 (4.0-11.0)
[2018-08-27] MEDS: Artificial Tears Opth Drops 15 ML Bottle EACH EYE SCH ×3 (06:01→22:07)
[2018-08-27 06:24] LABS: Albumin 2.1 g/dL (3.4-5.0); Calcium 7.4 mg/dL (8.5-10.1); Carbon Dioxide 16.3 meq/L (21.0-32.0); Potassium 3.6 meq/L (3.5-5.1); Total Protein 4.7 g/dL (6.4-8.2); Vancomycin,Random 26.1 Comment
[2018-08-27] MEDS: Propofol 1000 mg/100 ml Inj 1,000 MG/100 ML BOTTLE IV.CONT PRN ×2 (06:44→22:04)
[2018-08-27 07:05] LABS: Eosinophils 1 % (0-4); Lymphocytes 9 % (9-44); Metamyelocytes 1 % (0-1); Monocytes 2 % (0-8); Myelocytes 2 % (0-0); Platelet Estimate Normal (Normal); Platelet Morphology Normal (Normal)
[2018-08-27] MEDS: Chlorhexidine 0.12% Oral Kit 15 ML UDC OROPHARYNG SCH ×2 (08:08→22:08)
--- NOTE | 2018-08-27 08:39 | P.PNVS ---
Subjective Post Op Day #: 14 Procedure: aorto-hepatic, aorto-SMA bypass Subjective/Hospital Course: POD#14 mesenteric bypass POD#7 L LE graft thrombectomy POD#1 L BKA HD stable anatoliy trickle TF some response to Lasix challenge yesterday still overall very fluid overloaded Objective Neuro: sedated, SYED Pulmonary: B effusions on CXR yesterday vent wean continues good sats Cardiac: no pressors HD stable FEN/GI: e'lytes ok; K 3.6 anatoliy TF at 10/h : UOP 20/hr; increased with 80 Lasix yesterday transiently ID Antibiotics (date/duration): broad antibiotics WBC 18 ID Cultures: only + cx was ETT pseudomonas and serratia / Heme: Hct 23 plt ok off hep gtt Vascular: ASA Laboratory Results - last 24 hr 08/23/18 08/26/18 08/26/18 13:24 11:49 11:55 WBC 17.1 H RBC 2.64 L Hgb 8.4 L Hct 24.0 L MCV 91.1 MCH 31.7 MCHC 34.8 RDW 16.9 Plt Count 243 MPV 9.9 Prelim Diff (Auto) Neut % (Auto) Lymph % (Auto) [place] % (Auto) Eos % (Auto) Baso % (Auto) Neut # (Auto) Lymph # (Auto) [place] # (Auto) Eos # (Auto) Baso # (Auto) WBC Differential Seg Neuts % (Manual) Band Neuts % (Manual) Lymphocytes % (Manual) Monocytes % (Manual) Eosinophils % (Manual) Metamyelocytes % (Man) Myelocytes % (Man) Abs Neuts (Manual) Differential Comment Platelet Estimate Platelet Morphology APTT Sodium Potassium Chloride Carbon Dioxide Anion Gap BUN Creatinine Estimated GFR POC Glucose 81 Random Glucose Calcium Calcium Adj for Albumin Total Bilirubin AST ALT Alkaline Phosphatase Total Protein Albumin Random Vancomycin MTS Gel Crossmatch See Detail Bld Prod Order Comment 08/26/18 08/27/18 08/27/18 17:42 00:33 05:15 WBC RBC Hgb Hct MCV MCH MCHC RDW Plt Count MPV Prelim Diff (Auto) Neut % (Auto) Lymph % (Auto) [place] % (Auto) Eos % (Auto) Baso % (Auto) Neut # (Auto) Lymph # (Auto) [place] # (Auto) Eos # (Auto) Baso # (Auto) WBC Differential Seg Neuts % (Manual) Band Neuts % (Manual) Lymphocytes % (Manual) Monocytes % (Manual) Eosinophils % (Manual) Metamyelocytes % (Man) Myelocytes % (Man) Abs Neuts (Manual) Differential Comment Platelet Estimate Platelet Morphology APTT 45.8 H D Sodium Potassium Chloride Carbon Dioxide Anion Gap BUN Creatinine Estimated GFR POC Glucose 90 93 Random Glucose Calcium Calcium Adj for Albumin Total Bilirubin AST ALT Alkaline Phosphatase Total Protein Albumin Random Vancomycin MTS Gel Crossmatch Bld Prod Order Comment 08/27/18 08/27/18 08/27/18 05:15 05:15 05:19 WBC 17.9 H RBC 2.48 L Hgb 7.6 L Hct 22.6 L MCV 90.9 MCH 30.8 MCHC 33.9 RDW 16.7 Plt Count 215 MPV 9.9 Prelim Diff (Auto) Slide review pending Neut % (Auto) 88.5 H Lymph % (Auto) 5.0 L [place] % (Auto) 4.5 Eos % (Auto) 1.8 Baso % (Auto) 0.2 Neut # (Auto) 15.8 H Lymph # (Auto) 0.9 L [place] # (Auto) 0.8 Eos # (Auto) 0.3 Baso # (Auto) 0.0 WBC Differential Manual diff final Seg Neuts % (Manual) 71 H Band Neuts % (Manual) 14 H Lymphocytes % (Manual) 9 Monocytes % (Manual) 2 Eosinophils % (Manual) 1 Metamyelocytes % (Man) 1 Myelocytes % (Man) 2 H Abs Neuts (Manual) 15.8 H Differential Comment . Platelet Estimate Normal Platelet Morphology Normal APTT Sodium 143 Potassium 3.6 Chloride 113 H Carbon Dioxide 16.3 L Anion Gap 14 BUN 51 H Creatinine 3.06 H Estimated GFR 15 L POC Glucose 98 Random Glucose 91 Calcium 7.4 L* Calcium Adj for Albumin 8.9 Total Bilirubin 1.2 H AST 58 H ALT 29 Alkaline Phosphatase 37 L Total Protein 4.7 L Albumin 2.1 L Random Vancomycin 26.1 MTS Gel Crossmatch Bld Prod Order Comment 08/27/18 07:47 WBC RBC Hgb Hct MCV MCH MCHC RDW Plt Count MPV Prelim Diff (Auto) Neut % (Auto) Lymph % (Auto) [place] % (Auto) Eos % (Auto) Baso % (Auto) Neut # (Auto) Lymph # (Auto) [place] # (Auto) Eos # (Auto) Baso # (Auto) WBC Differential Seg Neuts % (Manual) Band Neuts % (Manual) Lymphocytes % (Manual) Monocytes % (Manual) Eosinophils % (Manual) Metamyelocytes % (Man) Myelocytes % (Man) Abs Neuts (Manual) Differential Comment Platelet Estimate Platelet Morphology APTT Sodium Potassium Chloride Carbon Dioxide Anion Gap BUN Creatinine Estimated GFR POC Glucose Random Glucose Calcium Calcium Adj for Albumin Total Bilirubin AST ALT Alkaline Phosphatase Total Protein Albumin Random Vancomycin MTS Gel Crossmatch See Detail Bld Prod Order Comment Microbiology 08/25/18 10:30 Gram Stain - Final Wound - Abdominal Wound Culture - Preliminary No growth in 24 hours 08/19/18 04:30 Mycobacterial Culture - Preliminary Blood - Line No growth in 1 week 08/19/18 22:52 Mycobacterial Culture - Preliminary Blood - Peripheral No growth in 1 week 08/24/18 13:11 Gram Stain - Final Sputum - Endotracheal Sputum Culture - Final No growth in 48 hours 08/22/18 13:30 Aerobic Blood Culture - Preliminary Blood - Peripheral No growth in 4 days Anaerobic Blood Culture - Preliminary No growth in 4 days 08/22/18 13:30 Aerobic Blood Culture - Preliminary Blood - Peripheral No growth in 4 days Anaerobic Blood Culture - Preliminary No growth in 4 days 08/24/18 11:10 Urine Culture - Final Catheterized Urine No growth in 48 hours Impressions Chest X-Ray 08/26/18 11:28 CONCLUSION: Slight improvement in upper lobe aeration Significant basilar hypoaeration with extensive bibasilar airspace disease No other significant change Assessment and Plan - Assessment (1) PAD (peripheral artery disease) Code(s): I73.9 - Peripheral vascular disease, unspecified Status: Acute - Plan POD#14 s/p antegrade mesenteric bypass POD#7 L LE graft revision POD#1 L BKA 1. very fluid overloaded and I think this is part of her inability to come off vent; 2. anemia - give 2U PRBC and 80mg Lasix between 3. Leave L BKA dressing in place with knee immobilization 4. ASA only; no hep gtt 5. Increase TF to 20/h; if intolerant will start TPN tomorrow 6. Continue broad antibiotics 7. If no improvement in vent time, will ask for trach Discharge Planning: CVICU candid discussions with family daily about overall prognosis. Main obstacles: nutrition, vent, renal function.
[2018-08-27] MEDS: Heparin - SQ 10,000 UNITS/ML Vial SQ SCH ×2 (09:18→17:10)
[2018-08-27] MEDS: Famotidine PF Inj 20 MG/2 ML Vial IV.PUSH SCH ×2 (09:19→22:06)
[2018-08-27] MEDS: Sodium Chloride 0.9% 2 ML Flush BID IV.FLUSH SCH ×4 (09:19→22:09)
--- NOTE | 2018-08-27 09:23 | P.PNCC ---
Subjective Subjective Remarks/Hospital Course: Hospital Course: Patient is a 77-year-old female who was admitted to Dr. Ryan's service for mesenteric ischemia today. Her past medical history significant for coronary artery disease status post PCI/stent, history of renal artery stenosis, GERD, PAD, history of multiple vascular surgeries, history of small bowel obstruction, restless leg syndrome. Patient underwent aorto-hepatic and aorto-SMA bypass in OR. EBL was 400 ml, received 3.6 L of crystalloids in the OR , urine output was adequate. Postop patient was moved to the CVICU critical care medicine was consulted for postop management. Patient is hypotensive at the time of my evaluation and had been started on Diego-Synephrine by Dr. Ryan. I haave ordered further fluid resuscitation with additional 2 L of crystalloids. A stat ABG was done at the bedside which showed hemoglobin 6.6. A CBC was sent and I ordered 2 units of PRBC stat. CBC came back with hemoglobin of 6.4 platelet count 139. Chemistry showed potassium of 3.4 calcium uncorrected 6.4. Electrolyte replacement protocol and calcium replacement have been ordered. Lactic acid also mildly elevated at 2.2. Will follow serial lactic acid and follow urine output closely. If patient becomes hemodynamically more stable will proceed with weaning trial for extubation. Urine output had been adequate postop approximately 40 mL/h. Bilateral DP pulses are Dopplerable Subjective: 08/14: significant fluid requirement. trop slightly elevated at 0.06. initial scvo2 43% but improved after fluid to 68%. pain adequately controlled. uop marginal at 20cc/hr. 08/15: trop slightly uptrended. now appears volume overloaded with new and worsening oxygen requirement. ABG with mixed acidosis. responded well to lasix with adequate diuresis. placed on BiPAP. somewhat agitated requiring low-dose Precedex. lactate 0.8, scvo2 71%. 08/16: slightly tachycardic this morning. some diuresis yesterday and back to nc o2, but remains volume overloaded. denies pain. somewhat intermittently confused, but oriented on my evaluation. trop still uptrending, but plateauing. uop adequate. 08/17: went into afib RVR overnight. placed on diltiazem drip. this morning, more rate controlled. trop downtrending. adequate diuresis, but remains volume overloaded. aggressively replaced electrolytes this morning. 08/18: overnight events reviewed and discussed with Dr. Ryan and Dr. Sabillon. intubated after respiratory arrest. bronch with mucous plugging. new right pleural effusion on chest CT (multiple rib fractures after CPR). placed 28 Fr chest tube (see separate procedure note for details) with ~1600cc blood (no active bleeding). placed arterial line. transfused 3 units prbc. trending H&H. critically ill this morning. oliguric. 08/19: agitation persists. started scheduled valium as well as fentanyl drip for pain control. still with significant thick tenacious secretions: too many secretions for safe weaning of mechanical ventilation. also spiked fevers overnight, ennis cultured and zosyn started. chest tube with significantly less output, and more serosanguinous. 08/20: cold leg this AM with decreased motor function. taken back to OR today for re-vascularization. 08/21: perfusion to the LE still questionable. decreasing NGT output, but still 100cc/12h. will place post-pyloric feeding tube and start trickle feeds. likely needs another 24h before we are ready for SBTs. sputum growing serratia and pseudomonas: zosyn not adequate given MICs, will need to switch to Levaquin. would plan on 7 day course. 08/22: Cr increased significantly overnight, but adequate uop. may be delayed ATN from recent worsening hemodynamics. agree with starting gentle ivf. poor perfusion to the LE persists, but we have optimized everything we can for now. no reflux of tube feeds in OG tube. agree with increasing to 20cc/hr. also very tachycardic this morning- will restart very low-dose beta blockade. trial of SBT today with early failure: very tachypneic in distress. Also spiking fevers and wbc elevated. oliguric. 08/23: Cr continues to rise. hgb dropped to 6.8 today- receiving 2 units prbc. remains oliguric. urine electrolytes consistent with severe pre-renal azotemia, urine sodium < 20. 08/24 Patient remains sedated with Diprivan, Fentanyl and intubated. On Heparin drip, failed CPAP trials yesterday. s/p transfusion 2u PRBC. Hgb 9.9 from 6.8 12/8 Patient is sedated with Diprivan and Fentanyl infusion. Afebrile, renal function worse with Cr: 2.54 fro 1.8. On Heparin drip. Tolerated CPAP trials x 4hrs. 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 On Diprivan and Fentanyl infusion for sedation. Off Heparin drip. Afebrile. 08/27 Patient remains intubated and sedated with Diprivan and Fentanyl infusion. Receiving 2u PRBC this morning. Renal function worse today with Cr: 3.06 from 2.78, afebrile. Objective Vital Signs / I&O: Vital Signs 08/26/18 10:07 08/26/18 10:30 08/26/18 12:58 Temperature 96.5 F L Pulse Rate 78 Respiratory Rate 16 17 14 Blood Pressure 116/48 L Pulse Oximetry 95 99 100 08/26/18 13:00 08/26/18 15:00 08/26/18 16:59 Temperature 98.7 F Pulse Rate 72 81 75 Respiratory Rate 14 14 14 Blood Pressure 131/50 L Pulse Oximetry 99 99 08/26/18 19:00 08/26/18 20:21 08/26/18 23:00 Temperature 98.5 F 98.4 F Pulse Rate 79 81 79 Respiratory Rate 14 21 15 Blood Pressure 89/39 L 92/41 L Pulse Oximetry 97 99 99 08/26/18 23:48 08/27/18 03:00 08/27/18 03:49 Temperature 98.4 F Pulse Rate 80 75 76 Respiratory Rate 18 15 17 Blood Pressure 112/41 L Pulse Oximetry 99 99 96 08/27/18 07:00 08/27/18 07:15 08/27/18 07:30 Temperature 98.1 F 98 F Pulse Rate 79 71 78 Respiratory Rate 21 12 23 Blood Pressure Pulse Oximetry 99 98 95 08/27/18 08:17 08/27/18 08:34 Temperature 98 F 97.6 F Pulse Rate 82 82 Respiratory Rate 22 22 Blood Pressure Pulse Oximetry 94 L 95 Intake & Output 08/26/18 08/27/18 08/27/18 18:59 06:59 18:59 Intake Total 3027 / 3027 1717 / 1717 400 / 400 Output Total 875 / 875 680 / 680 Balance 2152 / 2152 1037 / 1037 400 / 400 Weight 73.5 kg Intake: IV 2527 / 2527 1367 / 1367 0 / 0 Heparin/D5W 25,000 U/250 mL 25, 0 / 0 000 unit In 250 ml @ Per Protocol IV.CONT TITRATE PRN Rx #:[id number] LR 1000 mL Inj 1,000 ML @ 100 1333 / 1333 667 / 667 mls/hr IV.CONT .Q10H [facility] Rx#: [id number] Diprivan 1000 mg/100 ml Inj 1, 66 / 66 100 / 100 000 mg In 100 ml @ 5 MCG/KG/MIN 1.845 mls/hr IV.CONT TITRATE PRN Rx#:[id number] Alburx 5% Inj 500 ML @ 250 mls/ 500 / 500 500 / 500 hr IV.SIG Q12H [facility] Rx#:[id number] Maxipime Inj 2,000 MG In NS Inj 100 / 100 100 / 100 100 ML @ 200 mls/hr IV.SIG Q24H [facility] Rx#:[id number] Levaquin 500 mg Premix Inj 500 100 / 100 mg In 100 ml @ 100 mls/hr IV. SIG Q24H [facility]AN Rx#:[id number] KCl 20 mEq Premix Inj 20 meq In 0 / 0 100 ml @ 50 mls/hr IV.SIG Q2H PRN Rx#:[id number] Vancomycin Inj 1,000 MG In NS 250 / 250 Inj 250 ML @ 250 mls/hr IV.SIG ONCE ONE Rx#:[id number] fentaNYL 10 mcg/mL Premix Drip 178 / 178 2,500 mcg In 250 ml @ 50 MCG/HR 5 mls/hr IV.SIG TITRATE PRN Rx #:[id number] Oral 0 / 0 Tube Feeding 160 / 160 Tube Irrigant 90 / 90 Water Bolus Amount 100 / 100 Anesthesia Amount 500 / 500 Intake (Blood Product) Amt 400 / 400 Rbc As-3 Leukoreduced Unit 0 / 0 [id number] Rbc As-3 Leukoreduced Unit 400 / 400 [id number] Output: Estimated Blood Loss 250 / 250 Urine Amount (Catheter) 325 / 325 250 / 250 Indwelling Temp Sensing 325 / 325 250 / 250 Catheter Gastric Drainage 150 / 150 300 / 300 Right Nare Nasogastric Tube 150 / 150 300 / 300 Chest Tube Drainage 150 / 150 130 / 130 #1 Right Pleural 150 / 150 130 / 130 Other: # Bowel Movements 0 Result Diagrams: 12/10/18 05:15 08/27/18 05:15 Other Results: Laboratory Results - last 12 hr 08/23/18 08/27/18 08/27/18 13:24 00:33 05:15 WBC RBC Hgb Hct MCV MCH MCHC RDW Plt Count MPV Prelim Diff (Auto) Neut % (Auto) Lymph % (Auto) [place] % (Auto) Eos % (Auto) Baso % (Auto) Neut # (Auto) Lymph # (Auto) [place] # (Auto) Eos # (Auto) Baso # (Auto) WBC Differential Seg Neuts % (Manual) Band Neuts % (Manual) Lymphocytes % (Manual) Monocytes % (Manual) Eosinophils % (Manual) Metamyelocytes % (Man) Myelocytes % (Man) Abs Neuts (Manual) Differential Comment Platelet Estimate Platelet Morphology APTT 45.8 H D Sodium Potassium Chloride Carbon Dioxide Anion Gap BUN Creatinine Estimated GFR POC Glucose 93 Random Glucose Calcium Calcium Adj for Albumin Total Bilirubin AST ALT Alkaline Phosphatase Total Protein Albumin Random Vancomycin MTS Gel Crossmatch See Detail Bld Prod Order Comment 08/27/18 08/27/18 08/27/18 05:15 05:15 05:19 WBC 17.9 H RBC 2.48 L Hgb 7.6 L Hct 22.6 L MCV 90.9 MCH 30.8 MCHC 33.9 RDW 16.7 Plt Count 215 MPV 9.9 Prelim Diff (Auto) Slide review pending Neut % (Auto) 88.5 H Lymph % (Auto) 5.0 L [place] % (Auto) 4.5 Eos % (Auto) 1.8 Baso % (Auto) 0.2 Neut # (Auto) 15.8 H Lymph # (Auto) 0.9 L [place] # (Auto) 0.8 Eos # (Auto) 0.3 Baso # (Auto) 0.0 WBC Differential Manual diff final Seg Neuts % (Manual) 71 H Band Neuts % (Manual) 14 H Lymphocytes % (Manual) 9 Monocytes % (Manual) 2 Eosinophils % (Manual) 1 Metamyelocytes % (Man) 1 Myelocytes % (Man) 2 H Abs Neuts (Manual) 15.8 H Differential Comment . Platelet Estimate Normal Platelet Morphology Normal APTT Sodium 143 Potassium 3.6 Chloride 113 H Carbon Dioxide 16.3 L Anion Gap 14 BUN 51 H Creatinine 3.06 H Estimated GFR 15 L POC Glucose 98 Random Glucose 91 Calcium 7.4 L* Calcium Adj for Albumin 8.9 Total Bilirubin 1.2 H AST 58 H ALT 29 Alkaline Phosphatase 37 L Total Protein 4.7 L Albumin 2.1 L Random Vancomycin 26.1 MTS Gel Crossmatch Bld Prod Order Comment 08/27/18 07:47 WBC RBC Hgb Hct MCV MCH MCHC RDW Plt Count MPV Prelim Diff (Auto) Neut % (Auto) Lymph % (Auto) [place] % (Auto) Eos % (Auto) Baso % (Auto) Neut # (Auto) Lymph # (Auto) [place] # (Auto) Eos # (Auto) Baso # (Auto) WBC Differential Seg Neuts % (Manual) Band Neuts % (Manual) Lymphocytes % (Manual) Monocytes % (Manual) Eosinophils % (Manual) Metamyelocytes % (Man) Myelocytes % (Man) Abs Neuts (Manual) Differential Comment Platelet Estimate Platelet Morphology APTT Sodium Potassium Chloride Carbon Dioxide Anion Gap BUN Creatinine Estimated GFR POC Glucose Random Glucose Calcium Calcium Adj for Albumin Total Bilirubin AST ALT Alkaline Phosphatase Total Protein Albumin Random Vancomycin MTS Gel Crossmatch See Detail Bld Prod Order Comment Imaging: Abdomen/Bladder Ultrasound 08/22/18 00:00 CONCLUSION: 1. No hydronephrosis is identified. 2. Left kidney is smaller than the right and demonstrates increased echogenicity suggesting medical renal disease. Given the appearance on prior CTA , a renovascular cause is suspected for these changes. 3. There is a small volume of free fluid within the abdomen and pelvis and pleural fluid is visualized on the left. Chest CT 08/24/18 10:42 CONCLUSION: 1. Interval improvement on the right large bore chest tube in good position. Persistent air bronchograms remaining in the right base. 2. Stable to slightly larger left pleural effusion with compressive atelectasis in the left base. Abdomen/Pelvis CT 08/24/18 10:43 CONCLUSION: 1. Trace ascites with generalized mesenteric edema 2. Extensive vascular calcifications. There is no free air or abscess. Do not see air in the bowel wall to suggest ischemia. Chest X-Ray 08/26/18 11:28 CONCLUSION: Slight improvement in upper lobe aeration Significant basilar hypoaeration with extensive bibasilar airspace disease No other significant change Objective Remarks: GENERAL: Elderly female, lying in bed, intubated, sedated, critically ill. HEENT: Normocephalic. Atraumatic. Pupils equal, round, reactive, conjugate. Mucous membranes are moist NECK: Trachea is midline. There is no JVD. CHEST: B/l equal air entry, CT in place CARDIOVASCULAR: normal rate, regular rhythm. sinus. ABDOMEN: Soft, non tender, +BS MUSCULOSKELETAL: Left BKA NEUROLOGICAL: Intubated and sedated Assessment and Plan - Assessment and Plan Plan: PLAN: NEURO: Acute alcohol withdraw syndrome Acute agitated delirium- improving Restless leg syndrome -On propofol, fentanyl for sedation. Daily sedation vacation - frequent neuro checks RESP: Aspiration pneumonia Acute hypoxic and hypercarbic respiratory failure Acute right hemothorax post CPR Rib fractures secondary to CPR -Continue with vent support keep sats >92% - Bronchodilators, ICU vent bundle. -SBT daily as anatoliy. If no improvements in weaning trials will likely need a trach - right 28 Fr chest tube placed 08/18. keep to suction. Monitor CT drainage. -CT chest 08/24: Persistent air bronchograms remaining in the right base. compressive atelectasis in the left base. -CXR 08/26: Slight improvement in upper lobe aeration, bibasilar airspace disease CV: Type II NSTEMI secondary to demand ischemia- resolved Hypovolemia secondary to hemothorax CAD History of peripheral arterial disease, status post multiple vascular surgery Perioperative atrial fibrillation with rapid ventricular response- back in NSR Lactic acidosis- resolved - Monitor HR and BP keep MAP>65mmHg -On ASA, Plavix, Lipitor, Lopressor 2.5mg IV Q6 -Cards is following -s/p Left BKA 08/[address] ryan. GI: Mesenteric ischemia status post open antegrade mesenteric bypass GERD History of small bowel obstruction acute protein calorie malnutrition- severe Postoperative ileus -Status post open antegrade mesenteric bypass, postop management per Dr. Ryan -tube feeds (Nepro currently @20ml/hr) held. : History of renal artery stenosis Acute kidney injury- worsening. -Monitor renal function closely, I/O's, avoid nephrotoxins. Boateng catheter. - renal ultrasound without hydronephrosis - Cr:3.06 today from 2.78 -Renal is following. On LR @100ml/hr, s/p Lasix 80mg IVP x1 yesterday. Patient appears fluid overload. ID: Aspiration pneumonia- pseudomonas and serratia Continue abx (Cefepime, Levaquin) monitor for signs of infections ( fever, WBC) sputum and urine cx: No growth. 08/24 wound cx form abdomen no growth ID eval, check sputum cx HEME: Anemia secondary to acute blood loss- requiring transfusion- worsening. -Monitor CBC, coags - 2 units prbc 08/23 -For transfusion 2u PRBC today Endo SSI for glycemic control ENDO: -Electrolyte replacement per protocol PROPH: -SCD -Pepcid CCt 30 mins
[2018-08-27 09:54] LABS: ABG Base Excess -9.9 mmol/L (-2-2); ABG PCO2 26 mmHg (38-42); ABG PO2 75 mmHG (61-120)
--- NOTE | 2018-08-27 12:58 | P.CONID ---
History of Present Illness Service: Infectious disease Consult date: 08/27/18 Requesting Physician: Christine Peralta Reason for Consult: Evaluate patient with worsening leukocytosis Primary Care Provider: Dalton Ryan JR, DO Chief Complaint: s/p Aorto-hepatic bypass, Aorto-SMA bypass History of Present Illness: Patient seen and examined. Records reviewed. Patient is a 77-year-old female, admitted to the hospital for surgery. She apparently has chronic mesenteric ischemia, and underwent surgery. She had aorta to hepatic artery bypass, as well as aorta to superior mesenteric artery bypass, using the [place] graft. Postop patient was moved to the CVICU. She was initially hypotensive, and was on pressors. She was fluid resuscitated and she also had postoperative anemia and required required PRBC transfusion. She was extubated postoperatively. During her postoperative course she had problem with fluid overload, and she also had A. fib with RVR. She ended up requiring reintubation on August 18 after she had a CODE BLUE and had respiratory arrest. She had bronchoscopy and had plugging in the right lower lobe. Patient also had rib fracture as a result of the resuscitation, and required chest tube placement on the right side. She had cultures done, and the sputum culture grew Pseudomonas, and Serratia. She was initially on Zosyn, and was changed to Levaquin on August 21. She has had on and off fevers since August 19 and that has stabilized since August 25. On August 20 she had cold leg, and underwent surgery. She had graft thrombectomy, tibial thrombectomy, as well as a jump graft from prior bypass to TPT with PTFE graft. Patient also has developed elevated creatinine, and nephrology is following the patient. She is making good urine. 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 As I mentioned earlier her temperatures have stabilized and she has not had any fevers since August 24. Her WBC however started creeping up, and it is up to 17,000 today. All her blood cultures have been negative. Last CXR with extensive infiltrates. Ct A/P no abscess seen UA with mild pyuria. Last sputum 08/24 negative. Infectious disease consultation has been requested to assist with evaluation of her worsening leukocytosis. At the time my exam she is afebrile. She is sedated on the vent. She is not on pressors, and her hemodynamics are okay. She has a chest tube on the right. She has a Boateng catheter in place. Review of Systems unobtainable due to endotracheal tube PMFSH - History History Provided By: Patient - Medical History Medical History: Medical History (Last Reviewed 08/27/18 @ 12:50 by Noris Whaley MD) Coronary stent patent GERD (gastroesophageal reflux disease) H/O small bowel obstruction History of stent insertion of renal artery Restless leg syndrome - Surgical History Surgical History: Surgical History (Last Reviewed 08/27/18 @ 12:50 by Noris Whaley MD) H/O [id number] bypass H/O heart artery stent H/O laminectomy History of angioplasty of peripheral vessel History of carotid angioplasty History of shoulder surgery Hx laparoscopic cholecystectomy Hx of appendectomy - Tobacco History Second Hand Smoke Exposure: No Tobacco Use In Past 30 Days: No Smoking Status: Former smoker Tobacco Type: Cigarettes - Alcohol History How Often Do You Have a Drink Containing Alcohol: Monthly or less - Substance Use History Substance History: No History of Abuse - Immunization History Tetanus Immunization: Unable to Assess Hx Influenza Vaccine This Season: Unable to Assess Medications and Allergies Active Medications: Active Medications Al Hydroxide/Mg Hydroxide (Milk Of David Bender) 30 ml PO Q12H PRN PRN Reason: Mild Constipation Albuterol (Duoneb Neb (Prn)) 1 ampul NEB Q2HR NEB PRN PRN Reason: SHORTNESS OF BREATH Last Admin: 08/23/18 03:27 Dose: 1 ampul Albuterol (Duoneb Neb (Sanjuana)) 1 ampul NEB Q4HR NEB [facility] Last Admin: 08/27/18 12:23 Dose: 1 ampul Alprazolam (Xanax) 0.5 mg PO BID PRN PRN Reason: Anxiety Last Admin: 08/16/18 22:40 Dose: 0.5 mg Artificial Tears (Tears Naturale Opth Drops) 1 drop EACH EYE Q8H [facility] Last Admin: 08/27/18 06:01 Dose: 1 drop Aspirin (Aspirin Chew) 81 mg PO DAILY [facility] Last Admin: 08/27/18 09:18 Dose: 81 mg Atorvastatin Calcium (Lipitor) 40 mg PO DAILY [facility] Last Admin: 08/27/18 09:18 Dose: 40 mg Bisacodyl (Dulcolax Supp) 10 mg RECTAL DAILY PRN PRN Reason: SEVERE CONSITIPATION Last Admin: 08/17/18 17:07 Dose: 10 mg Chlorhexidine Gluconate (Peridex 0.12% Oral Kit) 15 ml OROPHARYNG BID@0800, 2000 [facility] Last Admin: 08/27/18 08:08 Dose: 15 ml Clopidogrel Bisulfate (Plavix) 75 mg PO DAILY [facility] Last Admin: 08/18/18 12:53 Dose: Not Given Dextrose (D50w Vial) 50 ml IV.PUSH UNSCH PRN PRN Reason: PER HYPOGLYCEMIA PROTOCOL Famotidine (Pepcid Pf Inj) 10 mg IV.PUSH Q12HR [facility] Last Admin: 08/27/18 09:19 Dose: 10 mg Gabapentin (Neurontin) 300 mg PO BID [facility] Last Admin: 08/19/18 11:03 Dose: Not Given Glucagon (Glucagon Inj) 1 mg OTHER PRN PRN PRN Reason: for Hypoglycemia Protocol Heparin Sodium (Porcine) (Heparin Inj) 5,000 units SQ Q8H [facility] Last Admin: 08/27/18 09:18 Dose: 5,000 units Hydromorphone HCl (Dilaudid Pf Inj) 0.2 mg IV.PUSH Q1H PRN PRN Reason: PAIN SCALE 1 TO 10 Last Admin: 08/14/18 16:51 Dose: 0.2 mg Magnesium Sulfate 4 gm/ Sodium (Chloride) 100 mls @ 50 mls/hr IV.SIG UNSCH PRN PRN Reason: For Magnesium 0.9 - 1.1 mg/dL Magnesium Sulfate 2 gm/ Sodium (Chloride) 100 mls @ 50 mls/hr IV.SIG UNSCH PRN PRN Reason: For Magnesium 1.2 - 1.6 mg/dL Potassium Chloride (Kcl 40 Meq Premix Inj) 40 meq in 100 mls @ 50 mls/hr IV.SIG Q2H PRN PRN Reason: For Potassium 2.8 - 3.2 mEq/L Potassium Chloride (Kcl 20 Meq Premix Inj) 20 meq in 100 mls @ 50 mls/hr IV.SIG Q2H PRN PRN Reason: For Potassium 3.3 - 3.5 mEq/L Last Infusion: 08/27/18 07:01 Dose: Infused Potassium Chloride (Kcl 40 Meq Premix Inj) 40 meq in 100 mls @ 25 mls/hr IV.SIG UNSCH PRN PRN Reason: For Potassium 3.3 - 3.5 mEq/L Last Infusion: 08/23/18 09:36 Dose: Infused Potassium Chloride (Kcl 20 Meq Premix Inj) 20 meq in 100 mls @ 50 mls/hr IV.SIG Q2H PRN PRN Reason: For Potassium 2.8 - 3.2 mEq/L Potassium Phosphate 30 mmol/ (Sodium Chloride) 260 mls @ 42 mls/hr IV.SIG UNSCH PRN PRN Reason: SEE LABEL COMMENTS Sodium Phosphate 30 mmol/ (Sodium Chloride) 260 mls @ 42 mls/hr IV.SIG UNSCH PRN PRN Reason: For Phosphorus < 2.5 mg/dL Dexmedetomidine HCl 200 mcg/ (Sodium Chloride) 50 mls @ 3.27 mls/hr IV.CONT TITRATE PRN; Protocol PRN Reason: Per Protocol Last Titration: 08/19/18 18:09 Dose: 0.6 mcg/kg/hr, 9.82 mls/hr Propofol (Diprivan 1000 Mg/100 Ml Inj) 1,000 mg in 100 mls @ 1.845 mls/hr IV.CONT TITRATE PRN; Protocol PRN Reason: Per Protocol Last Admin: 08/27/18 06:44 Dose: 10 mcg/kg/min, 3.69 mls/hr Acetaminophen (Ofirmev Inj) 1,000 mg in 100 mls @ 400 mls/hr IV.SIG Q6H PRN PRN Reason: FEVER 101F OR GREATER Last Infusion: 08/19/18 00:30 Dose: Infused Fentanyl (Fentanyl 10 Mcg/Ml Premix Drip) 2,500 mcg in 250 mls @ 5 mls/hr IV.SIG TITRATE PRN; Protocol PRN Reason: Per Protocol Last Admin: 08/26/18 18:26 Dose: 70 mcg/hr, 7 mls/hr Lactated Ringer's (Lr 1000 Ml Inj) 1,000 mls @ 100 mls/hr IV.CONT .Q10H [facility] Last Admin: 08/27/18 10:05 Dose: 100 mls/hr Cefepime HCl 2,000 mg/ Sodium (Chloride) 100 mls @ 200 mls/hr IV.SIG Q24H [facility] Last Infusion: 08/27/18 06:43 Dose: Infused Levofloxacin/Dextrose (Levaquin 500 Mg Premix Inj) 500 mg in 100 mls @ 100 mls/ hr IV.SIG Q24H [facility] Last Infusion: 08/26/18 18:49 Dose: Infused Albumin Human (Alburx 5% Inj) 500 mls @ 250 mls/hr IV.SIG Q12H [facility] Last Infusion: 08/27/18 03:30 Dose: Infused Insulin Human Regular (Novolin R Correctional Sugar Inj) 0 units SQ Q6HR [facility]; Protocol Last Admin: 08/27/18 11:37 Dose: Not Given Isosorbide Mononitrate (Imdur) 30 mg PO DAILY [facility] Last Admin: 08/19/18 11:03 Dose: Not Given Lactulose (Lactulose Liq) 30 ml PO DAILY PRN PRN Reason: SEVERE CONSITIPATION Magnesium Oxide (Mag-Ox) 400 mg PO HS [facility] Last Admin: 08/26/18 21:00 Dose: 400 mg Magnesium Oxide (Mag-Ox) 800 mg PO UNSCH PRN PRN Reason: For Magnesium 1.2 - 1.6 mg/dL Metoclopramide HCl (Reglan Inj) 10 mg IV.PUSH Q8HR [facility]; Protocol Last Admin: 08/27/18 05:21 Dose: 10 mg Metoprolol Tartrate (Lopressor Inj) 2.5 mg IV.PUSH Q6H [facility] Last Admin: 08/27/18 10:49 Dose: 2.5 mg Miscellaneous Medication () 1 each OROPHARYNG 0000,0400,1200,1600 [facility] Last Admin: 08/27/18 11:37 Dose: 1 each Pharmacy Profile Note (Vancomycin Consult Pharmacy) 1 each OTHER UNSCH PRN PRN Reason: Pharmacy to dose Potassium Bicarb/Potassium Chloride (K-Lyte Cl Eff) 50 meq PO UNSCH PRN PRN Reason: For Potassium 3.3 - 3.5 mEq/L Potassium Phosphate (K-Phos Original) 2,000 mg PO Q4H PRN PRN Reason: Phosphorus Less Than 2.5 mg/dL Potassium Phosphate (K-Phos Original) 2,000 mg PO UNSCH PRN PRN Reason: SEE LABEL COMMENTS Ropinirole HCl (Requip) 3 mg PO HS [facility] Last Admin: 08/26/18 21:51 Dose: 3 mg Sennosides (Senokot) 17.2 mg PO Q12H PRN PRN Reason: Moderate Constipation Sodium Chloride (Ns Flush) 2 ml IV.FLUSH BID [facility] Last Admin: 08/27/18 09:19 Dose: 2 ml Sodium Chloride (Ns Flush) 2 ml IV.FLUSH PRN PRN PRN Reason: FLUSH AFTER USING IV ACCESS Last Admin: 08/27/18 05:24 Dose: 2 ml Sodium Chloride (Ns Flush) 2 ml IV.FLUSH BID [facility] Last Admin: 08/27/18 09:20 Dose: Not Given Sodium Chloride (Ns Flush) 2 ml IV.FLUSH PRN PRN PRN Reason: FLUSH AFTER USING IV ACCESS Allergies Allergy/AdvReac Type Severity Reaction Status Date / Time codeine Allergy Severe Chest Pain Verified 08/13/18 06:44 diatrizoate meglumine Allergy Severe Hives Verified 08/13/18 06:44 gadobenic acid Allergy Severe Hives Verified 08/13/18 06:44 gadodiamide Allergy Severe Hives Verified 08/13/18 06:44 gadoteridol Allergy Severe Hives Verified 08/13/18 06:44 iodixanol Allergy Severe Hives Verified 08/13/18 06:44 iohexol Allergy Severe Hives Verified 08/13/18 06:44 morphine Allergy Severe Psychosis Verified 08/13/18 06:44 Home Medications Medication Instructions Recorded Confirmed Type alprazolam 0.5 mg PO BID PRN 07/31/18 08/13/18 History aspirin [Aspir-81] 81 mg PO DAILY 07/31/18 08/13/18 History atorvastatin 40 mg PO DAILY 07/31/18 08/13/18 History clopidogrel [Plavix] 75 mg PO DAILY 07/31/18 08/13/18 History gabapentin [Neurontin] 300 mg PO BID 07/31/18 08/13/18 History isosorbide mononitrate 30 mg PO DAILY 07/31/18 08/13/18 History losartan 50 mg PO DAILY 07/31/18 08/13/18 History metoprolol tartrate 25 mg PO BID 07/31/18 08/13/18 History potassium chloride 20 meq PO DAILY 07/31/18 08/13/18 History ranitidine HCl 150 mg PO DAILY 07/31/18 08/13/18 History ropinirole [Requip] 3 mg PO HS 07/31/18 08/13/18 History cholestyramine-aspartame 4 g PO BID 08/06/18 08/13/18 History [Prevalite] hydrochlorothiazide 12.5 mg PO DAILY 08/06/18 08/13/18 History niacin 1,000 mg PO DAILY 08/06/18 08/13/18 History vit C-vit [id number]-3 1 cap PO DAILY 08/06/18 08/13/18 History [Ocuvite] magnesium oxide 500 mg PO HS 08/13/18 08/20/18 History Exam Vital signs: Vital Signs 08/26/18 12:58 08/26/18 13:00 08/26/18 15:00 Temperature 98.7 F Pulse Rate 72 81 Respiratory Rate 14 14 14 Blood Pressure 131/50 L Pulse Oximetry 100 99 08/26/18 16:59 08/26/18 19:00 08/26/18 20:21 Temperature 98.5 F Pulse Rate 75 79 81 Respiratory Rate 14 14 21 Blood Pressure 89/39 L Pulse Oximetry 99 97 99 08/26/18 23:00 08/26/18 23:48 08/27/18 03:00 Temperature 98.4 F 98.4 F Pulse Rate 79 80 75 Respiratory Rate 15 18 15 Blood Pressure 92/41 L 112/41 L Pulse Oximetry 99 99 99 08/27/18 03:49 08/27/18 07:00 08/27/18 07:15 Temperature 98.1 F 98 F Pulse Rate 76 79 71 Respiratory Rate 17 21 12 Blood Pressure Pulse Oximetry 96 99 98 08/27/18 07:30 08/27/18 08:17 08/27/18 08:34 Temperature 98 F 97.6 F Pulse Rate 78 82 82 Respiratory Rate 23 22 22 Blood Pressure Pulse Oximetry 95 94 L 95 08/27/18 09:25 08/27/18 09:27 08/27/18 09:35 Temperature 97.4 F L Pulse Rate 81 Respiratory Rate 20 20 Blood Pressure Pulse Oximetry 91 L 94 L 92 L 08/27/18 09:45 08/27/18 11:00 08/27/18 12:24 Temperature 97.5 F L 98.1 F Pulse Rate 81 74 77 Respiratory Rate 22 19 19 Blood Pressure 104/52 L Pulse Oximetry 94 L 98 97 Intake & Output 08/26/18 08/27/18 08/27/18 18:59 06:59 18:59 Intake Total 3027 / 3027 1717 / 1717 2200 / 2200 Output Total 875 / 875 680 / 680 Balance 2152 / 2152 1037 / 1037 2199 / 2200 Weight 73.5 kg Intake: IV 2527 / 2527 1367 / 1367 1000 / 1000 Heparin/D5W 25,000 U/250 mL 25, 0 / 0 000 unit In 250 ml @ Per Protocol IV.CONT TITRATE PRN Rx #:[id number] LR 1000 mL Inj 1,000 ML @ 100 1333 / 1333 667 / 667 1000 / 1000 mls/hr IV.CONT .Q10H [facility] Rx#: [id number] Diprivan 1000 mg/100 ml Inj 1, 66 / 66 100 / 100 000 mg In 100 ml @ 5 MCG/KG/MIN 1.845 mls/hr IV.CONT TITRATE PRN Rx#:[id number] Alburx 5% Inj 500 ML @ 250 mls/ 500 / 500 500 / 500 hr IV.SIG Q12H [facility] Rx#:[id number] Maxipime Inj 2,000 MG In NS Inj 100 / 100 100 / 100 100 ML @ 200 mls/hr IV.SIG Q24H [facility] Rx#:[id number] Levaquin 500 mg Premix Inj 500 100 / 100 mg In 100 ml @ 100 mls/hr IV. SIG Q24H [facility] Rx#:[id number] KCl 20 mEq Premix Inj 20 meq In 0 / 0 100 ml @ 50 mls/hr IV.SIG Q2H PRN Rx#:[id number] Vancomycin Inj 1,000 MG In NS 250 / 250 Inj 250 ML @ 250 mls/hr IV.SIG ONCE ONE Rx#:[id number] fentaNYL 10 mcg/mL Premix Drip 178 / 178 2,500 mcg In 250 ml @ 50 MCG/HR 5 mls/hr IV.SIG TITRATE PRN Rx #:[id number] Oral 0 / 0 Tube Feeding 160 / 160 Tube Irrigant 90 / 90 Water Bolus Amount 100 / 100 Anesthesia Amount 500 / 500 Intake (Blood Product) Amt 1200 / 1200 Rbc As-3 Leukoreduced Unit 400 / 400 [id number] Rbc As-3 Leukoreduced Unit 400 / 400 [id number] Rbc As-3 Leukoreduced Unit 400 / 400 [id number] Output: Estimated Blood Loss 250 / 250 Urine Amount (Catheter) 325 / 325 250 / 250 Indwelling Temp Sensing 325 / 325 250 / 250 Catheter Gastric Drainage 150 / 150 300 / 300 Right Nare Nasogastric Tube 150 / 150 300 / 300 Chest Tube Drainage 150 / 150 130 / 130 #1 Right Pleural 150 / 150 130 / 130 Other: # Bowel Movements 0 Narrative: Physical examination GENERAL: Patient is a well-nourished, well-developed female, sedated on the vent, not in respiratory distress. SKIN: Cool and dry, edematous. No generalized rash. HEAD: Atraumatic. Normocephalic. No temporal wasting, or tenderness. EYES: [place] conjunctiva. No petechia or hemorrhage. Pupils equal, round and reactive to light. Extraocular movements full and intact. No scleral icterus. No injection or drainage. EARS, NOSE AND THROAT: Nose without bleeding or purulent nasal discharge. No sinus tenderness. She is orally intubated. NECK: Trachea midline. Supple and not tender, no meningeal signs CARDIOVASCULAR: Regular rate and rhythm. No murmurs, rubs or gallops heard RESPIRATORY: She has scattered rhonchi bilaterally. Chest tube on the right side. ABDOMEN: Has midline incision and in lower portion there is some opening in her incision, draining serosanguineous fluid, with very minimal erythema noted. EXTREMITIES: No clubbing, cyanosis. Has edema of both hands and R foot. NEUROLOGICAL: Sedated. PSYCHIATRIC: Unable to assess LINE: No evidence of infection Results - Labs CBC & Chem 7: 08/27/18 05:15 08/27/18 05:15 Labs: Laboratory Results - last 24 hr 08/23/18 08/26/18 08/27/18 13:24 17:42 00:33 WBC RBC Hgb Hct MCV MCH MCHC RDW Plt Count MPV Prelim Diff (Auto) Neut % (Auto) Lymph % (Auto) [place] % (Auto) Eos % (Auto) Baso % (Auto) Neut # (Auto) Lymph # (Auto) [place] # (Auto) Eos # (Auto) Baso # (Auto) WBC Differential Seg Neuts % (Manual) Band Neuts % (Manual) Lymphocytes % (Manual) Monocytes % (Manual) Eosinophils % (Manual) Metamyelocytes % (Man) Myelocytes % (Man) Abs Neuts (Manual) Differential Comment Platelet Estimate Platelet Morphology APTT Puncture Site Patient Temperature O2 Saturation ABG pH ABG pCO2 ABG pO2 ABG HCO3 ABG O2 Content ABG Base Excess ABG Methemoglobin Hemoglobin Carboxyhemoglobin O2 Delivery Device Liter Flow Vent Setting Inspired O2 Critical Value Sodium Potassium Chloride Carbon Dioxide Anion Gap BUN Creatinine Estimated GFR POC Glucose 90 93 Random Glucose Calcium Calcium Adj for Albumin Total Bilirubin AST ALT Alkaline Phosphatase Total Protein Albumin Random Vancomycin MTS Gel Crossmatch See Detail Bld Prod Order Comment 08/27/18 08/27/18 08/27/18 05:15 05:15 05:15 WBC 17.9 H RBC 2.48 L Hgb 7.6 L Hct 22.6 L MCV 90.9 MCH 30.8 MCHC 33.9 RDW 16.7 Plt Count 215 MPV 9.9 Prelim Diff (Auto) Slide review pending Neut % (Auto) 88.5 H Lymph % (Auto) 5.0 L [place] % (Auto) 4.5 Eos % (Auto) 1.8 Baso % (Auto) 0.2 Neut # (Auto) 15.8 H Lymph # (Auto) 0.9 L [place] # (Auto) 0.8 Eos # (Auto) 0.3 Baso # (Auto) 0.0 WBC Differential Manual diff final Seg Neuts % (Manual) 71 H Band Neuts % (Manual) 14 H Lymphocytes % (Manual) 9 Monocytes % (Manual) 2 Eosinophils % (Manual) 1 Metamyelocytes % (Man) 1 Myelocytes % (Man) 2 H Abs Neuts (Manual) 15.8 H Differential Comment . Platelet Estimate Normal Platelet Morphology Normal APTT 45.8 H D Puncture Site Patient Temperature O2 Saturation ABG pH ABG pCO2 ABG pO2 ABG HCO3 ABG O2 Content ABG Base Excess ABG Methemoglobin Hemoglobin Carboxyhemoglobin O2 Delivery Device Liter Flow Vent Setting Inspired O2 Critical Value Sodium 143 Potassium 3.6 Chloride 113 H Carbon Dioxide 16.3 L Anion Gap 14 BUN 51 H Creatinine 3.06 H Estimated GFR 15 L POC Glucose Random Glucose 91 Calcium 7.4 L* Calcium Adj for Albumin 8.9 Total Bilirubin 1.2 H AST 58 H ALT 29 Alkaline Phosphatase 37 L Total Protein 4.7 L Albumin 2.1 L Random Vancomycin 26.1 MTS Gel Crossmatch Bld Prod Order Comment 08/27/18 08/27/18 08/27/18 05:19 07:47 09:43 WBC RBC Hgb Hct MCV MCH MCHC RDW Plt Count MPV Prelim Diff (Auto) Neut % (Auto) Lymph % (Auto) [place] % (Auto) Eos % (Auto) Baso % (Auto) Neut # (Auto) Lymph # (Auto) [place] # (Auto) Eos # (Auto) Baso # (Auto) WBC Differential Seg Neuts % (Manual) Band Neuts % (Manual) Lymphocytes % (Manual) Monocytes % (Manual) Eosinophils % (Manual) Metamyelocytes % (Man) Myelocytes % (Man) Abs Neuts (Manual) Differential Comment Platelet Estimate Platelet Morphology APTT Puncture Site [place] Patient Temperature 98.6 O2 Saturation 93 ABG pH 7.36 L ABG pCO2 26 L ABG pO2 75 ABG HCO3 14 L* ABG O2 Content 12.9 ABG Base Excess -9.9 L ABG Methemoglobin 1.8 Hemoglobin 9.8 L Carboxyhemoglobin 1.3 O2 Delivery Device Ventilator Liter Flow Vent Setting See comments Inspired O2 50 Critical Value Yes Sodium Potassium Chloride Carbon Dioxide Anion Gap BUN Creatinine Estimated GFR POC Glucose 98 Random Glucose Calcium Calcium Adj for Albumin Total Bilirubin AST ALT Alkaline Phosphatase Total Protein Albumin Random Vancomycin MTS Gel Crossmatch See Detail Bld Prod Order Comment 08/27/18 11:35 WBC RBC Hgb Hct MCV MCH MCHC RDW Plt Count MPV Prelim Diff (Auto) Neut % (Auto) Lymph % (Auto) [place] % (Auto) Eos % (Auto) Baso % (Auto) Neut # (Auto) Lymph # (Auto) [place] # (Auto) Eos # (Auto) Baso # (Auto) WBC Differential Seg Neuts % (Manual) Band Neuts % (Manual) Lymphocytes % (Manual) Monocytes % (Manual) Eosinophils % (Manual) Metamyelocytes % (Man) Myelocytes % (Man) Abs Neuts (Manual) Differential Comment Platelet Estimate Platelet Morphology APTT Puncture Site Patient Temperature O2 Saturation ABG pH ABG pCO2 ABG pO2 ABG HCO3 ABG O2 Content ABG Base Excess ABG Methemoglobin Hemoglobin Carboxyhemoglobin O2 Delivery Device Liter Flow Vent Setting Inspired O2 Critical Value Sodium Potassium Chloride Carbon Dioxide Anion Gap BUN Creatinine Estimated GFR POC Glucose 102 Random Glucose Calcium Calcium Adj for Albumin Total Bilirubin AST ALT Alkaline Phosphatase Total Protein Albumin Random Vancomycin MTS Gel Crossmatch Bld Prod Order Comment - Imaging Impressions Chest X-Ray 08/26/18 11:28 CONCLUSION: Slight improvement in upper lobe aeration Significant basilar hypoaeration with extensive bibasilar airspace disease No other significant change Assessment and Plan - Plan Impression Worsening leukocytosis, ?reactive post LBKA for limb ischemia - on appropriate Abx for PSAE and Serratia - BC negative - UA ok Respiratory failure Mesenteric ischemia, S/P bypass S/P vascular procedure for LLE ischemia Renal insufficiency Recommendation Continue Vanco Continue Cefepime and Levaquin Follow CBC Follow C/S Monitor temps MOnitor progress I will follow along with you Thank you for this consultation
[2018-08-27] MEDS: Bumetanide Inj 25 MG/100 ML BAG IV.CONT SCH (15:52)
[2018-08-27] MEDS: Levofloxacin 500 mg Premix Inj 500 MG/100 ML PIGGYBACK IV.SIG SCH (17:10)
--- NOTE | 2018-08-27 18:11 | P.PNNP ---
Subjective Interval history: Patient seen in the afternoon, clinically remain same, on the vent. and sedated. Physical Exam Vital signs: Vital Signs 08/26/18 19:00 08/26/18 20:21 08/26/18 23:00 Temperature 98.5 F 98.4 F Pulse Rate 79 81 79 Respiratory Rate 14 21 15 Blood Pressure 89/39 L 92/41 L Pulse Oximetry 97 99 99 08/26/18 23:48 08/27/18 03:00 08/27/18 03:49 Temperature 98.4 F Pulse Rate 80 75 76 Respiratory Rate 18 15 17 Blood Pressure 112/41 L Pulse Oximetry 99 99 96 08/27/18 07:00 08/27/18 07:15 08/27/18 07:30 Temperature 98.1 F 98 F Pulse Rate 79 71 78 Respiratory Rate 21 12 23 Blood Pressure Pulse Oximetry 99 98 95 08/27/18 08:17 08/27/18 08:34 08/27/18 09:25 Temperature 98 F 97.6 F Pulse Rate 82 82 Respiratory Rate 22 22 20 Blood Pressure Pulse Oximetry 94 L 95 91 L 08/27/18 09:27 08/27/18 09:35 08/27/18 09:45 Temperature 97.4 F L 97.5 F L Pulse Rate 81 81 Respiratory Rate 20 22 Blood Pressure Pulse Oximetry 94 L 92 L 94 L 08/27/18 10:45 08/27/18 11:00 08/27/18 12:24 Temperature 97.5 F L 98.1 F Pulse Rate 80 74 77 Respiratory Rate 18 19 19 Blood Pressure 104/52 L Pulse Oximetry 97 98 97 08/27/18 15:00 08/27/18 15:25 Temperature 98 F Pulse Rate 83 83 Respiratory Rate 20 20 Blood Pressure 110/50 L Pulse Oximetry 94 L 93 L Intake & Output 08/26/18 08/27/18 08/27/18 18:59 06:59 18:59 Intake Total 3027 / 3027 1717 / 1717 2200 / 2200 Output Total 875 / 875 680 / 680 Balance 2152 / 2152 1037 / 1037 2200 / 2200 Weight 73.5 kg Intake: IV 2527 / 2527 1367 / 1367 1000 / 1000 Heparin/D5W 25,000 U/250 mL 25, 0 / 0 000 unit In 250 ml @ Per Protocol IV.CONT TITRATE PRN Rx #:[id number] LR 1000 mL Inj 1,000 ML @ 100 1333 / 1333 667 / 667 1000 / 1000 mls/hr IV.CONT .Q10H [facility] Rx#: [id number] Diprivan 1000 mg/100 ml Inj 1, 66 / 66 100 / 100 000 mg In 100 ml @ 5 MCG/KG/MIN 1.845 mls/hr IV.CONT TITRATE PRN Rx#:[id number] Alburx 5% Inj 500 ML @ 250 mls/ 500 / 500 500 / 500 hr IV.SIG Q12H [facility] Rx#:[id number] Maxipime Inj 2,000 MG In NS Inj 100 / 100 100 / 100 100 ML @ 200 mls/hr IV.SIG Q24H [facility] Rx#:[id number] Levaquin 500 mg Premix Inj 500 100 / 100 mg In 100 ml @ 100 mls/hr IV. SIG Q24H [facility]AN Rx#:[id number] KCl 20 mEq Premix Inj 20 meq In 0 / 0 100 ml @ 50 mls/hr IV.SIG Q2H PRN Rx#:[id number] Vancomycin Inj 1,000 MG In NS 250 / 250 Inj 250 ML @ 250 mls/hr IV.SIG ONCE ONE Rx#:[id number] fentaNYL 10 mcg/mL Premix Drip 178 / 178 2,500 mcg In 250 ml @ 50 MCG/HR 5 mls/hr IV.SIG TITRATE PRN Rx #:[id number] Oral 0 / 0 Tube Feeding 160 / 160 Tube Irrigant 90 / 90 Water Bolus Amount 100 / 100 Anesthesia Amount 500 / 500 Intake (Blood Product) Amt 1200 / 1200 Rbc As-3 Leukoreduced Unit 400 / 400 [id number] Rbc As-3 Leukoreduced Unit 400 / 400 [id number] Rbc As-3 Leukoreduced Unit 400 / 400 [id number] Output: Estimated Blood Loss 250 / 250 Urine Amount (Catheter) 325 / 325 250 / 250 Indwelling Temp Sensing 325 / 325 250 / 250 Catheter Gastric Drainage 150 / 150 300 / 300 Right Nare Nasogastric Tube 150 / 150 300 / 300 Chest Tube Drainage 150 / 150 130 / 130 #1 Right Pleural 150 / 150 130 / 130 Other: # Bowel Movements 0 Narrative: Physical examination GENERAL: Patient is a well-nourished, well-developed female, sedated on the vent, not in respiratory distress. SKIN: Cool and dry, edematous. No generalized rash. HEAD: Atraumatic. Normocephalic. No temporal wasting, or tenderness. EYES: [place] conjunctiva. No petechia or hemorrhage. Pupils equal, round and reactive to light. Extraocular movements full and intact. No scleral icterus. No injection or drainage. EARS, NOSE AND THROAT: Nose without bleeding or purulent nasal discharge. No sinus tenderness. She is orally intubated. NECK: Trachea midline. Supple and not tender, no meningeal signs CARDIOVASCULAR: Regular rate and rhythm. No murmurs, rubs or gallops heard RESPIRATORY: She has scattered rhonchi bilaterally. Chest tube on the right side. ABDOMEN: Has midline incision and in lower portion there is some opening in her incision, draining serosanguineous fluid, with very minimal erythema noted. EXTREMITIES: No clubbing, cyanosis. Has edema of both hands and R foot. NEUROLOGICAL: Sedated. PSYCHIATRIC: Unable to assess LINE: No evidence of infection - Urinary Catheter Management Indwelling Temp Sensing Catheter Cath placed during this visit: yes Reason for continuing: Hourly intake/output Insertion date: 08/13/18 Insertion time: 08:08 Assessment and Plan - Assessment (1) Acute kidney injury Code(s): N17.9 - Acute kidney failure, unspecified Status: Acute (2) Mesenteric ischemia Code(s): K55.9 - Vascular disorder of intestine, unspecified Status: Acute (3) Hemothorax Code(s): J94.2 - Hemothorax Status: Acute - Plan Patient has Acute kidney injury with increase in the creatinine. HÉCTOR possible prerenal with FeNa less than 1 vs ATN from sepsis or hypotension. Patient CPK is also elevated with casts in urine. So possibly ATN from rhabdomyolysis. No previous history of chronic kidney disease baseline creatinine is less than 1. Renal US with no hydronephrosis. Left kidney is smaller than the right and demonstrates increased echogenicity suggesting medical renal disease. Patient urinary output has been decreasing with 385 ml/24 hours. Patient has decrease urine out put. Given one dose of Lasix with Transfusion. Creatinine continue to increase. Start Bumex infusion, if urine out put remain low, or renal function not better, will consider starting HD.
[2018-08-27] MEDS: Magnesium Oxide 400 MG Tablet PO SCH (22:07)
[2018-08-28] MEDS: Oral Hygiene Kit OROPHARYNG SCH ×4 (00:32→16:18)
[2018-08-28] MEDS: Insulin NovoLIN Regular Correctional Sugar Inj SQ SCH ×3 (00:36→11:47)
[2018-08-28] MEDS: Heparin - SQ 10,000 UNITS/ML Vial SQ SCH ×2 (01:31→08:53)
[2018-08-28] MEDS: fentaNYL 10 mcg/mL Premix Drip 2,500 MCG/250 ML BAG IV.SIG PRN (01:33)
[2018-08-28] MEDS: Albumin Human 5% Inj 500 ML IV.SIG SCH ×2 (02:31→14:18)
[2018-08-28 05:24] LABS: Baso % (Auto) 0.2 % (0.0-2.0); Eos # (Auto) 0.5 th/mm3 (0.0-0.4); Eos % (Auto) 2.3 % (0.0-4.0); Hematocrit 33.3 % (35.0-46.0); Hemoglobin 11.3 gm/dL (11.6-15.3); Lymph # (Auto) 1.9 th/mm3 (1.0-4.8); Mean Corpuscular HGB Conc 33.9 % (32.0-36.0); Mean Corpuscular Hemoglobin 30.1 pg (27.0-34.0); Mean Corpuscular Volume 88.7 fL (80.0-100.0); Mean Platelet Volume 10.5 fL (7.0-11.0); Mono # (Auto) 1.1 th/mm3 (0.0-0.9); Mono % (Auto) 4.6 % (0.0-8.0); Neut # (Auto) 19.9 th/mm3 (1.8-7.7); Neut % (Auto) 84.9 % (16.0-70.0); Platelet Count 207 th/mm3 (150-450); Red Blood Count 3.75 mil/mm3 (4.00-5.30); Red Cell Distribution Width 18.4 % (11.6-17.2); White Blood Count 23.4 th/mm3 (4.0-11.0)
[2018-08-28] MEDS: Metoprolol Inj 5 MG/5 ML Vial IV.PUSH SCH ×3 (05:33→22:21)
[2018-08-28 05:56] LABS: Calcium 7.2 mg/dL (8.5-10.1); Carbon Dioxide 15.3 meq/L (21.0-32.0); Magnesium 1.6 mg/dL (1.5-2.5); Phosphorus 3.5 mg/dL (2.5-4.9); Potassium 3.6 meq/L (3.5-5.1)
--- NOTE | 2018-08-28 06:32 | XR ---
EXAM DATE: 08/28/2018 6:23 AM EST AGE/SEX: 78 years / Female INDICATIONS: Respiratory failure. CLINICAL DATA: This is the patient's subsequent encounter. Patient reports that signs and symptoms h ave been present for 3 weeks and indicates a pain score of Nonresponsive. MEDICAL/SURGICAL HISTORY: Gastroesophageal reflux disease. Coronary artery stent. Cholecystect evita. Appendectomy. Ykrno-grvzo-uoxqwer bypass. Laminectomy. COMPARISON: [facility] [place], CHEST 1V SINGLE AP, 08/26/2018. . FINDINGS: Single AP view the chest. Endotracheal tube, nasogastric tube, feeding tube, right-sided chest tube r emain in place. Bilateral pulmonary opacity and elevation of the right hemidiaphragm unchanged. CONCLUSION: No significant interval change with persistent bilateral pulmonary opacity and elevation of right hem idiaphragm. Electronically signed by: Rey Jauregui MD 08/28/2018 6:31 AM EST
[2018-08-28] MEDS: Artificial Tears Opth Drops 15 ML Bottle EACH EYE SCH ×3 (06:36→21:36)
[2018-08-28 08:10] LABS: Eosinophils 1 % (0-4); Lymphocytes 8 % (9-44); Metamyelocytes 3 % (0-1); Monocytes 1 % (0-8); Myelocytes 4 % (0-0)
[2018-08-28 08:11] LABS: Dohle Bodies Present; Ovalocytes 1+; Platelet Estimate Normal (Normal); Toxic Vacuolation Present
[2018-08-28] MEDS: Chlorhexidine 0.12% Oral Kit 15 ML UDC OROPHARYNG SCH ×2 (08:51→21:36)
[2018-08-28] MEDS: Famotidine PF Inj 20 MG/2 ML Vial IV.PUSH SCH ×2 (08:52→21:34)
[2018-08-28] MEDS: Sodium Chloride 0.9% 2 ML Flush BID IV.FLUSH SCH ×4 (08:53→22:24)
--- NOTE | 2018-08-28 09:08 | P.PNVS ---
Subjective Post Op Day #: 15 Procedure: aorto-hepatic, aorto-SMA bypass Subjective/Hospital Course: POD#15 mesenteric bypass POD#8 L LE graft thrombectomy POD#2 L BKA HD stable anatoliy TF at 20/h no progress on vent yesterday started Bumex gtt but UOP still low and creatinine increasing Objective Neuro: sedated Pulmonary: vent persists good sats CXR with B effusions/infiltrates, stable overall Cardiac: SR, bp ok; no pressors FEN/GI: anatoliy 20/h TF e'lytes ok : UOP 525/24h BUN and cr continue to rise. + metabolic acidosis but K ok; clearly volume overloaded ID Antibiotics (date/duration): afebrile and on broad spectrum; WBC increasing ID Cultures: none since 12/ Heme: Hct 33 plt 207 Vascular: L BKA stump wrapped; will take down tomorrow (POD#3) Laboratory Results - last 24 hr 08/27/18 08/27/18 08/27/18 07:47 09:43 11:35 WBC RBC Hgb Hct MCV MCH MCHC RDW Plt Count MPV Prelim Diff (Auto) Neut % (Auto) Lymph % (Auto) Weld % (Auto) Eos % (Auto) Baso % (Auto) Neut # (Auto) Lymph # (Auto) Weld # (Auto) Eos # (Auto) Baso # (Auto) WBC Differential Seg Neuts % (Manual) Band Neuts % (Manual) Lymphocytes % (Manual) Monocytes % (Manual) Eosinophils % (Manual) Metamyelocytes % (Man) Myelocytes % (Man) Abs Neuts (Manual) Differential Comment Toxic Vacuolation Dohle Bodies Platelet Estimate Platelet Morphology Ovalocytes Puncture Site [place] Patient Temperature 98.6 O2 Saturation 93 ABG pH 7.36 L ABG pCO2 26 L ABG pO2 75 ABG HCO3 14 L* ABG O2 Content 12.9 ABG Base Excess -9.9 L ABG Methemoglobin 1.8 Hemoglobin 9.8 L Carboxyhemoglobin 1.3 O2 Delivery Device Ventilator Liter Flow Vent Setting See comments Inspired O2 50 Critical Value Yes Sodium Potassium Chloride Carbon Dioxide Anion Gap BUN Creatinine Estimated GFR POC Glucose 102 Random Glucose Calcium Calcium Adj for Albumin Phosphorus Magnesium Total Bilirubin AST ALT Alkaline Phosphatase Total Protein Albumin MTS Gel Crossmatch See Detail Bld Prod Order Comment 08/27/18 08/28/18 08/28/18 17:07 00:07 05:10 WBC 23.4 H RBC 3.75 L Hgb 11.3 L D Hct 33.3 L MCV 88.7 MCH 30.1 MCHC 33.9 RDW 18.4 H Plt Count 207 MPV 10.5 Prelim Diff (Auto) Slide review pending Neut % (Auto) 84.9 H Lymph % (Auto) 8.0 L Weld % (Auto) 4.6 Eos % (Auto) 2.3 Baso % (Auto) 0.2 Neut # (Auto) 19.9 H Lymph # (Auto) 1.9 Weld # (Auto) 1.1 H Eos # (Auto) 0.5 H Baso # (Auto) 0.0 WBC Differential Manual diff final Seg Neuts % (Manual) 62 Band Neuts % (Manual) 21 H Lymphocytes % (Manual) 8 L Monocytes % (Manual) 1 Eosinophils % (Manual) 1 Metamyelocytes % (Man) 3 H Myelocytes % (Man) 4 H Abs Neuts (Manual) 21.1 H Differential Comment . Toxic Vacuolation Present H Dohle Bodies Present H Platelet Estimate Normal Platelet Morphology Enlarged H Ovalocytes 1+ H Puncture Site Patient Temperature O2 Saturation ABG pH ABG pCO2 ABG pO2 ABG HCO3 ABG O2 Content ABG Base Excess ABG Methemoglobin Hemoglobin Carboxyhemoglobin O2 Delivery Device Liter Flow Vent Setting Inspired O2 Critical Value Sodium Potassium Chloride Carbon Dioxide Anion Gap BUN Creatinine Estimated GFR POC Glucose 101 103 Random Glucose Calcium Calcium Adj for Albumin Phosphorus Magnesium Total Bilirubin AST ALT Alkaline Phosphatase Total Protein Albumin MTS Gel Crossmatch Bld Prod Order Comment 08/28/18 05:10 WBC RBC Hgb Hct MCV MCH MCHC RDW Plt Count MPV Prelim Diff (Auto) Neut % (Auto) Lymph % (Auto) Weld % (Auto) Eos % (Auto) Baso % (Auto) Neut # (Auto) Lymph # (Auto) Weld # (Auto) Eos # (Auto) Baso # (Auto) WBC Differential Seg Neuts % (Manual) Band Neuts % (Manual) Lymphocytes % (Manual) Monocytes % (Manual) Eosinophils % (Manual) Metamyelocytes % (Man) Myelocytes % (Man) Abs Neuts (Manual) Differential Comment Toxic Vacuolation Dohle Bodies Platelet Estimate Platelet Morphology Ovalocytes Puncture Site Patient Temperature O2 Saturation ABG pH ABG pCO2 ABG pO2 ABG HCO3 ABG O2 Content ABG Base Excess ABG Methemoglobin Hemoglobin Carboxyhemoglobin O2 Delivery Device Liter Flow Vent Setting Inspired O2 Critical Value Sodium 142 Potassium 3.6 Chloride 112 H Carbon Dioxide 15.3 L Anion Gap 15 BUN 54 H Creatinine 3.26 H Estimated GFR 14 L POC Glucose Random Glucose 108 H Calcium 7.2 L* Calcium Adj for Albumin 8.8 Phosphorus 3.5 Magnesium 1.6 Total Bilirubin 1.0 AST 44 H ALT 26 Alkaline Phosphatase 69 Total Protein 5.0 L Albumin 2.0 L MTS Gel Crossmatch Bld Prod Order Comment Microbiology 08/25/18 10:30 Gram Stain - Final Wound - Abdominal Wound Culture - Final No growth in 72 hours (aerobically and anaerobically) 08/22/18 13:30 Aerobic Blood Culture - Final Blood - Peripheral No growth in 5 days Anaerobic Blood Culture - Final No growth in 5 days 08/22/18 13:30 Aerobic Blood Culture - Final Blood - Peripheral No growth in 5 days Anaerobic Blood Culture - Final No growth in 5 days Impressions Chest X-Ray 08/26/18 11:28 CONCLUSION: Slight improvement in upper lobe aeration Significant basilar hypoaeration with extensive bibasilar airspace disease No other significant change Chest X-Ray 08/28/18 00:00 CONCLUSION: No significant interval change with persistent bilateral pulmonary opacity and elevation of right hemidiaphragm. Assessment and Plan - Assessment (1) PAD (peripheral artery disease) Code(s): I73.9 - Peripheral vascular disease, unspecified Status: Acute - Plan POD#15 s/p antegrade mesenteric bypass POD#8 L LE graft revision POD#2 L BKA 1. very fluid overloaded and I think this is part of her inability to come off vent; 2. good response to PRBC 3. Leave L BKA dressing in place with knee immobilization; will take down tomorrow (POD#3) 4. ASA only; no hep gtt 5. Increase TF to 30/h 6. Continue broad antibiotics 7. Probably needs trach 8. Continue Bumex gtt Discharge Planning: CVICU candid discussions with family daily about overall prognosis. Main obstacles: nutrition, vent, renal function.
--- NOTE | 2018-08-28 10:22 | P.PNCC ---
Subjective Subjective Remarks/Hospital Course: Hospital Course: Patient is a 77-year-old female who was admitted to Dr. Ryan's service for mesenteric ischemia today. Her past medical history significant for coronary artery disease status post PCI/stent, history of renal artery stenosis, GERD, PAD, history of multiple vascular surgeries, history of small bowel obstruction, restless leg syndrome. Patient underwent aorto-hepatic and aorto-SMA bypass in OR. EBL was 400 ml, received 3.6 L of crystalloids in the OR , urine output was adequate. Postop patient was moved to the CVICU critical care medicine was consulted for postop management. Patient is hypotensive at the time of my evaluation and had been started on Diego-Synephrine by Dr. Ryan. I haave ordered further fluid resuscitation with additional 2 L of crystalloids. A stat ABG was done at the bedside which showed hemoglobin 6.6. A CBC was sent and I ordered 2 units of PRBC stat. CBC came back with hemoglobin of 6.4 platelet count 139. Chemistry showed potassium of 3.4 calcium uncorrected 6.4. Electrolyte replacement protocol and calcium replacement have been ordered. Lactic acid also mildly elevated at 2.2. Will follow serial lactic acid and follow urine output closely. If patient becomes hemodynamically more stable will proceed with weaning trial for extubation. Urine output had been adequate postop approximately 40 mL/h. Bilateral DP pulses are Dopplerable Subjective: 08/14: significant fluid requirement. trop slightly elevated at 0.06. initial scvo2 43% but improved after fluid to 68%. pain adequately controlled. uop marginal at 20cc/hr. 08/15: trop slightly uptrended. now appears volume overloaded with new and worsening oxygen requirement. ABG with mixed acidosis. responded well to lasix with adequate diuresis. placed on BiPAP. somewhat agitated requiring low-dose Precedex. lactate 0.8, scvo2 71%. 08/16: slightly tachycardic this morning. some diuresis yesterday and back to nc o2, but remains volume overloaded. denies pain. somewhat intermittently confused, but oriented on my evaluation. trop still uptrending, but plateauing. uop adequate. 08/17: went into afib RVR overnight. placed on diltiazem drip. this morning, more rate controlled. trop downtrending. adequate diuresis, but remains volume overloaded. aggressively replaced electrolytes this morning. 08/18: overnight events reviewed and discussed with Dr. Ryan and Dr. Sabillon. intubated after respiratory arrest. bronch with mucous plugging. new right pleural effusion on chest CT (multiple rib fractures after CPR). placed 28 Fr chest tube (see separate procedure note for details) with ~1600cc blood (no active bleeding). placed arterial line. transfused 3 units prbc. trending H&H. critically ill this morning. oliguric. 08/19: agitation persists. started scheduled valium as well as fentanyl drip for pain control. still with significant thick tenacious secretions: too many secretions for safe weaning of mechanical ventilation. also spiked fevers overnight, ennis cultured and zosyn started. chest tube with significantly less output, and more serosanguinous. 08/20: cold leg this AM with decreased motor function. taken back to OR today for re-vascularization. 08/21: perfusion to the LE still questionable. decreasing NGT output, but still 100cc/12h. will place post-pyloric feeding tube and start trickle feeds. likely needs another 24h before we are ready for SBTs. sputum growing serratia and pseudomonas: zosyn not adequate given MICs, will need to switch to Levaquin. would plan on 7 day course. 08/22: Cr increased significantly overnight, but adequate uop. may be delayed ATN from recent worsening hemodynamics. agree with starting gentle ivf. poor perfusion to the LE persists, but we have optimized everything we can for now. no reflux of tube feeds in OG tube. agree with increasing to 20cc/hr. also very tachycardic this morning- will restart very low-dose beta blockade. trial of SBT today with early failure: very tachypneic in distress. Also spiking fevers and wbc elevated. oliguric. 08/23: Cr continues to rise. hgb dropped to 6.8 today- receiving 2 units prbc. remains oliguric. urine electrolytes consistent with severe pre-renal azotemia, urine sodium < 20. 08/24 Patient remains sedated with Diprivan, Fentanyl and intubated. On Heparin drip, failed CPAP trials yesterday. s/p transfusion 2u PRBC. Hgb 9.9 from 6.8 12/8 Patient is sedated with Diprivan and Fentanyl infusion. Afebrile, renal function worse with Cr: 2.54 fro 1.8. On Heparin drip. Tolerated CPAP trials x 4hrs. 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 On Diprivan and Fentanyl infusion for sedation. Off Heparin drip. Afebrile. 08/27 Patient remains intubated and sedated with Diprivan and Fentanyl infusion. Receiving 2u PRBC this morning. Renal function worse today with Cr: 3.06 from 2.78, afebrile. 08/28 Patient remains intubated and sedated. s/p transfusion 2u PRBC yesterday on Bumex drip 0.5mg/hr. Renal function worse with Cr: 3.26 and UOP 300ml overnight. WBC increased 23.4 from 17. Afebrile. Objective Vital Signs / I&O: Vital Signs 08/27/18 10:45 08/27/18 11:00 08/27/18 12:24 Temperature 97.5 F L 98.1 F Pulse Rate 80 74 77 Respiratory Rate 18 19 19 Blood Pressure 104/52 L Pulse Oximetry 97 98 97 08/27/18 15:00 08/27/18 15:25 08/27/18 19:00 Temperature 98 F 98.2 F Pulse Rate 83 83 78 Respiratory Rate 20 20 23 Blood Pressure 110/50 L 110/49 L Pulse Oximetry 94 L 93 L 96 08/27/18 20:12 08/27/18 23:00 08/28/18 00:15 Temperature 98.1 F Pulse Rate 80 81 81 Respiratory Rate 22 24 19 Blood Pressure 101/49 L Pulse Oximetry 97 94 L 94 L 08/28/18 03:00 08/28/18 04:05 08/28/18 07:00 Temperature 98.3 F 98.4 F Pulse Rate 83 82 91 H Respiratory Rate 23 21 20 Blood Pressure 81/59 L 111/46 L Pulse Oximetry 94 L 94 L 94 L 08/28/18 07:33 Temperature Pulse Rate 91 H Respiratory Rate 22 Blood Pressure Pulse Oximetry 92 L Intake & Output 08/27/18 08/28/18 08/28/18 18:59 06:59 18:59 Intake Total 3761 / 3761 1272 / 1272 Output Total 685 / 685 350 / 350 Balance 3076 / 3076 922 / 922 Weight 78.5 kg Intake: IV 2561 / 2561 893 / 893 Bumex Inj 25 mg In 100 ml @ 0.5 4 / 4 MG/HR 2 mls/hr IV.CONT .Q24H [facility] Rx#:[id number] LR 1000 mL Inj 1,000 ML @ 100 1805 / 1805 195 / 195 mls/hr IV.CONT .Q10H [facility] Rx#: [id number] Diprivan 1000 mg/100 ml Inj 1, 70 / 70 30 / 30 000 mg In 100 ml @ 5 MCG/KG/MIN 1.845 mls/hr IV.CONT TITRATE PRN Rx#:[id number] Alburx 5% Inj 500 ML @ 250 mls/ 500 / 500 500 / 500 hr IV.SIG Q12H [facility] Rx#:[id number] Levaquin 500 mg Premix Inj 500 100 / 100 mg In 100 ml @ 100 mls/hr IV. SIG Q24H [facility] Rx#:[id number] KCl 20 mEq Premix Inj 20 meq In 0 / 0 100 ml @ 50 mls/hr IV.SIG Q2H [facility] Rx#:[id number] fentaNYL 10 mcg/mL Premix Drip 82 / 82 168 / 168 2,500 mcg In 250 ml @ 50 MCG/HR 5 mls/hr IV.SIG TITRATE PRN Rx #:[id number] Oral 0 / 0 Tube Feeding 259 / 259 Water Bolus Amount 120 / 120 Intake (Blood Product) Amt 1200 / 1200 Rbc As-3 Leukoreduced Unit 400 / 400 [id number] Rbc As-3 Leukoreduced Unit 400 / 400 [id number] Rbc As-3 Leukoreduced Unit 400 / 400 [id number] Output: Stool 0 / 0 Urine Amount (Catheter) 225 / 225 300 / 300 Indwelling Temp Sensing 225 / 225 300 / 300 Catheter Gastric Drainage 300 / 300 Right Nare Nasogastric Tube 300 / 300 Chest Tube Drainage 160 / 160 50 / 50 #1 Right Pleural 160 / 160 50 / 50 Other: Date of Last Bowel Movement 08/18/18 08/18/18 # Bowel Movements 0 Result Diagrams: 08/28/18 05:10 08/28/18 05:10 Other Results: Laboratory Results - last 12 hr 08/28/18 08/28/18 08/28/18 00:07 05:10 05:10 WBC 23.4 H RBC 3.75 L Hgb 11.3 L D Hct 33.3 L MCV 88.7 MCH 30.1 MCHC 33.9 RDW 18.4 H Plt Count 207 MPV 10.5 Prelim Diff (Auto) Slide review pending Neut % (Auto) 84.9 H Lymph % (Auto) 8.0 L Trigg % (Auto) 4.6 Eos % (Auto) 2.3 Baso % (Auto) 0.2 Neut # (Auto) 19.9 H Lymph # (Auto) 1.9 Trigg # (Auto) 1.1 H Eos # (Auto) 0.5 H Baso # (Auto) 0.0 WBC Differential Manual diff final Seg Neuts % (Manual) 62 Band Neuts % (Manual) 21 H Lymphocytes % (Manual) 8 L Monocytes % (Manual) 1 Eosinophils % (Manual) 1 Metamyelocytes % (Man) 3 H Myelocytes % (Man) 4 H Abs Neuts (Manual) 21.1 H Differential Comment . Toxic Vacuolation Present H Dohle Bodies Present H Platelet Estimate Normal Platelet Morphology Enlarged H Ovalocytes 1+ H Sodium 142 Potassium 3.6 Chloride 112 H Carbon Dioxide 15.3 L Anion Gap 15 BUN 54 H Creatinine 3.26 H Estimated GFR 14 L POC Glucose 103 Random Glucose 108 H Calcium 7.2 L* Calcium Adj for Albumin 8.8 Phosphorus 3.5 Magnesium 1.6 Total Bilirubin 1.0 AST 44 H ALT 26 Alkaline Phosphatase 69 Total Protein 5.0 L Albumin 2.0 L Imaging: Abdomen/Bladder Ultrasound 08/22/18 00:00 CONCLUSION: 1. No hydronephrosis is identified. 2. Left kidney is smaller than the right and demonstrates increased echogenicity suggesting medical renal disease. Given the appearance on prior CTA , a renovascular cause is suspected for these changes. 3. There is a small volume of free fluid within the abdomen and pelvis and pleural fluid is visualized on the left. Chest CT 08/24/18 10:42 CONCLUSION: 1. Interval improvement on the right large bore chest tube in good position. Persistent air bronchograms remaining in the right base. 2. Stable to slightly larger left pleural effusion with compressive atelectasis in the left base. Abdomen/Pelvis CT 08/24/18 10:43 CONCLUSION: 1. Trace ascites with generalized mesenteric edema 2. Extensive vascular calcifications. There is no free air or abscess. Do not see air in the bowel wall to suggest ischemia. Chest X-Ray 08/28/18 00:00 CONCLUSION: No significant interval change with persistent bilateral pulmonary opacity and elevation of right hemidiaphragm. Objective Remarks: GENERAL: Elderly female, lying in bed, intubated, sedated, critically ill. HEENT: Normocephalic. Atraumatic. Pupils equal, round, reactive, conjugate. Mucous membranes are moist NECK: Trachea is midline. There is no JVD. CHEST: B/l equal air entry, CT in place CARDIOVASCULAR: normal rate, regular rhythm. sinus. ABDOMEN: Soft, non tender, +BS MUSCULOSKELETAL: Left BKA NEUROLOGICAL: Intubated and sedated Assessment and Plan - Assessment and Plan Plan: PLAN: NEURO: Acute alcohol withdraw syndrome Acute agitated delirium- improving Restless leg syndrome -On propofol, fentanyl for sedation. Daily sedation vacation - frequent neuro checks RESP: Aspiration pneumonia Acute hypoxic and hypercarbic respiratory failure Acute right hemothorax post CPR Rib fractures secondary to CPR -Continue with vent support keep sats >92% - Bronchodilators, ICU vent bundle. -SBT daily as anatoliy. If no improvements in weaning trials will likely need a trach. Discussed with patient's son - Right 28 Fr chest tube placed 08/18. keep to suction. Monitor CT drainage. Drained 210 ml. -CT chest 08/24: Persistent air bronchograms remaining in the right base. compressive atelectasis in the left base. -CXR 08/26: Slight improvement in upper lobe aeration, bibasilar airspace disease -CXR today: No significant interval change with persistent bilateral pulmonary opacity and elevation of right hemidiaphragm. CV: Type II NSTEMI secondary to demand ischemia- resolved Hypovolemia secondary to hemothorax CAD History of peripheral arterial disease, status post multiple vascular surgery Perioperative atrial fibrillation with rapid ventricular response- back in NSR Lactic acidosis- resolved - Monitor HR and BP keep MAP>65mmHg -On ASA, Plavix, Lipitor, Lopressor 2.5mg IV Q6 -Cards is following -s/p Left BKA 08/[address] ryan. GI: Mesenteric ischemia status post open antegrade mesenteric bypass GERD History of small bowel obstruction acute protein calorie malnutrition- severe Postoperative ileus -Status post open antegrade mesenteric bypass, postop management per Dr. Ryan -tube feeds (Nepro currently @20ml/hr) : History of renal artery stenosis Acute kidney injury- worsening. -Monitor renal function closely, I/O's, avoid nephrotoxins. Boateng catheter. - renal ultrasound without hydronephrosis -Renal function worse today with Cr: 3.26 from 3.06, UOP: 300ml -Renal is following. d/c IVF, on Bumex 0.5mg/hr, might need HD. -Give Sodium bicarb 50meq IV x1 ID: Aspiration pneumonia- pseudomonas and serratia Continue abx (Cefepime, Levaquin, Vanco) monitor for signs of infections ( fever , WBC) ID is following. Check BC x 2 sets today 08/24 sputum and urine cx: No growth. 08/24 wound cx form abdomen no growth 08/19 Sputum: Pseudomonas and Serratia HEME: Anemia -Monitor CBC, coags - 2 units prbc 08/23 -s/p transfusion 2u PRBC 08/27 Endo On SSI with accuchecks for glycemic control PROPH: -SCD -Pepcid Lines: Right IJ vascath placed today. CCt 30 mins
--- NOTE | 2018-08-28 12:52 | P.PNVS ---
Subjective Subjective/Hospital Course: I had a discussion with the family at bedside. They are aware of her overall critical condition and would like to proceed with DNR: specifically, no chest compressions and no cardioversions. We will continue all other aggressive measures. I think this is an appropriate decision. They are all in agreement. Objective Vital Signs / I&O: Vital Signs 08/27/18 15:00 08/27/18 15:25 08/27/18 19:00 Temperature 98 F 98.2 F Pulse Rate 83 83 78 Respiratory Rate 20 20 23 Blood Pressure 110/50 L 110/49 L Pulse Oximetry 94 L 93 L 96 08/27/18 20:12 08/27/18 23:00 08/28/18 00:15 Temperature 98.1 F Pulse Rate 80 81 81 Respiratory Rate 22 24 19 Blood Pressure 101/49 L Pulse Oximetry 97 94 L 94 L 08/28/18 03:00 08/28/18 04:05 08/28/18 07:00 Temperature 98.3 F 98.4 F Pulse Rate 83 82 91 H Respiratory Rate 23 21 20 Blood Pressure 81/59 L 111/46 L Pulse Oximetry 94 L 94 L 94 L 08/28/18 07:33 08/28/18 11:00 08/28/18 11:40 Temperature 98.1 F Pulse Rate 91 H 97 H 95 H Respiratory Rate 22 22 23 Blood Pressure 89/66 L Pulse Oximetry 92 L 94 L 95 08/28/18 12:25 Temperature Pulse Rate Respiratory Rate Blood Pressure Pulse Oximetry 86 L Intake & Output 08/27/18 08/28/18 08/28/18 18:59 06:59 18:59 Intake Total 3761 / 3761 1272 / 1272 Output Total 685 / 685 350 / 350 Balance 3076 / 3076 922 / 922 Weight 78.5 kg Intake: IV 2561 / 2561 893 / 893 Bumex Inj 25 mg In 100 ml @ 0.5 4 / 4 MG/HR 2 mls/hr IV.CONT .Q24H [facility] Rx#:[id number] LR 1000 mL Inj 1,000 ML @ 100 1805 / 1805 195 / 195 mls/hr IV.CONT .Q10H [facility] Rx#: [id number] Diprivan 1000 mg/100 ml Inj 1, 70 / 70 30 / 30 000 mg In 100 ml @ 5 MCG/KG/MIN 1.845 mls/hr IV.CONT TITRATE PRN Rx#:[id number] Alburx 5% Inj 500 ML @ 250 mls/ 500 / 500 500 / 500 hr IV.SIG Q12H [facility] Rx#:[id number] Levaquin 500 mg Premix Inj 500 100 / 100 mg In 100 ml @ 100 mls/hr IV. SIG Q24H [facility] Rx#:[id number] KCl 20 mEq Premix Inj 20 meq In 0 / 0 100 ml @ 50 mls/hr IV.SIG Q2H [facility] Rx#:[id number] fentaNYL 10 mcg/mL Premix Drip 82 / 82 168 / 168 2,500 mcg In 250 ml @ 50 MCG/HR 5 mls/hr IV.SIG TITRATE PRN Rx #:[id number] Oral 0 / 0 Tube Feeding 259 / 259 Water Bolus Amount 120 / 120 Intake (Blood Product) Amt 1200 / 1200 Rbc As-3 Leukoreduced Unit 400 / 400 [id number] Rbc As-3 Leukoreduced Unit 400 / 400 [id number] Rbc As-3 Leukoreduced Unit 400 / 400 [id number] Output: Stool 0 / 0 Urine Amount (Catheter) 225 / 225 300 / 300 Indwelling Temp Sensing 225 / 225 300 / 300 Catheter Gastric Drainage 300 / 300 Right Nare Nasogastric Tube 300 / 300 Chest Tube Drainage 160 / 160 50 / 50 #1 Right Pleural 160 / 160 50 / 50 Other: Date of Last Bowel Movement 08/18/18 08/18/18 # Bowel Movements 0 Laboratory Results - last 24 hr 08/27/18 08/27/18 08/28/18 07:47 17:07 00:07 WBC RBC Hgb Hct MCV MCH MCHC RDW Plt Count MPV Prelim Diff (Auto) Neut % (Auto) Lymph % (Auto) Cherry % (Auto) Eos % (Auto) Baso % (Auto) Neut # (Auto) Lymph # (Auto) Cherry # (Auto) Eos # (Auto) Baso # (Auto) WBC Differential Seg Neuts % (Manual) Band Neuts % (Manual) Lymphocytes % (Manual) Monocytes % (Manual) Eosinophils % (Manual) Metamyelocytes % (Man) Myelocytes % (Man) Abs Neuts (Manual) Differential Comment Toxic Vacuolation Dohle Bodies Platelet Estimate Platelet Morphology Ovalocytes Sodium Potassium Chloride Carbon Dioxide Anion Gap BUN Creatinine Estimated GFR POC Glucose 101 103 Random Glucose Calcium Calcium Adj for Albumin Phosphorus Magnesium Total Bilirubin AST ALT Alkaline Phosphatase Total Protein Albumin MTS Gel Crossmatch See Detail 08/28/18 08/28/18 08/28/18 05:10 05:10 11:11 WBC 23.4 H RBC 3.75 L Hgb 11.3 L D Hct 33.3 L MCV 88.7 MCH 30.1 MCHC 33.9 RDW 18.4 H Plt Count 207 MPV 10.5 Prelim Diff (Auto) Slide review pending Neut % (Auto) 84.9 H Lymph % (Auto) 8.0 L Cherry % (Auto) 4.6 Eos % (Auto) 2.3 Baso % (Auto) 0.2 Neut # (Auto) 19.9 H Lymph # (Auto) 1.9 Cherry # (Auto) 1.1 H Eos # (Auto) 0.5 H Baso # (Auto) 0.0 WBC Differential Manual diff final Seg Neuts % (Manual) 62 Band Neuts % (Manual) 21 H Lymphocytes % (Manual) 8 L Monocytes % (Manual) 1 Eosinophils % (Manual) 1 Metamyelocytes % (Man) 3 H Myelocytes % (Man) 4 H Abs Neuts (Manual) 21.1 H Differential Comment . Toxic Vacuolation Present H Dohle Bodies Present H Platelet Estimate Normal Platelet Morphology Enlarged H Ovalocytes 1+ H Sodium 142 Potassium 3.6 Chloride 112 H Carbon Dioxide 15.3 L Anion Gap 15 BUN 54 H Creatinine 3.26 H Estimated GFR 14 L POC Glucose 103 Random Glucose 108 H Calcium 7.2 L* Calcium Adj for Albumin 8.8 Phosphorus 3.5 Magnesium 1.6 Total Bilirubin 1.0 AST 44 H ALT 26 Alkaline Phosphatase 69 Total Protein 5.0 L Albumin 2.0 L MTS Gel Crossmatch Microbiology 08/25/18 10:30 Gram Stain - Final Wound - Abdominal Wound Culture - Final No growth in 72 hours (aerobically and anaerobically) 08/22/18 13:30 Aerobic Blood Culture - Final Blood - Peripheral No growth in 5 days Anaerobic Blood Culture - Final No growth in 5 days 08/22/18 13:30 Aerobic Blood Culture - Final Blood - Peripheral No growth in 5 days Anaerobic Blood Culture - Final No growth in 5 days Impressions Chest X-Ray 08/26/18 11:28 CONCLUSION: Slight improvement in upper lobe aeration Significant basilar hypoaeration with extensive bibasilar airspace disease No other significant change Chest X-Ray 08/28/18 00:00 CONCLUSION: No significant interval change with persistent bilateral pulmonary opacity and elevation of right hemidiaphragm. Assessment and Plan - Assessment (1) PAD (peripheral artery disease) Code(s): I73.9 - Peripheral vascular disease, unspecified Status: Acute - Plan continue current care including potential dialysis to remove fluid to help respiratory status. No chest compressions. No cardioversions. Continue all other measures. Discharge Planning: CVICU candid discussions with family daily about overall prognosis. Main obstacles: nutrition, vent, renal function.
--- NOTE | 2018-08-28 15:40 | P.PNWCN ---
Wound Care Nurse Consult Description: Received consult for wound management of abdominal wound from Doctor Fabian. Communicated with: GWEN Watts and Shelly BURTON Recommendation: 1.Please cleanse wound to sacral area with Wound cleanser and pat dry. 2. [place] unopened portion of deep tissue injury on sacral area with Cavilon skin barrier film spray. 3. Apply Maxorb II over opening DTI and secure with bordered gauze 6x6. 4. Change dressing daily 5. Apply dry dressing secured with Abdominal binder and change daily. Wound/Pressure Injury - Wound Sacrum Wound Staging: DTI (opening DTI) Wound Assessment: Ongoing Wound Type: Pressure Injury Is This a Chronic Wound: No Requested from Provider a Wound Care Consult: Yes (patient seen today by Wound care inpatient ) Length (cm): 13 (~13cm) Width (cm): 10 (~10cm) Depth (cm): 0 (opening skin with purple discoloration) Wound Bed Appearance: 80% purple discoloration to skin that is opening to reveal pink tissue. Surrounding Tissue Appearance: Blanched/Dull Surrounding Tissue Temperature: Cool Drainage Description: Serosanguinous Drainage Amount: Minimal Drainage Odor: No Odor Dressing Status: Open to Air Cleansing Solution: Saline Wound Margin Description: Well defined. - Additional Information Patient seen for abdominal wound management and sacral wound. Patient seen today with the assistance of Stefanie Tiwari RN CVICU.Patinet is intubated and sedated. Unfastened abdominal binder to reveal gauze dressing secured with Morgan ties.Removed Morgan ties and gauze dressing to reveal healing incision that is well approximated with surgical glue. Scant amount of sanguinous drainage is noted in the middle of incision, but otherwise incision is dry and intact. Applied dry 4x4 gauze pads and ABD secured with abdominal binder. Attention was then turned to the R side with the total assistance of GWEN Watts and health underwriter to reveal bordered gauze dressing. Removed bordered gauze and maxorrb II dressing in place to reveal opening non blanchable purple discoloration to skin that is peeling and opening to reveal pink tissue and minimal sanguinous drainage. Attempted to measure, clean and apply new dressing when patient O2 sat began to drop. Patient was then placed back in supine position and HOB was elevated. O2 sat improved after RN repositioned patient and elevated HOB. RN to apply dressing as recommended above when patient is stabilized.Wound description, measurements and wound care recommendations are noted above.
--- NOTE | 2018-08-28 17:19 | P.PCN ---
Date of procedure: 08/28/18 Pre-op diagnosis: VDRF, renal failure Post-op diagnosis: same Procedure: Procedure: Right IJ vascath Indications: Initiation of HD A time-out was completed verifying correct patient, procedure, site, positioning. The patient was placed in a dependent position appropriate. The patients right neck was prepped and draped in sterile fashion. 1% Lidocaine was used to anesthetize the surrounding skin area. A guide needle was introduced into the the right internal jugular vein using the Seldinger technique and under ultrasound guidance. The vas catheter was threaded smoothly over the guide wire and appropriate blood return was obtained. Each lumen of the catheter was evacuated of air and flushed with sterile saline. The catheter was then sutured in place to the skin and a sterile dressing applied. Patient tolerated procedure well. CXR ordered to verify line placement.
--- NOTE | 2018-08-28 17:41 | XR ---
EXAM DATE: 08/28/2018 5:36 PM EST AGE/SEX: 78 years / Female INDICATIONS: Vas cath placement. CLINICAL DATA: This is the patient's initial encounter. Patient reports that signs and symptoms have been present for 4 - 6 days and indicates a pain score of Nonresponsive. MEDICAL/SURGICAL HISTORY: . Gastroesophageal reflux disease. Coronary artery stent. . Cholecys tectomy. Appendectomy. [id number] bypass. Laminectomy. COMPARISON: [facility], CHEST 1V SINGLE AP, 08/28/2018. . FINDINGS: A single AP semierect portable view the chest was obtained and demonstrates interval placement of a r ight internal jugular central venous line with the tip projected over the superior vena cava. There i s no pneumothorax. The patient remains intubated with the endotracheal tube tip approximately 4 cm ab ove the vidhya. A nasogastric tube is again seen coursing through the esophagus and stomach. The righ t-sided chest tube remains in place. Heart size appears mildly prominent with atherosclerotic changes in the aorta. Hazy perihilar and bibasilar opacities are again noted. The patient is status post rig ht shoulder arthroplasty. There are multiple overlying electrocardiogram leads. The left costophrenic angle remains blunted in appearance. CONCLUSION: 1. Interval placement of right internal jugular central venous line with no pneumothorax. 2. The patient remains intubated and the right-sided chest tube remains in place. 3. Hazy perihilar and bibasilar opacities remain. Electronically signed by: Cali Max MD 08/28/2018 5:40 PM EST
--- NOTE | 2018-08-28 18:47 | P.PNNP ---
Subjective Interval history: Patient remain on the vent. and sedated. Physical Exam Vital signs: Vital Signs 08/27/18 19:00 08/27/18 20:12 08/27/18 23:00 Temperature 98.2 F 98.1 F Pulse Rate 78 80 81 Respiratory Rate 23 22 24 Blood Pressure 110/49 L 101/49 L Pulse Oximetry 96 97 94 L 08/28/18 00:15 08/28/18 03:00 08/28/18 04:05 Temperature 98.3 F Pulse Rate 81 83 82 Respiratory Rate 19 23 21 Blood Pressure 81/59 L Pulse Oximetry 94 L 94 L 94 L 08/28/18 07:00 08/28/18 07:33 08/28/18 11:00 Temperature 98.4 F 98.1 F Pulse Rate 91 H 91 H 97 H Respiratory Rate 20 22 22 Blood Pressure 111/46 L 89/66 L Pulse Oximetry 94 L 92 L 94 L 08/28/18 11:40 08/28/18 12:25 08/28/18 15:00 Temperature 98.3 F Pulse Rate 95 H 92 H Respiratory Rate 23 21 Blood Pressure 103/53 L Pulse Oximetry 95 86 L 92 L 08/28/18 18:10 Temperature Pulse Rate Respiratory Rate 28 H Blood Pressure Pulse Oximetry 97 Intake & Output 08/27/18 08/28/18 08/28/18 18:59 06:59 18:59 Intake Total 3761 / 3761 1272 / 1272 395 / 395 Output Total 685 / 685 350 / 350 287 / 287 Balance 3076 / 3076 922 / 922 108 / 108 Weight 78.5 kg Intake: IV 2561 / 2561 893 / 893 Bumex Inj 25 mg In 100 ml @ 0.5 4 / 4 MG/HR 2 mls/hr IV.CONT .Q24H [facility] Rx#:[id number] LR 1000 mL Inj 1,000 ML @ 100 1805 / 1805 195 / 195 mls/hr IV.CONT .Q10H [facility] Rx#: [id number] Diprivan 1000 mg/100 ml Inj 1, 70 / 70 30 / 30 000 mg In 100 ml @ 5 MCG/KG/MIN 1.845 mls/hr IV.CONT TITRATE PRN Rx#:[id number] Alburx 5% Inj 500 ML @ 250 mls/ 500 / 500 500 / 500 hr IV.SIG Q12H [facility] Rx#:[id number] Levaquin 500 mg Premix Inj 500 100 / 100 mg In 100 ml @ 100 mls/hr IV. SIG Q24H [facility] Rx#:[id number] KCl 20 mEq Premix Inj 20 meq In 0 / 0 100 ml @ 50 mls/hr IV.SIG Q2H [facility] Rx#:[id number] fentaNYL 10 mcg/mL Premix Drip 82 / 82 168 / 168 2,500 mcg In 250 ml @ 50 MCG/HR 5 mls/hr IV.SIG TITRATE PRN Rx #:[id number] Oral 0 / 0 0 / 0 Tube Feeding 259 / 259 275 / 275 Water Bolus Amount 120 / 120 120 / 120 Intake (Blood Product) Amt 1200 / 1200 Rbc As-3 Leukoreduced Unit 400 / 400 [id number] Rbc As-3 Leukoreduced Unit 400 / 400 [id number] Rbc As-3 Leukoreduced Unit 400 / 400 [id number] Output: Stool 0 / 0 Urine Amount (Catheter) 225 / 225 300 / 300 187 / 187 Indwelling Temp Sensing 225 / 225 300 / 300 187 / 187 Catheter Gastric Drainage 300 / 300 Right Nare Nasogastric Tube 300 / 300 Chest Tube Drainage 160 / 160 50 / 50 100 / 100 #1 Right Pleural 160 / 160 50 / 50 100 / 100 Other: Date of Last Bowel Movement 08/18/18 08/18/18 # Bowel Movements 0 0 Narrative: Physical examination GENERAL: Patient is a well-nourished, well-developed female, sedated on the vent, not in respiratory distress. SKIN: Cool and dry, edematous. No generalized rash. HEAD: Atraumatic. Normocephalic. No temporal wasting, or tenderness. EYES: [place] conjunctiva. No petechia or hemorrhage. Pupils equal, round and reactive to light. Extraocular movements full and intact. No scleral icterus. No injection or drainage. EARS, NOSE AND THROAT: Nose without bleeding or purulent nasal discharge. No sinus tenderness. She is orally intubated. NECK: Trachea midline. Supple and not tender, no meningeal signs CARDIOVASCULAR: Regular rate and rhythm. No murmurs, rubs or gallops heard RESPIRATORY: She has scattered rhonchi bilaterally. Chest tube on the right side. ABDOMEN: Has midline incision and in lower portion there is some opening in her incision, draining serosanguineous fluid, with very minimal erythema noted. EXTREMITIES: No clubbing, cyanosis. Has edema of both hands and R foot. NEUROLOGICAL: Sedated. PSYCHIATRIC: Unable to assess LINE: No evidence of infection - Urinary Catheter Management Indwelling Temp Sensing Catheter Cath placed during this visit: yes Reason for continuing: Hourly intake/output Insertion date: 08/13/18 Insertion time: 08:08 Assessment and Plan - Assessment (1) Acute kidney injury Code(s): N17.9 - Acute kidney failure, unspecified Status: Acute (2) Mesenteric ischemia Code(s): K55.9 - Vascular disorder of intestine, unspecified Status: Acute (3) Hemothorax Code(s): J94.2 - Hemothorax Status: Acute - Plan Patient has Acute kidney injury with increase in the creatinine. HCÉTOR possible prerenal with FeNa less than 1 vs ATN from sepsis or hypotension. Patient CPK is also elevated with casts in urine. So possibly ATN from rhabdomyolysis. No previous history of chronic kidney disease baseline creatinine is less than 1. Renal US with no hydronephrosis. Left kidney is smaller than the right and demonstrates increased echogenicity suggesting medical renal disease. Patient urinary output has been decreasing with 385 ml/24 hours. Patient has decrease urine out put. Given one dose of Lasix with Transfusion. Creatinine continue to increase. Started on Bumex infusion, urine out put remain low, BUN and Creatinine also increasing, will start HD possibly in AM.
--- NOTE | 2018-08-28 20:13 | XR ---
EXAM DATE: 08/28/2018 8:08 PM EST AGE/SEX: 78 years / Female INDICATIONS: Dobbhoff placement. CLINICAL DATA: This is the patient's subsequent encounter. Patient reports that signs and symptoms h ave been present for 1 day and indicates a pain score of Nonresponsive. MEDICAL/SURGICAL HISTORY: . Gastroesophageal reflux disease. Small bowel obstruction. . Appen dectomy. Cholecystectomy. Renal artery stent. Coronary stent. COMPARISON: [facility], CHEST 1V SINGLE AP, 08/28/2018. . FINDINGS: NG overlies distal stomach. Feeding tube tip overlies the distal duodenum. Abdomen is relatively gasl ess. Right and left basilar airspace disease and pleural effusion present. CONCLUSION: Feeding tube tip in duodenum. NG tube tip in distal stomach. Electronically signed by: Gold Nuñez MD 08/28/2018 8:12 PM EST
[2018-08-28] MEDS: Magnesium Oxide 400 MG Tablet PO SCH (21:34)
[2018-08-28] MEDS: Levofloxacin 250 mg Premix Inj 250 MG/50 ML PIGGYBACK IV.SIG SCH (22:53)
[2018-08-28] MEDS: Propofol 1000 mg/100 ml Inj 1,000 MG/100 ML BOTTLE IV.CONT PRN (23:11)
[2018-08-29] MEDS: Insulin NovoLIN Regular Correctional Sugar Inj SQ SCH ×5 (01:03→18:15)
[2018-08-29] MEDS: Oral Hygiene Kit OROPHARYNG SCH ×4 (01:03→18:14)
[2018-08-29] MEDS: Heparin - SQ 10,000 UNITS/ML Vial SQ SCH ×4 (01:06→18:17)
[2018-08-29] MEDS: Albumin Human 5% Inj 500 ML IV.SIG SCH ×2 (01:07→13:45)
[2018-08-29] MEDS: Metoprolol Inj 5 MG/5 ML Vial IV.PUSH SCH ×4 (05:24→18:14)
[2018-08-29] MEDS: Artificial Tears Opth Drops 15 ML Bottle EACH EYE SCH ×3 (05:25→21:07)
[2018-08-29 05:51] LABS: Baso # (Auto) 0.1 th/mm3 (0.0-0.2); Baso % (Auto) 0.5 % (0.0-2.0); Eos # (Auto) 0.3 th/mm3 (0.0-0.4); Eos % (Auto) 1.6 % (0.0-4.0); Hematocrit 28.2 % (35.0-46.0); Hemoglobin 9.4 gm/dL (11.6-15.3); Lymph % (Auto) 4.5 % (9.0-44.0); Mean Corpuscular HGB Conc 33.2 % (32.0-36.0); Mean Corpuscular Hemoglobin 29.9 pg (27.0-34.0); Mean Corpuscular Volume 89.9 fL (80.0-100.0); Mean Platelet Volume 10.4 fL (7.0-11.0); Mono # (Auto) 0.7 th/mm3 (0.0-0.9); Mono % (Auto) 3.4 % (0.0-8.0); Neut # (Auto) 19.5 th/mm3 (1.8-7.7); Platelet Count 141 th/mm3 (150-450); Red Blood Count 3.13 mil/mm3 (4.00-5.30); Red Cell Distribution Width 18.2 % (11.6-17.2); White Blood Count 21.6 th/mm3 (4.0-11.0)
[2018-08-29 06:25] LABS: Albumin 2.4 g/dL (3.4-5.0); Calcium 7.1 mg/dL (8.5-10.1); Carbon Dioxide 14.4 meq/L (21.0-32.0); Magnesium 1.5 mg/dL (1.5-2.5); Potassium 3.6 meq/L (3.5-5.1); Total Protein 5.1 g/dL (6.4-8.2); Vancomycin,Random 21.1 Comment
--- NOTE | 2018-08-29 06:27 | XR ---
EXAM DATE: 08/29/2018 6:19 AM EST AGE/SEX: 78 years / Female INDICATIONS: VDRF CLINICAL DATA: This is the patient's subsequent encounter. Patient reports that signs and symptoms h ave been present for 1 week and indicates a pain score of Nonresponsive. MEDICAL/SURGICAL HISTORY: . Gastroesophageal reflux disease. . Coronary artery stent. Cholecys tectomy. Appendectomy. Wqkql-mijml-gucllei bypass. Laminectomy. COMPARISON: [facility] – [place], CHEST 1V SINGLE AP, 08/28/2018. . FINDINGS: Single AP view the chest. Endotracheal tube, nasogastric tube, feeding tube, right IJ central venous catheter, and right-sided chest tube remain in place. Increased left lung parenchymal opacity. Mild p atchy right lung opacity also increased in the perihilar mid to upper lung zone. Cardiomediastinal si lhouette unchanged. No evidence of pneumothorax. CONCLUSION: Increased bilateral pulmonary parenchymal opacity left greater than right. Electronically signed by: Rey Jauregui MD 08/29/2018 6:25 AM EST
--- NOTE | 2018-08-29 07:12 | P.PNCC ---
Subjective Subjective Remarks/Hospital Course: Hospital Course: Patient is a 77-year-old female who was admitted to Dr. Ryan's service for mesenteric ischemia today. Her past medical history significant for coronary artery disease status post PCI/stent, history of renal artery stenosis, GERD, PAD, history of multiple vascular surgeries, history of small bowel obstruction, restless leg syndrome. Patient underwent aorto-hepatic and aorto-SMA bypass in OR. EBL was 400 ml, received 3.6 L of crystalloids in the OR , urine output was adequate. Postop patient was moved to the CVICU critical care medicine was consulted for postop management. Patient is hypotensive at the time of my evaluation and had been started on Diego-Synephrine by Dr. Ryan. I haave ordered further fluid resuscitation with additional 2 L of crystalloids. A stat ABG was done at the bedside which showed hemoglobin 6.6. A CBC was sent and I ordered 2 units of PRBC stat. CBC came back with hemoglobin of 6.4 platelet count 139. Chemistry showed potassium of 3.4 calcium uncorrected 6.4. Electrolyte replacement protocol and calcium replacement have been ordered. Lactic acid also mildly elevated at 2.2. Will follow serial lactic acid and follow urine output closely. If patient becomes hemodynamically more stable will proceed with weaning trial for extubation. Urine output had been adequate postop approximately 40 mL/h. Bilateral DP pulses are Dopplerable Subjective: 08/14: significant fluid requirement. trop slightly elevated at 0.06. initial scvo2 43% but improved after fluid to 68%. pain adequately controlled. uop marginal at 20cc/hr. 08/15: trop slightly uptrended. now appears volume overloaded with new and worsening oxygen requirement. ABG with mixed acidosis. responded well to lasix with adequate diuresis. placed on BiPAP. somewhat agitated requiring low-dose Precedex. lactate 0.8, scvo2 71%. 08/16: slightly tachycardic this morning. some diuresis yesterday and back to nc o2, but remains volume overloaded. denies pain. somewhat intermittently confused, but oriented on my evaluation. trop still uptrending, but plateauing. uop adequate. 08/17: went into afib RVR overnight. placed on diltiazem drip. this morning, more rate controlled. trop downtrending. adequate diuresis, but remains volume overloaded. aggressively replaced electrolytes this morning. 08/18: overnight events reviewed and discussed with Dr. Ryan and Dr. Sabillon. intubated after respiratory arrest. bronch with mucous plugging. new right pleural effusion on chest CT (multiple rib fractures after CPR). placed 28 Fr chest tube (see separate procedure note for details) with ~1600cc blood (no active bleeding). placed arterial line. transfused 3 units prbc. trending H&H. critically ill this morning. oliguric. 08/19: agitation persists. started scheduled valium as well as fentanyl drip for pain control. still with significant thick tenacious secretions: too many secretions for safe weaning of mechanical ventilation. also spiked fevers overnight, ennis cultured and zosyn started. chest tube with significantly less output, and more serosanguinous. 08/20: cold leg this AM with decreased motor function. taken back to OR today for re-vascularization. 08/21: perfusion to the LE still questionable. decreasing NGT output, but still 100cc/12h. will place post-pyloric feeding tube and start trickle feeds. likely needs another 24h before we are ready for SBTs. sputum growing serratia and pseudomonas: zosyn not adequate given MICs, will need to switch to Levaquin. would plan on 7 day course. 08/22: Cr increased significantly overnight, but adequate uop. may be delayed ATN from recent worsening hemodynamics. agree with starting gentle ivf. poor perfusion to the LE persists, but we have optimized everything we can for now. no reflux of tube feeds in OG tube. agree with increasing to 20cc/hr. also very tachycardic this morning- will restart very low-dose beta blockade. trial of SBT today with early failure: very tachypneic in distress. Also spiking fevers and wbc elevated. oliguric. 08/23: Cr continues to rise. hgb dropped to 6.8 today- receiving 2 units prbc. remains oliguric. urine electrolytes consistent with severe pre-renal azotemia, urine sodium < 20. 08/24 Patient remains sedated with Diprivan, Fentanyl and intubated. On Heparin drip, failed CPAP trials yesterday. s/p transfusion 2u PRBC. Hgb 9.9 from 6.8 08/25 Patient is sedated with Diprivan and Fentanyl infusion. Afebrile, renal function worse with Cr: 2.54 fro 1.8. On Heparin drip. Tolerated CPAP trials x 4hrs. 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 On Diprivan and Fentanyl infusion for sedation. Off Heparin drip. Afebrile. 08/27 Patient remains intubated and sedated with Diprivan and Fentanyl infusion. Receiving 2u PRBC this morning. Renal function worse today with Cr: 3.06 from 2.78, afebrile. 08/28 Patient remains intubated and sedated. s/p transfusion 2u PRBC yesterday on Bumex drip 0.5mg/hr. Renal function worse with Cr: 3.26 and UOP 300ml overnight. WBC increased 23.4 from 17. Afebrile. 08/29: Patient remains very critical. On Bumex drip remains oliguric Jarret 300 mL urine output in 24 hours, BUN/creatinine increasing 56/3.6. Vas-Cath placed yesterday we will start hemodialysis today. Chest x-ray shows increasing pulmonary edema left greater than right. Objective Vital Signs / I&O: Vital Signs 08/28/18 07:33 08/28/18 11:00 08/28/18 11:40 Temperature 98.1 F Pulse Rate 91 H 97 H 95 H Respiratory Rate 22 22 23 Blood Pressure 89/66 L Pulse Oximetry 92 L 94 L 95 08/28/18 12:25 08/28/18 15:00 08/28/18 18:10 Temperature 98.3 F Pulse Rate 92 H Respiratory Rate 21 28 H Blood Pressure 103/53 L Pulse Oximetry 86 L 92 L 97 08/28/18 19:00 08/28/18 20:08 08/28/18 20:17 Temperature 98.7 F Pulse Rate 91 H 87 Respiratory Rate 20 20 20 Blood Pressure 89/38 L Pulse Oximetry 99 99 08/28/18 23:00 08/29/18 00:11 08/29/18 03:00 Temperature 98.7 F 98.2 F Pulse Rate 91 H 85 Respiratory Rate 20 25 H 20 Blood Pressure 86/48 L Pulse Oximetry 99 98 95 08/29/18 03:32 Temperature Pulse Rate 84 Respiratory Rate 23 Blood Pressure Pulse Oximetry 96 Intake & Output 08/28/18 08/29/18 08/29/18 18:59 06:59 18:59 Intake Total 1095 / 1095 60 / 60 Output Total 287 / 287 375 / 375 Balance 808 / 808 -315 / -315 Intake: IV 700 / 700 Diprivan 1000 mg/100 ml Inj 1, 100 / 100 000 mg In 100 ml @ 5 MCG/KG/MIN 1.845 mls/hr IV.CONT TITRATE PRN Rx#:[id number] Alburx 5% Inj 500 ML @ 250 mls/ 500 / 500 hr IV.SIG Q12H [facility] Rx#:[id number] Maxipime Inj 2,000 MG In NS Inj 100 / 100 100 ML @ 200 mls/hr IV.SIG Q24H [facility] Rx#:[id number] Oral 0 / 0 0 / 0 Tube Feeding 275 / 275 0 / 0 Tube Irrigant 60 / 60 Water Bolus Amount 120 / 120 Output: Urine Amount (Catheter) 187 / 187 115 / 115 Indwelling Temp Sensing 187 / 187 115 / 115 Catheter Gastric Drainage 200 / 200 Right Nare Nasogastric Tube 200 / 200 Chest Tube Drainage 100 / 100 60 / 60 #1 Right Pleural 100 / 100 60 / 60 Other: Date of Last Bowel Movement 08/18/18 # Bowel Movements 0 0 Result Diagrams: 08/29/18 05:05 08/29/18 05:05 Objective Remarks: GENERAL: Elderly female, lying in bed, intubated, sedated, critically ill. Sedated with propofol and fentanyl HEENT: Normocephalic. Atraumatic. Pupils equal, round, reactive, conjugate. Orotracheally intubated NECK: Trachea is midline. There is no JVD. CHEST: B/l equal air entry, CT in place. Coarse rhonchi and crackles bilaterally CARDIOVASCULAR: normal rate, regular rhythm. sinus. ABDOMEN: Soft, non tender, +BS MUSCULOSKELETAL: Left BKA NEUROLOGICAL: Intubated and sedated. Opens eyes to painful stimuli. Weakly moves extremities intermittently Assessment and Plan - Assessment and Plan Plan: PLAN: NEURO: Acute alcohol withdraw syndrome Acute agitated delirium- improving Restless leg syndrome -On propofol, fentanyl for sedation. Daily sedation vacation -frequent neuro checks RESP: Aspiration pneumonia Acute hypoxic and hypercarbic respiratory failure Acute right hemothorax post CPR Rib fractures secondary to CPR -Continue with vent support keep sats >92% -Bronchodilators, ICU vent bundle. -SBT daily as anatoliy. If no improvements in weaning trials will likely need a trach. Discussed with patient's son -Right 28 Fr chest tube placed 08/18. keep to suction. Monitor CT drainage. Drained 160 ml in 24 hours -CT chest 08/24: Persistent air bronchograms remaining in the right base. compressive atelectasis in the left base. -CXR 08/26: Slight improvement in upper lobe aeration, bibasilar airspace disease -CXR 08/28: No significant interval change with persistent bilateral pulmonary opacity and elevation of right hemidiaphragm. -CXR 08/29: Worsening bilateral interstitial infiltrates/pulmonary edema CV: Type II NSTEMI secondary to demand ischemia- resolved Hypovolemia secondary to hemothorax Currently severely fluid overloaded CAD History of peripheral arterial disease, status post multiple vascular surgery Perioperative atrial fibrillation with rapid ventricular response- back in NSR Lactic acidosis- resolved - Monitor HR and BP keep MAP>65mmHg -On ASA, Plavix, Lipitor, Lopressor 2.5mg IV Q6 -Cards is following -s/p Left BKA 08/[address] ryan. -Bumex infusion at 0.5 mg/h. Start dialysis for fluid removal GI: Mesenteric ischemia status post open antegrade mesenteric bypass GERD History of small bowel obstruction acute protein calorie malnutrition- severe Postoperative ileus -Status post open antegrade mesenteric bypass, postop management per Dr. Ryan -tube feeds (Nepro currently @20ml/hr) : History of renal artery stenosis Acute kidney failure Oliguria and fluid overload -Monitor renal function closely, I/O's, avoid nephrotoxins. Boateng catheter. - renal ultrasound without hydronephrosis -Renal function worse today with Cr: 3.6 from 3.26, UOP: 300ml -Renal is following. d/c IVF, on Bumex 0.5mg/hr, oliguric -Discussed with Dr. Shaikh. Will start hemodialysis today ID: Aspiration pneumonia- pseudomonas and serratia Continue abx (Cefepime, Levaquin, Vanco) monitor for signs of infections ( fever , WBC) Discussed with ID today to consolidate antibiotics 08/24 sputum and urine cx: No growth. 08/24 wound cx form abdomen no growth 08/19 Sputum: Pseudomonas and Serratia HEME: Anemia -Monitor CBC, coags -2 units prbc 08/23 -s/p transfusion 2u PRBC 08/27 Endo On SSI with accuchecks for glycemic control PROPH: -SCD -Pepcid Lines: Right IJ vascath placed 08/29/18. CCt 35 mins ALT CODE Prognosis appears poor at this time due to multiorgan failure including respiratory failure, encephalopathy, worsening renal failure and sepsis. Will discuss with family regarding tracheostomy, however I do not recommend tracheostomy unless patient's shows significant improvement in multiorgan failure. Will discuss with Dr. Ryan Code Status: ALT CODE
--- NOTE | 2018-08-29 07:58 | P.PNVS ---
Subjective Post Op Day #: 16 Procedure: aorto-hepatic, aorto-SMA bypass Subjective/Hospital Course: POD#16 mesenteric bypass POD#9 graft thrombectomy/revision POD#3 Nate ISABEL continues to have MSOF, worsening renal failure and no improvement on ventilator wean. After discussions with family, we have made her "alternative code" meaning no chest compressions and no cardioversions no substantive changes overnight. Vascath placed in anticipation of HD today. Objective Neuro: sedated Pulmonary: B effusions, on vent, not able to wean good oxygenation Cardiac: reg rate, bp ok no pressors FEN/GI: TF at 30/h e'lytes ok K 3.6 : oliguric BUN/cr 56/3.6 agree with initiation of HD for volume today ID Antibiotics (date/duration): broad antibiotics ID Cultures: 08/19 serratia and pseudomonas from ETT Heme: Hct 28 plt 141 WBC 22 Vascular: L BKA marginal, likely to need AKA Laboratory Results - last 24 hr 08/28/18 08/28/18 08/28/18 05:10 11:11 17:32 WBC RBC Hgb Hct MCV MCH MCHC RDW Plt Count MPV Prelim Diff (Auto) Neut % (Auto) Lymph % (Auto) [place] % (Auto) Eos % (Auto) Baso % (Auto) Neut # (Auto) Lymph # (Auto) [place] # (Auto) Eos # (Auto) Baso # (Auto) WBC Differential Manual diff final Seg Neuts % (Manual) 62 Band Neuts % (Manual) 21 H Lymphocytes % (Manual) 8 L Monocytes % (Manual) 1 Eosinophils % (Manual) 1 Metamyelocytes % (Man) 3 H Myelocytes % (Man) 4 H Abs Neuts (Manual) 21.1 H Differential Comment Toxic Vacuolation Present H Dohle Bodies Present H Platelet Estimate Normal Platelet Morphology Enlarged H Ovalocytes 1+ H Sodium Potassium Chloride Carbon Dioxide Anion Gap BUN Creatinine Estimated GFR POC Glucose 103 65 L Random Glucose Calcium Calcium Adj for Albumin Phosphorus Magnesium Total Bilirubin AST ALT Alkaline Phosphatase Total Protein Albumin Random Vancomycin 08/28/18 08/28/18 08/29/18 17:41 23:54 05:05 WBC RBC Hgb Hct MCV MCH MCHC RDW Plt Count MPV Prelim Diff (Auto) Neut % (Auto) Lymph % (Auto) [place] % (Auto) Eos % (Auto) Baso % (Auto) Neut # (Auto) Lymph # (Auto) [place] # (Auto) Eos # (Auto) Baso # (Auto) WBC Differential Seg Neuts % (Manual) Band Neuts % (Manual) Lymphocytes % (Manual) Monocytes % (Manual) Eosinophils % (Manual) Metamyelocytes % (Man) Myelocytes % (Man) Abs Neuts (Manual) Differential Comment Toxic Vacuolation Dohle Bodies Platelet Estimate Platelet Morphology Ovalocytes Sodium 145 Potassium 3.6 Chloride 112 H Carbon Dioxide 14.4 L Anion Gap 19 H BUN 56 H Creatinine 3.61 H Estimated GFR 12 L POC Glucose 72 72 Random Glucose 67 L Calcium 7.1 L* Calcium Adj for Albumin 8.4 L Phosphorus 4.0 Magnesium 1.5 Total Bilirubin 1.2 H AST 34 ALT 17 Alkaline Phosphatase 51 Total Protein 5.1 L Albumin 2.4 L Random Vancomycin 21.1 08/29/18 08/29/18 05:05 05:13 WBC 21.6 H RBC 3.13 L Hgb 9.4 L Hct 28.2 L MCV 89.9 MCH 29.9 MCHC 33.2 RDW 18.2 H Plt Count 141 L D MPV 10.4 Prelim Diff (Auto) Slide review pending Neut % (Auto) 90.0 H Lymph % (Auto) 4.5 L [place] % (Auto) 3.4 Eos % (Auto) 1.6 Baso % (Auto) 0.5 Neut # (Auto) 19.5 H Lymph # (Auto) 1.0 Elk # (Auto) 0.7 Eos # (Auto) 0.3 Baso # (Auto) 0.1 WBC Differential Seg Neuts % (Manual) Band Neuts % (Manual) Lymphocytes % (Manual) Monocytes % (Manual) Eosinophils % (Manual) Metamyelocytes % (Man) Myelocytes % (Man) Abs Neuts (Manual) Differential Comment . Toxic Vacuolation Dohle Bodies Platelet Estimate Platelet Morphology Ovalocytes Sodium Potassium Chloride Carbon Dioxide Anion Gap BUN Creatinine Estimated GFR POC Glucose 70 Random Glucose Calcium Calcium Adj for Albumin Phosphorus Magnesium Total Bilirubin AST ALT Alkaline Phosphatase Total Protein Albumin Random Vancomycin Microbiology 08/25/18 10:30 Gram Stain - Final Wound - Abdominal Wound Culture - Final No growth in 72 hours (aerobically and anaerobically) Impressions Abdomen X-Ray 08/28/18 00:00 CONCLUSION: Feeding tube tip in duodenum. NG tube tip in distal stomach. Chest X-Ray 08/28/18 00:00 CONCLUSION: No significant interval change with persistent bilateral pulmonary opacity and elevation of right hemidiaphragm. Chest X-Ray 08/28/18 00:00 CONCLUSION: 1. Interval placement of right internal jugular central venous line with no pneumothorax. 2. The patient remains intubated and the right-sided chest tube remains in place. 3. Hazy perihilar and bibasilar opacities remain. Chest X-Ray 08/29/18 00:00 CONCLUSION: Increased bilateral pulmonary parenchymal opacity left greater than right. Assessment and Plan - Assessment (1) PAD (peripheral artery disease) Code(s): I73.9 - Peripheral vascular disease, unspecified Status: Acute - Plan POD#16 mesenteric bypass post-operative course complicated by renal failure and respiratory failure, cardiac arrest and acute LEFT limb ischemia 1. start HD today 2. attempt vent wean 3. keep TF at 30/h 4. family discussions daily Discharge Planning: CVICU candid discussions with family daily about overall prognosis. Main obstacles: nutrition, vent, renal function.
[2018-08-29 08:07] LABS: Dohle Bodies Present; Eosinophils 2 % (0-4); Lymphocytes 3 % (9-44); Metamyelocytes 1 % (0-1); Monocytes 3 % (0-8); Myelocytes 1 % (0-0); Promyelocyte 1 % (0-0); Tallied Nucleated RBC 1 (0-0); Toxic Granulation 1+; Toxic Vacuolation Present
[2018-08-29] MEDS: Bumetanide Inj 25 MG/100 ML BAG IV.CONT SCH ×2 (08:13→18:14)
[2018-08-29] MEDS: Chlorhexidine 0.12% Oral Kit 15 ML UDC OROPHARYNG SCH ×2 (08:14→21:00)
[2018-08-29] MEDS: Famotidine PF Inj 20 MG/2 ML Vial IV.PUSH SCH ×2 (08:15→21:05)
[2018-08-29] MEDS: Sodium Chloride 0.9% 2 ML Flush BID IV.FLUSH SCH ×4 (08:16→21:07)
[2018-08-29 08:21] LABS: Ovalocytes 1+
--- NOTE | 2018-08-29 09:27 | P.PNID ---
Subjective Remarks: Patient is a 77-year-old female, admitted to the hospital for surgery. She apparently has chronic mesenteric ischemia, and underwent surgery. She had aorta to hepatic artery bypass, as well as aorta to superior mesenteric artery bypass, using the Adkins graft. Postop patient was moved to the CVICU. She was initially hypotensive, and was on pressors. She was fluid resuscitated and she also had postoperative anemia and required required PRBC transfusion. She was extubated postoperatively. During her postoperative course she had problem with fluid overload, and she also had A. fib with RVR. She ended up requiring reintubation on August 18 after she had a CODE BLUE and had respiratory arrest. She had bronchoscopy and had plugging in the right lower lobe. Patient also had rib fracture as a result of the resuscitation, and required chest tube placement on the right side. She had cultures done, and the sputum culture grew Pseudomonas, and Serratia. She was initially on Zosyn, and was changed to Levaquin on August 21. She has had on and off fevers since August 19 and that has stabilized since August 25. On August 20 she had cold leg, and underwent surgery. She had graft thrombectomy, tibial thrombectomy, as well as a jump graft from prior bypass to TPT with PTFE graft. Patient also has developed elevated creatinine, and nephrology is following the patient. She is making good urine. 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 As I mentioned earlier her temperatures have stabilized and she has not had any fevers since August 24. Her WBC however started creeping up, and it is up to 17,000 today. All her blood cultures have been negative. Last CXR with extensive infiltrates. Ct A/P no abscess seen UA with mild pyuria. Last sputum 08/24 negative. Infectious disease consultation has been requested to assist with evaluation of her worsening leukocytosis. At the time my exam she is afebrile. She is sedated on the vent. She is not on pressors, and her hemodynamics are okay. She has a chest tube on the right. She has a Boateng catheter in place. Notes reviewed D/W RN Looks dyspneic on the vent Possible start HD today Temps ok BP ok not on pressors WBC slightly lower New C/S reviewed LBKA stump not good Antibiotics: Cefepime Levaquin Vancomycin Lines: CAROLYN perry PIV Past Medical History: Coronary stent patent GERD (gastroesophageal reflux disease) H/O small bowel obstruction History of stent insertion of renal artery Restless leg syndrome H/O qijnz-ubklb-lmrbsct bypass H/O heart artery stent H/O laminectomy History of angioplasty of peripheral vessel History of carotid angioplasty History of shoulder surgery Hx laparoscopic cholecystectomy Hx of appendectomy Allergies/Adverse Reactions: Allergies codeine Allergy (Severe, Verified 08/13/18 06:44) Chest Pain diatrizoate meglumine Allergy (Severe, Verified 08/13/18 06:44) Hives in distant past gadobenic acid Allergy (Severe, Verified 08/13/18 06:44) Hives in distant past gadodiamide Allergy (Severe, Verified 08/13/18 06:44) Hives in distant past gadoteridol Allergy (Severe, Verified 08/13/18 06:44) Hives in distant past iodixanol Allergy (Severe, Verified 08/13/18 06:44) Hives in distant past iohexol Allergy (Severe, Verified 08/13/18 06:44) Hives in distant past morphine Allergy (Severe, Verified 08/13/18 06:44) Psychosis psychosis Objective Vital Signs 08/28/18 11:00 08/28/18 11:40 08/28/18 12:25 Temperature 98.1 F Pulse Rate 97 H 95 H Respiratory Rate 22 23 Blood Pressure 89/66 L Pulse Oximetry 94 L 95 86 L 08/28/18 15:00 08/28/18 18:10 08/28/18 19:00 Temperature 98.3 F 98.7 F Pulse Rate 92 H 91 H Respiratory Rate 21 28 H 20 Blood Pressure 103/53 L 89/38 L Pulse Oximetry 92 L 97 99 08/28/18 20:08 08/28/18 20:17 08/28/18 23:00 Temperature 98.7 F Pulse Rate 87 91 H Respiratory Rate 20 20 20 Blood Pressure 86/48 L Pulse Oximetry 99 99 08/29/18 00:11 08/29/18 03:00 08/29/18 03:32 Temperature 98.2 F Pulse Rate 85 84 Respiratory Rate 25 H 20 23 Blood Pressure Pulse Oximetry 98 95 96 08/29/18 07:00 Temperature 97.9 F Pulse Rate 79 Respiratory Rate 21 Blood Pressure 118/45 L Pulse Oximetry 96 Intake & Output 08/28/18 08/29/18 08/29/18 18:59 06:59 18:59 Intake Total 1095 / 1095 60 / 60 850 / 850 Output Total 287 / 287 375 / 375 Balance 808 / 808 -315 / -315 850 / 850 Weight 80 kg Intake: IV 700 / 700 850 / 850 Diprivan 1000 mg/100 ml Inj 1, 100 / 100 000 mg In 100 ml @ 5 MCG/KG/MIN 1.845 mls/hr IV.CONT TITRATE PRN Rx#:[id number] Alburx 5% Inj 500 ML @ 250 mls/ 500 / 500 500 / 500 hr IV.SIG Q12H [facility] Rx#:[id number] Maxipime Inj 2,000 MG In NS Inj 100 / 100 100 / 100 100 ML @ 200 mls/hr IV.SIG Q24H [facility] Rx#:[id number] Levaquin 250 mg Premix Inj 250 50 / 50 mg In 50 ml @ 50 mls/hr IV.SIG Q24H [facility] Rx#:[id number] Oral 0 / 0 0 / 0 Tube Feeding 275 / 275 0 / 0 Tube Irrigant 60 / 60 Water Bolus Amount 120 / 120 Output: Urine Amount (Catheter) 187 / 187 115 / 115 Indwelling Temp Sensing 187 / 187 115 / 115 Catheter Gastric Drainage 200 / 200 Right Nare Nasogastric Tube 200 / 200 Chest Tube Drainage 100 / 100 60 / 60 #1 Right Pleural 100 / 100 60 / 60 Other: Date of Last Bowel Movement 08/18/18 # Bowel Movements 0 0 08/28/18 10:58 Blood - Peripheral Aerobic Blood Culture - Pending 08/28/18 10:58 Blood - Peripheral Anaerobic Blood Culture - Pending 08/28/18 11:11 Blood - Peripheral Aerobic Blood Culture - Pending 08/28/18 11:11 Blood - Peripheral Anaerobic Blood Culture - Pending 08/25/18 10:30 Wound - Abdominal Gram Stain - Final 08/25/18 10:30 Wound - Abdominal Wound Culture - Final No growth in 72 hours (aerobically and anaerobically ) 08/22/18 13:30 Blood - Peripheral Aerobic Blood Culture - Final No growth in 5 days 08/22/18 13:30 Blood - Peripheral Anaerobic Blood Culture - Final No growth in 5 days 08/22/18 13:30 Blood - Peripheral Aerobic Blood Culture - Final No growth in 5 days 08/22/18 13:30 Blood - Peripheral Anaerobic Blood Culture - Final No growth in 5 days 08/19/18 04:30 Blood - Line Mycobacterial Culture - Preliminary No growth in 1 week 08/19/18 22:52 Blood - Peripheral Mycobacterial Culture - Preliminary No growth in 1 week 08/24/18 13:11 Sputum - Endotracheal Gram Stain - Final 08/24/18 13:11 Sputum - Endotracheal Sputum Culture - Final No growth in 48 hours 08/24/18 11:10 Catheterized Urine Urine Culture - Final No growth in 48 hours Lab - Hematology Results 08/28/18 08/29/18 05:10 05:05 WBC 23.4 H 21.6 H RBC 3.75 L 3.13 L Hgb 11.3 L D 9.4 L Hct 33.3 L 28.2 L MCV 88.7 89.9 MCH 30.1 29.9 MCHC 33.9 33.2 RDW 18.4 H 18.2 H Plt Count 207 141 L D MPV 10.5 10.4 Prelim Diff (Auto) Slide review pending Slide review pending Neut % (Auto) 84.9 H 90.0 H Lymph % (Auto) 8.0 L 4.5 L [place] % (Auto) 4.6 3.4 Eos % (Auto) 2.3 1.6 Baso % (Auto) 0.2 0.5 Neut # (Auto) 19.9 H 19.5 H Lymph # (Auto) 1.9 1.0 [place] # (Auto) 1.1 H 0.7 Eos # (Auto) 0.5 H 0.3 Baso # (Auto) 0.0 0.1 WBC Differential Manual diff final Manual diff final Seg Neuts % (Manual) 62 83 H Band Neuts % (Manual) 21 H 6 Lymphocytes % (Manual) 8 L 3 L Monocytes % (Manual) 1 3 Eosinophils % (Manual) 1 2 Metamyelocytes % (Man) 3 H 1 Myelocytes % (Man) 4 H 1 H Promyelocytes % (Man) 1 H Abs Neuts (Manual) 21.1 H 19.9 H Nucleated RBCs/100 WBC 1 H Differential Comment . . Toxic Granulation 1+ H Toxic Vacuolation Present H Present H Dohle Bodies Present H Present H Platelet Estimate Normal Low L Platelet Morphology Enlarged H Enlarged H Ovalocytes 1+ H 1+ H Lab - Chemistry Results 08/27/18 08/27/18 08/28/18 11:35 17:07 00:07 Sodium Potassium Chloride Carbon Dioxide Anion Gap BUN Creatinine Estimated GFR POC Glucose 102 101 103 Random Glucose Calcium Calcium Adj for Albumin Phosphorus Magnesium Total Bilirubin AST ALT Alkaline Phosphatase Total Protein Albumin 08/28/18 08/28/18 08/28/18 05:10 11:11 17:32 Sodium 142 Potassium 3.6 Chloride 112 H Carbon Dioxide 15.3 L Anion Gap 15 BUN 54 H Creatinine 3.26 H Estimated GFR 14 L POC Glucose 103 65 L Random Glucose 108 H Calcium 7.2 L* Calcium Adj for Albumin 8.8 Phosphorus 3.5 Magnesium 1.6 Total Bilirubin 1.0 AST 44 H ALT 26 Alkaline Phosphatase 69 Total Protein 5.0 L Albumin 2.0 L 08/28/18 08/28/18 08/29/18 17:41 23:54 05:05 Sodium 145 Potassium 3.6 Chloride 112 H Carbon Dioxide 14.4 L Anion Gap 19 H BUN 56 H Creatinine 3.61 H Estimated GFR 12 L POC Glucose 72 72 Random Glucose 67 L Calcium 7.1 L* Calcium Adj for Albumin 8.4 L Phosphorus 4.0 Magnesium 1.5 Total Bilirubin 1.2 H AST 34 ALT 17 Alkaline Phosphatase 51 Total Protein 5.1 L Albumin 2.4 L 08/29/18 05:13 Sodium Potassium Chloride Carbon Dioxide Anion Gap BUN Creatinine Estimated GFR POC Glucose 70 Random Glucose Calcium Calcium Adj for Albumin Phosphorus Magnesium Total Bilirubin AST ALT Alkaline Phosphatase Total Protein Albumin Imaging: ITS Impressions Abdomen/Bladder Ultrasound 08/22/18 00:00 CONCLUSION: 1. No hydronephrosis is identified. 2. Left kidney is smaller than the right and demonstrates increased echogenicity suggesting medical renal disease. Given the appearance on prior CTA , a renovascular cause is suspected for these changes. 3. There is a small volume of free fluid within the abdomen and pelvis and pleural fluid is visualized on the left. Chest CT 08/24/18 10:42 CONCLUSION: 1. Interval improvement on the right large bore chest tube in good position. Persistent air bronchograms remaining in the right base. 2. Stable to slightly larger left pleural effusion with compressive atelectasis in the left base. Abdomen/Pelvis CT 08/24/18 10:43 CONCLUSION: 1. Trace ascites with generalized mesenteric edema 2. Extensive vascular calcifications. There is no free air or abscess. Do not see air in the bowel wall to suggest ischemia. Abdomen X-Ray 08/28/18 00:00 CONCLUSION: Feeding tube tip in duodenum. NG tube tip in distal stomach. Chest X-Ray 08/29/18 00:00 CONCLUSION: Increased bilateral pulmonary parenchymal opacity left greater than right. Physical Exam: GENERAL: sedated on the vent, looks dyspneic. SKIN: Cool and dry, edematous. No generalized rash. Edematous HEAD: Atraumatic. Normocephalic. No temporal wasting, or tenderness. EYES: [place] conjunctiva. No petechia or hemorrhage. Pupils equal, round and reactive to light. No scleral icterus. No injection or drainage. EARS, NOSE AND THROAT: Nose without bleeding or purulent nasal discharge. No sinus tenderness. She is orally intubated. NECK: Trachea midline. Supple and not tender, no meningeal signs CARDIOVASCULAR: Regular rate and rhythm. No murmurs, rubs or gallops heard RESPIRATORY: She has scattered rhonchi bilaterally. Chest tube on the right side. ABDOMEN: Has midline incision currently dry, no significant erythema noted. Mildly distended. EXTREMITIES: No clubbing, cyanosis. Edematous. Dry dressing LBKA stump NEUROLOGICAL: Sedated. PSYCHIATRIC: Unable to assess LINE: No evidence of infection Assessment and Plan - Plan Impression Worsening leukocytosis, ?reactive post LBKA for limb ischemia - on appropriate Abx for PSAE and Serratia - BC negative - UA ok Respiratory failure Mesenteric ischemia, S/P bypass S/P vascular procedure for LLE ischemia Renal failure, possibly HD today Recommendation Stop Vanco Continue Cefepime Stop Levaquin Follow CBC Follow C/S Monitor temps MOnitor progress D/W RN
[2018-08-29] MEDS ORDERED: Sod Chloride 0.9% Inj 1,000 ML IV.CONT PRN (09:37)
[2018-08-29] MEDS ORDERED: Heparin 10,000 UNITS/10 ML Vial (for IV use) OTHER PRN ×2 (09:37)
[2018-08-29] MEDS ORDERED: Acetaminophen 325 MG Tablet PO PRN (09:37)
[2018-08-29] MEDS ORDERED: Sod Chloride 0.9% Inj 1,000 ML OTHER PRN ×2 (09:37)
[2018-08-29] MEDS ORDERED: Gelatin 12 MM/7 MM Topical Foam TOPICAL PRN (09:37)
[2018-08-29] MEDS: Propofol 1000 mg/100 ml Inj 1,000 MG/100 ML BOTTLE IV.CONT PRN ×2 (11:38→23:00)
[2018-08-29] MEDS: fentaNYL 10 mcg/mL Premix Drip 2,500 MCG/250 ML BAG IV.SIG PRN (11:40)
--- NOTE | 2018-08-29 12:46 | P.DIET ---
Nutritional Evaluation Type of nutrition evaluation: follow-up Nutrition consult regarding: Tube Feeding Objective - Diagnosis Mesenteric Bypass - Objective Part of Body Amputated: Left below knee (6%) % IBW: 170 (IBW = 103.4# (after amp)) Body Weight Used for Calculations: Upper end of IBW (51.7 kg) Energy Needs - Lower Range (kCal/kg): 30 Energy Needs - Upper Range (kCal/kg): 35 Lower Limit kCal/kg (kCals): 1,551 Upper Limit kCal/kg (kCals): 1,810 Lower Limit Protein Factor (Grams per Kg): 1.2 Upper Limit Protein Factor (Grams per Kg): 1.5 Lower Protein Needs (Protein): 62 Upper Protein Needs (Protein): 78 Dietitian Reviewed in Medical Record: Curent medications, Intake & Output, Labs , Medical history, Tube feeding Diet Order: NPO Objective Comments: 08/13 aorto-hepatic bypass, aorto- SMA bypass 08/20 L leg bypass revision, L tibial thrombectomy 08/26 L BKA Assessment Assessment: Pt remains at high nutrition risk 2' to the need for TFing. Currently receiving Nepro @ 20 mls/hr. Pt will start HD today, remains oliguric on Bumex. Reassessed needs d/t amputation and dialysis. Recommend Nepro @ 40 mls/hr to provide 1728 kcals, 78 gms protein and 698 mls of free water. When propofol is running pt will received additional kcals (1.1 kcal/ml). Labs, wts and clinical course reviewed. Wt changes from fluid noted. Recommendations: Nepro @ 40 mls/hr goal Dietitian to Monitor: Lab values, Intake & Output, Tube feeding tolerance, Weight change, Medical course
[2018-08-29] MEDS: Albumin Human 25% Inj 100 ML IV.SIG PRN ×2 (12:49→13:15)
[2018-08-29 13:49] LABS: Hepatitis A IgM Antibody Nonreactive (Nonreactive)
[2018-08-29 13:50] LABS: Hepatitits B Surface Antigen Nonreactive (Nonreactive)
--- NOTE | 2018-08-29 15:37 | P.PNNP ---
Subjective Interval history: Patient was seen in AM, was on HD. Physical Exam Vital signs: Vital Signs 08/28/18 18:10 08/28/18 19:00 08/28/18 20:08 Temperature 98.7 F Pulse Rate 91 H Respiratory Rate 28 H 20 20 Blood Pressure 89/38 L Pulse Oximetry 97 99 99 08/28/18 20:17 08/28/18 23:00 08/29/18 00:11 Temperature 98.7 F Pulse Rate 87 91 H Respiratory Rate 20 20 25 H Blood Pressure 86/48 L Pulse Oximetry 99 98 08/29/18 03:00 08/29/18 03:32 08/29/18 07:00 Temperature 98.2 F 97.9 F Pulse Rate 85 84 79 Respiratory Rate 20 23 21 Blood Pressure 118/45 L Pulse Oximetry 95 96 96 08/29/18 07:10 08/29/18 10:20 08/29/18 11:00 Temperature 97.9 F Pulse Rate 90 Respiratory Rate 25 H 21 22 Blood Pressure 117/50 L Pulse Oximetry 95 97 94 L 08/29/18 13:40 08/29/18 13:43 Temperature Pulse Rate Respiratory Rate 15 17 Blood Pressure Pulse Oximetry 99 Intake & Output 08/28/18 08/29/18 08/29/18 18:59 06:59 18:59 Intake Total 1095 / 1095 60 / 60 1248 / 1248 Output Total 287 / 287 375 / 375 Balance 808 / 808 -315 / -315 1248 / 1248 Weight 80 kg Intake: IV 700 / 700 1248 / 1248 Diprivan 1000 mg/100 ml Inj 1, 100 / 100 30 / 30 000 mg In 100 ml @ 5 MCG/KG/MIN 1.845 mls/hr IV.CONT TITRATE PRN Rx#:[id number] Flexbumin 25% Inj 100 ML @ 60 200 / 200 mls/hr IV.SIG WITH DIALYSIS PRN Rx#:[id number] Alburx 5% Inj 500 ML @ 250 mls/ 500 / 500 500 / 500 hr IV.SIG Q12H [facility] Rx#:[id number] Maxipime Inj 2,000 MG In NS Inj 100 / 100 100 / 100 100 ML @ 200 mls/hr IV.SIG Q24H [facility] Rx#:[id number] Levaquin 250 mg Premix Inj 250 50 / 50 mg In 50 ml @ 50 mls/hr IV.SIG Q24H [facility]PLAC[facility] Rx#:[id number] fentaNYL 10 mcg/mL Premix Drip 168 / 168 2,500 mcg In 250 ml @ 50 MCG/HR 5 mls/hr IV.SIG TITRATE PRN Rx #:[id number] Oral 0 / 0 0 / 0 Tube Feeding 275 / 275 0 / 0 Tube Irrigant 60 / 60 Water Bolus Amount 120 / 120 Output: Urine Amount (Catheter) 187 / 187 115 / 115 Indwelling Temp Sensing 187 / 187 115 / 115 Catheter Gastric Drainage 200 / 200 Right Nare Nasogastric Tube 200 / 200 Chest Tube Drainage 100 / 100 60 / 60 #1 Right Pleural 100 / 100 60 / 60 Other: Date of Last Bowel Movement 08/18/18 # Bowel Movements 0 0 Narrative: Physical examination GENERAL: Patient is a well-nourished, well-developed female, sedated on the vent, not in respiratory distress. SKIN: Cool and dry, edematous. No generalized rash. HEAD: Atraumatic. Normocephalic. No temporal wasting, or tenderness. EYES: [place] conjunctiva. No petechia or hemorrhage. Pupils equal, round and reactive to light. Extraocular movements full and intact. No scleral icterus. No injection or drainage. EARS, NOSE AND THROAT: Nose without bleeding or purulent nasal discharge. No sinus tenderness. She is orally intubated. NECK: Trachea midline. Supple and not tender, no meningeal signs CARDIOVASCULAR: Regular rate and rhythm. No murmurs, rubs or gallops heard RESPIRATORY: She has scattered rhonchi bilaterally. Chest tube on the right side. ABDOMEN: Has midline incision and in lower portion there is some opening in her incision, draining serosanguineous fluid, with very minimal erythema noted. EXTREMITIES: No clubbing, cyanosis. Has edema of both hands and R foot. NEUROLOGICAL: Sedated. PSYCHIATRIC: Unable to assess LINE: No evidence of infection - Urinary Catheter Management Indwelling Temp Sensing Catheter Cath placed during this visit: yes Reason for continuing: Hourly intake/output Insertion date: 08/13/18 Insertion time: 08:08 Assessment and Plan - Assessment (1) Acute kidney injury Code(s): N17.9 - Acute kidney failure, unspecified Status: Acute (2) Mesenteric ischemia Code(s): K55.9 - Vascular disorder of intestine, unspecified Status: Acute (3) Hemothorax Code(s): J94.2 - Hemothorax Status: Acute - Plan Patient has Acute kidney injury with increase in the creatinine. HÉCTOR possible prerenal with FeNa less than 1 vs ATN from sepsis or hypotension. Patient CPK is also elevated with casts in urine. So possibly ATN from rhabdomyolysis. No previous history of chronic kidney disease baseline creatinine is less than 1. Renal US with no hydronephrosis. Left kidney is smaller than the right and demonstrates increased echogenicity suggesting medical renal disease. Patient urinary output has been decreasing with 385 ml/24 hours. Patient has decrease urine out put. Given one dose of Lasix with Transfusion. Creatinine continue to increase. Started on Bumex infusion, urine out put remain low, BUN and Creatinine continue to increasing, Started on HD, has slightly low BP. removed 2.5 liters. D/W the patients sister.
[2018-08-29 15:58] VITALS: BP 128/50
[2018-08-29] MEDS: Levofloxacin 250 mg Premix Inj 250 MG/50 ML PIGGYBACK IV.SIG SCH (18:17)
[2018-08-29] MEDS: Magnesium Oxide 400 MG Tablet PO SCH (21:06)
[2018-08-30] MEDS: Metoprolol Inj 5 MG/5 ML Vial IV.PUSH SCH ×3 (00:57→14:28)
[2018-08-30] MEDS: Oral Hygiene Kit OROPHARYNG SCH ×3 (01:00→14:29)
[2018-08-30] MEDS: Insulin NovoLIN Regular Correctional Sugar Inj SQ SCH ×3 (01:00→14:30)
[2018-08-30] MEDS: Heparin - SQ 10,000 UNITS/ML Vial SQ SCH ×2 (02:00→14:28)
[2018-08-30] MEDS: Albumin Human 5% Inj 500 ML IV.SIG SCH ×2 (03:00→14:30)
--- NOTE | 2018-08-30 05:05 | XR ---
EXAM DATE: 08/30/2018 4:44 AM EST AGE/SEX: 78 years / Female INDICATIONS: Shortness of breath, possible pulmonary disease. CLINICAL DATA: This is the patient's subsequent encounter. Patient reports that signs and symptoms h ave been present for 2 weeks and indicates a pain score of Nonresponsive. MEDICAL/SURGICAL HISTORY: Gastroesophageal reflux disease. Coronary artery stent. Cholecystect evita. Appendectomy. Xpoeq-kvlli-whtwewu bypass. Laminectomy. COMPARISON: [facility] [place], CHEST 1V SINGLE AP, 08/29/2018. . FINDINGS: Single AP view the chest. Endotracheal tube, nasogastric tube, feeding tube, right IJ central venous catheter, and right-sided chest tube remain in place. Persistent bilateral pulmonary opacity left gre ater than right with no significant interval change. No evidence of pneumothorax. Cardiomediastinal s ilhouette unchanged. CONCLUSION: No significant interval change with lines and tubes remaining in place and persistent left greater th an right pulmonary opacity. Electronically signed by: Rey Jauregui MD 08/30/2018 5:03 AM EST
[2018-08-30 05:08] LABS: Baso # (Auto) 0.1 th/mm3 (0.0-0.2); Baso % (Auto) 0.2 % (0.0-2.0); Eos # (Auto) 0.4 th/mm3 (0.0-0.4); Eos % (Auto) 1.9 % (0.0-4.0); Hematocrit 28.2 % (35.0-46.0); Hemoglobin 9.6 gm/dL (11.6-15.3); Lymph # (Auto) 0.9 th/mm3 (1.0-4.8); Lymph % (Auto) 4.1 % (9.0-44.0); Mean Corpuscular Volume 88.3 fL (80.0-100.0); Mean Platelet Volume 10.7 fL (7.0-11.0); Mono # (Auto) 0.6 th/mm3 (0.0-0.9); Mono % (Auto) 2.6 % (0.0-8.0); Neut # (Auto) 20.6 th/mm3 (1.8-7.7); Neut % (Auto) 91.2 % (16.0-70.0); Platelet Count 106 th/mm3 (150-450); Red Blood Count 3.19 mil/mm3 (4.00-5.30); Red Cell Distribution Width 17.5 % (11.6-17.2); White Blood Count 22.6 th/mm3 (4.0-11.0)
[2018-08-30 05:30] LABS: Albumin 2.3 g/dL (3.4-5.0); Calcium 7.1 mg/dL (8.5-10.1); Carbon Dioxide 17.8 meq/L (21.0-32.0); Magnesium 1.7 mg/dL (1.5-2.5); Potassium 3.2 meq/L (3.5-5.1); Total Protein 5.1 g/dL (6.4-8.2)
[2018-08-30] MEDS: Artificial Tears Opth Drops 15 ML Bottle EACH EYE SCH (06:52)
[2018-08-30 07:17] LABS: Eosinophils 5 % (0-4); Lymphocytes 4 % (9-44); Monocytes 3 % (0-8); Myelocytes 1 % (0-0); Platelet Morphology Normal (Normal); Tallied Nucleated RBC 1 (0-0); Toxic Vacuolation Present
--- NOTE | 2018-08-30 08:26 | P.PNVS ---
Subjective Post Op Day #: 17 Procedure: aorto-hepatic, aorto-SMA bypass Subjective/Hospital Course: POD#17 mesenteric bypass POD#10 graft thrombectomy/revision POD#4 L CHALO continues to have MSOF, worsening renal failure and no improvement on ventilator wean. HD last night -2 L off no pressors Objective Neuro: sedated, intubated Pulmonary: vent, rest failure Cardiac: reg rate, no pressors FEN/GI: TF K 3.2 after HD : oliguric cr down artificially with HD Heme: Hct stable plt dropping Laboratory Results - last 24 hr 08/29/18 18 18 11:56 13:41 17:42 WBC RBC Hgb Hct MCV MCH MCHC RDW Plt Count MPV Prelim Diff (Auto) Neut % (Auto) Lymph % (Auto) [place] % (Auto) Eos % (Auto) Baso % (Auto) Neut # (Auto) Lymph # (Auto) [place] # (Auto) Eos # (Auto) Baso # (Auto) WBC Differential Seg Neuts % (Manual) Band Neuts % (Manual) Lymphocytes % (Manual) Monocytes % (Manual) Eosinophils % (Manual) Myelocytes % (Man) Abs Neuts (Manual) Nucleated RBCs/100 WBC Differential Comment Toxic Vacuolation Platelet Estimate Platelet Morphology Sodium Potassium Chloride Carbon Dioxide Anion Gap BUN Creatinine Estimated GFR POC Glucose 90 74 Random Glucose Calcium Calcium Adj for Albumin Phosphorus Magnesium Total Bilirubin AST ALT Alkaline Phosphatase Total Protein Albumin Prealbumin Hepatitis A IgM Ab Nonreactive Hep Bs Antigen Nonreactive Hep B Core IgM Ab Nonreactive Hep C IgG Ab Nonreactive 18 18 08/30/18 01:36 04:30 04:30 WBC 22.6 H RBC 3.19 L Hgb 9.6 L Hct 28.2 L MCV 88.3 MCH 30.0 MCHC 34.0 RDW 17.5 H Plt Count 106 L MPV 10.7 Prelim Diff (Auto) Slide review pending Neut % (Auto) 91.2 H Lymph % (Auto) 4.1 L [place] % (Auto) 2.6 Eos % (Auto) 1.9 Baso % (Auto) 0.2 Neut # (Auto) 20.6 H Lymph # (Auto) 0.9 L [place] # (Auto) 0.6 Eos # (Auto) 0.4 Baso # (Auto) 0.1 WBC Differential Manual diff final Seg Neuts % (Manual) 67 Band Neuts % (Manual) 20 H Lymphocytes % (Manual) 4 L Monocytes % (Manual) 3 Eosinophils % (Manual) 5 H Myelocytes % (Man) 1 H Abs Neuts (Manual) 19.9 H Nucleated RBCs/100 WBC 1 H Differential Comment . Toxic Vacuolation Present H Platelet Estimate Low L Platelet Morphology Normal Sodium 145 Potassium 3.2 L Chloride 112 H Carbon Dioxide 17.8 L Anion Gap 15 BUN 47 H Creatinine 3.16 H Estimated GFR 14 L POC Glucose 86 Random Glucose 102 Calcium 7.1 L* Calcium Adj for Albumin 8.5 Phosphorus 3.0 D Magnesium 1.7 Total Bilirubin 1.0 AST 34 ALT 17 Alkaline Phosphatase 55 Total Protein 5.1 L Albumin 2.3 L Prealbumin 8 L Hepatitis A IgM Ab Hep Bs Antigen Hep B Core IgM Ab Hep C IgG Ab Microbiology 08/28/18 10:58 Aerobic Blood Culture - Preliminary Blood - Peripheral No growth in 1 day Anaerobic Blood Culture - Preliminary No growth in 1 day 08/28/18 11:11 Aerobic Blood Culture - Preliminary Blood - Peripheral No growth in 1 day Anaerobic Blood Culture - Preliminary No growth in 1 day Impressions Abdomen X-Ray 08/28/18 00:00 CONCLUSION: Feeding tube tip in duodenum. NG tube tip in distal stomach. Chest X-Ray 08/28/18 00:00 CONCLUSION: 1. Interval placement of right internal jugular central venous line with no pneumothorax. 2. The patient remains intubated and the right-sided chest tube remains in place. 3. Hazy perihilar and bibasilar opacities remain. Chest X-Ray 08/29/18 00:00 CONCLUSION: Increased bilateral pulmonary parenchymal opacity left greater than right. Chest X-Ray 08/30/18 06:00 CONCLUSION: No significant interval change with lines and tubes remaining in place and persistent left greater than right pulmonary opacity. Assessment and Plan - Assessment (1) PAD (peripheral artery disease) Code(s): I73.9 - Peripheral vascular disease, unspecified Status: Acute - Plan POD#17 mesenteric bypass post-operative course complicated by renal failure and respiratory failure, cardiac arrest and acute LEFT limb ischemia 1. continue vent wean, daily HD 2. Family mtg today to discuss plan of care Discharge Planning: CVICU candid discussions with family daily about overall prognosis. Main obstacles: nutrition, vent, renal function.
[2018-08-30 08:30] VITALS: O2SAT 98
--- NOTE | 2018-08-30 11:53 | P.PNCC ---
Subjective Subjective Remarks/Hospital Course: Hospital Course: Patient is a 77-year-old female who was admitted to Dr. Ryan's service for mesenteric ischemia today. Her past medical history significant for coronary artery disease status post PCI/stent, history of renal artery stenosis, GERD, PAD, history of multiple vascular surgeries, history of small bowel obstruction, restless leg syndrome. Patient underwent aorto-hepatic and aorto-SMA bypass in OR. EBL was 400 ml, received 3.6 L of crystalloids in the OR , urine output was adequate. Postop patient was moved to the CVICU critical care medicine was consulted for postop management. Patient is hypotensive at the time of my evaluation and had been started on Diego-Synephrine by Dr. Ryan. I haave ordered further fluid resuscitation with additional 2 L of crystalloids. A stat ABG was done at the bedside which showed hemoglobin 6.6. A CBC was sent and I ordered 2 units of PRBC stat. CBC came back with hemoglobin of 6.4 platelet count 139. Chemistry showed potassium of 3.4 calcium uncorrected 6.4. Electrolyte replacement protocol and calcium replacement have been ordered. Lactic acid also mildly elevated at 2.2. Will follow serial lactic acid and follow urine output closely. If patient becomes hemodynamically more stable will proceed with weaning trial for extubation. Urine output had been adequate postop approximately 40 mL/h. Bilateral DP pulses are Dopplerable Subjective: 08/14: significant fluid requirement. trop slightly elevated at 0.06. initial scvo2 43% but improved after fluid to 68%. pain adequately controlled. uop marginal at 20cc/hr. 08/15: trop slightly uptrended. now appears volume overloaded with new and worsening oxygen requirement. ABG with mixed acidosis. responded well to lasix with adequate diuresis. placed on BiPAP. somewhat agitated requiring low-dose Precedex. lactate 0.8, scvo2 71%. 08/16: slightly tachycardic this morning. some diuresis yesterday and back to nc o2, but remains volume overloaded. denies pain. somewhat intermittently confused, but oriented on my evaluation. trop still uptrending, but plateauing. uop adequate. 08/17: went into afib RVR overnight. placed on diltiazem drip. this morning, more rate controlled. trop downtrending. adequate diuresis, but remains volume overloaded. aggressively replaced electrolytes this morning. 08/18: overnight events reviewed and discussed with Dr. Ryan and Dr. Sabillon. intubated after respiratory arrest. bronch with mucous plugging. new right pleural effusion on chest CT (multiple rib fractures after CPR). placed 28 Fr chest tube (see separate procedure note for details) with ~1600cc blood (no active bleeding). placed arterial line. transfused 3 units prbc. trending H&H. critically ill this morning. oliguric. 08/19: agitation persists. started scheduled valium as well as fentanyl drip for pain control. still with significant thick tenacious secretions: too many secretions for safe weaning of mechanical ventilation. also spiked fevers overnight, ennis cultured and zosyn started. chest tube with significantly less output, and more serosanguinous. 08/20: cold leg this AM with decreased motor function. taken back to OR today for re-vascularization. 08/21: perfusion to the LE still questionable. decreasing NGT output, but still 100cc/12h. will place post-pyloric feeding tube and start trickle feeds. likely needs another 24h before we are ready for SBTs. sputum growing serratia and pseudomonas: zosyn not adequate given MICs, will need to switch to Levaquin. would plan on 7 day course. 08/22: Cr increased significantly overnight, but adequate uop. may be delayed ATN from recent worsening hemodynamics. agree with starting gentle ivf. poor perfusion to the LE persists, but we have optimized everything we can for now. no reflux of tube feeds in OG tube. agree with increasing to 20cc/hr. also very tachycardic this morning- will restart very low-dose beta blockade. trial of SBT today with early failure: very tachypneic in distress. Also spiking fevers and wbc elevated. oliguric. 08/23: Cr continues to rise. hgb dropped to 6.8 today- receiving 2 units prbc. remains oliguric. urine electrolytes consistent with severe pre-renal azotemia, urine sodium < 20. 08/24 Patient remains sedated with Diprivan, Fentanyl and intubated. On Heparin drip, failed CPAP trials yesterday. s/p transfusion 2u PRBC. Hgb 9.9 from 6.8 08/25 Patient is sedated with Diprivan and Fentanyl infusion. Afebrile, renal function worse with Cr: 2.54 fro 1.8. On Heparin drip. Tolerated CPAP trials x 4hrs. 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 On Diprivan and Fentanyl infusion for sedation. Off Heparin drip. Afebrile. 08/27 Patient remains intubated and sedated with Diprivan and Fentanyl infusion. Receiving 2u PRBC this morning. Renal function worse today with Cr: 3.06 from 2.78, afebrile. 08/28 Patient remains intubated and sedated. s/p transfusion 2u PRBC yesterday on Bumex drip 0.5mg/hr. Renal function worse with Cr: 3.26 and UOP 300ml overnight. WBC increased 23.4 from 17. Afebrile. 08/29: Patient remains very critical. On Bumex drip remains oliguric Jarret 300 mL urine output in 24 hours, BUN/creatinine increasing 56/3.6. Vas-Cath placed yesterday we will start hemodialysis today. Chest x-ray shows increasing pulmonary edema left greater than right. 08/30: Remains intubated on the ventilator. Hemodialysis started yesterday. No improvement in urine output. Continues to be grossly fluid overloaded with severe anasarca. Multiorgan failure persist. Dr. Ryan meeting with family today to address goals of care Objective Vital Signs / I&O: Vital Signs 08/29/18 13:40 08/29/18 13:43 08/29/18 15:00 Temperature 97.3 F L Pulse Rate 90 Respiratory Rate 15 17 21 Blood Pressure 128/50 L Pulse Oximetry 99 96 08/29/18 16:46 08/29/18 19:00 08/29/18 20:00 Temperature 98.1 F Pulse Rate 77 79 Respiratory Rate 22 24 22 Blood Pressure Pulse Oximetry 98 94 L 95 08/29/18 23:00 08/30/18 00:51 08/30/18 03:00 Temperature 98.2 F 98.3 F Pulse Rate 85 83 86 Respiratory Rate 17 18 20 Blood Pressure Pulse Oximetry 94 L 96 95 08/30/18 04:55 08/30/18 07:00 08/30/18 10:10 Temperature 98.8 F Pulse Rate 86 Respiratory Rate 26 H 27 H 27 H Blood Pressure Pulse Oximetry 93 L 98 98 Intake & Output 08/29/18 08/30/18 08/30/18 18:59 06:59 18:59 Intake Total 1568 / 1568 830 / 830 Output Total 470 / 470 280 / 280 Balance 1098 / 1098 550 / 550 Weight 78 kg Intake: IV 1248 / 1248 650 / 650 Diprivan 1000 mg/100 ml Inj 1, 30 / 30 100 / 100 000 mg In 100 ml @ 5 MCG/KG/MIN 1.845 mls/hr IV.CONT TITRATE PRN Rx#:[id number] Flexbumin 25% Inj 100 ML @ 60 200 / 200 mls/hr IV.SIG WITH DIALYSIS PRN Rx#:[id number] Alburx 5% Inj 500 ML @ 250 mls/ 500 / 500 500 / 500 hr IV.SIG Q12H [facility] Rx#:[id number] Maxipime Inj 2,000 MG In NS Inj 100 / 100 100 ML @ 200 mls/hr IV.SIG Q24H [facility] Rx#:[id number] Levaquin 250 mg Premix Inj 250 50 / 50 50 / 50 mg In 50 ml @ 50 mls/hr IV.SIG Q24H [facility] Rx#:[id number] fentaNYL 10 mcg/mL Premix Drip 168 / 168 2,500 mcg In 250 ml @ 50 MCG/HR 5 mls/hr IV.SIG TITRATE PRN Rx #:[id number] Oral 0 / 0 Tube Feeding 270 / 270 180 / 180 Tube Irrigant 50 / 50 Output: Urine Amount (Catheter) 50 / 50 15 / 15 Indwelling Temp Sensing 50 / 50 15 / 15 Catheter Gastric Drainage 400 / 400 200 / 200 Right Nare Nasogastric Tube 400 / 400 200 / 200 Chest Tube Drainage 20 / 20 65 / 65 #1 Right Pleural 20 / 20 65 / 65 Other: Date of Last Bowel Movement 08/30/18 08/30/18 Result Diagrams: 08/30/18 04:30 08/30/18 04:30 Objective Remarks: GENERAL: Elderly female, lying in bed, intubated, sedated, critically ill. Sedated with propofol and fentanyl HEENT: Normocephalic. Atraumatic. Pupils equal, round, reactive, conjugate. Orotracheally intubated NECK: Trachea is midline. There is no JVD. CHEST: B/l equal air entry, CT in place. Coarse rhonchi and crackles bilaterally CARDIOVASCULAR: normal rate, regular rhythm. sinus. ABDOMEN: Soft, non tender, +BS MUSCULOSKELETAL: Left BKA NEUROLOGICAL: Intubated and sedated. Opens eyes to painful stimuli. No withdrawal to painful stimuli noted Assessment and Plan - Assessment and Plan Plan: PLAN: NEURO: Acute alcohol withdraw syndrome Acute agitated delirium Restless leg syndrome -On propofol, fentanyl for sedation. Daily sedation vacation -frequent neuro checks RESP: Aspiration pneumonia Acute hypoxic and hypercarbic respiratory failure Acute right hemothorax post CPR Rib fractures secondary to CPR -Continue with vent support keep sats >92% -Bronchodilators, ICU vent bundle. -Right 28 Fr chest tube placed 08/18. keep to suction. Monitor CT drainage. -CT chest 08/24: Persistent air bronchograms remaining in the right base. compressive atelectasis in the left base. -CXR 08/26: Slight improvement in upper lobe aeration, bibasilar airspace disease -CXR 08/28: No significant interval change with persistent bilateral pulmonary opacity and elevation of right hemidiaphragm. -CXR 08/29: Worsening bilateral interstitial infiltrates/pulmonary edema -chest x-ray today shows persistent pulmonary edema CV: Type II NSTEMI secondary to demand ischemia- resolved Hypovolemia secondary to hemothorax Currently severely fluid overloaded CAD History of peripheral arterial disease, status post multiple vascular surgery Perioperative atrial fibrillation with rapid ventricular response- back in NSR Lactic acidosis- resolved -Monitor HR and BP keep MAP>65mmHg -On ASA, Plavix, Lipitor, Lopressor 2.5mg IV Q6 -Cards is following -s/p Left BKA 08/[address] ryan. -Bumex infusion at 0.5 mg/h. Hemodialysis started 08/29/2018 GI: Mesenteric ischemia status post open antegrade mesenteric bypass GERD History of small bowel obstruction acute protein calorie malnutrition- severe Postoperative ileus -Status post open antegrade mesenteric bypass, postop management per Dr. Ryan -tube feeds (Nepro currently @20ml/hr) : History of renal artery stenosis Acute kidney failure Oliguria and fluid overload -Monitor renal function closely, I/O's, avoid nephrotoxins. Boateng catheter. -renal ultrasound without hydronephrosis -Renal function worsening -Renal is following. d/c IVF, on Bumex 0.5mg/hr, oliguric -Discussed with Dr. Shaikh. Will start hemodialysis today ID: Aspiration pneumonia- pseudomonas and serratia Continue abx per ID 08/24 sputum and urine cx: No growth. 08/24 wound cx form abdomen no growth 08/19 Sputum: Pseudomonas and Serratia HEME: Anemia -Monitor CBC, coags -2 units prbc 08/23 -s/p transfusion 2u PRBC 08/27 Endo On SSI with accuchecks for glycemic control PROPH: -SCD -Pepcid Lines: Right IJ vascath placed 08/29/18. CCt 35 mins ALT CODE Prognosis appears poor at this time due to multiorgan failure including respiratory failure, encephalopathy, worsening renal failure and sepsis. Dr. Ryan meeting with family today to address goals of care
[2018-08-30 12:45] VITALS: PULSE 87; RESP 23; TEMP 99.5
--- NOTE | 2018-08-30 13:02 | P.PNVS ---
Subjective Subjective/Hospital Course: Ms. Saunders is not recovering from her MSOF after mesenteric bypass. I have had extensive discussions with the family and they are all in agreement that she would not have wanted this level of care for this long, with the expectation of little chance of meaningful recovery. I agree that at this point her ongoing medical problems are so extensive that she is unlikely to survive. Discussed with Dr. Larsen. Will initiate withdrawal of care. Objective Vital Signs / I&O: Vital Signs 08/29/18 13:40 08/29/18 13:43 08/29/18 15:00 Temperature 97.3 F L Pulse Rate 90 Respiratory Rate 15 17 21 Blood Pressure 128/50 L Pulse Oximetry 99 96 08/29/18 16:46 08/29/18 19:00 08/29/18 20:00 Temperature 98.1 F Pulse Rate 77 79 Respiratory Rate 22 24 22 Blood Pressure Pulse Oximetry 98 94 L 95 08/29/18 23:00 08/30/18 00:51 08/30/18 03:00 Temperature 98.2 F 98.3 F Pulse Rate 85 83 86 Respiratory Rate 17 18 20 Blood Pressure Pulse Oximetry 94 L 96 95 08/30/18 04:55 08/30/18 07:00 08/30/18 10:10 Temperature 98.8 F Pulse Rate 86 Respiratory Rate 26 H 27 H 27 H Blood Pressure Pulse Oximetry 93 L 98 98 08/30/18 11:00 Temperature 99.5 F Pulse Rate 87 Respiratory Rate 23 Blood Pressure Pulse Oximetry 98 Intake & Output 08/29/18 08/30/18 08/30/18 18:59 06:59 18:59 Intake Total 1568 / 1568 830 / 830 Output Total 470 / 470 280 / 280 Balance 1098 / 1098 550 / 550 Weight 78 kg Intake: IV 1248 / 1248 650 / 650 Diprivan 1000 mg/100 ml Inj 1, 30 / 30 100 / 100 000 mg In 100 ml @ 5 MCG/KG/MIN 1.845 mls/hr IV.CONT TITRATE PRN Rx#:[id number] Flexbumin 25% Inj 100 ML @ 60 200 / 200 mls/hr IV.SIG WITH DIALYSIS PRN Rx#:[id number] Alburx 5% Inj 500 ML @ 250 mls/ 500 / 500 500 / 500 hr IV.SIG Q12H [facility] Rx#:[id number] Maxipime Inj 2,000 MG In NS Inj 100 / 100 100 ML @ 200 mls/hr IV.SIG Q24H [facility] Rx#:[id number] Levaquin 250 mg Premix Inj 250 50 / 50 50 / 50 mg In 50 ml @ 50 mls/hr IV.SIG Q24H [facility] Rx#:[id number] fentaNYL 10 mcg/mL Premix Drip 168 / 168 2,500 mcg In 250 ml @ 50 MCG/HR 5 mls/hr IV.SIG TITRATE PRN Rx #:[id number] Oral 0 / 0 Tube Feeding 270 / 270 180 / 180 Tube Irrigant 50 / 50 Output: Urine Amount (Catheter) 50 / 50 15 / 15 Indwelling Temp Sensing 50 / 50 15 / 15 Catheter Gastric Drainage 400 / 400 200 / 200 Right Nare Nasogastric Tube 400 / 400 200 / 200 Chest Tube Drainage 65 / 65 #1 Right Pleural 65 / 65 Other: Date of Last Bowel Movement 08/30/18 08/30/18 Laboratory Results - last 24 hr 08/29/18 08/29/18 08/29/18 11:56 13:41 17:42 WBC RBC Hgb Hct MCV MCH MCHC RDW Plt Count MPV Prelim Diff (Auto) Neut % (Auto) Lymph % (Auto) [place] % (Auto) Eos % (Auto) Baso % (Auto) Neut # (Auto) Lymph # (Auto) [place] # (Auto) Eos # (Auto) Baso # (Auto) WBC Differential Seg Neuts % (Manual) Band Neuts % (Manual) Lymphocytes % (Manual) Monocytes % (Manual) Eosinophils % (Manual) Myelocytes % (Man) Abs Neuts (Manual) Nucleated RBCs/100 WBC Differential Comment Toxic Vacuolation Platelet Estimate Platelet Morphology Sodium Potassium Chloride Carbon Dioxide Anion Gap BUN Creatinine Estimated GFR POC Glucose 90 74 Random Glucose Calcium Calcium Adj for Albumin Phosphorus Magnesium Total Bilirubin AST ALT Alkaline Phosphatase Total Protein Albumin Prealbumin Hepatitis A IgM Ab Nonreactive Hep Bs Antigen Nonreactive Hep B Core IgM Ab Nonreactive Hep C IgG Ab Nonreactive 08/30/18 08/30/18 08/30/18 01:36 04:30 04:30 WBC 22.6 H RBC 3.19 L Hgb 9.6 L Hct 28.2 L MCV 88.3 MCH 30.0 MCHC 34.0 RDW 17.5 H Plt Count 106 L MPV 10.7 Prelim Diff (Auto) Slide review pending Neut % (Auto) 91.2 H Lymph % (Auto) 4.1 L [place] % (Auto) 2.6 Eos % (Auto) 1.9 Baso % (Auto) 0.2 Neut # (Auto) 20.6 H Lymph # (Auto) 0.9 L [place] # (Auto) 0.6 Eos # (Auto) 0.4 Baso # (Auto) 0.1 WBC Differential Manual diff final Seg Neuts % (Manual) 67 Band Neuts % (Manual) 20 H Lymphocytes % (Manual) 4 L Monocytes % (Manual) 3 Eosinophils % (Manual) 5 H Myelocytes % (Man) 1 H Abs Neuts (Manual) 19.9 H Nucleated RBCs/100 WBC 1 H Differential Comment . Toxic Vacuolation Present H Platelet Estimate Low L Platelet Morphology Normal Sodium 145 Potassium 3.2 L Chloride 112 H Carbon Dioxide 17.8 L Anion Gap 15 BUN 47 H Creatinine 3.16 H Estimated GFR 14 L POC Glucose 86 Random Glucose 102 Calcium 7.1 L* Calcium Adj for Albumin 8.5 Phosphorus 3.0 D Magnesium 1.7 Total Bilirubin 1.0 AST 34 ALT 17 Alkaline Phosphatase 55 Total Protein 5.1 L Albumin 2.3 L Prealbumin 8 L Hepatitis A IgM Ab Hep Bs Antigen Hep B Core IgM Ab Hep C IgG Ab Microbiology 08/28/18 10:58 Aerobic Blood Culture - Preliminary Blood - Peripheral gram positive cocci Anaerobic Blood Culture - Preliminary No growth in 2 days 08/28/18 11:11 Aerobic Blood Culture - Preliminary Blood - Peripheral No growth in 2 days Anaerobic Blood Culture - Preliminary No growth in 2 days Impressions Abdomen X-Ray 08/28/18 00:00 CONCLUSION: Feeding tube tip in duodenum. NG tube tip in distal stomach. Chest X-Ray 08/28/18 00:00 CONCLUSION: 1. Interval placement of right internal jugular central venous line with no pneumothorax. 2. The patient remains intubated and the right-sided chest tube remains in place. 3. Hazy perihilar and bibasilar opacities remain. Chest X-Ray 08/29/18 00:00 CONCLUSION: Increased bilateral pulmonary parenchymal opacity left greater than right. Chest X-Ray 08/30/18 06:00 CONCLUSION: No significant interval change with lines and tubes remaining in place and persistent left greater than right pulmonary opacity. Assessment and Plan - Assessment (1) PAD (peripheral artery disease) Code(s): I73.9 - Peripheral vascular disease, unspecified Status: Acute - Plan POD#17 mesenteric bypass MSOF. Withdrawal of care today Discharge Planning: withdrawal today.
[2018-08-30] MEDS ORDERED: HYDROmorphone PF Inj 1 MG/ML Ampul IV.PUSH ONE ×2 (13:22)
[2018-08-30] MEDS ORDERED: HYDROmorphone PF Inj 1 MG/ML Ampul IV.PUSH PRN (13:22)
[2018-08-30] MEDS ORDERED: Hyoscyamine Liq Drops 0.125 MG/ML 15 ML Bottle SL ONE (13:22)
[2018-08-30] MEDS ORDERED: Acetaminophen 650 MG Supp RECTAL PRN (13:22)
[2018-08-30] MEDS: Chlorhexidine 0.12% Oral Kit 15 ML UDC OROPHARYNG SCH (14:27)
[2018-08-30] MEDS: Famotidine PF Inj 20 MG/2 ML Vial IV.PUSH SCH (14:28)
[2018-08-30] MEDS: Sodium Chloride 0.9% 2 ML Flush BID IV.FLUSH SCH (14:28)
== END 2018-08-30 17:00 | disposition expired ==
LOC: HSDI 06:05 → HCVI 12:33
PROVIDERS: ADMIT Surgery; ATTEND Surgery